=== PATIENT | male | born 1935 | race American Indian/Alaskan Native ===

== ENCOUNTER 2019-03-10 11:48 | Inpatient (IN) | payer MEDICARE, OTHER ==
--- NOTE | 2019-03-10 12:16 | Emergency Department Report ---
HPI - General Chief Complaint: Altered Mental Status Time Seen by Provider: 03/10/19 11:56 - HPI HPI: Room 1 The patient is an 84-year-old male presenting with chief complaint of altered mental status. Family states the patient was last observed behaving like his normal self 3 days ago (Saturday morning). Since that time the patient has been observed and progressively disoriented during things such as reading a book upside down and reaching for things that are not there. Patient does not verbalizes answer when asked if anything is bothering him he shakes his head no. Location: [See above] Duration: [See above] Quality: [See above] Severity: [See above] Timing: [See above] Context: [See above] Modifying factors: [See above] Associated signs and symptoms: [see above] ED Past Medical Hx - Past Medical History Hx Hypertension: Yes Hx Diabetes: Yes - Surgical History Past Surgical History?: No - Family History Family history: no significant - Social History Smoking Status: Unknown if ever smoked Substance Use Type: None ED Review of Systems ROS: Stated complaint: POSS STROKE Other details as noted in HPI Comment: Unobtainable due to pts medical conditions Physical Exam - Physical Exam Physical Exam: GENERAL: The patient is well-developed well-nourished male lying on stretcher nonverbal and not appearing to be in acute distress. [] HEENT: Normocephalic. Atraumatic. Extraocular motions are intact. Patient has moist mucous membranes. NECK: Supple. Trachea midline CHEST/LUNGS: Clear to auscultation. There is no respiratory distress noted. HEART/CARDIOVASCULAR: Regular. There is no tachycardia. There is no gallop rub or murmur. ABDOMEN: Abdomen is soft, nontender. Patient has normal bowel sounds. There is no abdominal distention. SKIN: There is no rash. There is no edema. There is no diaphoresis. NEURO: The patient is awake and alert but does not speak. Patient makes eye contact but does not answer questions verbally.. The patient is not cooperative with neurologic exam. The patient has no focal neurologic deficits. MUSCULOSKELETAL: There is no evidence of acute injury. ED Medical Decision Making - Lab Data Result diagrams: 03/10/19 12:17 Laboratory Tests 03/10/19 03/10/19 03/10/19 12:17 12:17 12:17 WBC RBC Hgb Hct MCV MCH MCHC RDW Plt Count Lymph % (Auto) Duval % (Auto) Eos % (Auto) Baso % (Auto) Lymph # Duval # Eos # Baso # Seg Neutrophils % Seg Neutrophils # PT 21.9 H INR 1.96 H APTT 27.8 Thrombin Time 25.2 H Sodium 137 Potassium 5.5 H Chloride 103.1 Carbon Dioxide 20 L Anion Gap 19 BUN 24 H Creatinine 1.5 Estimated GFR 45 BUN/Creatinine Ratio 16 Glucose 99 Calcium 9.6 Troponin T 0.076 H Triglycerides 140 Cholesterol 143 LDL Cholesterol Direct 69 HDL Cholesterol 62 H Cholesterol/HDL Ratio 2.30 03/10/19 13:55 WBC 9.3 RBC 4.87 Hgb 13.6 Hct 41.8 MCV 86 MCH 28 MCHC 33 RDW 17.8 H Plt Count 136 L Lymph % (Auto) 19.6 Duval % (Auto) 6.6 Eos % (Auto) 0.5 Baso % (Auto) 0.9 Lymph # 1.8 Duval # 0.6 Eos # 0.1 Baso # 0.1 Seg Neutrophils % 72.4 H Seg Neutrophils # 6.8 PT INR APTT Thrombin Time Sodium Potassium Chloride Carbon Dioxide Anion Gap BUN Creatinine Estimated GFR BUN/Creatinine Ratio Glucose Calcium Troponin T Triglycerides Cholesterol LDL Cholesterol Direct HDL Cholesterol Cholesterol/HDL Ratio - EKG Data -: EKG Interpreted by Nc EKG shows normal: sinus rhythm Rate: tachycardia (103 bpm) - EKG Data When compared to previous EKG there are: previous EKG unavailable Interpretation: other (PA-C) - Radiology Data Radiology results: report reviewed (CT head), image reviewed (CT head) [facility] [address] [place] [address] Cat Scan Report Signed Patient: PARVIN FRANKLIN MR#: [id number] : 1935 Acct:[id number] Age/Sex: 84 / M ADM Date: 03/10/19 Loc: ED Attending Dr: Ordering Physician: SHANELLE MARSHALL MD Date of Service: 03/10/19 Procedure(s): CT head/brain wo con Accession Number(s): [id number] cc: SHANELLE MARSHALL MD CT HEAD WITHOUT CONTRAST INDICATION / CLINICAL INFORMATION: MAIN: neuro deficits <6hrs or sx present upon awakening CODE STROKE [phone]. TECHNIQUE: All CT scans at this location are performed using CT dose reduction for ALARA by means of automated exposure control. COMPARISON: None available. FINDINGS: HEMORRHAGE: No evidence of intracranial hemorrhage or extra-axial fluid collection. EXTRA-AXIAL SPACES: Cortical sulci and sylvian fissures are enlarged reflecting a degree of parenchymal volume loss which is within normal limits for the patient's age. Basilar cisterns have an unremarkable appearance. VENTRICULAR SYSTEM: The third and lateral ventricles are enlarged reflecting resonance of age related parenchymal volume loss. CEREBRAL PARENCHYMA: Periventricular and deep white matter lucency is observed. This is probably secondary to microvascular ischemic change. There is no indication of recent infarction. No areas of encephalomalacia are identified. MIDLINE SHIFT OR HERNIATION: There is no mass effect. CEREBELLUM / BRAINSTEM: Brainstem and cerebellum have an unremarkable appearance. INTRACRANIAL VESSELS:Calcified atherosclerotic plaque is present along the course of the cavernous segments of both internal carotid arteries. Similar findings are seen at the distal vertebral arteries. ORBITS: visualized portions of the orbits have an unremarkable appearance. SOFT TISSUES of HEAD: No significant abnormality. CALVARIUM: Evaluation of bone windows reveals no abnormalities. PARANASAL SINUSES / MASTOID AIR CELLS: Paranasal sinuses are free from inflammatory mucosal disease. Mastoid air cells are normally pneumatized. IMPRESSION: 1. No acute intracranial abnormality. Code stroke patient: I discussed the findings of this study with Dr. Maher of the emergency department at about 1203 Central standard time. This study was available on the neuroradiology work list for less than 5 minutes prior to the called report. Signer Name: Zaheer Knott MD Signed: 03/10/2019 1:06 PM Workstation Name: [id number] Transcribed By: Dictated By: Zaheer Knott MD Electronically Authenticated By: Zaheer Knott MD Signed Date/Time: 03/10/19 1306 DD/ 1301 TD/TT: - Differential Diagnosis CVA, hypertensive emergency, intracranial hemorrhage Critical care attestation.: If time is entered above; I have spent that time in minutes in the direct care of this critically ill patient, excluding procedure time. ED Disposition Clinical Impression: Hypertensive emergency Altered mental status, unspecified Qualifiers: Altered mental status type: somnolence Qualified Code(s): R40.0 - Somnolence Disposition: DC-09 OP ADMIT IP TO THIS HOSP Is pt being admited?: Yes Condition: Serious Instructions: Hypertension (ED) Time of Disposition: 15:04 (hospitalist paged (Dr Alonzo))
--- NOTE | 2019-03-10 12:22 | Emergency Department Report ---
ED Neuro Deficit HPI - General Chief Complaint: Altered Mental Status Stated Complaint: POSS STROKE Time Seen by Provider: 03/10/19 11:56 Source: EMS Mode of arrival: Stretcher Limitations: Altered Mental Status - History of Present Illness Initial Comments: [facility] TeleNeurology Consult Services The patient was informed the neurology consult would happen via TeleHealth by way of interactive audio and visual telecommunications and consented to receiving care in this manner for acute stroke protocol. DATE: Mar 10 2019 Impression: AMS-pt with AMS for over 24 hours -certainly difficult to completely exclude stroke given that he is not back cooperative with examination, however his picture is much more of global weakness and lethargy possibly hypertensive emergency. With lower blood pressure to approximately the 190s systolic range to see if symptoms improve as right now he is in the 242-260 systolic range. Certainly needs toxic metabolic workup and consider stroke workup as well. Coags are still pending along with basic labs. Not a tpa candidate due to: Last known normal over 2 days ago Symptoms (not) consistent with LVO therefore no role for JOSH also has been symptomatic for several days Differential Diagnosis: Hypertensive emergency, toxic metabolic encephalopathy, stroke or seizure less likely but possible Comments: Last known normal Saturday door time 11:48 [facility] contacted: 11:42 [facility] at bedside: 11:45 NIHSS assessment time: 11:59 Recommendations: -coags pending on coumadin can give asa if INR less then 1.7 and no ICH on CT offical read -Gradual reduction in blood pressure to approximately 180-190 systolic range to see if this improves his marked encephalopathy given that exam is nonfocal -Toxic metabolic/stroke workup per primary neurology team Inpatient neurology consultation Inpatient stroke evaluation as per Neurology/ Internal Medicine Discussed with ED MD Please call with questions --------- CC altered mental status History of Present Illness Patient is a very pleasant 84-year-old gentleman with poorly controlled hypertension, diabetes, 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 He also has a history of dementia but is typically conversant and can ambulate with a walker or cane. Family noticed that he started behaving a little lethargic since Saturday and was clearly confused on Saturday holding a book upside down. He became nonverbal this morning for which they called 911. He has no prior history of stroke. Blood pressure 240-260 systolic. They say he can typically have very high blood pressure although this is higher than usual. The patient himself cannot provide any meaningful historical information and is significantly lethargic. Diagnostic: CT head without contrast no large scale acute changes per my review but official read is pending Exam: 1a- LOC:=2 1b- LOC questions: Answers netiehr =2 1c- LOC commands- Performs no task without repeated prompt pantomiming =2 2- Gaze: Normal; no gaze paresis or gaze deviation - 0 3- Visual Walsh: normal, no Visual field deficit - 0 4- Facial movements: no facial palsy - 0 5- Upper limb motor - =1+1=2 6- Lower limb motor - no drift - 0 =3+3=6absent ataxia - 0 8- Sensory : no sensory loss - 0 9- Language -=2 patient is still encephalopathic and possible to exclude aphasia 10- Speech =2 11- Neglect / Extinction - none found -0 NIHSS score 18 Exam is grossly nonfocal but significantly limited by altered mental status Medical Decision Making: - Extensive number of diagnosis or management options are considered above. - Extensive amount of complex data reviewed. - High risk of complication and/or morbidity or mortality are associated with differential diagnostic considerations above. - There may be Uncertain outcome and increased probability of prolonged functional impairment or high probability of severe prolonged functional impairment associated with some of these differential diagnosis. Medical Data Reviewed: 1.Data reviewed include clinical labs, radiology, Medical Tests; 2.Tests results discussed w/performing or interpreting physician; 3.Obtaining/reviewing old medical records; 4.Obtaining case history from another source; 5.Independent review of image, tracing or specimen. Patient was informed the Neurology Consult would happen via telehealth (remote video) and consented to receiving care in this manner. - Related Data Allergies/Adverse Reactions: Allergies Allergy/AdvReac Type Severity Reaction Status Date / Time No Known Allergies Allergy Unverified 03/10/19 11:50 ED Review of Systems ROS: Stated complaint: POSS STROKE Other details as noted in HPI ED Neuro Physical Exam - General Limitations: Altered Mental Status Suspected Stroke: Yes - NIHSS Assessment Interval: Baseline 1a. Level of Consciousness: resp stimuli/obtunded 1b. LOC Questions: answers no questions correctly 1c. LOC Commands: performs no tasks correctly 2. Best Gaze: normal 3. Visual: no visual loss 4. Facial Palsy: normal symmetrical movement 5b. Motor Arm Right: drift 5a. Motor Arm Left: drift 6a. Motor Leg Left: no gravity effort 6b. Motor Leg Right: no gravity effort 7. Limb Ataxia: absent 8. Sensory: normal 9. Best Language: severe aphasia 10. Dysarthria: severe dysarthria 11. Extinction/Inattention: no abnormality Total Score: 18 Stroke Severity: Moderate to Severe Stroke Critical care attestation.: If time is entered above; I have spent that time in minutes in the direct care of this critically ill patient, excluding procedure time. ED Disposition Clinical Impression: Altered mental status, unspecified Qualifiers: Altered mental status type: somnolence Qualified Code(s): R40.0 - Somnolence Disposition: DC-09 OP ADMIT IP TO THIS HOSP Is pt being admited?: Yes Condition: Stable
[2019-03-10] MEDS ORDERED: niCARdipine 50 MG in SODIUM CHLORIDE 0.9% 250ML 230 ML IV SCH (13:00)
[2019-03-10 13:03] LABS: INR 1.96 (0.87-1.13)
[2019-03-10 13:04] LABS: Partial Thromboplastin Time 27.8 Sec. (24.2-36.6)
[2019-03-10 13:05] LABS: Calcium 9.6 mg/dL (8.4-10.2)
--- NOTE | 2019-03-10 13:11 | Cat Scan Report ---
CT HEAD WITHOUT CONTRAST INDICATION / CLINICAL INFORMATION: MAIN: neuro deficits <6hrs or sx present upon awakening CODE STROKE [phone]. TECHNIQUE: All CT scans at this location are performed using CT dose reduction for ALARA by means of automated e xposure control. COMPARISON: None available. FINDINGS: HEMORRHAGE: No evidence of intracranial hemorrhage or extra-axial fluid collection. EXTRA-AXIAL SPACES: Cortical sulci and sylvian fissures are enlarged reflecting a degree of parenchym al volume loss which is within normal limits for the patient's age. Basilar cisterns have an unremark able appearance. VENTRICULAR SYSTEM: The third and lateral ventricles are enlarged reflecting resonance of age related parenchymal volume loss. CEREBRAL PARENCHYMA: Periventricular and deep white matter lucency is observed. This is probably seco ndary to microvascular ischemic change. There is no indication of recent infarction. No areas of ence phalomalacia are identified. MIDLINE SHIFT OR HERNIATION: There is no mass effect. CEREBELLUM / BRAINSTEM: Brainstem and cerebellum have an unremarkable appearance. INTRACRANIAL VESSELS:Calcified atherosclerotic plaque is present along the course of the cavernous se gments of both internal carotid arteries. Similar findings are seen at the distal vertebral arteries. ORBITS: visualized portions of the orbits have an unremarkable appearance. SOFT TISSUES of HEAD: No significant abnormality. CALVARIUM: Evaluation of bone windows reveals no abnormalities. PARANASAL SINUSES / MASTOID AIR CELLS: Paranasal sinuses are free from inflammatory mucosal disease. Mastoid air cells are normally pneumatized. IMPRESSION: 1. No acute intracranial abnormality. Code stroke patient: I discussed the findings of this study with Dr. Maher of the emergency department at about 1203 Central standard time. This study was available on the neuroradiology work list for le ss than 5 minutes prior to the called report. Signer Name: Zaheer Knott MD Signed: 03/10/2019 1:06 PM Workstation Name: [id number]
[2019-03-10 13:59] LABS: Chol/HDL Ratio 2.3 %
[2019-03-10 14:38] LABS: Basophils # (Auto) 0.1 K/mm3 (0.0-0.1); Basophils % (Auto) 0.9 % (0.0-1.8); Eosinophils # (Auto) 0.1 K/mm3 (0.0-0.4); Eosinophils % (Auto) 0.5 % (0.0-4.3); Hematocrit 41.8 % (35.5-45.6); Hemoglobin 13.6 gm/dl (11.8-15.2); Lymphocytes # (Auto) 1.8 K/mm3 (1.2-5.4); Lymphocytes % (Auto) 19.6 % (13.4-35.0); Mean Corpuscular HGB Conc 33 % (32-34); Mean Corpuscular Volume 86 fl (84-94); Monocytes # (Auto) 0.6 K/mm3 (0.0-0.8); Monocytes % (Auto) 6.6 % (0.0-7.3); Red Blood Count 4.87 M/mm3 (3.65-5.03); Red Cell Distribution Width 17.8 % (13.2-15.2)
[2019-03-10 14:47] LABS: Platelet Count 136 K/mm3 (140-440)
--- NOTE | 2019-03-10 15:45 | History and Physical Report ---
History of Present Illness Chief complaint: He is not acting right History of present illness: 84 YO Male with HTN, DM, Dementia presents to ED for evaluation. Pt is confused, and nonverbal and unable to provide history. Pt history provided by daughter who is at bedside during exam and interview. As per daughter, the patient was in his usual state of health until 3 days ago. Pt awoke from sleep on saturday morning was was noticed to be confused, reaching to objects that were not there, and unable to speak. Pt symptoms have progressed over the ensuing days, and the patient is now confused, nonambulatory, and unable to speak, and exhibits arm and leg weakness. EMS notified, and upon arrival the patient found to have neurologic deficit. A code stroke was called and the patient transported to [facility]. Pt seen and evaluated in ED and found to have symptoms consistent with CVA, as well as Encephalopathy. Teleneurology consulted. Pt deemed not to be a candidate for TPA. Pt admitted to telemetry and initiated on CVA protocol. No prior admissions for review. All listed medication reconciled at time of admission. Past History Past Medical History: diabetes, hypertension Past Surgical History: No surgical history, Other (reviewed) Social history: , lives with family. denies: smoking, alcohol abuse, prescription drug abuse Family history: diabetes, hypertension Medications and Allergies Allergies Allergy/AdvReac Type Severity Reaction Status Date / Time No Known Allergies Allergy Unverified 03/10/19 11:50 Active Meds: Active Medications Nicardipine HCl 50 mg/ Sodium (Chloride) 250 mls @ 25 mls/hr IV TITR TAMMIE; Protocol Last Titration: 03/10/19 13:46 Dose: 7.5 mg/hr, 37.5 mls/hr Documented by: Review of Systems ROS unobtainable: due to mental status Constitutional: no weight loss Exam - Constitutional Vitals: Temp Pulse Resp BP Pulse Ox 87 16 187/75 92 03/10/19 14:29 03/10/19 14:29 03/10/19 14:29 03/10/19 14:29 General appearance: Present: mild distress - EENT Eyes: Present: PERRL ENT: hearing intact, clear oral mucosa - Neck Neck: Present: supple, normal ROM - Respiratory Respiratory effort: normal Respiratory: bilateral: CTA - Cardiovascular Heart Sounds: Present: S1 & S2. Absent: rub, click - Extremities Extremities: pulses symmetrical, No edema Peripheral Pulses: within normal limits - Abdominal General gastrointestinal: Present: soft, non-tender, non-distended, normal bowel sounds Male genitourinary: Present: normal - Integumentary Integumentary: Present: clear, warm, dry - Musculoskeletal Musculoskeletal: generalized weakness - Psychiatric Psychiatric: no appropriate mood/affect, no intact judgment & insight, no memory intact - Neurologic Neurologic: moves all extremities, no gait normal Results - Labs CBC & Chem 7: 03/10/19 13:55 03/10/19 12:17 Labs: Abnormal lab results 03/10/19 03/10/19 03/10/19 Range/Units 12:17 12:17 12:17 RDW (13.2-15.2) % Plt Count (140-440) K/mm3 Seg Neutrophils % (40.0-70.0) % PT 21.9 H (12.2-14.9) Sec. INR 1.96 H (0.87-1.13) Thrombin Time 25.2 H (15.1-19.6) Sec. Potassium 5.5 H (3.6-5.0) mmol/L Carbon Dioxide 20 L (22-30) mmol/L BUN 24 H (9-20) mg/dL Troponin T 0.076 H (0.00-0.029) ng/mL HDL Cholesterol 62 H (40-59) mg/dL 03/10/19 Range/Units 13:55 RDW 17.8 H (13.2-15.2) % Plt Count 136 L (140-440) K/mm3 Seg Neutrophils % 72.4 H (40.0-70.0) % PT (12.2-14.9) Sec. INR (0.87-1.13) Thrombin Time (15.1-19.6) Sec. Potassium (3.6-5.0) mmol/L Carbon Dioxide (22-30) mmol/L BUN (9-20) mg/dL Troponin T (0.00-0.029) ng/mL HDL Cholesterol (40-59) mg/dL Assessment and Plan - Patient Problems (1) CVA (cerebral vascular accident) Current Visit: Yes Status: Acute Qualifiers: Laterality of affected vessel: unspecified Plan to address problem: CVA Protocol: Admit to telemetry, Neurology consulted, CT Head, Echo, Carotid doppler, PT/OT/Speech therapy, lipid panel, statin therapy, neuro checks, further testing as per neurology. (2) Encephalopathy Current Visit: Yes Status: Acute Plan to address problem: CT Head, Neuro Check, seizure precautions, (3) Hypertensive urgency, malignant Current Visit: Yes Status: Acute Plan to address problem: monitor bp q shift, Permissive hypertension overnight. Goal systolic between 165-185. (4) Diabetes Current Visit: Yes Status: Acute Plan to address problem: ADA diet, insulin, accu check (5) DVT prophylaxis Current Visit: Yes Status: Acute Plan to address problem: SCD to BLE while in bed,
[2019-03-10] MEDS ORDERED: HALOPERIDOL LACTATE 5 MG/1 ML INJ IM ONE (15:47)
[2019-03-10] MEDS ORDERED: LORazepam 2 MG/ML VIAL IM ONE (16:19)
[2019-03-10] MEDS ORDERED: ACETAMINOPHEN 325 MG TAB PO PRN (16:25)
[2019-03-10] MEDS ORDERED: PROMETHAZINE 25 MG RECT SUPP PR PRN (16:25)
[2019-03-10] MEDS ORDERED: ONDANSETRON 4 MG/2 ML INJ IV PRN (16:25)
[2019-03-10] MEDS ORDERED: METOCLOPRAMIDE 10 MG TAB PO PRN (16:25)
[2019-03-10] MEDS: LORazepam 2 MG/ML VIAL IV PRN ×2 (16:36→23:18)
[2019-03-10] MEDS ORDERED: LORazepam 2 MG/ML VIAL ONE (18:38)
[2019-03-11] MEDS: LORazepam 2 MG/ML VIAL IV PRN ×3 (04:16→21:01)
[2019-03-11] MEDS: hydrALAZINE 20 MG/1 ML INJ IV PRN ×3 (05:15→21:01)
[2019-03-11] MEDS: ASPIRIN 325 MG TAB PO SCH (10:25)
--- NOTE | 2019-03-11 10:37 | Vascular Lab Report ---
BILATERAL CAROTID DOPPLER ULTRASOUND INDICATION : stroke TECHNIQUE: Grayscale and color Doppler imaging performed through the neck. COMPARISON: None FINDINGS: Right: There is no significant atherosclerotic disease. Peak systolic velocity in the CCA is 113 cm /s with end-diastolic velocity of 16 cm/s. Peak systolic velocity in the proximal ICA is 93 cm/s with end-diastolic velocity of 17 cm/s. ICA to CCA ratio is less than 2. There is antegrade flow in the ECA and the vertebral artery. Left: There is no significant atherosclerotic disease. Peak systolic velocity in the CCA is 86 cm/s w ith end-diastolic velocity of 15 cm/s. Peak systolic velocity in the proximal ICA is 101 cm/s with en d-diastolic velocity of 24 cm/s. ICA to CCA ratio is less than 2. There is antegrade flow in the ECA and the vertebral artery. IMPRESSION: No hemodynamically significant stenosis by NASCET criteria. Signer Name: Júnior Lucia Jr, MD Signed: 03/11/2019 10:32 AM Workstation Name: [id number]
--- NOTE | 2019-03-11 14:07 | Progress Note ---
Assessment and Plan Assessment and plan: Acute CVA. Follow-up echocardiogram and carotid Dopplers. PT/OT/ST. Neurology consultation pending. Acute encephalopathy. Etiology secondary to above. Continue to treat underlying causes. Accelerated hypertension. Continue antihypertensive medications. Diabetes mellitus type 2. Continue Accu-Cheks and sliding scale insulin. History Interval history: No new issues overnight. Hospitalist Physical - Constitutional Vitals: Temp Pulse Resp BP Pulse Ox 97.6 F 100 H 18 240/120 100 03/11/19 06:39 03/11/19 12:01 03/11/19 08:00 03/11/19 12:01 03/11/19 06:37 General appearance: Present: mild distress - EENT Eyes: Present: PERRL, EOM intact ENT: hearing intact, clear oral mucosa, dentition normal - Neck Neck: Present: supple, normal ROM - Respiratory Respiratory effort: normal Respiratory: bilateral: CTA - Cardiovascular Rhythm: regular Heart Sounds: Present: S1 & S2. Absent: gallop, rub - Extremities Extremities: no ischemia, No edema, Full ROM - Abdominal General gastrointestinal: soft, non-tender, non-distended, normal bowel sounds - Integumentary Integumentary: Present: clear, warm, dry - Neurologic Neurologic: CNII-XII intact, moves all extremities Results - Labs CBC & Chem 7: 03/10/19 13:55 03/10/19 12:17 Labs: Laboratory Last Values WBC 9.3 K/mm3 (4.5-11.0) 03/10/19 13:55 RBC 4.87 M/mm3 (3.65-5.03) 03/10/19 13:55 Hgb 13.6 gm/dl (11.8-15.2) 03/10/19 13:55 Hct 41.8 % (35.5-45.6) 03/10/19 13:55 MCV 86 fl (84-94) 03/10/19 13:55 MCH 28 pg (28-32) 03/10/19 13:55 MCHC 33 % (32-34) 03/10/19 13:55 RDW 17.8 % (13.2-15.2) H 03/10/19 13:55 Plt Count 136 K/mm3 (140-440) L 03/10/19 13:55 Lymph % (Auto) 19.6 % (13.4-35.0) 03/10/19 13:55 [place] % (Auto) 6.6 % (0.0-7.3) 03/10/19 13:55 Eos % (Auto) 0.5 % (0.0-4.3) 03/10/19 13:55 Baso % (Auto) 0.9 % (0.0-1.8) 03/10/19 13:55 Lymph # 1.8 K/mm3 (1.2-5.4) 03/10/19 13:55 [place] # 0.6 K/mm3 (0.0-0.8) 03/10/19 13:55 Eos # 0.1 K/mm3 (0.0-0.4) 03/10/19 13:55 Baso # 0.1 K/mm3 (0.0-0.1) 03/10/19 13:55 Seg Neutrophils % 72.4 % (40.0-70.0) H 03/10/19 13:55 Seg Neutrophils # 6.8 K/mm3 (1.8-7.7) 03/10/19 13:55 PT 21.9 Sec. (12.2-14.9) H 03/10/19 12:17 INR 1.96 (0.87-1.13) H 03/10/19 12:17 APTT 27.8 Sec. (24.2-36.6) 03/10/19 12:17 25.2 Sec. (15.1-19.6) H 03/10/19 12:17 Sodium 137 mmol/L (137-145) 03/10/19 12:17 Potassium 5.5 mmol/L (3.6-5.0) H 03/10/19 12:17 Chloride 103.1 mmol/L (98-107) 03/10/19 12:17 Carbon Dioxide 20 mmol/L (22-30) L 03/10/19 12:17 19 mmol/L 03/10/19 12:17 BUN 24 mg/dL (9-20) H 03/10/19 12:17 1.5 mg/dL (0.8-1.5) 03/10/19 12:17 Estimated GFR 45 ml/min 03/10/19 12:17 16 % 03/10/19 12:17 Glucose 99 mg/dL (75-100) 03/10/19 12:17 POC Glucose 112 (70-105) H 03/11/19 12:23 Calcium 9.6 mg/dL (8.4-10.2) 03/10/19 12:17 0.076 ng/mL (0.00-0.029) H 03/10/19 12:17 Triglycerides 140 mg/dL (2-149) 03/10/19 12:17 Cholesterol 143 mg/dL (50-199) 03/10/19 12:17 69 mg/dL (50-130) 03/10/19 12:17 62 mg/dL (40-59) H 03/10/19 12:17 2.30 % 03/10/19 12:17 Active Medications - Current Medications Current Medications: Generic Name Dose Route Start Last Admin Trade Name Freq PRN Reason Stop Dose Admin Acetaminophen 650 mg 03/10/19 16:25 Tylenol PO Q4H PRN Pain, Mild (1-3) Aspirin 325 mg 03/11/19 10:00 03/11/19 10:25 Aspirin PO Not Given QDAY [facility] Atorvastatin Calcium 40 mg 03/10/19 22:00 03/10/19 22:57 Lipitor PO Not Given QHS TAMMIE Bisacodyl 10 mg 03/10/19 16:[address] QDAY PRN Constipation Hydralazine HCl 10 mg 03/11/19 04:54 03/11/19 12:01 Apresoline IV 10 mg Q8HR PRN Administration Hypertension Lorazepam 2 mg 03/10/19 18:36 03/11/19 08:00 Ativan IV 2 mg Q4H PRN Administration Agitation Magnesium Hydroxide 30 ml 03/10/19 16:25 Milk Of Magnesia PO Q4H PRN Constipation Metoclopramide HCl 10 mg 03/10/19 16:25 Reglan PO Q6H PRN Nausea And Vomiting Ondansetron HCl 4 mg 03/10/19 16:25 Zofran IV Q8H PRN Nausea And Vomiting Promethazine HCl 25 mg 03/10/19 16:[address] Q6H PRN Nausea And Vomiting Sodium Chloride 10 ml 03/10/19 16:25 03/11/19 05:16 Sodium Chloride Flush Syringe 10 Ml IV 10 ml PRN PRN Administration LINE FLUSH Nutrition/Malnutrition Assess - Dietary Evaluation Nutrition/Malnutrition Findings: Nutrition Notes Start: 03/11/19 12:57 Freq: Status: Active Protocol: Document 03/11/19 12:57 FRANKY (Rec: 03/11/19 13:36 FRANKY [id number]) Co-Sign 03/11/19 12:57 LP Nutrition Notes Need for Assessment generated from: [facility] Initial or Follow up Assessment Current Diagnosis Diabetes,Hypertension Other Pertinent Diagnosis 2+ pitting edema Current Diet NPO Labs/Tests K 5.5, POC glu 132, BUN 24 Pertinent Medications Zofran, Lipitor Height 5 ft 10 in Weight 84.5 kg [place] Body Weight (kg) 75.45 BMI 26.7 Subjective/Other Information Pt had very slight temporal wasting. Pt was asleep when I came in. Burn Absent Trauma Absent Minimum of two criteria No #1 Nutrition Diagnosis Predicted suboptimal energy intake Etiology Dementia, encephalopathy As Evidenced by Signs and Symptoms Very slight temporal wasting and unable to obtain nutriton hx Is patient on ventilator? No Is Patient Ambulatory and/or Out of Bed Yes REE-([facility]-ambulatory/OOB) [ 2010.125 NUTR.MSJOOB] Calculation Used for Recommendations [facility] Additional Notes Protein needs: 84-101g/kg (1.0 -1.2g/kg) Fluid needs: 1ml/kcal Nutrition Intervention Change Diet Order: Advance as feasible Add Supplement/Snack (indicate name/kcal Glucerna daily once diet /protein ) advanced Provides kCal: 220 Provides Protein (gm) 10 Goal #1 Diet advancement Anticipated Discharge Needs: Consistant carbohydrate diet Follow-Up By: 03/13/19 Additional Comments Diet advancement/intakes
--- NOTE | 2019-03-11 16:39 | Consultation ---
Past History Past Medical History: diabetes, hypertension Past Surgical History: No surgical history, Other (reviewed) Social history: , lives with family. denies: smoking, alcohol abuse, p rescription drug abuse Family history: diabetes, hypertension Medications and Allergies Allergies Allergy/AdvReac Type Severity Reaction Status Date / Time No Known Allergies Allergy Unverified 03/10/19 11:50 Active Meds: Active Medications Acetaminophen (Tylenol) 650 mg PO Q4H PRN PRN Reason: Pain, Mild (1-3) Aspirin (Aspirin) 325 mg PO QDAY [facility] Last Admin: 03/11/19 10:25 Dose: Not Given Documented by: Atorvastatin Calcium (Lipitor) 40 mg PO QHS [facility] Last Admin: 03/10/19 22:57 Dose: Not Given Documented by: Bisacodyl (Dulcolax) 10 mg ND QDAY PRN PRN Reason: Constipation Hydralazine HCl (Apresoline) 10 mg IV Q8HR PRN PRN Reason: Hypertension Last Admin: 03/11/19 12:01 Dose: 10 mg Documented by: Lorazepam (Ativan) 2 mg IV Q4H PRN PRN Reason: Agitation Last Admin: 03/11/19 08:00 Dose: 2 mg Documented by: Magnesium Hydroxide (Milk Of Magnesia) 30 ml PO Q4H PRN PRN Reason: Constipation Metoclopramide HCl (Reglan) 10 mg PO Q6H PRN PRN Reason: Nausea And Vomiting Ondansetron HCl (Zofran) 4 mg IV Q8H PRN PRN Reason: Nausea And Vomiting Promethazine HCl (Phenergan) 25 mg ND Q6H PRN PRN Reason: Nausea And Vomiting Sodium Chloride (Sodium Chloride Flush Syringe 10 Ml) 10 ml IV PRN PRN PRN Reason: LINE FLUSH Last Admin: 03/11/19 05:16 Dose: 10 ml Documented by: Physical Examination - Vital Signs Vital Signs: Vital Signs Resp Pulse Ox 20 97 03/10/19 12:34 03/10/19 12:34 Results - Laboratory Findings CBC and BMP: 03/10/19 13:55 03/10/19 12:17 Abnormal Lab Findings: Abnormal Labs 03/10/19 03/10/19 03/10/19 12:17 12:17 12:17 RDW Plt Count Seg Neutrophils % PT 21.9 H INR 1.96 H Thrombin Time 25.2 H Potassium 5.5 H Carbon Dioxide 20 L BUN 24 H POC Glucose Troponin T 0.076 H HDL Cholesterol 62 H 03/10/19 03/10/19 03/10/19 13:55 15:56 21:51 RDW 17.8 H Plt Count 136 L Seg Neutrophils % 72.4 H PT INR Thrombin Time Potassium Carbon Dioxide BUN POC Glucose 112 H 132 H Troponin T HDL Cholesterol 03/11/19 03/11/19 08:15 12:23 RDW Plt Count Seg Neutrophils % PT INR Thrombin Time Potassium Carbon Dioxide BUN POC Glucose 107 H 112 H Troponin T HDL Cholesterol Assessment and Plan 84 YR OLD MALE WITH HIST OF HTN,DM AND QUESTIONABLE DEMENTIA WHO LIOVES WITH HIS GRAND DAUGHTER AND IS AMBULATORY WITHOUT ANY ASSISTIVE DEVICE AT HOME AND USES A QUAD CANE WHEN GOES OUT.PATIENT WAS IN HIS USUAL STATE OF HEALTH ON UNTIL MORNING WHEN FAMILY MEM[facility]ERS NOTICED SOME CHANGE IN HIS MENTAL STATUS THAT HE WAS NOT TALKING MUCH. HE DID NOT DEVELOPE ANY ACUTE PROBLEM UP UNTIL THE MORNING OF 03/10/2014 WHICH WAS PRECEDED BY ONE DAY OF NOT EATING AND NOT DRINKING. PATIENT WAS NOT TALKING AND NOT ANSWERING QUESTIONS WHEN GRAND DAUGHTER CALLED EMS. BEACAUSE OF GENERALISED WEAKNESS A CODE STROKE WAS CALLED.PATIENT WAS BROUGHT TO ER,TELE NEUROLOGIST WAS CONSULTED AND PT. WAS NOT FOUND TO BE A TPA CANDIDATE.WORK UP IN CLUDING CT SCAN OF THE BRAIN DID NOT SHOW ANY HEMORRHAGE OR ANY ACUTE INFACRT, IT SHOWED CHRONIC SMALL VESSEL ISCHAEMIC CHANGES IN STUART VENTRICULAR WHITE MATTER. 2D ECHO AND CT ANGIOGRAM DID NOT SHOW ANY SIGNIFICANT ABNORMALITIES. LAB SHOWED EVIDENCE OF DEHYDRATION AND SOME ELECTROLYTE ABNORMALITY,TROPONIN WAS ELEVATED AGAINST A NORMAL CREATININE.WBS SHOWED INCREASED NEUTROPHIL PERCENT AGAINST A NORMAL WBC RANGE. PHYSICAL EXAMINATION= PATIENT IS VERBALLY UNRESPONSIVE. RESPONDS TO PAINFUL STIMULI BY FACIAL GRIMACING.PUPILS REACT TO LIGHT,HOWEVER SEEMS TO HAVE PHOTOPHOBIA HE TRIES TO CLOSE EYES ON LIGHT EXPOSURE.NO FACIAL ASYMMETRY.OTHER CRANIAL NERVES SEEM TO BE WITH IN NORMAL LIMIT WITH IN LIMITATION OF EXAMINATION. MOVES BOTH LOWER EXTREMITIES MUCH MORE THAN BOTH UPPER EXTREMITIES,ALTHOUGH MOVES ALL FOUR EXTREMITIES. REFLEXES DO NOT SHOW ANY ASYMMETRY WITH BILATERAL DOWN GOING TOES.SENSORY IS GROSSLY WITH IN NORMAL LIMITWITH IN LIMITATION OF EXAMINATION. IMPRESSION. 1. PATIENT DOES NOT SEEM TO HAVE STROKE WITH BILATERAL DOWN GOING TOES AND WITH OUT ANY ASYMMETRY OF REFLEXES. 2. PATIENT HAS ALTERED MENTAL STATUS FROM DEHYDRATION AND ALSO PROBABLE INFECTION SUCH UTI,MAY ALSO HAVE CARDIAC EVENT WITH ELEVATED TROPONIN 3. NEED TO RULE OUT MENINGITIS,PARTICULARLY IN THE ELDERLY WHERE MENINGITIS IS NOT ALWAYS ASSOCIATED WITH INCREASED WBC COUNT. RECOMMEND 1. ADEQUATE HYDRATION, UA, LOOK FOR SOURCE OF INFECTION. 2. ANTIBIOTICS FOR PROBABLE MENINGITIS, CEFTRIAXONE,VANCOMYCIN,AMPICILLIN TO COVER ALL POSSIBLE BUGS AND ACYCLOVIR FOR HERPES SIMPLEX COVERAGE. 3. LP UNDER FLUOROSCOPY TO CHECK CSF ,PROTEIN,GLUCOSE,CELL COUNT WITH DIFFRENTIAL,VIRAL TITER. 4. IF CSF DOES NOT SHOW EVIDENCE OF MENINGITIS ANTIBIOTICS AND ACYCLOVIR MAY BE DISCONTINUES
[2019-03-12] MEDS: LORazepam 2 MG/ML VIAL IV PRN ×2 (01:59→04:41)
[2019-03-12] MEDS: hydrALAZINE 20 MG/1 ML INJ IV PRN ×2 (04:13→17:42)
[2019-03-12] MEDS: ASPIRIN 325 MG TAB PO SCH (09:59)
[2019-03-12] MEDS ORDERED: cefTRIAXone/NS 2 GM/100 ML 2 GM/100 ML BAG IV SCH (10:30)
[2019-03-12] MEDS ORDERED: AMPICILLIN 1 GM in SODIUM CHLORIDE 0.9% 50 ML IV SCH (10:30)
[2019-03-12] MEDS: AMPICILLIN/NS 1 GM/50 ML 1 GM/50 ML BAG IV SCH ×4 (10:39→21:30)
--- NOTE | 2019-03-12 11:37 | Consultation ---
History of Present Illness - Reason for Consult Consult date: 03/12/19 - History of Present Illness 84 yo M PMHx HTN, DM2, ? dementia admitted with altered mental status. He normally lives at home with his granddaughter and is fairly independent with his activities of daily living. He ambulates with minimal assistance. He was noted to be in his normal health until 03/07 when he was found to have decreased verbalization. This continued until 03/10 with decreased PO intake and further worsening mental status, and as such a code stroke was called. In the ER imaging was not indicative of an acute CVA (chronic small ischemia seen). Due to his non-responsiveness I obtained the history from his daughter. She notes that he became incontinent at home several times, and while here she requested a diaper be placed on him as he was wetting the bed. He was admitted to [facility] a few months ago for a UTi, which presented with dysuria then. Daughter denies any complaints of dysuria during this admission. She does not he complained of neck and back pain. Afebrile since admission with a normal white count (with neutrophilia). Currently receiving ceftriaxone and ampicillin. No cultures have been obtained as yet. His INR is elevated at 1.9. Imaging personally reviewed: 03/10 CT head: no acute abnormality. Past History Past Medical History: diabetes, hypertension Past Surgical History: No surgical history, Other (reviewed) Social history: , lives with family. denies: smoking, alcohol abuse, prescription drug abuse Family history: diabetes, hypertension Medications and Allergies Allergies Allergy/AdvReac Type Severity Reaction Status Date / Time No Known Allergies Allergy Unverified 03/10/19 11:50 Active Meds: Active Medications Acetaminophen (Tylenol) 650 mg PO Q4H PRN PRN Reason: Pain, Mild (1-3) Aspirin (Aspirin) 325 mg PO QDAY [facility] Last Admin: 03/12/19 09:59 Dose: Not Given Documented by: Atorvastatin Calcium (Lipitor) 40 mg PO QHS [facility] Last Admin: 03/11/19 23:14 Dose: Not Given Documented by: Bisacodyl (Dulcolax) 10 mg SD QDAY PRN PRN Reason: Constipation Hydralazine HCl (Apresoline) 10 mg IV Q8HR PRN PRN Reason: Hypertension Last Admin: 03/12/19 04:13 Dose: 10 mg Documented by: Ceftriaxone Sodium (Rocephin/Ns 2 Gm/100 Ml) 2 gm in 100 mls @ 200 mls/hr IV Q24HR TAMMIE; Protocol Last Admin: 03/12/19 10:39 Dose: 200 mls/hr Documented by: Ampicillin Sodium (Ampicillin/Ns 1 Gm/50 Ml) 1 gm in 50 mls @ 100 mls/hr IV Q4HR TAMMIE Last Admin: 03/12/19 10:39 Dose: 100 mls/hr Documented by: Lorazepam (Ativan) 2 mg IV Q4H PRN PRN Reason: Agitation Last Admin: 03/12/19 04:41 Dose: 2 mg Documented by: Magnesium Hydroxide (Milk Of Magnesia) 30 ml PO Q4H PRN PRN Reason: Constipation Metoclopramide HCl (Reglan) 10 mg PO Q6H PRN PRN Reason: Nausea And Vomiting Ondansetron HCl (Zofran) 4 mg IV Q8H PRN PRN Reason: Nausea And Vomiting Promethazine HCl (Phenergan) 25 mg SD Q6H PRN PRN Reason: Nausea And Vomiting Sodium Chloride (Sodium Chloride Flush Syringe 10 Ml) 10 ml IV PRN PRN PRN Reason: LINE FLUSH Last Admin: 03/12/19 04:48 Dose: 10 ml Documented by: Physical Examination - Physical Exam Narrative exam: Physical Exam: Constitutional: Non-responsive Head, Ears, Nose: Normocephalic, atraumatic. External ears, nose normal Eyes: Conjunctivae/corneas clear. No icterus. No ptosis. Neck: Supple, no meningeal signs on passive movement of neck. Oral: dentition fair, no thrush Cardiovascular: S1, S2 normal. Respiratory: Good air entry, clear to auscultation bilaterally GI: Soft, non-tender; bowel sounds normal. No peritoneal signs. Musculoskeletal: No pedal edema, no cyanosis. Skin: No rash or abscess Hem/Lymphatic: No palpable cervical or supraclavicular nodes. No lymphangitis Neurological: Non-responsive - Constitutional Vitals: Vital Signs Temp Pulse Resp BP Pulse Ox 97.4 F L 90 20 223/115 96 03/12/19 03:34 03/12/19 04:13 03/12/19 03:34 03/12/19 04:13 03/12/19 03:34 Temperature -Last 24 Hours Temperature 97.4 F Temperature 98.2 F Temperature 97.5 F Temperature 97.6 F Results - Labs CBC & Chem 7: 03/10/19 13:55 03/10/19 12:17 Labs: Abnormal lab results 03/11/19 03/11/19 03/11/19 Range/Units 12:23 16:42 21:09 POC Glucose 112 H 121 H 116 H (70-105) 03/12/19 Range/Units 07:34 POC Glucose 119 H (70-105) - Imaging and Cardiology CT Scan - head: image reviewed Assessment and Plan Cultures: 03/12 UCx: pending A/P: 84 yo M PMHx HTN, DM2, ? dementia admitted with AMS 1. Altered mental status - unclear etiology as yet. Meningitis vs UTI vs non- infectious cause. Will check urine studies via straight cath. Would like LP to be performed when INR at a suitable range (patient is now off his anticoagulati on). No meningeal signs on passive movement of his neck, however he complained of neck stiffness. 2. Malignant hypertension - CTHead normal, may need MRI if feasbile to evaluate for end-organ disease 3. DM2 - hyperglycemic, likely impairing immune function 4. Dementia Recs: - discussed with nursing to obtain urinalysis and urine culture via straight cath (ordered) - increase ceftriaxone to 2g q12h for meningitis dosing - ordered repeat INR (needs to be <1.5 for IR guided LP) - please order LP when INR suitable with analysis and culture - continue ampicillin Thank you for the consult, we will continue to follow. MD Funmilayo [facility] M: [phone] O: [phone] F: [phone]
[2019-03-12 15:11] LABS: Bacteria,Urine 1+ /HPF (Negative); Bilirubin,Urine NEG (Negative); Blood,Urine SM (Negative); Color,Urine Yellow (Yellow); Mucus,Urine FEW /HPF; Urobilinogen,Urine < 2.0 mg/dL (<2.0)
[2019-03-12 15:14] LABS: Protein,Urine >2000 mg dL mg/dL (Negative)
--- NOTE | 2019-03-12 17:13 | Progress Note ---
Assessment and Plan Assessment and plan: Acute encephalopathy. Etiology unclear. Continue to treat for infectious etiology. U/A is negative. Await normalization of INR for potential LP. Cont. Abx Accelerated hypertension. Continue antihypertensive medications. Diabetes mellitus type 2. Continue Accu-Cheks and sliding scale insulin. History Interval history: No new issues overnight. Hospitalist Physical - Constitutional Vitals: Temp Pulse Resp BP Pulse Ox 97.4 F L 87 20 223/115 96 03/12/19 03:34 03/12/19 10:00 03/12/19 03:34 03/12/19 04:13 03/12/19 03:34 General appearance: Present: mild distress - EENT Eyes: Present: PERRL, EOM intact ENT: hearing intact, clear oral mucosa, dentition normal - Neck Neck: Present: supple, normal ROM - Respiratory Respiratory effort: normal Respiratory: bilateral: CTA - Cardiovascular Rhythm: regular Heart Sounds: Present: S1 & S2. Absent: gallop, rub - Extremities Extremities: no ischemia, No edema, Full ROM - Abdominal General gastrointestinal: soft, non-tender, non-distended, normal bowel sounds - Integumentary Integumentary: Present: clear, warm, dry - Neurologic Neurologic: CNII-XII intact, moves all extremities Results - Labs CBC & Chem 7: 03/10/19 13:55 03/10/19 12:17 Labs: Laboratory Last Values WBC 9.3 K/mm3 (4.5-11.0) 03/10/19 13:55 RBC 4.87 M/mm3 (3.65-5.03) 03/10/19 13:55 Hgb 13.6 gm/dl (11.8-15.2) 03/10/19 13:55 Hct 41.8 % (35.5-45.6) 03/10/19 13:55 MCV 86 fl (84-94) 03/10/19 13:55 MCH 28 pg (28-32) 03/10/19 13:55 MCHC 33 % (32-34) 03/10/19 13:55 RDW 17.8 % (13.2-15.2) H 03/10/19 13:55 Plt Count 136 K/mm3 (140-440) L 03/10/19 13:55 Lymph % (Auto) 19.6 % (13.4-35.0) 03/10/19 13:55 [place] % (Auto) 6.6 % (0.0-7.3) 03/10/19 13:55 Eos % (Auto) 0.5 % (0.0-4.3) 03/10/19 13:55 Baso % (Auto) 0.9 % (0.0-1.8) 03/10/19 13:55 Lymph # 1.8 K/mm3 (1.2-5.4) 03/10/19 13:55 [place] # 0.6 K/mm3 (0.0-0.8) 03/10/19 13:55 Eos # 0.1 K/mm3 (0.0-0.4) 03/10/19 13:55 Baso # 0.1 K/mm3 (0.0-0.1) 03/10/19 13:55 Seg Neutrophils % 72.4 % (40.0-70.0) H 03/10/19 13:55 Seg Neutrophils # 6.8 K/mm3 (1.8-7.7) 03/10/19 13:55 PT 21.9 Sec. (12.2-14.9) H 03/10/19 12:17 INR 1.96 (0.87-1.13) H 03/10/19 12:17 APTT 27.8 Sec. (24.2-36.6) 03/10/19 12:17 25.2 Sec. (15.1-19.6) H 03/10/19 12:17 Sodium 137 mmol/L (137-145) 03/10/19 12:17 Potassium 5.5 mmol/L (3.6-5.0) H 03/10/19 12:17 Chloride 103.1 mmol/L (98-107) 03/10/19 12:17 Carbon Dioxide 20 mmol/L (22-30) L 03/10/19 12:17 19 mmol/L 03/10/19 12:17 BUN 24 mg/dL (9-20) H 03/10/19 12:17 1.5 mg/dL (0.8-1.5) 03/10/19 12:17 Estimated GFR 45 ml/min 03/10/19 12:17 16 % 03/10/19 12:17 Glucose 99 mg/dL (75-100) 03/10/19 12:17 POC Glucose 175 (70-105) H 03/12/19 12:25 Calcium 9.6 mg/dL (8.4-10.2) 03/10/19 12:17 0.076 ng/mL (0.00-0.029) H 03/10/19 12:17 Triglycerides 140 mg/dL (2-149) 03/10/19 12:17 Cholesterol 143 mg/dL (50-199) 03/10/19 12:17 69 mg/dL (50-130) 03/10/19 12:17 62 mg/dL (40-59) H 03/10/19 12:17 2.30 % 03/10/19 12:17 Yellow (Yellow) 03/12/19 14:38 Slightly-cloudy (Clear) 03/12/19 14:38 5.0 (5.0-7.0) 03/12/19 14:38 Ur Specific [place] 1.019 (1.003-1.030) 03/12/19 14:38 >2000 mg dl mg/dL (Negative) 03/12/19 14:38 50 mg/dL (Negative) 03/12/19 14:38 Tr mg/dL (Negative) 03/12/19 14:38 Sm (Negative) 03/12/19 14:38 Neg (Negative) 03/12/19 14:38 Neg (Negative) 03/12/19 14:38 < 2.0 mg/dL (<2.0) 03/12/19 14:38 Ur Leukocyte Esterase Neg (Negative) 03/12/19 14:38 4.0 /HPF (0.0-6.0) 03/12/19 14:38 5.0 /HPF (0.0-6.0) 03/12/19 14:38 1+ /HPF (Negative) 03/12/19 14:38 Few /HPF 03/12/19 14:38 Active Medications - Current Medications Current Medications: Generic Name Dose Route Start Last Admin Trade Name Freq PRN Reason Stop Dose Admin Acetaminophen 650 mg 03/10/19 16:25 Tylenol PO Q4H PRN Pain, Mild (1-3) Aspirin 325 mg 03/11/19 10:00 03/12/19 09:59 Aspirin PO Not Given QDAY TAMMIE Atorvastatin Calcium 40 mg 03/10/19 22:00 03/11/19 23:14 Lipitor PO Not Given QHS [facility] Bisacodyl 10 mg 03/10/19 16:25 Dulcolax [place] QDAY PRN Constipation Hydralazine HCl 10 mg 03/11/19 04:54 03/12/19 04:13 Apresoline IV 10 mg Q8HR PRN Administration Hypertension Ceftriaxone Sodium 2 gm in 100 mls @ 200 mls/hr 03/12/19 10:30 03/12/19 10:39 Rocephin/Ns 2 Gm/100 Ml IV 200 mls/hr Q24HR TAMMIE Administration Protocol Ampicillin Sodium 1 gm in 50 mls @ 100 mls/hr 03/12/19 10:30 03/12/19 14:03 Ampicillin/Ns 1 Gm/50 Ml IV 100 mls/hr Q4HR TAMMIE Administration Lorazepam 2 mg 03/10/19 18:36 03/12/19 04:41 Ativan IV 2 mg Q4H PRN Administration Agitation Magnesium Hydroxide 30 ml 03/10/19 16:25 Milk Of Magnesia PO Q4H PRN Constipation Metoclopramide HCl 10 mg 03/10/19 16:25 Reglan PO Q6H PRN Nausea And Vomiting Ondansetron HCl 4 mg 03/10/19 16:25 Zofran IV Q8H PRN Nausea And Vomiting Promethazine HCl 25 mg 03/10/19 16:25 Phenergan [place] Q6H PRN Nausea And Vomiting Sodium Chloride 10 ml 03/10/19 16:25 03/12/19 04:48 Sodium Chloride Flush Syringe 10 Ml IV 10 ml PRN PRN Administration LINE FLUSH Nutrition/Malnutrition Assess - Dietary Evaluation Nutrition/Malnutrition Findings: Nutrition Notes Start: 03/11/19 12:57 Freq: Status: Active Protocol: Document 03/11/19 12:57 FRANKY (Rec: 03/11/19 13:36 FRANKY [id number]) Co-Sign 03/11/19 12:57 LP Nutrition Notes Need for Assessment generated from: [facility] Initial or Follow up Assessment Current Diagnosis Diabetes,Hypertension Other Pertinent Diagnosis 2+ pitting edema Current Diet NPO Labs/Tests K 5.5, POC glu 132, BUN 24 Pertinent Medications Zofran, Lipitor Height 5 ft 10 in Weight 84.5 kg [place] Body Weight (kg) 75.45 BMI 26.7 Subjective/Other Information Pt had very slight temporal wasting. Pt was asleep when I came in. Burn Absent Trauma Absent Minimum of two criteria No #1 Nutrition Diagnosis Predicted suboptimal energy intake Etiology Dementia, encephalopathy As Evidenced by Signs and Symptoms Very slight temporal wasting and unable to obtain nutriton hx Is patient on ventilator? No Is Patient Ambulatory and/or Out of Bed Yes REE-([facility]-ambulatory/OOB) [ 2010.125 NUTR.MSJOOB] Calculation Used for Recommendations [facility] Additional Notes Protein needs: 84-101g/kg (1.0 -1.2g/kg) Fluid needs: 1ml/kcal Nutrition Intervention Change Diet Order: Advance as feasible Add Supplement/Snack (indicate name/kcal Glucerna daily once diet /protein ) advanced Provides kCal: 220 Provides Protein (gm) 10 Goal #1 Diet advancement Anticipated Discharge Needs: Consistant carbohydrate diet Follow-Up By: 03/13/19 Additional Comments Diet advancement/intakes
[2019-03-13] MEDS: AMPICILLIN/NS 1 GM/50 ML 1 GM/50 ML BAG IV SCH ×4 (01:46→18:12)
[2019-03-13] MEDS: hydrALAZINE 20 MG/1 ML INJ IV PRN ×3 (01:46→18:20)
[2019-03-13] MEDS: LORazepam 2 MG/ML VIAL IV PRN ×2 (01:48→21:04)
[2019-03-13] MEDS ORDERED: HALOPERIDOL LACTATE 5 MG/1 ML INJ IM ONE (04:55)
[2019-03-13 05:43] LABS: Basophils % (Auto) 0.5 % (0.0-1.8); Eosinophils # (Auto) 0.1 K/mm3 (0.0-0.4); Eosinophils % (Auto) 1.7 % (0.0-4.3); Hematocrit 42.8 % (35.5-45.6); Hemoglobin 13.8 gm/dl (11.8-15.2); Lymphocytes # (Auto) 1.2 K/mm3 (1.2-5.4); Lymphocytes % (Auto) 14.2 % (13.4-35.0); Mean Corpuscular HGB Conc 32 % (32-34); Mean Corpuscular Volume 87 fl (84-94); Monocytes % (Auto) 12.1 % (0.0-7.3); Platelet Count 143 K/mm3 (140-440); Red Blood Count 4.92 M/mm3 (3.65-5.03); Red Cell Distribution Width 18.4 % (13.2-15.2)
[2019-03-13 05:54] LABS: INR 2.74 (0.87-1.13)
[2019-03-13 06:06] LABS: Calcium 8.6 mg/dL (8.4-10.2)
--- NOTE | 2019-03-13 09:52 | Progress Note ---
Assessment and Plan Cultures: 03/12 UCx: negative A/P: 84 yo M PMHx HTN, DM2, ? dementia admitted with AMS 1. Altered mental status - unclear etiology as yet. Meningitis vs non-infectious cause. UA negative. Urine culture neative. Would like LP to be performed when INR at a suitable range (patient is now off his anticoagulation). No meningeal signs on passive movement of his neck, however he complained of neck stiffness. 2. Malignant hypertension - CTHead normal, may need MRI if feasbile to evaluate for end-organ disease 3. DM2 - hyperglycemic, likely impairing immune function 4. Dementia Recs: - f/u urine culture- in progress - continue ceftriaxone to 2g q12h for meningitis dosing - continue ampicillin - please order LP when INR suitable with analysis and culture Dr. Bullard will be it security consulting director this weekend, . Please call for questions. Janina Hannah NP [facility] M: [phone] O:[phone] Subjective Date of service: 03/13/19 Interval history: Patient seen and examined. Unable to arouse. Somnolent. No fevers. Granddaughter at bedside. Objective - Exam Narrative Exam: Constitutional: Non-responsive Head, Ears, Nose: Normocephalic, atraumatic. External ears, nose normal Eyes: Conjunctivae/corneas clear. No icterus. No ptosis. Neck: Supple, no meningeal signs on passive movement of neck. Oral: dentition fair, no thrush Cardiovascular: S1, S2 normal. Respiratory: Good air entry, clear to auscultation bilaterally GI: Soft, non-tender; bowel sounds normal. No peritoneal signs. +NGT Musculoskeletal: No pedal edema, no cyanosis. Skin: No rash or abscess Hem/Lymphatic: No palpable cervical or supraclavicular nodes. No lymphangitis Neurological: Non-responsive - Constitutional Vitals: Vital Signs Temp Pulse Resp BP Pulse Ox 97.4 F L 93 H 22 187/101 98 03/13/19 08:26 03/13/19 08:26 03/13/19 06:32 03/13/19 08:26 03/13/19 06:32 Temperature -Last 24 Hours Temperature 97.4 F Temperature 98.0 F Temperature 98.0 F Temperature 97.9 F Temperature 97.6 F - Labs CBC & Chem 7: 03/13/19 05:13 03/13/19 05:13 Labs: Abnormal lab results 03/12/19 03/12/19 03/13/19 Range/Units 12:25 17:27 05:13 RDW 18.4 H (13.2-15.2) % [place] % (Auto) 12.1 H (0.0-7.3) % [place] # 1.0 H (0.0-0.8) K/mm3 Seg Neutrophils % 71.5 H (40.0-70.0) % PT (12.2-14.9) Sec. INR (0.87-1.13) Sodium (137-145) mmol/L BUN (9-20) mg/dL Creatinine (0.8-1.5) mg/dL Glucose (75-100) mg/dL POC Glucose 175 H 111 H (70-105) 03/13/19 03/13/19 03/13/19 Range/Units 05:13 05:13 08:07 RDW (13.2-15.2) % [place] % (Auto) (0.0-7.3) % [place] # (0.0-0.8) K/mm3 Seg Neutrophils % (40.0-70.0) % PT 28.5 H (12.2-14.9) Sec. INR 2.74 H (0.87-1.13) Sodium 148 H D (137-145) mmol/L BUN 35 H (9-20) mg/dL Creatinine 1.9 H (0.8-1.5) mg/dL Glucose 115 H (75-100) mg/dL POC Glucose 114 H (70-105)
[2019-03-13] MEDS ORDERED: SIMPLE SYRUP 15 ML FEEDTUBE PRN ×2 (10:02)
[2019-03-13] MEDS ORDERED: SODIUM BICARBONATE 325 MG TAB FEEDTUBE PRN (10:02)
[2019-03-13] MEDS ORDERED: LIPASE 10,500/PROTEASE 25,000/AMYLASE 43,750 (UNITS) DR CAP FEEDTUBE PRN (10:02)
[2019-03-13] MEDS: cefTRIAXone/NS 2 GM/100 ML 2 GM/100 ML BAG IV SCH ×2 (10:41→21:02)
--- NOTE | 2019-03-13 11:30 | XRay Report ---
ABDOMEN 1 VIEW HISTORY: dophoff placement. COMPARISON: None. FINDINGS: Several centimeters of the Dobbhoff tube are curled within the distal esophagus and no tubi ng is identified in the stomach. Nonobstructive bowel gas pattern. No free air. IMPRESSION: Dobbhoff tube curled in the distal esophagus. Recommend reinsertion. Signer Name: Jackson Armendariz MD Signed: 03/13/2019 11:25 AM Workstation Name: [id number]
--- NOTE | 2019-03-13 13:16 | XRay Report ---
ABDOMEN 1 VIEW HISTORY: dobhoff reinsertion. COMPARISON: Earlier in the same day. FINDINGS: The Dobbhoff tube has been reinserted and the tip is in the fundus of the stomach. I would expect for the tip to move distally to the mid stomach. IMPRESSION: Satisfactory placement of the Dobbhoff feeding tube. Signer Name: Jackson Armendariz MD Signed: 03/13/2019 1:12 PM Workstation Name: [id number]
[2019-03-13] MEDS ORDERED: ASPIRIN 325 MG TAB ONE (13:53)
--- NOTE | 2019-03-13 14:02 | XRay Report ---
ABDOMEN 1 VIEW(S) INDICATION / CLINICAL INFORMATION: Dobbhoff tube placement. COMPARISON: None available. FINDINGS: TUBES / LINES: The Dobbhoff tube terminates in the fundus of the stomach. BOWEL GAS PATTERN: No significant abnormality. FREE AIR / EXTRALUMINAL GAS: None seen. ADDITIONAL FINDINGS: No significant additional findings. IMPRESSION: No significant abnormality. Dobbhoff tube as described. Signer Name: Júnior Lucia Jr, MD Signed: 03/13/2019 1:57 PM Workstation Name: [id number]
--- NOTE | 2019-03-13 14:10 | Progress Note ---
Assessment and Plan Assessment and plan: Acute encephalopathy. Etiology unclear. Continue to treat for infectious etiology. U/A is negative. Await normalization of INR for potential LP. Cont. Abx Accelerated hypertension. Continue antihypertensive medications. Diabetes mellitus type 2. Continue Accu-Cheks and sliding scale insulin. ARF. Etiology secondary to vasomotor nephropathy from dehydration. Pt with poor intake. Start IVF and place DHT. Coagulopathy. INR cont. to rise with no coumadin. Pt with home med of coumadin 6mg daily but none since Saturday per daughter. Hx DVt. 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 Hospitalist Physical - Constitutional Vitals: Temp Pulse Resp BP Pulse Ox 97.4 F L 93 H 22 187/101 98 03/13/19 08:26 03/13/19 10:00 03/13/19 06:32 03/13/19 08:26 03/13/19 06:32 General appearance: Present: mild distress - EENT Eyes: Present: PERRL, EOM intact ENT: hearing intact, clear oral mucosa, dentition normal - Neck Neck: Present: supple, normal ROM - Respiratory Respiratory effort: normal Respiratory: bilateral: CTA - Cardiovascular Rhythm: regular Heart Sounds: Present: S1 & S2. Absent: gallop, rub - Extremities Extremities: no ischemia, No edema, Full ROM - Abdominal General gastrointestinal: soft, non-tender, non-distended, normal bowel sounds - Integumentary Integumentary: Present: clear, warm, dry - Neurologic Neurologic: CNII-XII intact, moves all extremities Results - Labs CBC & Chem 7: 03/13/19 05:13 03/13/19 05:13 Labs: Laboratory Last Values WBC 8.5 K/mm3 (4.5-11.0) 03/13/19 05:13 RBC 4.92 M/mm3 (3.65-5.03) 03/13/19 05:13 Hgb 13.8 gm/dl (11.8-15.2) 03/13/19 05:13 Hct 42.8 % (35.5-45.6) 03/13/19 05:13 MCV 87 fl (84-94) 03/13/19 05:13 MCH 28 pg (28-32) 03/13/19 05:13 MCHC 32 % (32-34) 03/13/19 05:13 RDW 18.4 % (13.2-15.2) H 03/13/19 05:13 Plt Count 143 K/mm3 (140-440) 03/13/19 05:13 Lymph % (Auto) 14.2 % (13.4-35.0) 03/13/19 05:13 [place] % (Auto) 12.1 % (0.0-7.3) H 03/13/19 05:13 Eos % (Auto) 1.7 % (0.0-4.3) 03/13/19 05:13 Baso % (Auto) 0.5 % (0.0-1.8) 03/13/19 05:13 Lymph # 1.2 K/mm3 (1.2-5.4) 03/13/19 05:13 [place] # 1.0 K/mm3 (0.0-0.8) H 03/13/19 05:13 Eos # 0.1 K/mm3 (0.0-0.4) 03/13/19 05:13 Baso # 0.0 K/mm3 (0.0-0.1) 03/13/19 05:13 Seg Neutrophils % 71.5 % (40.0-70.0) H 03/13/19 05:13 Seg Neutrophils # 6.1 K/mm3 (1.8-7.7) 03/13/19 05:13 PT 28.5 Sec. (12.2-14.9) H 03/13/19 05:13 INR 2.74 (0.87-1.13) H 03/13/19 05:13 APTT 27.8 Sec. (24.2-36.6) 03/10/19 12:17 25.2 Sec. (15.1-19.6) H 03/10/19 12:17 Sodium 148 mmol/L (137-145) H D 03/13/19 05:13 Potassium 4.2 mmol/L (3.6-5.0) D 03/13/19 05:13 Chloride 106.3 mmol/L (98-107) 03/13/19 05:13 Carbon Dioxide 23 mmol/L (22-30) 03/13/19 05:13 23 mmol/L 03/13/19 05:13 BUN 35 mg/dL (9-20) H 03/13/19 05:13 1.9 mg/dL (0.8-1.5) H 03/13/19 05:13 Estimated GFR 41 ml/min 03/13/19 05:13 18 % 03/13/19 05:13 Glucose 115 mg/dL (75-100) H 03/13/19 05:13 POC Glucose 122 (70-105) H 03/13/19 12:00 Calcium 8.6 mg/dL (8.4-10.2) 03/13/19 05:13 0.076 ng/mL (0.00-0.029) H 03/10/19 12:17 Triglycerides 140 mg/dL (2-149) 03/10/19 12:17 Cholesterol 143 mg/dL (50-199) 03/10/19 12:17 69 mg/dL (50-130) 03/10/19 12:17 62 mg/dL (40-59) H 03/10/19 12:17 2.30 % 03/10/19 12:17 Yellow (Yellow) 03/12/19 14:38 Slightly-cloudy (Clear) 03/12/19 14:38 5.0 (5.0-7.0) 03/12/19 14:38 Ur Specific [place] 1.019 (1.003-1.030) 03/12/19 14:38 >2000 mg dl mg/dL (Negative) 03/12/19 14:38 50 mg/dL (Negative) 03/12/19 14:38 Tr mg/dL (Negative) 03/12/19 14:38 Sm (Negative) 03/12/19 14:38 Neg (Negative) 03/12/19 14:38 Neg (Negative) 03/12/19 14:38 < 2.0 mg/dL (<2.0) 03/12/19 14:38 Ur Leukocyte Esterase Neg (Negative) 03/12/19 14:38 4.0 /HPF (0.0-6.0) 03/12/19 14:38 5.0 /HPF (0.0-6.0) 03/12/19 14:38 1+ /HPF (Negative) 03/12/19 14:38 Few /HPF 03/12/19 14:38 Active Medications - Current Medications Current Medications: Generic Name Dose Route Start Last Admin Trade Name Freq PRN Reason Stop Dose Admin Acetaminophen 650 mg 03/10/19 16:25 Tylenol PO Q4H PRN Pain, Mild (1-3) Lipase/Protease/Amylase 1 each 03/13/19 10:02 Destiny Sifuentes 10,500 Unit FEEDTUBE PRN PRN For Clogged Feeding Tube Aspirin 300 mg 03/13/19 10:00 Aspirin IA QDAY TAMMIE Atorvastatin Calcium 40 mg 03/10/19 22:00 03/12/19 21:31 Lipitor PO Not Given QHS TAMMIE Bisacodyl 10 mg 03/10/19 16:25 Dulcolax IA QDAY PRN Constipation Hydralazine HCl 20 mg 03/13/19 06:00 Apresoline IV Q4H PRN Hypertension Ceftriaxone Sodium 2 gm in 100 mls @ 200 mls/hr 03/13/19 10:00 03/13/19 10:41 Rocephin/Ns 2 Gm/100 Ml IV 200 mls/hr Q12HR TAMMIE Administration Protocol Ampicillin Sodium 1 gm in 50 mls @ 100 mls/hr 03/13/19 12:00 03/13/19 12:39 Ampicillin/Ns 1 Gm/50 Ml IV 100 mls/hr Q6HR TAMMIE Administration Lorazepam 2 mg 03/10/19 18:36 03/13/19 01:48 Ativan IV 2 mg Q4H PRN Administration Agitation Magnesium Hydroxide 30 ml 03/10/19 16:25 Milk Of Magnesia PO Q4H PRN Constipation Metoclopramide HCl 10 mg 03/10/19 16:25 Reglan PO Q6H PRN Nausea And Vomiting Ondansetron HCl 4 mg 03/10/19 16:25 Zofran IV Q8H PRN Nausea And Vomiting Promethazine HCl 25 mg 03/10/19 16:25 Phenergan IA Q6H PRN Nausea And Vomiting Simple Syrup 15 ml 03/13/19 10:02 Simple Syrup FEEDTUBE PRN PRN Hypoglycemia Simple Syrup 30 ml 03/13/19 10:02 Simple Syrup FEEDTUBE PRN PRN Hypoglycemia Sodium Bicarbonate 325 mg 03/13/19 10:02 Sodium Bicarbonate FEEDTUBE PRN PRN For Clogged Feeding Tube Sodium Chloride 10 ml 03/10/19 16:25 03/12/19 21:31 Sodium Chloride Flush Syringe 10 Ml IV 10 ml PRN PRN Administration LINE FLUSH Nutrition/Malnutrition Assess - Dietary Evaluation Nutrition/Malnutrition Findings: Nutrition Notes Start: 03/11/19 12:57 Freq: Status: Active Protocol: Document 03/13/19 09:31 RS (Rec: 03/13/19 10:02 RS [id number]) Co-Sign 03/13/19 09:31 LP Nutrition Notes Need for Assessment generated from: MD Order Initial or Follow up Reassessment Current Diagnosis Diabetes,Hypertension Other Pertinent Diagnosis 2+ pitting edema Current Diet NPO Labs/Tests Na: 148 BUN:35 Cr:1.9 Glu: 114 Pertinent Medications Zofran, Lipitor Height 5 ft 10 in Weight 78.4 kg [place] Body Weight (kg) 75.45 BMI 24.7 Subjective/Other Information MD order for TF. 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 Burn Absent Trauma Absent Current % PO Negligible Minimum of two criteria Yes Muscle Mass Mild Depletion (non-severe) Fluid Accumulation Mild (non-severe) Reduced Insulation Blower Strength N/A (non-severe) #2 Nutrition Diagnosis Malnutrition Etiology dementia, encephalopathy As Evidenced by Signs and Symptoms pitting edema +2, redcued card cutter helper strength, and slight temporal wasting #1 Nutrition Diagnosis Predicted suboptimal energy intake Etiology Dementia, encephalopathy As Evidenced by Signs and Symptoms Very slight temporal wasting and unable to obtain nutriton hx Diagnosis Progress(for reassessment Resolved documentation) Is patient on ventilator? No Is Patient Ambulatory and/or Out of Bed No REE-([facility]-confined to bed) 1997.276 Calculation Used for Recommendations [facility] Additional Notes Protein: (1.0-1.2g/kg) 78-94g/day Fluid needs: 1 ml Nutrition Intervention Change Diet Order: TF Nutrition Support: Glucerna 1.2 at 60ml/hr w/ water flush of 150ml q4hr. Kcal 1,728 Protein (gm) 86 Carbohydrates (gm) 165 Fat (gm) 86 Fluid (mL) 1,160 Fiber (gm) 23 Add Supplement/Snack (indicate name/kcal d/c /protein ) Goal #1 Achieve >75% EER and Pro needs via TF Anticipated Discharge Needs: Unable to determine Follow-Up By: 03/16/19 Additional Comments Monitor TF
[2019-03-13] MEDS: ASPIRIN 300 MG RECT SUPP PR SCH (15:03)
[2019-03-13] MEDS: SODIUM CHLORIDE 0.9% 1000 ML 1,000 ML IV SCH (15:32)
[2019-03-14] MEDS: hydrALAZINE 20 MG/1 ML INJ IV PRN ×3 (00:33→16:53)
[2019-03-14] MEDS: AMPICILLIN/NS 1 GM/50 ML 1 GM/50 ML BAG IV SCH ×5 (00:33→23:42)
[2019-03-14] MEDS: SODIUM CHLORIDE 0.9% 1000 ML 1,000 ML IV SCH (05:17)
--- NOTE | 2019-03-14 07:17 | Event Note ---
Date: 03/14/19 patient continued to pull off his dubhuff, Plan :will consult [facility] to effect replacement and we will renew medical restraint
[2019-03-14 07:41] LABS: Basophils # (Auto) 0.1 K/mm3 (0.0-0.1); Basophils % (Auto) 0.7 % (0.0-1.8); Eosinophils # (Auto) 0.2 K/mm3 (0.0-0.4); Hematocrit 40.7 % (35.5-45.6); Hemoglobin 13.1 gm/dl (11.8-15.2); Lymphocytes # (Auto) 1.2 K/mm3 (1.2-5.4); Lymphocytes % (Auto) 14.9 % (13.4-35.0); Mean Corpuscular HGB Conc 32 % (32-34); Mean Corpuscular Volume 87 fl (84-94); Monocytes # (Auto) 0.9 K/mm3 (0.0-0.8); Monocytes % (Auto) 11.9 % (0.0-7.3); Platelet Count 130 K/mm3 (140-440); Red Blood Count 4.68 M/mm3 (3.65-5.03); Red Cell Distribution Width 18.2 % (13.2-15.2)
[2019-03-14 07:50] LABS: INR 2.27 (0.87-1.13)
[2019-03-14 07:59] LABS: Calcium 8.4 mg/dL (8.4-10.2)
[2019-03-14] MEDS: cefTRIAXone/NS 2 GM/100 ML 2 GM/100 ML BAG IV SCH ×2 (09:50→22:08)
[2019-03-14] MEDS: ASPIRIN 300 MG RECT SUPP PR SCH (09:50)
--- NOTE | 2019-03-14 13:49 | Event Note ---
Date: 03/14/19 Called for consult for pt repeatedly pulling out Dobhoff, due to confusion. Pt apparently ate whole breakfast this AM. No clear reason for consult at present. If Dobhoff needed, please replace. If pt pulls it out, restrain. Please call as needed.
--- NOTE | 2019-03-14 15:39 | Progress Note ---
Assessment and Plan Assessment and plan: Acute encephalopathy. Etiology unclear. Continue to treat for infectious etiology. U/A is negative. Await normalization of INR for potential LP. Cont. Abx. Pt appears much more responsive today. Following commands Accelerated hypertension. Continue antihypertensive medications. Diabetes mellitus type 2. Continue Accu-Cheks and sliding scale insulin. ARF. Etiology secondary to vasomotor nephropathy from dehydration. Pt with poor intake. Start IVF and place DHT. Coagulopathy. INR cont. to rise with no coumadin. Pt with home med of coumadin 6mg daily but none since Saturday per daughter. Hx DVt. 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 Hospitalist Physical - Constitutional Vitals: Temp Pulse Resp BP Pulse Ox 98.6 F 90 28 H 208/89 100 03/14/19 07:53 03/14/19 10:00 03/14/19 07:53 03/14/19 09:50 03/14/19 07:53 General appearance: Present: mild distress - EENT Eyes: Present: PERRL, EOM intact ENT: hearing intact, clear oral mucosa, dentition normal - Neck Neck: Present: supple, normal ROM - Respiratory Respiratory effort: normal Respiratory: bilateral: CTA - Cardiovascular Rhythm: regular Heart Sounds: Present: S1 & S2. Absent: gallop, rub - Extremities Extremities: no ischemia, No edema, Full ROM - Abdominal General gastrointestinal: soft, non-tender, non-distended, normal bowel sounds - Integumentary Integumentary: Present: clear, warm, dry - Neurologic Neurologic: CNII-XII intact, moves all extremities Results - Labs CBC & Chem 7: 03/14/19 07:01 03/14/19 07:08 Labs: Laboratory Last Values WBC 7.9 K/mm3 (4.5-11.0) 03/14/19 07: RBC 4.68 M/mm3 (3.65-5.03) 03/14/19 07:01 Hgb 13.1 gm/dl (11.8-15.2) 03/14/19 07:01 Hct 40.7 % (35.5-45.6) 03/14/19 07:01 MCV 87 fl (84-94) 03/14/19 07:01 MCH 28 pg (28-32) 03/14/19 07:01 MCHC 32 % (32-34) 03/14/19 07:01 RDW 18.2 % (13.2-15.2) H 03/14/19 07:01 Plt Count 130 K/mm3 (140-440) L 03/14/19 07:01 Lymph % (Auto) 14.9 % (13.4-35.0) 03/14/19 07:01 [place] % (Auto) 11.9 % (0.0-7.3) H 03/14/19 07:01 Eos % (Auto) 3.0 % (0.0-4.3) 03/14/19 07:01 Baso % (Auto) 0.7 % (0.0-1.8) 03/14/19 07:01 Lymph # 1.2 K/mm3 (1.2-5.4) 03/14/19 07:01 [place] # 0.9 K/mm3 (0.0-0.8) H 03/14/19 07:01 Eos # 0.2 K/mm3 (0.0-0.4) 03/14/19 07:01 Baso # 0.1 K/mm3 (0.0-0.1) 03/14/19 07:01 Seg Neutrophils % 69.5 % (40.0-70.0) 03/14/19 07:01 Seg Neutrophils # 5.5 K/mm3 (1.8-7.7) 03/14/19 07:01 PT 24.6 Sec. (12.2-14.9) H 03/14/19 07:08 INR 2.27 (0.87-1.13) H 03/14/19 07:08 APTT 27.8 Sec. (24.2-36.6) 03/10/19 12:17 25.2 Sec. (15.1-19.6) H 03/10/19 12:17 Sodium 149 mmol/L (137-145) H 03/14/19 07:08 Potassium 4.2 mmol/L (3.6-5.0) 03/14/19 07:08 Chloride 110.0 mmol/L (98-107) H 03/14/19 07:08 Carbon Dioxide 25 mmol/L (22-30) 03/14/19 07:08 18 mmol/L 03/14/19 07:08 BUN 40 mg/dL (9-20) H 03/14/19 07:08 2.0 mg/dL (0.8-1.5) H 03/14/19 07:08 Estimated GFR 39 ml/min 03/14/19 07:08 20 % 03/14/19 07:08 Glucose 140 mg/dL (75-100) H 03/14/19 07:08 POC Glucose 153 (70-105) H 03/14/19 11:41 Calcium 8.4 mg/dL (8.4-10.2) 03/14/19 07:08 0.076 ng/mL (0.00-0.029) H 03/10/19 12:17 Triglycerides 140 mg/dL (2-149) 03/10/19 12:17 Cholesterol 143 mg/dL (50-199) 03/10/19 12:17 69 mg/dL (50-130) 03/10/19 12:17 62 mg/dL (40-59) H 03/10/19 12:17 2.30 % 03/10/19 12:17 Yellow (Yellow) 03/12/19 14:38 Slightly-cloudy (Clear) 03/12/19 14:38 5.0 (5.0-7.0) 03/12/19 14:38 Ur Specific [place] 1.019 (1.003-1.030) 03/12/19 14:38 >2000 mg dl mg/dL (Negative) 03/12/19 14:38 50 mg/dL (Negative) 03/12/19 14:38 Tr mg/dL (Negative) 03/12/19 14:38 Sm (Negative) 03/12/19 14:38 Neg (Negative) 03/12/19 14:38 Neg (Negative) 03/12/19 14:38 < 2.0 mg/dL (<2.0) 03/12/19 14:38 Ur Leukocyte Esterase Neg (Negative) 03/12/19 14:38 4.0 /HPF (0.0-6.0) 03/12/19 14:38 5.0 /HPF (0.0-6.0) 03/12/19 14:38 1+ /HPF (Negative) 03/12/19 14:38 Few /HPF 03/12/19 14:38 Active Medications - Current Medications Current Medications: Generic Name Dose Route Start Last Admin Trade Name Freq PRN Reason Stop Dose Admin Acetaminophen 650 mg 03/10/19 16:25 Tylenol PO Q4H PRN Pain, Mild (1-3) Lipase/Protease/Amylase 1 each 03/13/19 10:02 Pancretom Sifuentes 10,500 Unit FEEDTUBE PRN PRN For Clogged Feeding Tube Aspirin 300 mg 03/13/19 10:00 03/14/19 09:50 Aspirin [place] 300 mg QDAY TAMMIE Administration Atorvastatin Calcium 40 mg 03/10/19 22:00 03/13/19 21:03 Lipitor PO 40 mg QHS TAMMIE Administration Bisacodyl 10 mg 03/10/19 16:25 Dulcolax [place] QDAY PRN Constipation Hydralazine HCl 20 mg 03/13/19 06:00 03/14/19 09:50 Apresoline IV 20 mg Q4H PRN Administration Hypertension Ceftriaxone Sodium 2 gm in 100 mls @ 200 mls/hr 03/13/19 10:00 03/14/19 09:50 Rocephin/Ns 2 Gm/100 Ml IV 200 mls/hr Q12HR TAMMIE Administration Protocol Ampicillin Sodium 1 gm in 50 mls @ 100 mls/hr 03/13/19 12:00 03/14/19 11:47 Ampicillin/Ns 1 Gm/50 Ml IV 100 mls/hr Q6HR TAMMIE Administration Sodium Chloride 1,000 mls @ 100 mls/hr 03/13/19 15:00 03/14/19 05:17 Nacl 0.9% 1000 Ml IV 100 mls/hr DIRECT TAMMIE Administration Lorazepam 2 mg 03/10/19 18:36 03/13/19 21:04 Ativan IV 2 mg Q4H PRN Administration Agitation Magnesium Hydroxide 30 ml 03/10/19 16:25 Milk Of Magnesia PO Q4H PRN Constipation Metoclopramide HCl 10 mg 03/10/19 16:25 Reglan PO Q6H PRN Nausea And Vomiting Ondansetron HCl 4 mg 03/10/19 16:25 Zofran IV Q8H PRN Nausea And Vomiting Promethazine HCl 25 mg 03/10/19 16:25 Phenergan [place] Q6H PRN Nausea And Vomiting Simple Syrup 15 ml 03/13/19 10:02 Simple Syrup FEEDTUBE PRN PRN Hypoglycemia Simple Syrup 30 ml 03/13/19 10:02 Simple Syrup FEEDTUBE PRN PRN Hypoglycemia Sodium Bicarbonate 325 mg 03/13/19 10:02 Sodium Bicarbonate FEEDTUBE PRN PRN For Clogged Feeding Tube Sodium Chloride 10 ml 03/10/19 16:25 03/13/19 21:03 Sodium Chloride Flush Syringe 10 Ml IV 10 ml PRN PRN Administration LINE FLUSH Nutrition/Malnutrition Assess - Dietary Evaluation Nutrition/Malnutrition Findings: Nutrition Notes Start: 03/11/19 12:57 Freq: Status: Active Protocol: Document 03/13/19 09:31 RS (Rec: 03/13/19 10:02 RS [id number]) Co-Sign 03/13/19 09:31 LP Nutrition Notes Need for Assessment generated from: MD Order Initial or Follow up Reassessment Current Diagnosis Diabetes,Hypertension Other Pertinent Diagnosis 2+ pitting edema Current Diet NPO Labs/Tests Na: 148 BUN:35 Cr:1.9 Glu: 114 Pertinent Medications Zofran, Lipitor Height 5 ft 10 in Weight 78.4 kg [place] Body Weight (kg) 75.45 BMI 24.7 Subjective/Other Information MD order for TF. 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 Burn Absent Trauma Absent Current % PO Negligible Minimum of two criteria Yes Muscle Mass Mild Depletion (non-severe) Fluid Accumulation Mild (non-severe) Reduced Hog Worker Strength N/A (non-severe) #2 Nutrition Diagnosis Malnutrition Etiology dementia, encephalopathy As Evidenced by Signs and Symptoms pitting edema +2, redcued rental coordinator strength, and slight temporal wasting #1 Nutrition Diagnosis Predicted suboptimal energy intake Etiology Dementia, encephalopathy As Evidenced by Signs and Symptoms Very slight temporal wasting and unable to obtain nutriton hx Diagnosis Progress(for reassessment Resolved documentation) Is patient on ventilator? No Is Patient Ambulatory and/or Out of Bed No REE-([facility]-confined to bed) [phone] Calculation Used for Recommendations [facility] Additional Notes Protein: (1.0-1.2g/kg) 78-94g/day Fluid needs: 1 ml Nutrition Intervention Change Diet Order: TF Nutrition Support: Glucerna 1.2 at 60ml/hr w/ water flush of 150ml q4hr. Kcal 1,728 Protein (gm) 86 Carbohydrates (gm) 165 Fat (gm) 86 Fluid (mL) 1,160 Fiber (gm) 23 Add Supplement/Snack (indicate name/kcal d/c /protein ) Goal #1 Achieve >75% EER and Pro needs via TF Anticipated Discharge Needs: Unable to determine Follow-Up By: 03/16/19 Additional Comments Monitor TF
[2019-03-15] MEDS: hydrALAZINE 20 MG/1 ML INJ IV PRN ×4 (01:19→20:30)
[2019-03-15] MEDS: SODIUM CHLORIDE 0.9% 1000 ML 1,000 ML IV SCH (05:39)
[2019-03-15] MEDS: AMPICILLIN/NS 1 GM/50 ML 1 GM/50 ML BAG IV SCH ×3 (05:40→17:05)
[2019-03-15 06:24] LABS: INR 1.39 (0.87-1.13)
[2019-03-15] MEDS: ASPIRIN 300 MG RECT SUPP PR SCH (09:56)
--- NOTE | 2019-03-15 09:57 | Progress Note ---
Assessment and Plan Assessment and plan: Acute encephalopathy. Etiology unclear. Continue to treat for infectious etiology. U/A is negative. Resolving. Patient near baseline. Therefore, will most likely not perform LP. Continue IV antibiotics. Accelerated hypertension. Continue antihypertensive medications. Diabetes mellitus type 2. Continue Accu-Cheks and sliding scale insulin. ARF. Etiology secondary to vasomotor nephropathy from dehydration. Pt with poor intake. Cont. IVF and F/U BMP in am. Coagulopathy. INR cont. to rise with no coumadin. Pt with home med of coumadin 6mg daily but none since Saturday per daughter. Hx DVt. 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 Daughter reports pt is near baseline neurological status Hospitalist Physical - Constitutional Vitals: Temp Pulse Resp BP Pulse Ox 98.5 F 88 16 247/108 95 03/15/19 07:58 03/15/19 07:58 03/15/19 07:58 03/15/19 07:58 03/15/19 07:58 General appearance: Present: mild distress - EENT Eyes: Present: PERRL, EOM intact ENT: hearing intact, clear oral mucosa, dentition normal - Neck Neck: Present: supple, normal ROM - Respiratory Respiratory effort: normal Respiratory: bilateral: CTA - Cardiovascular Rhythm: regular Heart Sounds: Present: S1 & S2. Absent: gallop, rub - Extremities Extremities: no ischemia, No edema, Full ROM - Abdominal General gastrointestinal: soft, non-tender, non-distended, normal bowel sounds - Integumentary Integumentary: Present: clear, warm, dry - Neurologic Neurologic: CNII-XII intact, moves all extremities Results - Labs CBC & Chem 7: 03/14/19 07:01 03/14/19 07:08 Labs: Laboratory Last Values WBC 7.9 K/mm3 (4.5-11.0) 03/14/19 07:01 RBC 4.68 M/mm3 (3.65-5.03) 03/14/19 07:01 Hgb 13.1 gm/dl (11.8-15.2) 03/14/19 07:01 Hct 40.7 % (35.5-45.6) 03/14/19 07:01 MCV 87 fl (84-94) 03/14/19 07:01 MCH 28 pg (28-32) 03/14/19 07:01 MCHC 32 % (32-34) 03/14/19 07:01 RDW 18.2 % (13.2-15.2) H 03/14/19 07:01 Plt Count 130 K/mm3 (140-440) L 03/14/19 07:01 Lymph % (Auto) 14.9 % (13.4-35.0) 03/14/19 07:01 [place] % (Auto) 11.9 % (0.0-7.3) H 03/14/19 07:01 Eos % (Auto) 3.0 % (0.0-4.3) 03/14/19 07:01 Baso % (Auto) 0.7 % (0.0-1.8) 03/14/19 07:01 Lymph # 1.2 K/mm3 (1.2-5.4) 03/14/19 07:01 Robertson # 0.9 K/mm3 (0.0-0.8) H 03/14/19 07:01 Eos # 0.2 K/mm3 (0.0-0.4) 03/14/19 07:01 Baso # 0.1 K/mm3 (0.0-0.1) 03/14/19 07:01 Seg Neutrophils % 69.5 % (40.0-70.0) 03/14/19 07:01 Seg Neutrophils # 5.5 K/mm3 (1.8-7.7) 03/14/19 07:01 PT 16.7 Sec. (12.2-14.9) H 03/15/19 05:12 INR 1.39 (0.87-1.13) H 03/15/19 05:12 APTT 27.8 Sec. (24.2-36.6) 03/10/19 12:17 25.2 Sec. (15.1-19.6) H 03/10/19 12:17 Sodium 149 mmol/L (137-145) H 03/14/19 07:08 Potassium 4.2 mmol/L (3.6-5.0) 03/14/19 07:08 Chloride 110.0 mmol/L (98-107) H 03/14/19 07:08 Carbon Dioxide 25 mmol/L (22-30) 03/14/19 07:08 18 mmol/L 03/14/19 07:08 BUN 40 mg/dL (9-20) H 03/14/19 07:08 2.0 mg/dL (0.8-1.5) H 03/14/19 07:08 Estimated GFR 39 ml/min 03/14/19 07:08 20 % 03/14/19 07:08 Glucose 140 mg/dL (75-100) H 03/14/19 07:08 POC Glucose 160 (70-105) H 03/15/19 08:08 Calcium 8.4 mg/dL (8.4-10.2) 03/14/19 07:08 0.076 ng/mL (0.00-0.029) H 03/10/19 12:17 Triglycerides 140 mg/dL (2-149) 03/10/19 12:17 Cholesterol 143 mg/dL (50-199) 03/10/19 12:17 69 mg/dL (50-130) 03/10/19 12:17 62 mg/dL (40-59) H 03/10/19 12:17 2.30 % 03/10/19 12:17 Yellow (Yellow) 03/12/19 14:38 Slightly-cloudy (Clear) 03/12/19 14:38 5.0 (5.0-7.0) 03/12/19 14:38 Ur Specific [place] 1.019 (1.003-1.030) 03/12/19 14:38 >2000 mg dl mg/dL (Negative) 03/12/19 14:38 50 mg/dL (Negative) 03/12/19 14:38 Tr mg/dL (Negative) 03/12/19 14:38 Sm (Negative) 03/12/19 14:38 Neg (Negative) 03/12/19 14:38 Neg (Negative) 03/12/19 14:38 < 2.0 mg/dL (<2.0) 03/12/19 14:38 Ur Leukocyte Esterase Neg (Negative) 03/12/19 14:38 4.0 /HPF (0.0-6.0) 03/12/19 14:38 5.0 /HPF (0.0-6.0) 03/12/19 14:38 1+ /HPF (Negative) 03/12/19 14:38 Few /HPF 03/12/19 14:38 Active Medications - Current Medications Current Medications: Generic Name Dose Route Start Last Admin Trade Name Freq PRN Reason Stop Dose Admin Acetaminophen 650 mg 03/10/19 16:25 Tylenol PO Q4H PRN Pain, Mild (1-3) Lipase/Protease/Amylase 1 each 03/13/19 10:02 Pancreazshandra Sifuentes 10,500 Unit FEEDTUBE PRN PRN For Clogged Feeding Tube Aspirin 300 mg 03/13/19 10:00 03/14/19 09:50 Aspirin DC 300 mg QDAY TAMMIE Administration Atorvastatin Calcium 40 mg 03/10/19 22:00 03/14/19 22:08 Lipitor PO 40 mg QHS TAMMIE Administration Bisacodyl 10 mg 03/10/19 16:25 Dulcolax DC QDAY PRN Constipation Hydralazine HCl 20 mg 03/13/19 06:00 03/15/19 05:40 Apresoline IV 20 mg Q4H PRN Administration Hypertension Ceftriaxone Sodium 2 gm in 100 mls @ 200 mls/hr 03/13/19 10:00 03/14/19 22:08 Rocephin/Ns 2 Gm/100 Ml IV 200 mls/hr Q12HR TAMMIE Administration Protocol Ampicillin Sodium 1 gm in 50 mls @ 100 mls/hr 03/13/19 12:00 03/15/19 05:40 Ampicillin/Ns 1 Gm/50 Ml IV 100 mls/hr Q6HR TAMMIE Administration Sodium Chloride 1,000 mls @ 100 mls/hr 03/13/19 15:00 03/15/19 05:39 Nacl 0.9% 1000 Ml IV 100 mls/hr DIRECT TAMMIE Administration Lorazepam 2 mg 03/10/19 18:36 03/13/19 21:04 Ativan IV 2 mg Q4H PRN Administration Agitation Magnesium Hydroxide 30 ml 03/10/19 16:25 Milk Of Magnesia PO Q4H PRN Constipation Metoclopramide HCl 10 mg 03/10/19 16:25 Reglan PO Q6H PRN Nausea And Vomiting Ondansetron HCl 4 mg 03/10/19 16:25 Zofran IV Q8H PRN Nausea And Vomiting Promethazine HCl 25 mg 03/10/19 16:25 Phenergan DC Q6H PRN Nausea And Vomiting Simple Syrup 15 ml 03/13/19 10:02 Simple Syrup FEEDTUBE PRN PRN Hypoglycemia Simple Syrup 30 ml 03/13/19 10:02 Simple Syrup FEEDTUBE PRN PRN Hypoglycemia Sodium Bicarbonate 325 mg 03/13/19 10:02 Sodium Bicarbonate FEEDTUBE PRN PRN For Clogged Feeding Tube Sodium Chloride 10 ml 03/10/19 16:25 03/13/19 21:03 Sodium Chloride Flush Syringe 10 Ml IV 10 ml PRN PRN Administration LINE FLUSH Nutrition/Malnutrition Assess - Dietary Evaluation Nutrition/Malnutrition Findings: Nutrition Notes Start: 03/11/19 12:57 Freq: Status: Active Protocol: Document 03/13/19 09:31 RS (Rec: 03/13/19 10:02 RS [id number]) Co-Sign 03/13/19 09:31 LP Nutrition Notes Need for Assessment generated from: MD Order Initial or Follow up Reassessment Current Diagnosis Diabetes,Hypertension Other Pertinent Diagnosis 2+ pitting edema Current Diet NPO Labs/Tests Na: 148 BUN:35 Cr:1.9 Glu: 114 Pertinent Medications Zofran, Lipitor Height 5 ft 10 in Weight 78.4 kg [place] Body Weight (kg) 75.45 BMI 24.7 Subjective/Other Information MD order for TF. 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 Burn Absent Trauma Absent Current % PO Negligible Minimum of two criteria Yes Muscle Mass Mild Depletion (non-severe) Fluid Accumulation Mild (non-severe) Reduced Outdoor Emergency Care Technician Strength N/A (non-severe) #2 Nutrition Diagnosis Malnutrition Etiology dementia, encephalopathy As Evidenced by Signs and Symptoms pitting edema +2, redcued inspector scales strength, and slight temporal wasting #1 Nutrition Diagnosis Predicted suboptimal energy intake Etiology Dementia, encephalopathy As Evidenced by Signs and Symptoms Very slight temporal wasting and unable to obtain nutriton hx Diagnosis Progress(for reassessment Resolved documentation) Is patient on ventilator? No Is Patient Ambulatory and/or Out of Bed No REE-([facility]-confined to bed) [phone] Calculation Used for Recommendations [facility] Additional Notes Protein: (1.0-1.2g/kg) 78-94g/day Fluid needs: 1 ml Nutrition Intervention Change Diet Order: TF Nutrition Support: Glucerna 1.2 at 60ml/hr w/ water flush of 150ml q4hr. Kcal 1,728 Protein (gm) 86 Carbohydrates (gm) 165 Fat (gm) 86 Fluid (mL) 1,160 Fiber (gm) 23 Add Supplement/Snack (indicate name/kcal d/c /protein ) Goal #1 Achieve >75% EER and Pro needs via TF Anticipated Discharge Needs: Unable to determine Follow-Up By: 03/16/19 Additional Comments Monitor TF
[2019-03-15] MEDS: cefTRIAXone/NS 2 GM/100 ML 2 GM/100 ML BAG IV SCH ×2 (09:59→22:39)
[2019-03-15 12:52] LABS: Calcium 7.9 mg/dL (8.4-10.2)
[2019-03-16] MEDS: hydrALAZINE 20 MG/1 ML INJ IV PRN (00:21)
[2019-03-16] MEDS: AMPICILLIN/NS 1 GM/50 ML 1 GM/50 ML BAG IV SCH ×4 (00:31→19:06)
[2019-03-16] MEDS ORDERED: cloNIDine 0.2 MG TAB PO ONE (00:34)
[2019-03-16] MEDS ORDERED: cloNIDine 0.1 MG TAB PO ONE (01:46)
[2019-03-16] MEDS: hydrALAZINE 20 MG/1 ML INJ IV SCH ×7 (04:00→23:00)
[2019-03-16] MEDS: SODIUM CHLORIDE 0.9% 1000 ML 1,000 ML IV SCH ×2 (04:37→20:40)
[2019-03-16 08:17] LABS: Basophils # (Auto) 0.1 K/mm3 (0.0-0.1); Eosinophils # (Auto) 0.4 K/mm3 (0.0-0.4); Eosinophils % (Auto) 5.4 % (0.0-4.3); Hematocrit 38.8 % (35.5-45.6); Hemoglobin 12.6 gm/dl (11.8-15.2); Lymphocytes # (Auto) 1.3 K/mm3 (1.2-5.4); Lymphocytes % (Auto) 19.1 % (13.4-35.0); Mean Corpuscular HGB Conc 33 % (32-34); Mean Corpuscular Volume 86 fl (84-94); Monocytes # (Auto) 0.9 K/mm3 (0.0-0.8); Monocytes % (Auto) 13.3 % (0.0-7.3); Red Blood Count 4.49 M/mm3 (3.65-5.03)
[2019-03-16 08:24] LABS: INR 1.69 (0.87-1.13)
[2019-03-16 08:34] LABS: Calcium 7.8 mg/dL (8.4-10.2)
[2019-03-16 09:43] LABS: Platelet Count 130 K/mm3 (140-440)
[2019-03-16] MEDS: ASPIRIN 300 MG RECT SUPP PR SCH (11:08)
[2019-03-16] MEDS: cefTRIAXone/NS 2 GM/100 ML 2 GM/100 ML BAG IV SCH ×2 (11:30→22:56)
--- NOTE | 2019-03-16 13:01 | Progress Note ---
Assessment and Plan Assessment and plan: Acute encephalopathy. Etiology unclear. Continue to treat for infectious etiology. U/A is negative. Resolving. Patient near baseline. Therefore, will most likely not perform LP. Continue IV antibiotics. Accelerated hypertension. Continue antihypertensive medications. Diabetes mellitus type 2. Continue Accu-Cheks and sliding scale insulin. Acute on chronic renal failure.. Etiology secondary to vasomotor nephropathy from dehydration. Pt with poor intake. Cont. IVF and F/U BMP in am. Patient likely at baseline with creatinine 1.6. No previous creatinine to compare. Coagulopathy. INR cont. to rise with no coumadin. Pt with home med of coumadin 6mg daily but none since Saturday per daughter. Hx DVt. Resume home coumadin dose History Interval history: No new issues overnight. Daughter reports pt is near baseline neurological status Hospitalist Physical - Constitutional Vitals: Temp Pulse Resp BP Pulse Ox 98.7 F 72 20 170/63 95 03/16/19 12:09 03/16/19 12:03/16/19 12:09 03/16/19 12:03/16/19 12:09 General appearance: Present: mild distress - EENT Eyes: Present: PERRL, EOM intact ENT: hearing intact, clear oral mucosa, dentition normal - Neck Neck: Present: supple, normal ROM - Respiratory Respiratory effort: normal Respiratory: bilateral: CTA - Cardiovascular Rhythm: regular Heart Sounds: Present: S1 & S2. Absent: gallop, rub - Extremities Extremities: no ischemia, No edema, Full ROM - Abdominal General gastrointestinal: soft, non-tender, non-distended, normal bowel sounds - Integumentary Integumentary: Present: clear, warm, dry - Neurologic Neurologic: CNII-XII intact, moves all extremities Results - Labs CBC & Chem 7: 03/16/19 07:40 03/16/19 07:40 Labs: Laboratory Last Values WBC 6.9 K/mm3 (4.5-11.0) 03/16/19 07:40 RBC 4.49 M/mm3 (3.65-5.03) 03/16/19 07:40 Hgb 12.6 gm/dl (11.8-15.2) 03/16/19 07:40 Hct 38.8 % (35.5-45.6) 03/16/19 07:40 MCV 86 fl (84-94) 03/16/19 07:40 MCH 28 pg (28-32) 03/16/19 07:40 MCHC 33 % (32-34) 03/16/19 07:40 RDW 18.0 % (13.2-15.2) H 03/16/19 07:40 Plt Count 130 K/mm3 (140-440) L 03/16/19 07:40 Lymph % (Auto) 19.1 % (13.4-35.0) 03/16/19 07:40 [place] % (Auto) 13.3 % (0.0-7.3) H 03/16/19 07:40 Eos % (Auto) 5.4 % (0.0-4.3) H 03/16/19 07:40 Baso % (Auto) 1.0 % (0.0-1.8) 03/16/19 07:40 Lymph # 1.3 K/mm3 (1.2-5.4) 03/16/19 07:40 [place] # 0.9 K/mm3 (0.0-0.8) H 03/16/19 07:40 Eos # 0.4 K/mm3 (0.0-0.4) 03/16/19 07:40 Baso # 0.1 K/mm3 (0.0-0.1) 03/16/19 07:40 Seg Neutrophils % 61.2 % (40.0-70.0) 03/16/19 07:40 Seg Neutrophils # 4.2 K/mm3 (1.8-7.7) 03/16/19 07:40 PT 19.5 Sec. (12.2-14.9) H 03/16/19 07:40 INR 1.69 (0.87-1.13) H 03/16/19 07:40 APTT 27.8 Sec. (24.2-36.6) 03/10/19 12:17 25.2 Sec. (15.1-19.6) H 03/10/19 12:17 Sodium 140 mmol/L (137-145) 03/16/19 07:40 Potassium 4.0 mmol/L (3.6-5.0) 03/16/19 07:40 Chloride 108.0 mmol/L (98-107) H 03/16/19 07:40 Carbon Dioxide 24 mmol/L (22-30) 03/16/19 07:40 12 mmol/L 03/16/19 07:40 BUN 26 mg/dL (9-20) H 03/16/19 07:40 1.6 mg/dL (0.8-1.5) H 03/16/19 07:40 Estimated GFR 50 ml/min 03/16/19 07:40 16 % 03/16/19 07:40 Glucose 151 mg/dL (75-100) H 03/16/19 07:40 POC Glucose 183 (70-105) H 03/16/19 12:09 Calcium 7.8 mg/dL (8.4-10.2) L 03/16/19 07:40 0.076 ng/mL (0.00-0.029) H 03/10/19 12:17 Triglycerides 140 mg/dL (2-149) 03/10/19 12:17 Cholesterol 143 mg/dL (50-199) 03/10/19 12:17 69 mg/dL (50-130) 03/10/19 12:17 62 mg/dL (40-59) H 03/10/19 12:17 2.30 % 03/10/19 12:17 Yellow (Yellow) 03/12/19 14:38 Slightly-cloudy (Clear) 03/12/19 14:38 5.0 (5.0-7.0) 03/12/19 14:38 Ur Specific [place] 1.019 (1.003-1.030) 03/12/19 14:38 >2000 mg dl mg/dL (Negative) 03/12/19 14:38 50 mg/dL (Negative) 03/12/19 14:38 Tr mg/dL (Negative) 03/12/19 14:38 Sm (Negative) 03/12/19 14:38 Neg (Negative) 03/12/19 14:38 Neg (Negative) 03/12/19 14:38 < 2.0 mg/dL (<2.0) 03/12/19 14:38 Ur Leukocyte Esterase Neg (Negative) 03/12/19 14:38 4.0 /HPF (0.0-6.0) 03/12/19 14:38 5.0 /HPF (0.0-6.0) 03/12/19 14:38 1+ /HPF (Negative) 03/12/19 14:38 Few /HPF 03/12/19 14:38 Active Medications - Current Medications Current Medications: Generic Name Dose Route Start Last Admin Trade Name Freq PRN Reason Stop Dose Admin Acetaminophen 650 mg 03/10/19 16:25 Tylenol PO Q4H PRN Pain, Mild (1-3) Lipase/Protease/Amylase 1 each 03/13/19 10:[address] 10,500 Unit FEEDTUBE PRN PRN For Clogged Feeding Tube Aspirin 300 mg 03/13/19 10:00 03/15/19 09:56 Aspirin SC 300 mg QDAY TAMMIE Administration Atorvastatin Calcium 40 mg 03/10/19 22:00 03/15/19 22:37 Lipitor PO 40 mg QHS TAMMIE Administration Bisacodyl 10 mg 03/10/19 16:25 Dulcolax SC QDAY PRN Constipation Hydralazine HCl 20 mg 03/13/19 06:00 03/16/19 00:21 Apresoline IV 20 mg Q4H PRN Administration Hypertension Hydralazine HCl 20 mg 03/16/19 02:00 03/16/19 11:31 Apresoline IV 20 mg Q4HR TAMMIE Administration Ceftriaxone Sodium 2 gm in 100 mls @ 200 mls/hr 03/13/19 10:00 03/16/19 11:30 Rocephin/Ns 2 Gm/100 Ml IV 200 mls/hr Q12HR TAMMIE Administration Protocol Ampicillin Sodium 1 gm in 50 mls @ 100 mls/hr 03/13/19 12:00 03/16/19 05:56 Ampicillin/Ns 1 Gm/50 Ml IV 100 mls/hr Q6HR TAMMIE Administration Sodium Chloride 1,000 mls @ 100 mls/hr 03/13/19 15:00 03/16/19 04:37 Nacl 0.9% 1000 Ml IV 100 mls/hr DIRECT TAMMIE Administration Lorazepam 2 mg 03/10/19 18:36 03/13/19 21:04 Ativan IV 2 mg Q4H PRN Administration Agitation Magnesium Hydroxide 30 ml 03/10/19 16:25 Milk Of Magnesia PO Q4H PRN Constipation Metoclopramide HCl 10 mg 03/10/19 16:25 Reglan PO Q6H PRN Nausea And Vomiting Ondansetron HCl 4 mg 03/10/19 16:25 Zofran IV Q8H PRN Nausea And Vomiting Promethazine HCl 25 mg 03/10/19 16:25 Phenergan SC Q6H PRN Nausea And Vomiting Simple Syrup 15 ml 03/13/19 10:02 Simple Syrup FEEDTUBE PRN PRN Hypoglycemia Simple Syrup 30 ml 03/13/19 10:02 Simple Syrup FEEDTUBE PRN PRN Hypoglycemia Sodium Bicarbonate 325 mg 03/13/19 10:02 Sodium Bicarbonate FEEDTUBE PRN PRN For Clogged Feeding Tube Sodium Chloride 10 ml 03/10/19 16:25 03/13/19 21:03 Sodium Chloride Flush Syringe 10 Ml IV 10 ml PRN PRN Administration LINE FLUSH Nutrition/Malnutrition Assess - Dietary Evaluation Nutrition/Malnutrition Findings: Nutrition Notes Start: 03/11/19 12:57 Freq: Status: Active Protocol: Document 03/13/19 09:31 RS (Rec: 03/13/19 10:02 RS [id number]) Co-Sign 03/13/19 09:31 LP Nutrition Notes Need for Assessment generated from: MD Order Initial or Follow up Reassessment Current Diagnosis Diabetes,Hypertension Other Pertinent Diagnosis 2+ pitting edema Current Diet NPO Labs/Tests Na: 148 BUN:35 Cr:1.9 Glu: 114 Pertinent Medications Zofran, Lipitor Height 5 ft 10 in Weight 78.4 kg [place] Body Weight (kg) 75.45 BMI 24.7 Subjective/Other Information MD order for TF. 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 Burn Absent Trauma Absent Current % PO Negligible Minimum of two criteria Yes Muscle Mass Mild Depletion (non-severe) Fluid Accumulation Mild (non-severe) Reduced Second Chef Strength N/A (non-severe) #2 Nutrition Diagnosis Malnutrition Etiology dementia, encephalopathy As Evidenced by Signs and Symptoms pitting edema +2, redcued data consultant strength, and slight temporal wasting #1 Nutrition Diagnosis Predicted suboptimal energy intake Etiology Dementia, encephalopathy As Evidenced by Signs and Symptoms Very slight temporal wasting and unable to obtain nutriton hx Diagnosis Progress(for reassessment Resolved documentation) Is patient on ventilator? No Is Patient Ambulatory and/or Out of Bed No REE-([facility]-confined to bed) [phone] Calculation Used for Recommendations O[facility] Navarro Additional Notes Protein: (1.0-1.2g/kg) 78-94g/day Fluid needs: 1 ml Nutrition Intervention Change Diet Order: TF Nutrition Support: Glucerna 1.2 at 60ml/hr w/ water flush of 150ml q4hr. Kcal 1,728 Protein (gm) 86 Carbohydrates (gm) 165 Fat (gm) 86 Fluid (mL) 1,160 Fiber (gm) 23 Add Supplement/Snack (indicate name/kcal d/c /protein ) Goal #1 Achieve >75% EER and Pro needs via TF Anticipated Discharge Needs: Unable to determine Follow-Up By: 03/16/19 Additional Comments Monitor TF
--- NOTE | 2019-03-16 13:24 | Progress Note ---
Assessment and Plan Cultures: 03/12 UCx: negative A/P: 84 yo M PMHx HTN, DM2, ? dementia admitted with AMS 1. Altered mental status - Unclear etiology, and since he has improved and his caogulopathy has been consistent, primary team not planning on obtaining LP now. Agree with this, as he has been antibiotics for a while, so it is unlikely to be revealing. Would recommend empiric therapy to complete 10 days of the ampicillin and ceftriaxone since he has been improving on it. 2. Malignant hypertension - CTHead normal, may need MRI if feasbile to evaluate for end-organ disease 3. DM2 - hyperglycemic, likely impairing immune function 4. Dementia Recs: - continue ceftriaxone 2g q12h for meningitis dosing - continue ampicillin - Recommend 10 day course. Stop date: 03/21 Will follow German Bullard MD [facility] ([facility]) M: [phone] O: [phone] F: [phone] Subjective Date of service: 03/16/19 Interval history: Closer to baseline mental status. Objective - Exam Narrative Exam: Physical Exam: Constitutional: Alert, awake Head, Ears, Nose: Normocephalic, atraumatic. External ears, nose normal Eyes: Conjunctivae/corneas clear. No icterus. No ptosis. Neck: Supple, no meningeal signs on passive movement of neck. Oral: dentition fair, no thrush Cardiovascular: S1, S2 normal. Respiratory: Good air entry, clear to auscultation bilaterally GI: Soft, non-tender; bowel sounds normal. No peritoneal signs. Musculoskeletal: No pedal edema, no cyanosis. Skin: No rash or abscess Hem/Lymphatic: No palpable cervical or supraclavicular nodes. No lymphangitis Neurological: Alert, awake, AAOx2 - Constitutional Vitals: Vital Signs Temp Pulse Resp BP Pulse Ox 98.7 F 72 20 170/63 95 03/16/19 12:03/16/19 12:03/16/19 12:03/16/19 12:03/16/19 12:09 Temperature -Last 24 Hours Temperature 98.7 F Temperature 98.8 F Temperature 98.6 F Temperature 98.7 F Temperature 98.0 F Temperature 98.6 F - Labs CBC & Chem 7: 03/16/19 07:40 03/16/19 07:40 Labs: Abnormal lab results 03/15/19 03/16/19 03/16/19 Range/Units 16:18 07:40 07:40 RDW 18.0 H (13.2-15.2) % Plt Count 130 L (140-440) K/mm3 [place] % (Auto) 13.3 H (0.0-7.3) % Eos % (Auto) 5.4 H (0.0-4.3) % [place] # 0.9 H (0.0-0.8) K/mm3 PT 19.5 H (12.2-14.9) Sec. INR 1.69 H (0.87-1.13) Chloride (98-107) mmol/L BUN (9-20) mg/dL Creatinine (0.8-1.5) mg/dL Glucose (75-100) mg/dL POC Glucose 242 H (70-105) Calcium (8.4-10.2) mg/dL 03/16/19 03/16/19 03/16/19 Range/Units 07:40 08:22 12:09 RDW (13.2-15.2) % Plt Count (140-440) K/mm3 [place] % (Auto) (0.0-7.3) % Eos % (Auto) (0.0-4.3) % [place] # (0.0-0.8) K/mm3 PT (12.2-14.9) Sec. INR (0.87-1.13) Chloride 108.0 H (98-107) mmol/L BUN 26 H (9-20) mg/dL Creatinine 1.6 H (0.8-1.5) mg/dL Glucose 151 H (75-100) mg/dL POC Glucose 147 H 183 H (70-105) Calcium 7.8 L (8.4-10.2) mg/dL
[2019-03-16] MEDS: cloNIDine 0.1 MG TAB PO SCH ×2 (16:15→20:30)
[2019-03-16] MEDS ORDERED: WARFARIN 5 MG TAB PO SCH (17:00)
[2019-03-16] MEDS ORDERED: NON-FORMULARY EACH (Rosuvastatin (Nf) 20 MG) PO SCH (22:00)
[2019-03-16] MEDS ORDERED: COREG 6.25 MG PO SCH (22:00)
[2019-03-16] MEDS: INSULIN GLARGINE 100 UNITS/ML SUB-Q SCH (22:56)
[2019-03-16] MEDS: carvediloL 6.25 MG TAB PO SCH (22:59)
[2019-03-16] MEDS: GABAPENTIN 300 MG CAP PO SCH (23:01)
[2019-03-17] MEDS: AMPICILLIN/NS 1 GM/50 ML 1 GM/50 ML BAG IV SCH ×5 (01:03→23:36)
[2019-03-17] MEDS: hydrALAZINE 20 MG/1 ML INJ IV SCH ×6 (02:48→22:13)
[2019-03-17 05:48] LABS: INR 1.28 (0.87-1.13)
[2019-03-17] MEDS: SODIUM CHLORIDE 0.9% 1000 ML 1,000 ML IV SCH (08:12)
[2019-03-17] MEDS: cloNIDine 0.1 MG TAB PO SCH ×3 (08:56→20:03)
[2019-03-17] MEDS ORDERED: WARFARIN 5 MG TAB PO SCH (10:00)
[2019-03-17] MEDS: ASPIRIN 81 MG TAB CHEW PO SCH (10:29)
[2019-03-17] MEDS: carvediloL 6.25 MG TAB PO SCH ×2 (10:29→22:12)
[2019-03-17] MEDS: cefTRIAXone/NS 2 GM/100 ML 2 GM/100 ML BAG IV SCH ×2 (10:31→21:27)
--- NOTE | 2019-03-17 14:05 | Vascular Lab Report ---
LEFT UPPER EXTREMITY VENOUS DOPPLER ULTRASOUND HISTORY: Upper extremity pain and swelling. COMPARISON: None. TECHNIQUE: Grayscale, color and spectral Doppler imaging of the venous system of the left upper extre mity was performed. FINDINGS: Internal Jugular Vein: Normal grayscale appearance and flow. Subclavian Vein: Normal grayscale appearance and flow. Axillary Vein: Normal venous flow, compressibility and augmentation. Brachial vein: Normal venous flow, compressibility and augmentation. Basilic vein: Normal venous flow, compressibility and augmentation. Cephalic vein: Positive for venous thrombosis Radial vein: Normal venous flow, compressibility and augmentation. Ulnar vein: Normal venous flow, compressibility and augmentation. Additional Findings: None. IMPRESSION: No evidence for deep venous thrombosis. Superficial venous thrombosis is noted in the cephalic vein in the distal biceps to the antecubital f mickey. Signer Name: Júnior Lucia Jr, MD Signed: 03/17/2019 2:01 PM Workstation Name: [id number]
--- NOTE | 2019-03-17 15:04 | Progress Note ---
Assessment and Plan Cultures: 03/12 UCx: negative A/P: 84 yo M PMHx HTN, DM2, ? dementia admitted with AMS 1. Altered mental status - Unclear etiology, and since he has improved and his caogulopathy has been consistent, primary team not planning on obtaining LP now. Agree with this, as he has been antibiotics for a while, so it is unlikely to be revealing. Would recommend empiric therapy to complete 10 days of the ampicillin and ceftriaxone since he has been improving on it. 2. Malignant hypertension - CTHead normal, may need MRI if feasbile to evaluate for end-organ disease 3. DM2 - hyperglycemic, likely impairing immune function 4. Dementia Recs: - continue ceftriaxone 2g q12h for meningitis dosing - continue ampicillin - Recommend 10 day course. Stop date: 03/21 - can give discharge recs when plan for DC in place. Home vs SNF vs rehab? Will follow German Bullard MD [facility] ([facility]) M: [phone] O: [phone] F: [phone] Subjective Date of service: 03/17/19 Interval history: Closer to baseline mental status. Alert, oriented. Objective - Exam Narrative Exam: Physical Exam: Constitutional: Alert, awake Head, Ears, Nose: Normocephalic, atraumatic. External ears, nose normal Eyes: Conjunctivae/corneas clear. No icterus. No ptosis. Neck: Supple, no meningeal signs on passive movement of neck. Oral: dentition fair, no thrush Cardiovascular: S1, S2 normal. Respiratory: Good air entry, clear to auscultation bilaterally GI: Soft, non-tender; bowel sounds normal. No peritoneal signs. Musculoskeletal: No pedal edema, no cyanosis. Skin: No rash or abscess Hem/Lymphatic: No palpable cervical or supraclavicular nodes. No lymphangitis Neurological: Alert, awake, AAOx3 - Constitutional Vitals: Vital Signs Temp Pulse Resp BP Pulse Ox 97.9 F 60 18 148/59 96 03/17/19 11:43 03/17/19 11:43 03/17/19 11:43 03/17/19 11:43 03/17/19 11:43 Temperature -Last 24 Hours Temperature 97.9 F Temperature 98.9 F Temperature 97.8 F Temperature 98.2 F Temperature 98.7 F Temperature 98.9 F - Labs CBC & Chem 7: 03/16/19 07:40 03/16/19 07:40 Labs: Abnormal lab results 03/16/19 03/16/19 03/17/19 Range/Units 16:54 21:50 05:29 PT 15.7 H (12.2-14.9) Sec. INR 1.28 H (0.87-1.13) POC Glucose 181 H 208 H (70-105) 03/17/19 03/17/19 Range/Units 08:28 11:49 PT (12.2-14.9) Sec. INR (0.87-1.13) POC Glucose 154 H 296 H (70-105)
--- NOTE | 2019-03-17 16:16 | Progress Note ---
Assessment and Plan Assessment and plan: Acute encephalopathy. Etiology unclear. Continue to treat for infectious etiology. U/A is negative. Resolving. Patient near baseline. Therefore, will most likely not perform LP. Continue IV antibiotics per ID Accelerated hypertension. Continue antihypertensive medications. Diabetes mellitus type 2. Continue Accu-Cheks and sliding scale insulin. Acute on chronic renal failure.. Etiology secondary to vasomotor nephropathy from dehydration. Pt with poor intake. Cont. IVF and F/U BMP in am. Patient likely at baseline with creatinine 1.6. No previous creatinine to compare. Coagulopathy. INR cont. to rise with no coumadin. Pt with home med of coumadin 6mg daily but none since Saturday per daughter. Left upper extremity swelling and pain; Doppler was done and negative for DVT. 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 History Interval history: Patient was seen and evaluated this morning, patient didn't have any complaints. Patient would like to go his daughter's house on discharge. Hospitalist Physical - Physical exam Narrative exam: Not in cardiopulmonary distress. The patient appeared well nourished and normally developed. Vital signs as documented. Head exam is unremarkable. No scleral icterus . Neck is without jugular venous distension, thyromegaly, or carotid bruits. Lungs are clear to auscultation. Cardiac exam reveals regular rate and Rhythm. Abdominal exam reveals normal bowel sounds, no masses, no organomegaly and no aortic enlargement. Extremities are nonedematous and both femoral and pedal pulses are normal. 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 No focal weakness. - Constitutional Vitals: Temp Pulse Resp BP Pulse Ox 97.9 F 60 18 148/59 96 03/17/19 11:43 03/17/19 11:43 03/17/19 11:43 03/17/19 11:43 03/17/19 11:43 General appearance: Present: mild distress Results - Labs CBC & Chem 7: 03/16/19 07:40 03/16/19 07:40 Labs: Laboratory Last Values WBC 6.9 K/mm3 (4.5-11.0) 03/16/19 07:40 RBC 4.49 M/mm3 (3.65-5.03) 03/16/19 07:40 Hgb 12.6 gm/dl (11.8-15.2) 03/16/19 07:40 Hct 38.8 % (35.5-45.6) 03/16/19 07:40 MCV 86 fl (84-94) 03/16/19 07:40 MCH 28 pg (28-32) 03/16/19 07:40 MCHC 33 % (32-34) 03/16/19 07:40 RDW 18.0 % (13.2-15.2) H 03/16/19 07:40 Plt Count 130 K/mm3 (140-440) L 03/16/19 07:40 Lymph % (Auto) 19.1 % (13.4-35.0) 03/16/19 07:40 [place] % (Auto) 13.3 % (0.0-7.3) H 03/16/19 07:40 Eos % (Auto) 5.4 % (0.0-4.3) H 03/16/19 07:40 Baso % (Auto) 1.0 % (0.0-1.8) 03/16/19 07:40 Lymph # 1.3 K/mm3 (1.2-5.4) 03/16/19 07:40 [place] # 0.9 K/mm3 (0.0-0.8) H 03/16/19 07:40 Eos # 0.4 K/mm3 (0.0-0.4) 03/16/19 07:40 Baso # 0.1 K/mm3 (0.0-0.1) 03/16/19 07:40 Seg Neutrophils % 61.2 % (40.0-70.0) 03/16/19 07:40 Seg Neutrophils # 4.2 K/mm3 (1.8-7.7) 03/16/19 07:40 PT 15.7 Sec. (12.2-14.9) H 03/17/19 05:29 INR 1.28 (0.87-1.13) H 03/17/19 05:29 APTT 27.8 Sec. (24.2-36.6) 03/10/19 12:17 25.2 Sec. (15.1-19.6) H 03/10/19 12:17 Sodium 140 mmol/L (137-145) 03/16/19 07:40 Potassium 4.0 mmol/L (3.6-5.0) 03/16/19 07:40 Chloride 108.0 mmol/L (98-107) H 03/16/19 07:40 Carbon Dioxide 24 mmol/L (22-30) 03/16/19 07:40 12 mmol/L 03/16/19 07:40 BUN 26 mg/dL (9-20) H 03/16/19 07:40 1.6 mg/dL (0.8-1.5) H 03/16/19 07:40 Estimated GFR 50 ml/min 03/16/19 07:40 16 % 03/16/19 07:40 Glucose 151 mg/dL (75-100) H 03/16/19 07:40 POC Glucose 296 (70-105) H 03/17/19 11:49 Calcium 7.8 mg/dL (8.4-10.2) L 03/16/19 07:40 0.076 ng/mL (0.00-0.029) H 03/10/19 12:17 Triglycerides 140 mg/dL (2-149) 03/10/19 12:17 Cholesterol 143 mg/dL (50-199) 03/10/19 12:17 69 mg/dL (50-130) 03/10/19 12:17 62 mg/dL (40-59) H 03/10/19 12:17 2.30 % 03/10/19 12:17 Yellow (Yellow) 03/12/19 14:38 Slightly-cloudy (Clear) 03/12/19 14:38 5.0 (5.0-7.0) 03/12/19 14:38 Ur Specific [place] 1.019 (1.003-1.030) 03/12/19 14:38 >2000 mg dl mg/dL (Negative) 03/12/19 14:38 50 mg/dL (Negative) 03/12/19 14:38 Tr mg/dL (Negative) 03/12/19 14:38 Sm (Negative) 03/12/19 14:38 Neg (Negative) 03/12/19 14:38 Neg (Negative) 03/12/19 14:38 < 2.0 mg/dL (<2.0) 03/12/19 14:38 Ur Leukocyte Esterase Neg (Negative) 03/12/19 14:38 4.0 /HPF (0.0-6.0) 03/12/19 14:38 5.0 /HPF (0.0-6.0) 03/12/19 14:38 1+ /HPF (Negative) 03/12/19 14:38 Few /HPF 03/12/19 14:38 Active Medications - Current Medications Current Medications: Generic Name Dose Route Start Last Admin Trade Name Freq PRN Reason Stop Dose Admin Acetaminophen 650 mg 03/10/19 16:25 03/17/19 10:29 Tylenol PO 650 mg Q4H PRN Administration Pain, Mild (1-3) Lipase/Protease/Amylase 1 each 03/13/19 10:[address] 10,500 Unit FEEDTUBE PRN PRN For Clogged Feeding Tube Aspirin 81 mg 03/17/19 10:00 03/17/19 10:29 Baby Aspirin PO 81 mg QDAY TAMMIE Administration Atorvastatin Calcium 40 mg 03/10/19 22:00 03/16/19 23:03 Lipitor PO 40 mg QHS TAMMIE Administration Bisacodyl 10 mg 03/10/19 16:25 Dulcolax [place] QDAY PRN Constipation Carvedilol 6.25 mg 03/16/19 22:00 03/17/19 10:29 Coreg PO 6.25 mg BID TAMMIE Administration Clonidine HCl 0.3 mg 03/16/19 15:00 03/17/19 08:56 Catapres PO 0.3 mg TID TAMMIE Administration Gabapentin 300 mg 03/16/19 22:00 03/16/19 23:01 Neurontin PO 300 mg QHS TAMMIE Administration Hydralazine HCl 20 mg 03/13/19 06:00 03/16/19 00:21 Apresoline IV 20 mg Q4H PRN Administration Hypertension Hydralazine HCl 20 mg 03/16/19 02:00 03/17/19 10:30 Apresoline IV 20 mg Q4HR TAMMIE Administration Ceftriaxone Sodium 2 gm in 100 mls @ 200 mls/hr 03/13/19 10:00 03/17/19 10:31 Rocephin/Ns 2 Gm/100 Ml IV 03/21/19 23:59 200 mls/hr Q12HR TAMMIE Administration Protocol Ampicillin Sodium 1 gm in 50 mls @ 100 mls/hr 03/13/19 12:00 03/17/19 05:33 Ampicillin/Ns 1 Gm/50 Ml IV 03/21/19 23:59 100 mls/hr Q6HR TAMMIE Administration Sodium Chloride 1,000 mls @ 100 mls/hr 03/13/19 15:00 03/17/19 08:12 Nacl 0.9% 1000 Ml IV 100 mls/hr DIRECT TAMMIE Administration Insulin Glargine 5 units 03/16/19 22:00 03/16/19 22:56 Lantus SUB-Q 5 units QHS TAMMIE Administration Lorazepam 2 mg 03/10/19 18:36 03/13/19 21:04 Ativan IV 2 mg Q4H PRN Administration Agitation Magnesium Hydroxide 30 ml 03/10/19 16:25 Milk Of Magnesia PO Q4H PRN Constipation Metoclopramide HCl 10 mg 03/10/19 16:25 Reglan PO Q6H PRN Nausea And Vomiting Ondansetron HCl 4 mg 03/10/19 16:25 Zofran IV Q8H PRN Nausea And Vomiting Oxycodone/Acetaminophen 1 tab 03/17/19 14:04 Percocet 5/325 PO Q6H PRN Pain, Moderate (4-6) Promethazine HCl 25 mg 03/10/19 16:25 Phenergan [place] Q6H PRN Nausea And Vomiting Simple Syrup 15 ml 03/13/19 10:02 Simple Syrup FEEDTUBE PRN PRN Hypoglycemia Simple Syrup 30 ml 03/13/19 10:02 Simple Syrup FEEDTUBE PRN PRN Hypoglycemia Sodium Bicarbonate 325 mg 03/13/19 10:02 Sodium Bicarbonate FEEDTUBE PRN PRN For Clogged Feeding Tube Sodium Chloride 10 ml 03/10/19 16:25 03/13/19 21:03 Sodium Chloride Flush Syringe 10 Ml IV 10 ml PRN PRN Administration LINE FLUSH Warfarin Sodium 6 mg 03/17/19 17:00 Coumadin PO DAILY@1700 [facility] Protocol Nutrition/Malnutrition Assess - Dietary Evaluation Nutrition/Malnutrition Findings: Nutrition Notes Start: 03/11/19 12:57 Freq: Status: Active Protocol: Document 03/17/19 10:26 FRANKY (Rec: 03/17/19 10:54 FRANKY [id number]) Co-Sign 03/17/19 10:26 NHALL Nutrition Notes Need for Assessment generated from: Education Initial or Follow up Reassessment Current Diagnosis Diabetes,Hypertension Other Pertinent Diagnosis 2+ pitting edema Current Diet Mechanical soft Labs/Tests BUN 26 Creat 1.6 Pertinent Medications Coumadin Height 5 ft 10 in Weight 83.2 kg [place] Body Weight (kg) 75.45 BMI 26.3 Subjective/Other Information RD referral for coumadin education. Pt stated he's been on it for awhile and understood vit K and coumadin interactions. Pt is tolerating mechanical soft diet. In the middle of eating when visited Percent of energy/protein needs met: 87%/90% Burn Absent Trauma Absent Minimum of two criteria Yes Muscle Mass Mild Depletion (non-severe) Fluid Accumulation Mild (non-severe) Reduced Etiologist Strength N/A (non-severe) #2 Nutrition Diagnosis Malnutrition Diagnosis Progress(for reassessment Continues documentation) Is patient on ventilator? No Is Patient Ambulatory and/or Out of Bed No REE-([facility]-confined to bed) [phone] Calculation Used for Recommendations [facility] Additional Notes Protein: 83g-99g/day (1-1.2g/ kg) Fluid needs: 1ml/kcal Nutrition Intervention Change Diet Order: Continue current Goal #1 Continue to meet at least 75% of kcal and protein needs via PO intakes Anticipated Discharge Needs: Unable to determine Follow-Up By: 03/20/19 Additional Comments F/U for PO intakes
[2019-03-17] MEDS: WARFARIN 2 MG TAB PO SCH (18:35)
[2019-03-17] MEDS: oxyCODONE /ACETAMINOPHEN 5-325MG TAB PO PRN (20:10)
[2019-03-17] MEDS: GABAPENTIN 300 MG CAP PO SCH (22:11)
[2019-03-17] MEDS: INSULIN GLARGINE 100 UNITS/ML SUB-Q SCH (22:12)
[2019-03-18] MEDS: hydrALAZINE 20 MG/1 ML INJ IV SCH ×6 (02:03→22:17)
[2019-03-18] MEDS: hydrALAZINE 20 MG/1 ML INJ IV PRN (04:40)
[2019-03-18] MEDS: AMPICILLIN/NS 1 GM/50 ML 1 GM/50 ML BAG IV SCH ×4 (05:52→23:21)
[2019-03-18 06:46] LABS: INR 1.3 (0.87-1.13)
[2019-03-18 06:47] LABS: Calcium 7.7 mg/dL (8.4-10.2)
[2019-03-18] MEDS: cloNIDine 0.1 MG TAB PO SCH ×3 (08:19→22:17)
[2019-03-18] MEDS: amLODIPine 10 MG TAB PO SCH (10:55)
[2019-03-18] MEDS: carvediloL 6.25 MG TAB PO SCH ×2 (10:55→22:17)
[2019-03-18] MEDS: ASPIRIN 81 MG TAB CHEW PO SCH (10:56)
[2019-03-18] MEDS: cefTRIAXone/NS 2 GM/100 ML 2 GM/100 ML BAG IV SCH ×2 (10:56→22:09)
[2019-03-18] MEDS ORDERED: DEXTROSE 50% IN WATER (25GM) 50 ML SYRINGE IV PRN (13:00)
[2019-03-18] MEDS: INSULIN LISPRO 100 UNIT/ML SUB-Q SCH ×3 (13:01→22:07)
[2019-03-18] MEDS: MAGNESIUM HYDROXIDE (MOM) ORAL LIQD UDC PO PRN (14:48)
--- NOTE | 2019-03-18 14:49 | Progress Note ---
Assessment and Plan Assessment and plan: Acute encephalopathy. Etiology unclear. Continue to treat for infectious etiology. U/A is negative. Resolving. Patient near baseline. Therefore, will most likely not perform LP. Continue IV antibiotics per ID Accelerated hypertension. Continue antihypertensive medications. Patient refused his medications is morning and it was very high. Diabetes mellitus type 2. Continue Accu-Cheks and sliding scale insulin. Acute on chronic renal failure.. Etiology secondary to vasomotor nephropathy f rom dehydration. Pt with poor intake. Cont. IVF and F/U BMP in am. Patient likely at baseline with creatinine 1.6. No previous creatinine to compare. Coagulopathy. INR cont. to rise with no coumadin. Pt with home med of coumadin 6mg daily but none since Saturday per daughter. Left upper extremity swelling and pain; Doppler was done and negative for DVT. 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 History Interval history: Patient was seen and evaluated this morning, patient didn't have any complaints. Patient would like to go his daughter's house on discharge. Hospitalist Physical - Physical exam Narrative exam: Not in cardiopulmonary distress. The patient appeared well nourished and normally developed. Vital signs as documented. Head exam is unremarkable. No scleral icterus . Neck is without jugular venous distension, thyromegaly, or carotid bruits. Lungs are clear to auscultation. Cardiac exam reveals regular rate and Rhythm. Abdominal exam reveals normal bowel sounds, no masses, no organomegaly and no aortic enlargement. Extremities are nonedematous and both femoral and pedal pulses are normal. 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 No focal weakness. - Constitutional Vitals: Temp Pulse Resp BP Pulse Ox 98.1 F 75 18 196/75 94 03/18/19 07:56 03/18/19 10:55 03/18/19 10:00 03/18/19 10:55 03/18/19 10:00 General appearance: Present: mild distress Results - Labs CBC & Chem 7: 03/16/19 07:40 03/18/19 05:40 Labs: Laboratory Last Values WBC 6.9 K/mm3 (4.5-11.0) 03/16/19 07:40 RBC 4.49 M/mm3 (3.65-5.03) 03/16/19 07:40 Hgb 12.6 gm/dl (11.8-15.2) 03/16/19 07:40 Hct 38.8 % (35.5-45.6) 03/16/19 07:40 MCV 86 fl (84-94) 03/16/19 07:40 MCH 28 pg (28-32) 03/16/19 07:40 MCHC 33 % (32-34) 03/16/19 07:40 RDW 18.0 % (13.2-15.2) H 03/16/19 07:40 Plt Count 130 K/mm3 (140-440) L 03/16/19 07:40 Lymph % (Auto) 19.1 % (13.4-35.0) 03/16/19 07:40 Lane % (Auto) 13.3 % (0.0-7.3) H 03/16/19 07:40 Eos % (Auto) 5.4 % (0.0-4.3) H 03/16/19 07:40 Baso % (Auto) 1.0 % (0.0-1.8) 03/16/19 07:40 Lymph # 1.3 K/mm3 (1.2-5.4) 03/16/19 07:40 Lane # 0.9 K/mm3 (0.0-0.8) H 03/16/19 07:40 Eos # 0.4 K/mm3 (0.0-0.4) 03/16/19 07:40 Baso # 0.1 K/mm3 (0.0-0.1) 03/16/19 07:40 Seg Neutrophils % 61.2 % (40.0-70.0) 03/16/19 07:40 Seg Neutrophils # 4.2 K/mm3 (1.8-7.7) 03/16/19 07:40 PT 15.9 Sec. (12.2-14.9) H 03/18/19 05:40 INR 1.30 (0.87-1.13) H 03/18/19 05:40 APTT 27.8 Sec. (24.2-36.6) 03/10/19 12:17 25.2 Sec. (15.1-19.6) H 03/10/19 12:17 Sodium 142 mmol/L (137-145) 03/18/19 05:40 Potassium 3.6 mmol/L (3.6-5.0) 03/18/19 05:40 Chloride 105.5 mmol/L (98-107) 03/18/19 05:40 Carbon Dioxide 25 mmol/L (22-30) 03/18/19 05:40 15 mmol/L 03/18/19 05:40 BUN 21 mg/dL (9-20) H 03/18/19 05:40 1.7 mg/dL (0.8-1.5) H 03/18/19 05:40 Estimated GFR 47 ml/min 03/18/19 05:40 12 % 03/18/19 05:40 Glucose 174 mg/dL (75-100) H 03/18/19 05:40 POC Glucose 185 (70-105) H 03/18/19 11:41 Calcium 7.7 mg/dL (8.4-10.2) L 03/18/19 05:40 0.076 ng/mL (0.00-0.029) H 03/10/19 12:17 Triglycerides 140 mg/dL (2-149) 03/10/19 12:17 Cholesterol 143 mg/dL (50-199) 03/10/19 12:17 69 mg/dL (50-130) 03/10/19 12:17 62 mg/dL (40-59) H 03/10/19 12:17 2.30 % 03/10/19 12:17 Yellow (Yellow) 03/12/19 14:38 Slightly-cloudy (Clear) 03/12/19 14:38 5.0 (5.0-7.0) 03/12/19 14:38 Ur Specific [place] 1.019 (1.003-1.030) 03/12/19 14:38 >2000 mg dl mg/dL (Negative) 03/12/19 14:38 50 mg/dL (Negative) 03/12/19 14:38 Tr mg/dL (Negative) 03/12/19 14:38 Sm (Negative) 03/12/19 14:38 Neg (Negative) 03/12/19 14:38 Neg (Negative) 03/12/19 14:38 < 2.0 mg/dL (<2.0) 03/12/19 14:38 Ur Leukocyte Esterase Neg (Negative) 03/12/19 14:38 4.0 /HPF (0.0-6.0) 03/12/19 14:38 5.0 /HPF (0.0-6.0) 03/12/19 14:38 1+ /HPF (Negative) 03/12/19 14:38 Few /HPF 03/12/19 14:38 Active Medications - Current Medications Current Medications: Generic Name Dose Route Start Last Admin Trade Name Freq PRN Reason Stop Dose Admin Acetaminophen 650 mg 03/10/19 16:25 03/17/19 10:29 Tylenol PO 650 mg Q4H PRN Administration Pain, Mild (1-3) Amlodipine Besylate 10 mg 03/18/19 10:00 03/18/19 10:55 Norvasc PO 10 mg QDAY TAMMIE Administration Lipase/Protease/Amylase 1 each 03/13/19 10:02 Pancreazshandra Sifuentes 10,500 Unit FEEDTUBE PRN PRN For Clogged Feeding Tube Aspirin 81 mg 03/17/19 10:00 03/18/19 10:56 Baby Aspirin PO 81 mg QDAY TAMMIE Administration Atorvastatin Calcium 40 mg 03/10/19 22:00 03/17/19 22:11 Lipitor PO 40 mg QHS TAMMIE Administration Bisacodyl 10 mg 03/10/19 16:25 Dulcolax [place] QDAY PRN Constipation Carvedilol 6.25 mg 03/16/19 22:00 03/18/19 10:55 Coreg PO 6.25 mg BID TAMMIE Administration Clonidine HCl 0.3 mg 03/16/19 15:00 03/18/19 08:19 Catapres PO 0.3 mg TID TAMMIE Administration Dextrose 50 ml 03/18/19 13:00 D50w (25gm) Syringe IV PRN PRN Hypoglycemia Gabapentin 300 mg 03/16/19 22:00 03/17/19 22:11 Neurontin PO 300 mg QHS TAMMIE Administration Hydralazine HCl 20 mg 03/13/19 06:00 03/18/19 04:40 Apresoline IV 20 mg Q4H PRN Administration Hypertension Hydralazine HCl 20 mg 03/16/19 02:00 03/18/19 09:02 Apresoline IV 20 mg Q4HR TAMMIE Administration Ceftriaxone Sodium 2 gm in 100 mls @ 200 mls/hr 03/13/19 10:00 03/18/19 10:56 Rocephin/Ns 2 Gm/100 Ml IV 03/21/19 23:59 200 mls/hr Q12HR TAMMIE Administration Protocol Ampicillin Sodium 1 gm in 50 mls @ 100 mls/hr 03/13/19 12:00 03/18/19 12:47 Ampicillin/Ns 1 Gm/50 Ml IV 03/21/19 23:59 100 mls/hr Q6HR TAMMIE Administration Sodium Chloride 1,000 mls @ 100 mls/hr 03/13/19 15:00 03/17/19 08:12 Nacl 0.9% 1000 Ml IV 100 mls/hr DIRECT TAMMIE Administration Insulin Glargine 5 units 03/16/19 22:00 03/17/19 22:12 Lantus SUB-Q 5 units QHS TAMMIE Administration Insulin Human Lispro 0 unit 03/18/19 13:00 03/18/19 13:01 Humalog SUB-Q 3 unit ACHS TAMMIE Administration Protocol Lorazepam 2 mg 03/10/19 18:36 03/13/19 21:04 Ativan IV 2 mg Q4H PRN Administration Agitation Magnesium Hydroxide 30 ml 03/10/19 16:25 Milk Of Magnesia PO Q4H PRN Constipation Metoclopramide HCl 10 mg 03/10/19 16:25 Reglan PO Q6H PRN Nausea And Vomiting Ondansetron HCl 4 mg 03/10/19 16:25 Zofran IV Q8H PRN Nausea And Vomiting Oxycodone/Acetaminophen 1 tab 03/17/19 14:04 03/17/19 20:10 Percocet 5/325 PO 1 tab Q6H PRN Administration Pain, Moderate (4-6) Promethazine HCl 25 mg 03/10/19 16:25 Phenergan [place] Q6H PRN Nausea And Vomiting Simple Syrup 15 ml 03/13/19 10:02 Simple Syrup FEEDTUBE PRN PRN Hypoglycemia Simple Syrup 30 ml 03/13/19 10:02 Simple Syrup FEEDTUBE PRN PRN Hypoglycemia Sodium Bicarbonate 325 mg 03/13/19 10:02 Sodium Bicarbonate FEEDTUBE PRN PRN For Clogged Feeding Tube Sodium Chloride 10 ml 03/10/19 16:25 03/13/19 21:03 Sodium Chloride Flush Syringe 10 Ml IV 10 ml PRN PRN Administration LINE FLUSH Warfarin Sodium 6 mg 03/17/19 17:00 03/17/19 18:35 Coumadin PO 6 mg DAILY@1700 [facility] Administration Protocol Nutrition/Malnutrition Assess - Dietary Evaluation Nutrition/Malnutrition Findings: Nutrition Notes Start: 03/11/19 12: 57 Freq: Status: Active Protocol: Document 03/17/19 10:26 FRANKY (Rec: 03/17/19 10:54 FRANKY [id number]) Co-Sign 03/17/19 10:26 NHALL Nutrition Notes Need for Assessment generated from: Education Initial or Follow up Reassessment Current Diagnosis Diabetes,Hypertension Other Pertinent Diagnosis 2+ pitting edema Current Diet Mechanical soft Labs/Tests BUN 26 Creat 1.6 Pertinent Medications Coumadin Height 5 ft 10 in Weight 83.2 kg [place] Body Weight (kg) 75.45 BMI 26.3 Subjective/Other Information RD referral for coumadin education. Pt stated he's been on it for awhile and understood vit K and coumadin interactions. Pt is tolerating mechanical soft diet. In the middle of eating when visited Percent of energy/protein needs met: 87%/90% Burn Absent Trauma Absent Minimum of two criteria Yes Muscle Mass Mild Depletion (non-severe) Fluid Accumulation Mild (non-severe) Reduced Supervisor Front Strength N/A (non-severe) #2 Nutrition Diagnosis Malnutrition Diagnosis Progress(for reassessment Continues documentation) Is patient on ventilator? No Is Patient Ambulatory and/or Out of Bed No REE-([facility]-confined to bed) 5318.932 Calculation Used for Recommendations [facility] Additional Notes Protein: 83g-99g/day (1-1.2g/ kg) Fluid needs: 1ml/kcal Nutrition Intervention Change Diet Order: Continue current Goal #1 Continue to meet at least 75% of kcal and protein needs via PO intakes Anticipated Discharge Needs: Unable to determine Follow-Up By: 03/20/19 Additional Comments F/U for PO intakes
--- NOTE | 2019-03-18 15:21 | Progress Note ---
Assessment and Plan Cultures: 03/12 UCx: negative A/P: 84 yo M PMHx HTN, DM2, ? dementia admitted with AMS 1. Altered mental status - Unclear etiology, and since he has improved and his caogulopathy has been consistent, primary team not planning on obtaining LP now. Agree with this, as he has been antibiotics for a while, so it is unlikely to be revealing. Would recommend empiric therapy to complete 10 days of the ampicillin and ceftriaxone since he has been improving on it. 2. Malignant hypertension - CTHead normal, may need MRI if feasbile to evaluate for end-organ disease 3. DM2 - hyperglycemic, likely impairing immune function 4. Dementia Recs: - continue ceftriaxone 2g q12h for meningitis dosing - continue ampicillin - Recommend 10 day course. Stop date: 03/21 - Midline orders placed, discussed [facility] case management regarding home antibiotics plan. Orders for home antibiotics given. Will sign off, please call with any additional questions. German Bullard MD [facility] M: [phone] O: [phone] F: [phone] Subjective Interval history: Closer to baseline mental status. Alert, oriented. Objective - Exam Narrative Exam: Physical Exam: Constitutional: Alert, awake Head, Ears, Nose: Normocephalic, atraumatic. External ears, nose normal Eyes: Conjunctivae/corneas clear. No icterus. No ptosis. Neck: Supple, no meningeal signs on passive movement of neck. Oral: dentition fair, no thrush Cardiovascular: S1, S2 normal. Respiratory: Good air entry, clear to auscultation bilaterally GI: Soft, non-tender; bowel sounds normal. No peritoneal signs. Musculoskeletal: No pedal edema, no cyanosis. Skin: No rash or abscess Hem/Lymphatic: No palpable cervical or supraclavicular nodes. No lymphangitis Neurological: Alert, awake, AAOx3 - Constitutional Vitals: Vital Signs Temp Pulse Resp BP Pulse Ox 98.1 F 68 18 166/77 94 03/18/19 07:56 03/18/19 14:47 03/18/19 10:00 03/18/19 14:47 03/18/19 10:00 Temperature -Last 24 Hours Temperature 98.1 F Temperature 98.2 F Temperature 98.3 F Temperature 99.2 F - Labs CBC & Chem 7: 03/16/19 07:40 03/18/19 05:40 Labs: Abnormal lab results 03/17/19 03/17/19 03/18/19 Range/Units 16:33 20:20 05:40 PT 15.9 H (12.2-14.9) Sec. INR 1.30 H (0.87-1.13) BUN (9-20) mg/dL Creatinine (0.8-1.5) mg/dL Glucose (75-100) mg/dL POC Glucose 260 H 244 H (70-105) Calcium (8.4-10.2) mg/dL 03/18/19 03/18/19 03/18/19 Range/Units 05:40 07:59 11:41 PT (12.2-14.9) Sec. INR (0.87-1.13) BUN 21 H (9-20) mg/dL Creatinine 1.7 H (0.8-1.5) mg/dL Glucose 174 H (75-100) mg/dL POC Glucose 172 H 185 H (70-105) Calcium 7.7 L (8.4-10.2) mg/dL
[2019-03-18] MEDS: WARFARIN 2 MG TAB PO SCH (17:40)
[2019-03-18] MEDS: GABAPENTIN 300 MG CAP PO SCH (22:08)
[2019-03-18] MEDS: INSULIN GLARGINE 100 UNITS/ML SUB-Q SCH (22:24)
[2019-03-19] MEDS: hydrALAZINE 20 MG/1 ML INJ IV SCH ×3 (01:36→19:28)
[2019-03-19] MEDS: AMPICILLIN/NS 1 GM/50 ML 1 GM/50 ML BAG IV SCH ×4 (05:46→23:42)
[2019-03-19 06:06] LABS: INR 1.6 (0.87-1.13)
[2019-03-19 06:12] LABS: Calcium 7.7 mg/dL (8.4-10.2)
[2019-03-19] MEDS: amLODIPine 10 MG TAB PO SCH (09:43)
[2019-03-19] MEDS: cloNIDine 0.1 MG TAB PO SCH ×3 (09:43→22:28)
[2019-03-19] MEDS: carvediloL 6.25 MG TAB PO SCH ×2 (09:43→22:28)
[2019-03-19] MEDS: cefTRIAXone/NS 2 GM/100 ML 2 GM/100 ML BAG IV SCH ×2 (09:43→22:19)
[2019-03-19] MEDS: INSULIN LISPRO 100 UNIT/ML SUB-Q SCH ×4 (09:43→22:48)
[2019-03-19] MEDS: ASPIRIN 81 MG TAB CHEW PO SCH (09:43)
[2019-03-19] MEDS: MAGNESIUM HYDROXIDE (MOM) ORAL LIQD UDC PO PRN (12:19)
--- NOTE | 2019-03-19 14:29 | Progress Note ---
Assessment and Plan Assessment and plan: Acute encephalopathy. Etiology unclear. Continue to treat for infectious etiology. U/A is negative. Resolving. Patient near baseline. Therefore, will most likely not perform LP. Continue IV antibiotics per ID Accelerated hypertension. Continue antihypertensive medications. Patient's BP is currently controlled. Diabetes mellitus type 2. Continue Accu-Cheks and sliding scale insulin. Acute on chronic renal failure.. Etiology secondary to vasomotor nephropathy from dehydration. Pt with poor intake. Cont. IVF and F/U BMP in am. Patient likely at baseline with creatinine 1.6. No previous creatinine to compare. Coagulopathy. INR cont. to rise with no coumadin. Pt with home med of coumadin 6mg daily but none since Saturday per daughter. Left upper extremity swelling and pain; Doppler was done and negative for DVT. 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 Pending insurance authorization for home health. History Interval history: Patient was seen and evaluated this morning, patient didn't have any complaints. Patient would like to go his daughter's house on discharge. Hospitalist Physical - Physical exam Narrative exam: Not in cardiopulmonary distress. The patient appeared well nourished and normally developed. Vital signs as documented. Head exam is unremarkable. No scleral icterus . Neck is without jugular venous distension, thyromegaly, or carotid bruits. Lungs are clear to auscultation. Cardiac exam reveals regular rate and Rhythm. Abdominal exam reveals normal bowel sounds, no masses, no organomegaly and no aortic enlargement. Extremities are nonedematous and both femoral and pedal pulses are normal. 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 No focal weakness. - Constitutional Vitals: Temp Pulse Resp BP Pulse Ox 98.0 F 49 L 18 129/58 94 03/19/19 12:00 03/19/19 12:00 03/19/19 12:00 03/19/19 12:00 03/19/19 12:00 General appearance: Present: mild distress Results - Labs CBC & Chem 7: 03/16/19 07:40 03/19/19 04:51 Labs: Laboratory Last Values WBC 6.9 K/mm3 (4.5-11.0) 03/16/19 07:40 RBC 4.49 M/mm3 (3.65-5.03) 03/16/19 07:40 Hgb 12.6 gm/dl (11.8-15.2) 03/16/19 07:40 Hct 38.8 % (35.5-45.6) 03/16/19 07:40 MCV 86 fl (84-94) 03/16/19 07:40 MCH 28 pg (28-32) 03/16/19 07:40 MCHC 33 % (32-34) 03/16/19 07:40 RDW 18.0 % (13.2-15.2) H 03/16/19 07:40 Plt Count 130 K/mm3 (140-440) L 03/16/19 07:40 Lymph % (Auto) 19.1 % (13.4-35.0) 03/16/19 07:40 [place] % (Auto) 13.3 % (0.0-7.3) H 03/16/19 07:40 Eos % (Auto) 5.4 % (0.0-4.3) H 03/16/19 07:40 Baso % (Auto) 1.0 % (0.0-1.8) 03/16/19 07:40 Lymph # 1.3 K/mm3 (1.2-5.4) 03/16/19 07:40 [place] # 0.9 K/mm3 (0.0-0.8) H 03/16/19 07:40 Eos # 0.4 K/mm3 (0.0-0.4) 03/16/19 07:40 Baso # 0.1 K/mm3 (0.0-0.1) 03/16/19 07:40 Seg Neutrophils % 61.2 % (40.0-70.0) 03/16/19 07:40 Seg Neutrophils # 4.2 K/mm3 (1.8-7.7) 03/16/19 07:40 PT 18.7 Sec. (12.2-14.9) H 03/19/19 04:51 INR 1.60 (0.87-1.13) H 03/19/19 04:51 APTT 27.8 Sec. (24.2-36.6) 03/10/19 12:17 25.2 Sec. (15.1-19.6) H 03/10/19 12:17 Sodium 144 mmol/L (137-145) 03/19/19 04:51 Potassium 3.7 mmol/L (3.6-5.0) 03/19/19 04:51 Chloride 108.6 mmol/L (98-107) H 03/19/19 04:51 Carbon Dioxide 26 mmol/L (22-30) 03/19/19 04:51 13 mmol/L 03/19/19 04:51 BUN 22 mg/dL (9-20) H 03/19/19 04:51 1.8 mg/dL (0.8-1.5) H 03/19/19 04:51 Estimated GFR 44 ml/min 03/19/19 04:51 12 % 03/19/19 04:51 Glucose 141 mg/dL (75-100) H 03/19/19 04:51 POC Glucose 165 (70-105) H 03/19/19 12:05 Calcium 7.7 mg/dL (8.4-10.2) L 03/19/19 04:51 0.076 ng/mL (0.00-0.029) H 03/10/19 12:17 Triglycerides 140 mg/dL (2-149) 03/10/19 12:17 Cholesterol 143 mg/dL (50-199) 03/10/19 12:17 69 mg/dL (50-130) 03/10/19 12:17 62 mg/dL (40-59) H 03/10/19 12:17 2.30 % 03/10/19 12:17 Yellow (Yellow) 03/12/19 14:38 Slightly-cloudy (Clear) 03/12/19 14:38 5.0 (5.0-7.0) 03/12/19 14:38 Ur Specific [place] 1.019 (1.003-1.030) 03/12/19 14:38 >2000 mg dl mg/dL (Negative) 03/12/19 14:38 50 mg/dL (Negative) 03/12/19 14:38 Tr mg/dL (Negative) 03/12/19 14:38 Sm (Negative) 03/12/19 14:38 Neg (Negative) 03/12/19 14:38 Neg (Negative) 03/12/19 14:38 < 2.0 mg/dL (<2.0) 03/12/19 14:38 Ur Leukocyte Esterase Neg (Negative) 03/12/19 14:38 4.0 /HPF (0.0-6.0) 03/12/19 14:38 5.0 /HPF (0.0-6.0) 03/12/19 14:38 1+ /HPF (Negative) 03/12/19 14:38 Few /HPF 03/12/19 14:38 Active Medications - Current Medications Current Medications: Generic Name Dose Route Start Last Admin Trade Name Freq PRN Reason Stop Dose Admin Acetaminophen 650 mg 03/10/19 16:25 03/17/19 10:29 Tylenol PO 650 mg Q4H PRN Administration Pain, Mild (1-3) Amlodipine Besylate 10 mg 03/18/19 10:00 03/19/19 09:43 Norvasc PO 10 mg QDAY TAMMIE Administration Lipase/Protease/Amylase 1 each 03/13/19 10:02 Pancreaze 10,500 Unit FEEDTUBE PRN PRN For Clogged Feeding Tube Aspirin 81 mg 03/17/19 10:00 03/19/19 09:43 Baby Aspirin PO 81 mg QDAY TAMMIE Administration Atorvastatin Calcium 40 mg 03/10/19 22:00 03/18/19 22:08 Lipitor PO 40 mg QHS TAMMIE Administration Bisacodyl 10 mg 03/10/19 16:25 Dulcolax [place] QDAY PRN Constipation Carvedilol 6.25 mg 03/16/19 22:00 03/19/19 09:43 Coreg PO 6.25 mg BID TAMMIE Administration Clonidine HCl 0.3 mg 03/16/19 15:00 03/19/19 14:05 Catapres PO 0.3 mg TID TAMMIE Administration Dextrose 50 ml 03/18/19 13:00 D50w (25gm) Syringe IV PRN PRN Hypoglycemia Gabapentin 300 mg 03/16/19 22:00 03/18/19 22:08 Neurontin PO 300 mg QHS TAMMIE Administration Hydralazine HCl 20 mg 03/13/19 06:00 03/18/19 04:40 Apresoline IV 20 mg Q4H PRN Administration Hypertension Ceftriaxone Sodium 2 gm in 100 mls @ 200 mls/hr 03/13/19 10:00 03/19/19 09:43 Rocephin/Ns 2 Gm/100 Ml IV 03/21/19 23:59 200 mls/hr Q12HR TAMMIE Administration Protocol Ampicillin Sodium 1 gm in 50 mls @ 100 mls/hr 03/13/19 12:00 03/19/19 12:10 Ampicillin/Ns 1 Gm/50 Ml IV 03/21/19 23:59 100 mls/hr Q6HR TAMMIE Administration Insulin Glargine 5 units 03/16/19 22:00 03/18/19 22:24 Lantus SUB-Q 5 units QHS TAMMIE Administration Insulin Human Lispro 0 unit 03/18/19 13:00 03/19/19 12:14 Humalog SUB-Q 3 unit ACHS [facility] Administration Protocol Lorazepam 2 mg 03/10/19 18:36 03/13/19 21:04 Ativan IV 2 mg Q4H PRN Administration Agitation Magnesium Hydroxide 30 ml 03/10/19 16:25 03/19/19 12:19 Milk Of Magnesia PO 30 ml Q4H PRN Administration Constipation Metoclopramide HCl 10 mg 03/10/19 16:25 Reglan PO Q6H PRN Nausea And Vomiting Ondansetron HCl 4 mg 03/10/19 16:25 Zofran IV Q8H PRN Nausea And Vomiting Oxycodone/Acetaminophen 1 tab 03/17/19 14:04 03/17/19 20:10 Percocet 5/325 PO 1 tab Q6H PRN Administration Pain, Moderate (4-6) Promethazine HCl 25 mg 03/10/19 16:25 Phenergan [place] Q6H PRN Nausea And Vomiting Simple Syrup 15 ml 03/13/19 10:02 Simple Syrup FEEDTUBE PRN PRN Hypoglycemia Simple Syrup 30 ml 03/13/19 10:02 Simple Syrup FEEDTUBE PRN PRN Hypoglycemia Sodium Bicarbonate 325 mg 03/13/19 10:02 Sodium Bicarbonate FEEDTUBE PRN PRN For Clogged Feeding Tube Sodium Chloride 10 ml 03/10/19 16:25 03/13/19 21:03 Sodium Chloride Flush Syringe 10 Ml IV 10 ml PRN PRN Administration LINE FLUSH Warfarin Sodium 6 mg 03/17/19 17:00 03/18/19 17:40 Coumadin PO 6 mg DAILY@1700 [facility] Administration Protocol Nutrition/Malnutrition Assess - Dietary Evaluation Nutrition/Malnutrition Findings: Nutrition Notes Start: 03/11/19 12:57 Freq: Status: Active Protocol: Document 03/17/19 10:26 FRANKY (Rec: 03/17/19 10:54 FRANKY [id number]) Co-Sign 03/17/19 10:26 ANDREAS Nutrition Notes Need for Assessment generated from: Education Initial or Follow up Reassessment Current Diagnosis Diabetes,Hypertension Other Pertinent Diagnosis 2+ pitting edema Current Diet Mechanical soft Labs/Tests BUN 26 Creat 1.6 Pertinent Medications Coumadin Height 5 ft 10 in Weight 83.2 kg [place] Body Weight (kg) 75.45 BMI 26.3 Subjective/Other Information RD referral for coumadin education. Pt stated he's been on it for awhile and understood vit K and coumadin interactions. Pt is tolerating mechanical soft diet. In the middle of eating when visited Percent of energy/protein needs met: 87%/90% Burn Absent Trauma Absent Minimum of two criteria Yes Muscle Mass Mild Depletion (non-severe) Fluid Accumulation Mild (non-severe) Reduced Log Handler Strength N/A (non-severe) #2 Nutrition Diagnosis Malnutrition Diagnosis Progress(for reassessment Continues documentation) Is patient on ventilator? No Is Patient Ambulatory and/or Out of Bed No REE-([place]-confined to bed) [phone] Calculation Used for Recommendations [place] Additional Notes Protein: 83g-99g/day (1-1.2g/ kg) Fluid needs: 1ml/kcal Nutrition Intervention Change Diet Order: Continue current Goal #1 Continue to meet at least 75% of kcal and protein needs via PO intakes Anticipated Discharge Needs: Unable to determine Follow-Up By: 03/20/19 Additional Comments F/U for PO intakes
[2019-03-19] MEDS: WARFARIN 2 MG TAB PO SCH (18:12)
[2019-03-19] MEDS: GABAPENTIN 300 MG CAP PO SCH (22:19)
[2019-03-19] MEDS: INSULIN GLARGINE 100 UNITS/ML SUB-Q SCH (22:40)
[2019-03-20] MEDS: AMPICILLIN/NS 1 GM/50 ML 1 GM/50 ML BAG IV SCH ×3 (05:18→18:15)
[2019-03-20 06:26] LABS: INR 2.45 (0.87-1.13)
[2019-03-20] MEDS: INSULIN LISPRO 100 UNIT/ML SUB-Q SCH ×4 (07:14→22:00)
[2019-03-20] MEDS: amLODIPine 10 MG TAB PO SCH (10:06)
[2019-03-20] MEDS: ASPIRIN 81 MG TAB CHEW PO SCH (10:06)
[2019-03-20] MEDS: cloNIDine 0.1 MG TAB PO SCH ×3 (10:06→22:50)
[2019-03-20] MEDS: carvediloL 6.25 MG TAB PO SCH ×2 (10:16→22:51)
[2019-03-20] MEDS: cefTRIAXone/NS 2 GM/100 ML 2 GM/100 ML BAG IV SCH ×2 (10:18→22:00)
[2019-03-20] MEDS: oxyCODONE /ACETAMINOPHEN 5-325MG TAB PO PRN ×2 (10:46→18:13)
--- NOTE | 2019-03-20 14:55 | Progress Note ---
Assessment and Plan Assessment and plan: Acute encephalopathy. Etiology unclear. Continue to treat for infectious etiology. U/A is negative. Resolving. Patient near baseline. Therefore, will most likely not perform LP. Continue IV antibiotics per ID Accelerated hypertension. Continue antihypertensive medications. Patient's BP is currently controlled. Diabetes mellitus type 2. Continue Accu-Cheks and sliding scale insulin. Acute on chronic renal failure.. Etiology secondary to vasomotor nephropathy from dehydration. Pt with poor intake. Cont. IVF and F/U BMP in am. Patient likely at baseline with creatinine 1.6. No previous creatinine to compare. Coagulopathy. INR cont. to rise with no coumadin. Pt with home med of coumadin 6mg daily but none since Saturday per daughter. Left upper extremity swelling and pain; Doppler was done and negative for DVT. 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 Patient will finish his IV antibiotics tomorrow and will be discharged with outpatient PT/OT. History Interval history: Patient was seen and evaluated this morning, patient didn't have any complaints. Patient was alert and oriented Hospitalist Physical - Physical exam Narrative exam: Not in cardiopulmonary distress. The patient appeared well nourished and normally developed. Vital signs as documented. Head exam is unremarkable. No scleral icterus . Neck is without jugular venous distension, thyromegaly, or carotid bruits. Lungs are clear to auscultation. Cardiac exam reveals regular rate and Rhythm. Abdominal exam reveals normal bowel sounds, no masses, no organomegaly and no aortic enlargement. Extremities are nonedematous and both femoral and pedal pulses are normal. 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 No focal weakness. - Constitutional Vitals: Temp Pulse Resp BP Pulse Ox 98.2 F 50 L 18 146/60 100 03/20/19 07:22 03/20/19 05:07 03/20/19 07:22 03/20/19 07:22 03/20/19 05:07 General appearance: Present: mild distress Results - Labs CBC & Chem 7: 03/16/19 07:40 03/19/19 04:51 Labs: Laboratory Last Values WBC 6.9 K/mm3 (4.5-11.0) 03/16/19 07:40 RBC 4.49 M/mm3 (3.65-5.03) 03/16/19 07:40 Hgb 12.6 gm/dl (11.8-15.2) 03/16/19 07:40 Hct 38.8 % (35.5-45.6) 03/16/19 07:40 MCV 86 fl (84-94) 03/16/19 07:40 MCH 28 pg (28-32) 03/16/19 07:40 MCHC 33 % (32-34) 03/16/19 07:40 RDW 18.0 % (13.2-15.2) H 03/16/19 07:40 Plt Count 130 K/mm3 (140-440) L 03/16/19 07:40 Lymph % (Auto) 19.1 % (13.4-35.0) 03/16/19 07:40 [place] % (Auto) 13.3 % (0.0-7.3) H 03/16/19 07:40 Eos % (Auto) 5.4 % (0.0-4.3) H 03/16/19 07:40 Baso % (Auto) 1.0 % (0.0-1.8) 03/16/19 07:40 Lymph # 1.3 K/mm3 (1.2-5.4) 03/16/19 07:40 [place] # 0.9 K/mm3 (0.0-0.8) H 03/16/19 07:40 Eos # 0.4 K/mm3 (0.0-0.4) 03/16/19 07:40 Baso # 0.1 K/mm3 (0.0-0.1) 03/16/19 07:40 Seg Neutrophils % 61.2 % (40.0-70.0) 03/16/19 07:40 Seg Neutrophils # 4.2 K/mm3 (1.8-7.7) 03/16/19 07:40 PT 26.1 Sec. (12.2-14.9) H 03/20/19 05:28 INR 2.45 (0.87-1.13) H 03/20/19 05:28 APTT 27.8 Sec. (24.2-36.6) 03/10/19 12:17 25.2 Sec. (15.1-19.6) H 03/10/19 12:17 Sodium 144 mmol/L (137-145) 03/19/19 04:51 Potassium 3.7 mmol/L (3.6-5.0) 03/19/19 04:51 Chloride 108.6 mmol/L (98-107) H 03/19/19 04:51 Carbon Dioxide 26 mmol/L (22-30) 03/19/19 04:51 13 mmol/L 03/19/19 04:51 BUN 22 mg/dL (9-20) H 03/19/19 04:51 1.8 mg/dL (0.8-1.5) H 03/19/19 04:51 Estimated GFR 44 ml/min 03/19/19 04:51 12 % 03/19/19 04:51 Glucose 141 mg/dL (75-100) H 03/19/19 04:51 POC Glucose 140 (70-105) H 03/20/19 11:40 Calcium 7.7 mg/dL (8.4-10.2) L 03/19/19 04:51 0.076 ng/mL (0.00-0.029) H 03/10/19 12:17 Triglycerides 140 mg/dL (2-149) 03/10/19 12:17 Cholesterol 143 mg/dL (50-199) 03/10/19 12:17 69 mg/dL (50-130) 03/10/19 12:17 62 mg/dL (40-59) H 03/10/19 12:17 2.30 % 03/10/19 12:17 Yellow (Yellow) 03/12/19 14:38 Slightly-cloudy (Clear) 03/12/19 14:38 5.0 (5.0-7.0) 03/12/19 14:38 Ur Specific [place] 1.019 (1.003-1.030) 03/12/19 14:38 >2000 mg dl mg/dL (Negative) 03/12/19 14:38 50 mg/dL (Negative) 03/12/19 14:38 Tr mg/dL (Negative) 03/12/19 14:38 Sm (Negative) 03/12/19 14:38 Neg (Negative) 03/12/19 14:38 Neg (Negative) 03/12/19 14:38 < 2.0 mg/dL (<2.0) 03/12/19 14:38 Ur Leukocyte Esterase Neg (Negative) 03/12/19 14:38 4.0 /HPF (0.0-6.0) 03/12/19 14:38 5.0 /HPF (0.0-6.0) 03/12/19 14:38 1+ /HPF (Negative) 03/12/19 14:38 Few /HPF 03/12/19 14:38 Active Medications - Current Medications Current Medications: Generic Name Dose Route Start Last Admin Trade Name Freq PRN Reason Stop Dose Admin Acetaminophen 650 mg 03/10/19 16:25 03/17/19 10:29 Tylenol PO 650 mg Q4H PRN Administration Pain, Mild (1-3) Amlodipine Besylate 10 mg 03/18/19 10:00 03/20/19 10:06 Norvasc PO 10 mg QDAY TAMMIE Administration Lipase/Protease/Amylase 1 each 03/13/19 10:02 Pancreaze 10,500 Unit FEEDTUBE PRN PRN For Clogged Feeding Tube Aspirin 81 mg 03/17/19 10:00 03/20/19 10:06 Baby Aspirin PO 81 mg QDAY TAMMIE Administration Atorvastatin Calcium 40 mg 03/10/19 22:00 03/19/19 22:19 Lipitor PO 40 mg QHS TAMMIE Administration Bisacodyl 10 mg 03/10/19 16:25 Dulcolax [place] QDAY PRN Constipation Carvedilol 6.25 mg 03/16/19 22:00 03/19/19 22:28 Coreg PO 6.25 mg BID TAMMIE Administration Clonidine HCl 0.3 mg 03/16/19 15:00 03/20/19 10:06 Catapres PO 0.3 mg TID TAMMIE Administration Dextrose 50 ml 03/18/19 13:00 D50w (25gm) Syringe IV PRN PRN Hypoglycemia Gabapentin 300 mg 03/16/19 22:00 03/19/19 22:19 Neurontin PO 300 mg QHS TAMMIE Administration Hydralazine HCl 20 mg 03/13/19 06:00 03/18/19 04:40 Apresoline IV 20 mg Q4H PRN Administration Hypertension Ceftriaxone Sodium 2 gm in 100 mls @ 200 mls/hr 03/13/19 10:00 03/20/19 10:18 Rocephin/Ns 2 Gm/100 Ml IV 09/14/19 23:59 200 mls/hr Q12HR [facility] Administration Protocol Ampicillin Sodium 1 gm in 50 mls @ 100 mls/hr 03/13/19 12:00 03/20/19 05:18 Ampicillin/Ns 1 Gm/50 Ml IV 03/21/19 23:59 100 mls/hr Q6HR TAMMIE Administration Insulin Glargine 5 units 03/16/19 22:00 03/19/19 22:40 Lantus SUB-Q 5 units QHS TAMMIE Administration Insulin Human Lispro 0 unit 03/18/19 13:00 03/19/19 22:48 Humalog SUB-Q 4 unit ACHS [facility] Administration Protocol Lorazepam 2 mg 03/10/19 18:36 03/13/19 21:04 Ativan IV 2 mg Q4H PRN Administration Agitation Magnesium Hydroxide 30 ml 03/10/19 16:25 03/19/19 12:19 Milk Of Magnesia PO 30 ml Q4H PRN Administration Constipation Metoclopramide HCl 10 mg 03/10/19 16:25 Reglan PO Q6H PRN Nausea And Vomiting Ondansetron HCl 4 mg 03/10/19 16:25 Zofran IV Q8H PRN Nausea And Vomiting Oxycodone/Acetaminophen 1 tab 03/17/19 14:04 03/20/19 10:46 Percocet 5/325 PO 1 tab Q6H PRN Administration Pain, Moderate (4-6) Promethazine HCl 25 mg 03/10/19 16:25 Phenergan [place] Q6H PRN Nausea And Vomiting Simple Syrup 15 ml 03/13/19 10:02 Simple Syrup FEEDTUBE PRN PRN Hypoglycemia Simple Syrup 30 ml 03/13/19 10:02 Simple Syrup FEEDTUBE PRN PRN Hypoglycemia Sodium Bicarbonate 325 mg 03/13/19 10:02 Sodium Bicarbonate FEEDTUBE PRN PRN For Clogged Feeding Tube Sodium Chloride 10 ml 03/10/19 16:25 03/13/19 21:03 Sodium Chloride Flush Syringe 10 Ml IV 10 ml PRN PRN Administration LINE FLUSH Warfarin Sodium 5 mg 03/20/19 17:00 Coumadin PO DAILY@1700 [facility] Nutrition/Malnutrition Assess - Dietary Evaluation Nutrition/Malnutrition Findings: Nutrition Notes Start: 03/11/19 12:57 Freq: Status: Active Protocol: Document 03/20/19 12:29 DW (Rec: 03/20/19 13:20 DW [id number]) Co-Sign 03/20/19 12:29 LP Nutrition Notes Initial or Follow up Reassessment Current Diagnosis Diabetes,Hypertension Other Pertinent Diagnosis 2+ pitting edema Current Diet Mechanical soft Labs/Tests Reviewed Pertinent Medications Reviewed Height 5 ft 10 in Weight 83.3 kg [place] Body Weight (kg) 75.45 BMI 26.3 Subjective/Other Information Pt stated that his appetite is improving but is only eating 50% of his meals. Pt also stated he does not like meat d /t texture Percent of energy/protein needs met: 58%/60% Burn Absent Trauma Absent Minimum of two criteria Yes Muscle Mass Mild Depletion (non-severe) Fluid Accumulation Mild (non-severe) Reduced Land Surveyor Assistant Strength N/A (non-severe) #3 Nutrition Diagnosis Inadequate energy intake Etiology decreased appetite As Evidenced by Signs and Symptoms Pts PO intake has decreased and is only meeting 58% kcal and 60% PRO #2 Nutrition Diagnosis Malnutrition Diagnosis Progress(for reassessment Continues documentation) Is patient on ventilator? No Is Patient Ambulatory and/or Out of Bed No [facility] [phone] Calculation Used for Recommendations [facility] Additional Notes Protein: 83g-99g/day (1-1.2g/ kg) Fluid needs: 1ml/kcal Nutrition Intervention Change Diet Order: Continue current Add Supplement/Snack (indicate name/kcal Glucerna daily /protein ) Provides kCal: 220 Provides Protein (gm) 10 Goal #1 Meet atleast 75% of energy and PRO needs via PO/ONS Anticipated Discharge Needs: Mecahnical Soft Diet with ONS daily Follow-Up By: 03/23/19 Additional Comments FU PO and ONS intake
[2019-03-20] MEDS ORDERED: WARFARIN 5 MG TAB PO SCH (17:00)
[2019-03-20] MEDS: INSULIN GLARGINE 100 UNITS/ML SUB-Q SCH (22:00)
[2019-03-20] MEDS: GABAPENTIN 300 MG CAP PO SCH (22:51)
[2019-03-21] MEDS: AMPICILLIN/NS 1 GM/50 ML 1 GM/50 ML BAG IV SCH ×4 (06:13→17:28)
[2019-03-21 06:56] LABS: INR 3.07 (0.87-1.13)
[2019-03-21] MEDS: INSULIN LISPRO 100 UNIT/ML SUB-Q SCH ×4 (09:43→22:32)
[2019-03-21] MEDS: ASPIRIN 81 MG TAB CHEW PO SCH (09:44)
[2019-03-21] MEDS: cloNIDine 0.1 MG TAB PO SCH ×3 (09:44→22:25)
[2019-03-21] MEDS: amLODIPine 10 MG TAB PO SCH (09:44)
[2019-03-21] MEDS: carvediloL 6.25 MG TAB PO SCH ×2 (09:44→22:25)
[2019-03-21] MEDS: cefTRIAXone/NS 2 GM/100 ML 2 GM/100 ML BAG IV SCH ×2 (09:45→22:31)
--- NOTE | 2019-03-21 13:40 | Progress Note ---
Assessment and Plan Assessment and plan: Acute encephalopathy. Etiology unclear. Continue to treat for infectious etiology. U/A is negative. Resolving. Patient near baseline. Therefore, will most likely not perform LP. will finish IV antibiotics today. Accelerated hypertension. Continue antihypertensive medications. Patient's BP is currently controlled. Diabetes mellitus type 2. Continue Accu-Cheks and sliding scale insulin. Acute on chronic renal failure.. Etiology secondary to vasomotor nephropathy from dehydration. Pt with poor intake. Cont. IVF and F/U BMP in am. Patient likely at baseline with creatinine 1.6. No previous creatinine to compare. Coagulopathy. INR cont. to rise with no coumadin. Pt with home med of coumadin 6mg daily but none since Saturday per daughter. Left upper extremity swelling and pain; Doppler was done and negative for DVT. 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 History Interval history: Patient was seen and evaluated this morning, patient didn't have any complaints. Patient was alert and oriented Hospitalist Physical - Physical exam Narrative exam: Not in cardiopulmonary distress. The patient appeared well nourished and normally developed. Vital signs as documented. Head exam is unremarkable. No scleral icterus . Neck is without jugular venous distension, thyromegaly, or carotid bruits. Lungs are clear to auscultation. Cardiac exam reveals regular rate and Rhythm. Abdominal exam reveals normal bowel sounds, no masses, no organomegaly and no aortic enlargement. Extremities are nonedematous and both femoral and pedal pulses are normal. 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 No focal weakness. - Constitutional Vitals: Temp Pulse Resp BP Pulse Ox 98.3 F 54 L 18 154/57 100 03/21/19 07:28 03/21/19 04:39 03/21/19 07:28 03/21/19 07:28 03/21/19 04:39 General appearance: Present: mild distress Results - Labs CBC & Chem 7: 03/16/19 07:40 03/19/19 04:51 Labs: Laboratory Last Values WBC 6.9 K/mm3 (4.5-11.0) 03/16/19 07:40 RBC 4.49 M/mm3 (3.65-5.03) 03/16/19 07:40 Hgb 12.6 gm/dl (11.8-15.2) 03/16/19 07:40 Hct 38.8 % (35.5-45.6) 03/16/19 07:40 MCV 86 fl (84-94) 03/16/19 07:40 MCH 28 pg (28-32) 03/16/19 07:40 MCHC 33 % (32-34) 03/16/19 07:40 RDW 18.0 % (13.2-15.2) H 03/16/19 07:40 Plt Count 130 K/mm3 (140-440) L 03/16/19 07:40 Lymph % (Auto) 19.1 % (13.4-35.0) 03/16/19 07:40 [place] % (Auto) 13.3 % (0.0-7.3) H 03/16/19 07:40 Eos % (Auto) 5.4 % (0.0-4.3) H 03/16/19 07:40 Baso % (Auto) 1.0 % (0.0-1.8) 03/16/19 07:40 Lymph # 1.3 K/mm3 (1.2-5.4) 03/16/19 07:40 [place] # 0.9 K/mm3 (0.0-0.8) H 03/16/19 07:40 Eos # 0.4 K/mm3 (0.0-0.4) 03/16/19 07:40 Baso # 0.1 K/mm3 (0.0-0.1) 03/16/19 07:40 Seg Neutrophils % 61.2 % (40.0-70.0) 03/16/19 07:40 Seg Neutrophils # 4.2 K/mm3 (1.8-7.7) 03/16/19 07:40 PT 31.2 Sec. (12.2-14.9) H 03/21/19 05:27 INR 3.07 (0.87-1.13) H 03/21/19 05:27 APTT 27.8 Sec. (24.2-36.6) 03/10/19 12:17 25.2 Sec. (15.1-19.6) H 03/10/19 12:17 Sodium 144 mmol/L (137-145) 03/19/19 04:51 Potassium 3.7 mmol/L (3.6-5.0) 03/19/19 04:51 Chloride 108.6 mmol/L (98-107) H 03/19/19 04:51 Carbon Dioxide 26 mmol/L (22-30) 03/19/19 04:51 13 mmol/L 03/19/19 04:51 BUN 22 mg/dL (9-20) H 03/19/19 04:51 1.8 mg/dL (0.8-1.5) H 03/19/19 04:51 Estimated GFR 44 ml/min 03/19/19 04:51 12 % 03/19/19 04:51 Glucose 141 mg/dL (75-100) H 03/19/19 04:51 POC Glucose 208 (70-105) H 03/21/19 11:42 Calcium 7.7 mg/dL (8.4-10.2) L 03/19/19 04:51 0.076 ng/mL (0.00-0.029) H 03/10/19 12:17 Triglycerides 140 mg/dL (2-149) 03/10/19 12:17 Cholesterol 143 mg/dL (50-199) 03/10/19 12:17 69 mg/dL (50-130) 03/10/19 12:17 62 mg/dL (40-59) H 03/10/19 12:17 2.30 % 03/10/19 12:17 Yellow (Yellow) 03/12/19 14:38 Slightly-cloudy (Clear) 03/12/19 14:38 5.0 (5.0-7.0) 03/12/19 14:38 Ur Specific [place] 1.019 (1.003-1.030) 03/12/19 14:38 >2000 mg dl mg/dL (Negative) 03/12/19 14:38 50 mg/dL (Negative) 03/12/19 14:38 Tr mg/dL (Negative) 03/12/19 14:38 Sm (Negative) 03/12/19 14:38 Neg (Negative) 03/12/19 14:38 Neg (Negative) 03/12/19 14:38 < 2.0 mg/dL (<2.0) 03/12/19 14:38 Ur Leukocyte Esterase Neg (Negative) 03/12/19 14:38 4.0 /HPF (0.0-6.0) 03/12/19 14:38 5.0 /HPF (0.0-6.0) 03/12/19 14:38 1+ /HPF (Negative) 03/12/19 14:38 Few /HPF 03/12/19 14:38 Active Medications - Current Medications Current Medications: Generic Name Dose Route Start Last Admin Trade Name Freq PRN Reason Stop Dose Admin Acetaminophen 650 mg 03/10/19 16:25 03/17/19 10:29 Tylenol PO 650 mg Q4H PRN Administration Pain, Mild (1-3) Amlodipine Besylate 10 mg 03/18/19 10:00 03/21/19 09:44 Norvasc PO 10 mg QDAY TAMMIE Administration Lipase/Protease/Amylase 1 each 03/13/19 10:02 Pancreaze 10,500 Unit FEEDTUBE PRN PRN For Clogged Feeding Tube Aspirin 81 mg 03/17/19 10:00 03/21/19 09:44 Baby Aspirin PO 81 mg QDAY TAMMIE Administration Atorvastatin Calcium 40 mg 03/10/19 22:00 03/20/19 22:51 Lipitor PO 40 mg QHS TAMMIE Administration Bisacodyl 10 mg 03/10/19 16:25 Dulcolax [place] QDAY PRN Constipation Carvedilol 6.25 mg 03/16/19 22:00 03/21/19 09:44 Coreg PO 6.25 mg BID TAMMIE Administration Clonidine HCl 0.3 mg 03/16/19 15:00 03/21/19 09:44 Catapres PO 0.3 mg TID TAMMIE Administration Dextrose 50 ml 03/18/19 13:00 D50w (25gm) Syringe IV PRN PRN Hypoglycemia Gabapentin 300 mg 03/16/19 22:00 03/20/19 22:51 Neurontin PO 300 mg QHS TAMMIE Administration Hydralazine HCl 20 mg 03/13/19 06:00 03/18/19 04:40 Apresoline IV 20 mg Q4H PRN Administration Hypertension Ceftriaxone Sodium 2 gm in 100 mls @ 200 mls/hr 03/13/19 10:00 03/21/19 09:45 Rocephin/Ns 2 Gm/100 Ml IV 03/21/19 23:59 200 mls/hr Q12HR TAMMIE Administration Protocol Ampicillin Sodium 1 gm in 50 mls @ 100 mls/hr 09/06/19 12:00 03/21/19 12:26 Ampicillin/Ns 1 Gm/50 Ml IV 03/21/19 23:59 100 mls/hr Q6HR TAMMIE Administration Insulin Glargine 5 units 03/16/19 22:00 03/20/19 22:00 Lantus SUB-Q 5 units QHS TAMMIE Administration Insulin Human Lispro 0 unit 03/18/19 13:00 03/21/19 12:25 Humalog SUB-Q 4 unit ACHS [facility] Administration Protocol Lorazepam 2 mg 03/10/19 18:36 03/13/19 21:04 Ativan IV 2 mg Q4H PRN Administration Agitation Magnesium Hydroxide 30 ml 03/10/19 16:25 03/19/19 12:19 Milk Of Magnesia PO 30 ml Q4H PRN Administration Constipation Metoclopramide HCl 10 mg 03/10/19 16:25 Reglan PO Q6H PRN Nausea And Vomiting Ondansetron HCl 4 mg 03/10/19 16:25 Zofran IV Q8H PRN Nausea And Vomiting Oxycodone/Acetaminophen 1 tab 03/17/19 14:04 03/20/19 18:13 Percocet 5/325 PO 1 tab Q6H PRN Administration Pain, Moderate (4-6) Promethazine HCl 25 mg 03/10/19 16:25 Phenergan [place] Q6H PRN Nausea And Vomiting Simple Syrup 15 ml 03/13/19 10:02 Simple Syrup FEEDTUBE PRN PRN Hypoglycemia Simple Syrup 30 ml 03/13/19 10:02 Simple Syrup FEEDTUBE PRN PRN Hypoglycemia Sodium Bicarbonate 325 mg 03/13/19 10:02 Sodium Bicarbonate FEEDTUBE PRN PRN For Clogged Feeding Tube Sodium Chloride 10 ml 03/10/19 16:25 03/21/19 09:43 Sodium Chloride Flush Syringe 10 Ml IV 10 ml PRN PRN Administration LINE FLUSH Warfarin Sodium 2.5 mg 03/21/19 17:00 Coumadin PO DAILY@1700 [facility] Nutrition/Malnutrition Assess - Dietary Evaluation Nutrition/Malnutrition Findings: Nutrition Notes Start: 03/11/19 12:57 Freq: Status: Active Protocol: Document 03/20/19 12:29 DW (Rec: 03/20/19 13:20 DW [id number]) Co-Sign 03/20/19 12:29 LP Nutrition Notes Initial or Follow up Reassessment Current Diagnosis Diabetes,Hypertension Other Pertinent Diagnosis 2+ pitting edema Current Diet Mechanical soft Labs/Tests Reviewed Pertinent Medications Reviewed Height 5 ft 10 in Weight 83.3 kg [place] Body Weight (kg) 75.45 BMI 26.3 Subjective/Other Information Pt stated that his appetite is improving but is only eating 50% of his meals. 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 No Is Patient Ambulatory and/or Out of Bed No REE-([facility]-confined to bed) 8974.072 Calculation Used for Recommendations [facility] Additional Notes Protein: 83g-99g/day (1-1.2g/ kg) Fluid needs: 1ml/kcal Nutrition Intervention Change Diet Order: Continue current Add Supplement/Snack (indicate name/kcal Glucerna daily /protein ) Provides kCal: 220 Provides Protein (gm) 10 Goal #1 Meet atleast 75% of energy and PRO needs via PO/ONS Anticipated Discharge Needs: Mecahnical Soft Diet with ONS daily Follow-Up By: 03/23/19 Additional Comments FU PO and ONS intake
[2019-03-21] MEDS ORDERED: WARFARIN 2.5 MG TAB PO SCH (17:00)
[2019-03-21] MEDS: GABAPENTIN 300 MG CAP PO SCH (22:26)
[2019-03-21] MEDS: INSULIN GLARGINE 100 UNITS/ML SUB-Q SCH (22:31)
[2019-03-22 05:09] LABS: INR 3.98 (0.87-1.13)
[2019-03-22] MEDS: cloNIDine 0.1 MG TAB PO SCH ×3 (09:44→19:53)
[2019-03-22] MEDS: carvediloL 6.25 MG TAB PO SCH (09:45)
[2019-03-22] MEDS: INSULIN LISPRO 100 UNIT/ML SUB-Q SCH ×4 (09:45→22:40)
[2019-03-22] MEDS: ASPIRIN 81 MG TAB CHEW PO SCH (09:45)
[2019-03-22] MEDS: amLODIPine 10 MG TAB PO SCH (09:45)
[2019-03-22] MEDS: GABAPENTIN 300 MG CAP PO SCH (21:33)
[2019-03-22] MEDS: INSULIN GLARGINE 100 UNITS/ML SUB-Q SCH (22:40)
--- NOTE | 2019-03-22 23:25 | Progress Note ---
Subjective Date of service: 03/22/19 Principal diagnosis: CVA, acute metabolic encephalopathy, hypertensive emergency, DMT 2 Interval history: Laying in bed still confused Objective - Exam Narrative Exam: Constitutional: Confused. In no distress Head: Normocephalic atraumatic Eyes: Pupils are equal round and reactive to light Nose: No enlarged turbinates, no septal deviation. Mouth: Moist mucous membranes. Neck: Supple no thyromegaly. No bruit. No JVD Heart: Regular rate and rhythm, S1-S2 normal. No rubs murmurs or gallop Lungs: Clear to auscultation bilaterally. no rales or rhonchi Abdomen: Soft, nontender. Bowel sound are present. Extremities: No edema, no cyanosis, no clubbing. Neuro: Confused Skin: No rashes or hyperpigmented spots Musculoskeletal system: No joint pain or swelling Hematological: No petechia or subcutanous hemorrhages. Immunological: No multiple septic spots on the skin Lymphatic: No generalized lymphadenopathy Psychiatry: Confused - Constitutional Vitals: Vital Signs - 12hr 03/22/19 03/22/19 03/22/19 13:59 19:46 19:53 Temperature 98.4 F Pulse Rate 43 L 41 L 41 L Respiratory 20 22 Rate Blood Pressure 111/53 117/70 117/70 O2 Sat by Pulse 99 93 Oximetry - Labs CBC & Chem 7: 03/16/19 07:40 03/22/19 04:33 Labs: Abnormal lab results 03/22/19 03/22/19 03/22/19 Range/Units 04:33 04:33 07:26 PT 38.3 H (12.2-14.9) Sec. INR 3.98 H (0.87-1.13) BUN 32 H (9-20) mg/dL Creatinine 2.3 H (0.8-1.5) mg/dL Glucose 185 H (75-100) mg/dL POC Glucose 155 H (70-105) Calcium 8.0 L (8.4-10.2) mg/dL 03/22/19 03/22/19 03/22/19 Range/Units 11:16 16:55 21:51 PT (12.2-14.9) Sec. INR (0.87-1.13) BUN (9-20) mg/dL Creatinine (0.8-1.5) mg/dL Glucose (75-100) mg/dL POC Glucose 126 H 189 H 188 H (70-105) Calcium (8.4-10.2) mg/dL
[2019-03-23] MEDS: carvediloL 6.25 MG TAB PO SCH ×3 (01:33→22:20)
[2019-03-23 07:01] LABS: INR 2.81 (0.87-1.13)
[2019-03-23] MEDS: INSULIN LISPRO 100 UNIT/ML SUB-Q SCH ×4 (07:59→22:56)
[2019-03-23] MEDS: cloNIDine 0.1 MG TAB PO SCH ×3 (08:21→22:20)
[2019-03-23] MEDS: ASPIRIN 81 MG TAB CHEW PO SCH (09:18)
[2019-03-23] MEDS: amLODIPine 10 MG TAB PO SCH (09:18)
--- NOTE | 2019-03-23 10:33 | Progress Note ---
Assessment and Plan Assessment and plan: 84-year-old man who presented to the hospital with altered mental status. Family brought him in for confusion x3 days. Past medical history; hypertension diabetes Imaging; CT head no acute findings Carotid Dopplers; no significant stenosis Abdominal x-ray; no significant abnormalities Duplex scan upper extremities, no evidence of DVT, superficial venous thrombosis noted in cephalic vein in the distal biceps to the antecubital fossa Labs reviewed, UA negative, rising creatinine, INR therapeutic, CBC unremarkable Acute metabolic encephalopathy. Likely multifactorial, due to uremia and dehydration Acute kidney injury upon CKD likely due to vasomotor nephropathy Continue to hydrate patient, nephrology consults Hypertensive urgency; optimize blood pressure medications Type 2 diabetes, continue sliding scale Coagulopathy due to warfarin. Patient has hypercoagulable state at baseline Warfarin was on hold, INR now therapeutic, continue Coumadin Ambulatory dysfunction;, awaiting rehab placement History Interval history: Patient was seen and evaluated this morning, patient didn't have any complaints. Patient was alert and oriented Hospitalist Physical - Physical exam Narrative exam: Not in cardiopulmonary distress. The patient appeared well nourished and normally developed. Vital signs as documented. Head exam is unremarkable. No scleral icterus . Neck is without jugular venous distension, thyromegaly, or carotid bruits. Lungs are clear to auscultation. Cardiac exam reveals regular rate and Rhythm. Abdominal exam reveals normal bowel sounds, no masses, no organomegaly and no aortic enlargement. Extremities are nonedematous and both femoral and pedal pulses are normal. 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 No focal weakness. Hospitalist Physical - Constitutional Vitals: Temp Pulse Resp BP Pulse Ox 97.8 F 48 L 18 145/62 97 03/23/19 07:16 03/23/19 07:16 03/23/19 07:16 03/23/19 07:16 03/23/19 07:16 General appearance: Present: mild distress Results - Labs CBC & Chem 7: 03/16/19 07:40 03/22/19 04:33 Labs: Laboratory Last Values WBC 6.9 K/mm3 (4.5-11.0) 03/16/19 07:40 RBC 4.49 M/mm3 (3.65-5.03) 03/16/19 07:40 Hgb 12.6 gm/dl (11.8-15.2) 03/16/19 07:40 Hct 38.8 % (35.5-45.6) 03/16/19 07:40 MCV 86 fl (84-94) 03/16/19 07:40 MCH 28 pg (28-32) 03/16/19 07:40 MCHC 33 % (32-34) 03/16/19 07:40 RDW 18.0 % (13.2-15.2) H 03/16/19 07:40 Plt Count 130 K/mm3 (140-440) L 03/16/19 07:40 Lymph % (Auto) 19.1 % (13.4-35.0) 03/16/19 07:40 [place] % (Auto) 13.3 % (0.0-7.3) H 03/16/19 07:40 Eos % (Auto) 5.4 % (0.0-4.3) H 03/16/19 07:40 Baso % (Auto) 1.0 % (0.0-1.8) 03/16/19 07:40 Lymph # 1.3 K/mm3 (1.2-5.4) 03/16/19 07:40 [place] # 0.9 K/mm3 (0.0-0.8) H 03/16/19 07:40 Eos # 0.4 K/mm3 (0.0-0.4) 03/16/19 07:40 Baso # 0.1 K/mm3 (0.0-0.1) 03/16/19 07:40 Seg Neutrophils % 61.2 % (40.0-70.0) 03/16/19 07:40 Seg Neutrophils # 4.2 K/mm3 (1.8-7.7) 03/16/19 07:40 PT 29.1 Sec. (12.2-14.9) H 03/23/19 05:26 INR 2.81 (0.87-1.13) H 03/23/19 05:26 APTT 27.8 Sec. (24.2-36.6) 03/10/19 12:17 25.2 Sec. (15.1-19.6) H 03/10/19 12:17 Sodium 138 mmol/L (137-145) 03/22/19 04:33 Potassium 4.4 mmol/L (3.6-5.0) 03/22/19 04:33 Chloride 103.2 mmol/L (98-107) 03/22/19 04:33 Carbon Dioxide 25 mmol/L (22-30) 03/22/19 04:33 14 mmol/L 03/22/19 04:33 BUN 32 mg/dL (9-20) H 03/22/19 04:33 2.3 mg/dL (0.8-1.5) H 03/22/19 04:33 Estimated GFR 33 ml/min 03/22/19 04:33 14 % 03/22/19 04:33 Glucose 185 mg/dL (75-100) H 03/22/19 04:33 POC Glucose 89 (70-105) 03/23/19 07:24 Calcium 8.0 mg/dL (8.4-10.2) L 03/22/19 04:33 0.076 ng/mL (0.00-0.029) H 03/10/19 12:17 Triglycerides 140 mg/dL (2-149) 03/10/19 12:17 Cholesterol 143 mg/dL (50-199) 03/10/19 12:17 69 mg/dL (50-130) 03/10/19 12:17 62 mg/dL (40-59) H 03/10/19 12:17 2.30 % 03/10/19 12:17 Yellow (Yellow) 03/12/19 14:38 Slightly-cloudy (Clear) 03/12/19 14:38 5.0 (5.0-7.0) 03/12/19 14:38 Ur Specific [place] 1.019 (1.003-1.030) 03/12/19 14:38 >2000 mg dl mg/dL (Negative) 03/12/19 14:38 50 mg/dL (Negative) 03/12/19 14:38 Tr mg/dL (Negative) 03/12/19 14:38 Sm (Negative) 03/12/19 14:38 Neg (Negative) 03/12/19 14:38 Neg (Negative) 03/12/19 14:38 < 2.0 mg/dL (<2.0) 03/12/19 14:38 Ur Leukocyte Esterase Neg (Negative) 03/12/19 14:38 4.0 /HPF (0.0-6.0) 03/12/19 14:38 5.0 /HPF (0.0-6.0) 03/12/19 14:38 1+ /HPF (Negative) 03/12/19 14:38 Few /HPF 03/12/19 14:38 Active Medications - Current Medications Current Medications: Generic Name Dose Route Start Last Admin Trade Name Freq PRN Reason Stop Dose Admin Acetaminophen 650 mg 03/10/19 16:25 03/17/19 10:29 Tylenol PO 650 mg Q4H PRN Administration Pain, Mild (1-3) Amlodipine Besylate 10 mg 03/18/19 10:00 03/23/19 09:18 Norvasc PO 10 mg QDAY TAMMIE Administration Lipase/Protease/Amylase 1 each 03/13/19 10:02 Pancreaze 10,500 Unit FEEDTUBE PRN PRN For Clogged Feeding Tube Aspirin 81 mg 03/17/19 10:00 03/23/19 09:18 Baby Aspirin PO 81 mg QDAY TAMMIE Administration Atorvastatin Calcium 40 mg 03/10/19 22:00 03/22/19 21:33 Lipitor PO 40 mg QHS TAMMIE Administration Bisacodyl 10 mg 03/10/19 16:25 Dulcolax [place] QDAY PRN Constipation Carvedilol 6.25 mg 03/16/19 22:00 03/23/19 09:18 Coreg PO 6.25 mg BID TAMMIE Administration Clonidine HCl 0.3 mg 03/16/19 15:00 03/23/19 08:21 Catapres PO 0.3 mg TID TAMMIE Administration Dextrose 50 ml 03/18/19 13:00 D50w (25gm) Syringe IV PRN PRN Hypoglycemia Gabapentin 300 mg 03/16/19 22:00 03/22/19 21:33 Neurontin PO 300 mg QHS TAMMIE Administration Hydralazine HCl 20 mg 03/13/19 06:00 03/18/19 04:40 Apresoline IV 20 mg Q4H PRN Administration Hypertension Insulin Glargine 5 units 03/16/19 22:00 03/22/19 22:40 Lantus SUB-Q 5 units QHS TAMMIE Administration Insulin Human Lispro 0 unit 03/18/19 13:00 03/23/19 07:59 Humalog SUB-Q Not Given ACHS [facility] Protocol Lorazepam 2 mg 03/10/19 18:36 03/13/19 21:04 Ativan IV 2 mg Q4H PRN Administration Agitation Magnesium Hydroxide 30 ml 03/10/19 16:25 03/19/19 12:19 Milk Of Magnesia PO 30 ml Q4H PRN Administration Constipation Metoclopramide HCl 10 mg 03/10/19 16:25 Reglan PO Q6H PRN Nausea And Vomiting Ondansetron HCl 4 mg 03/10/19 16:25 Zofran IV Q8H PRN Nausea And Vomiting Oxycodone/Acetaminophen 1 tab 03/17/19 14:04 03/20/19 18:13 Percocet 5/325 PO 1 tab Q6H PRN Administration Pain, Moderate (4-6) Promethazine HCl 25 mg 03/10/19 16:25 Phenergan [place] Q6H PRN Nausea And Vomiting Simple Syrup 15 ml 03/13/19 10:02 Simple Syrup FEEDTUBE PRN PRN Hypoglycemia Simple Syrup 30 ml 03/13/19 10:02 Simple Syrup FEEDTUBE PRN PRN Hypoglycemia Sodium Bicarbonate 325 mg 03/13/19 10:02 Sodium Bicarbonate FEEDTUBE PRN PRN For Clogged Feeding Tube Sodium Chloride 10 ml 03/10/19 16:25 03/21/19 22:26 Sodium Chloride Flush Syringe 10 Ml IV 10 ml PRN PRN Administration LINE FLUSH Warfarin Sodium 2.5 mg 03/23/19 17:00 Coumadin PO DAILY@1700 [facility] Nutrition/Malnutrition Assess - Dietary Evaluation Nutrition/Malnutrition Findings: Nutrition Notes Start: 03/11/19 12:57 Freq: Status: Active Protocol: Document 03/20/19 12:29 DW (Rec: 03/20/19 13:20 DW [id number]) Co-Sign 03/20/19 12:29 LP Nutrition Notes Initial or Follow up Reassessment Current Diagnosis Diabetes,Hypertension Other Pertinent Diagnosis 2+ pitting edema Current Diet Mechanical soft Labs/Tests Reviewed Pertinent Medications Reviewed Height 5 ft 10 in Weight 83.3 kg [place] Body Weight (kg) 75.45 BMI 26.3 Subjective/Other Information Pt stated that his appetite is improving but is only eating 50% of his meals. 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 No Is Patient Ambulatory and/or Out of Bed No REE-([facility]-confined to bed) [phone] Calculation Used for Recommendations [facility] Additional Notes Protein: 83g-99g/day (1-1.2g/ kg) Fluid needs: 1ml/kcal Nutrition Intervention Change Diet Order: Continue current Add Supplement/Snack (indicate name/kcal Glucerna daily /protein ) Provides kCal: 220 Provides Protein (gm) 10 Goal #1 Meet atleast 75% of energy and PRO needs via PO/ONS Anticipated Discharge Needs: Mecahnical Soft Diet with ONS daily Follow-Up By: 03/23/19 Additional Comments FU PO and ONS intake
[2019-03-23] MEDS: WARFARIN 2.5 MG TAB PO SCH (18:07)
[2019-03-23] MEDS: GABAPENTIN 300 MG CAP PO SCH (22:20)
[2019-03-23] MEDS: INSULIN GLARGINE 100 UNITS/ML SUB-Q SCH (22:56)
[2019-03-24 06:48] LABS: INR 2.72 (0.87-1.13)
[2019-03-24] MEDS: cloNIDine 0.1 MG TAB PO SCH ×3 (08:34→19:30)
[2019-03-24] MEDS: INSULIN LISPRO 100 UNIT/ML SUB-Q SCH ×4 (08:35→21:21)
[2019-03-24 09:34] LABS: Calcium 8.2 mg/dL (8.4-10.2)
--- NOTE | 2019-03-24 09:36 | Ultrasound Report ---
ULTRASOUND RENAL INDICATION / CLINICAL INFORMATION: Acute kidney injury. COMPARISON: None available. FINDINGS: RIGHT KIDNEY: Length = 9.7 cm. [normal > 9 cm] - Parenchymal Thickness = 1.4 cm. [normal > 1.5 cm] - Echogenicity: Slightly increased - Hydronephrosis: None. - Cyst or mass: No significant abnormality. - Stones: None seen. LEFT KIDNEY: Length = 10.7 cm. [normal > 9 cm] - Parenchymal Thickness = 1.5 cm. [normal > 1.5 cm] - Echogenicity: Slightly increased - Hydronephrosis: None. - Cyst or mass: No significant abnormality. - Stones: None seen. URINARY BLADDER: No significant abnormality. FREE FLUID: None. ADDITIONAL FINDINGS: None. IMPRESSION: Nonspecific renal parenchymal disease. No focal renal lesion or hydronephrosis. Signer Name: Júnior Lucia Jr, MD Signed: 03/24/2019 9:32 AM Workstation Name: [id number]
[2019-03-24] MEDS: carvediloL 6.25 MG TAB PO SCH ×2 (09:58→21:23)
[2019-03-24] MEDS: ASPIRIN 81 MG TAB CHEW PO SCH (09:58)
[2019-03-24] MEDS: amLODIPine 10 MG TAB PO SCH (09:58)
--- NOTE | 2019-03-24 12:13 | Discharge Summary ---
Providers - Providers Date of Admission: 03/10/19 16:25 Attending physician: ROHIT THOMPSON MD 03/10/19 Consult to Physician [CONS] Routine Comment: Consulting Provider: ADAMARIS REGALADO Physician Instructions: Reason For Exam: cva 03/10/19 16:25 Occupational Therapy Evaluate and Treat [CONS] Routine Comment: Reason For Exam: Neuro deficits Physical Therapy Evaluation and Treat [CONS] Routine Comment: Reason For Exam: Neuro deficits 03/11/19 13:05 Speech Therapy Evaluation and Treat [CONS] Stat Reason For Exam: lethargic and no previous swallow screen performed 03/12/19 08:39 Consult to Physician [CONS] Routine Comment: Consulting Provider: NORIS PEDRO Physician Instructions: Reason For Exam: r/o meningitis 03/12/19 10:36 Physical Therapy Evaluation and Treat [CONS] Routine Comment: Reason For Exam: generalized weakness 03/13/19 08:52 Consult to Dietitian/Nutrition [CONS] Routine Physician Instructions: Reason For Exam: Reason for Consult: Write/Manage Tube Feeding 03/14/19 07:13 Consult to Physician [CONS] Routine Comment: Consulting Provider: RACHEL REYNOLDS Physician Instructions: Reason For Exam: recurrent dubhuff dislodgement 03/16/19 13:04 Speech Therapy Evaluation and Treat [CONS] Routine Reason For Exam: eval for regular diet 03/17/19 16:02 Consult to Case Management [CONS] Routine Services Needed at Discharge: Other Notified:: 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 Please remove midline after last dose. Line: Midline Follow up at ID clinic: none required Follow up labs: none required. Dr. Bullard 03/17/19 16:07 Midline [Consult to PICC Line RN] [CONS] Routine Reason For Exam: Outpatient antibiotics. Type Line:: Midline 03/23/19 23:11 Consult to Physician [CONS] Routine Comment: Consulting Provider: HUMZA GONZALEZ Physician Instructions: Reason For Exam: ckd/lia Primary care physician: JAYSON SIDDIQUI Hospitalization Condition: Serious Hospital course: 84-year-old man who presented to the hospital with altered mental status. Family brought him in for confusion x3 days. Past medical history; hypertension diabetes Imaging; CT head no acute findings Carotid Dopplers; no significant stenosis Abdominal x-ray; no significant abnormalities Duplex scan upper extremities, no evidence of DVT, superficial venous thrombosis noted in cephalic vein in the distal biceps to the antecubital fossa Labs reviewed, UA negative, rising creatinine, INR therapeutic, CBC unremarkable Acute metabolic encephalopathy. Likely multifactorial, due to uremia and dehydration Acute kidney injury upon CKD likely due to vasomotor nephropathy Continue to hydrate patient, nephrology consults Hypertensive urgency; optimize blood pressure medications Type 2 diabetes, continue sliding scale Coagulopathy due to warfarin. Patient has hypercoagulable state at baseline Warfarin was on hold, INR now therapeutic, continue Coumadin Ambulatory dysfunction;, awaiting rehab placement Disposition: DC-30 STILL A PATIENT Exam - Constitutional Vitals: Temp Pulse Resp BP Pulse Ox 97.8 F 48 L 18 145/55 95 03/24/19 08:00 03/24/19 08:00 03/24/19 08:00 03/24/19 08:00 03/24/19 08:00 Plan Follow up with: JAYSON SIDDIQUI MD [Primary Care Provider] - 7 Days Forms: Warfarin Discharge Instruction Other Discharge Orders: Physicial Therapy (Amb) Location: None Selected
--- NOTE | 2019-03-24 12:14 | Progress Note ---
Assessment and Plan Assessment and plan: 84-year-old man who presented to the hospital with altered mental status. Family brought him in for confusion x3 days. Past medical history; hypertension diabetes Imaging; CT head no acute findings Carotid Dopplers; no significant stenosis Abdominal x-ray; no significant abnormalities Duplex scan upper extremities, no evidence of DVT, superficial venous thrombosis noted in cephalic vein in the distal biceps to the antecubital fossa Labs reviewed, UA negative, rising creatinine, INR therapeutic, CBC unremarkable Acute metabolic encephalopathy. Likely multifactorial, due to uremia and dehydration Acute kidney injury upon CKD likely due to vasomotor nephropathy Continue to hydrate patient, nephrology consults, cr is rising Hypertensive urgency; optimize blood pressure medications Type 2 diabetes, continue sliding scale Coagulopathy due to warfarin. Patient has hypercoagulable state at baseline Warfarin was on hold, INR now therapeutic, continue Coumadin Ambulatory dysfunction;, awaiting rehab placement History Interval history: Patient was seen and evaluated this morning, patient didn't have any complaints. Patient was alert and oriented Hospitalist Physical - Physical exam Narrative exam: Not in cardiopulmonary distress. The patient appeared well nourished and normally developed. Vital signs as documented. Head exam is unremarkable. No scleral icterus . Neck is without jugular venous distension, thyromegaly, or carotid bruits. Lungs are clear to auscultation. Cardiac exam reveals regular rate and Rhythm. Abdominal exam reveals normal bowel sounds, no masses, no organomegaly and no aortic enlargement. Extremities are nonedematous and both femoral and pedal pulses are normal. PATIENT ACCOUNT LIAISON: Alert and oriented 3. No focal weakness. Hospitalist Physical - Constitutional Vitals: Temp Pulse Resp BP Pulse Ox 97.8 F 48 L 18 145/55 95 03/24/19 08:00 03/24/19 08:00 03/24/19 08:00 03/24/19 08:00 03/24/19 08:00 General appearance: Present: mild distress Results - Labs CBC & Chem 7: 03/16/19 07:40 03/24/19 08:50 Labs: Laboratory Last Values WBC 6.9 K/mm3 (4.5-11.0) 03/16/19 07:40 RBC 4.49 M/mm3 (3.65-5.03) 03/16/19 07:40 Hgb 12.6 gm/dl (11.8-15.2) 03/16/19 07:40 Hct 38.8 % (35.5-45.6) 03/16/19 07:40 MCV 86 fl (84-94) 03/16/19 07:40 MCH 28 pg (28-32) 03/16/19 07:40 MCHC 33 % (32-34) 03/16/19 07:40 RDW 18.0 % (13.2-15.2) H 03/16/19 07:40 Plt Count 130 K/mm3 (140-440) L 03/16/19 07:40 Lymph % (Auto) 19.1 % (13.4-35.0) 03/16/19 07:40 [place] % (Auto) 13.3 % (0.0-7.3) H 03/16/19 07:40 Eos % (Auto) 5.4 % (0.0-4.3) H 03/16/19 07:40 Baso % (Auto) 1.0 % (0.0-1.8) 03/16/19 07:40 Lymph # 1.3 K/mm3 (1.2-5.4) 03/16/19 07:40 [place] # 0.9 K/mm3 (0.0-0.8) H 03/16/19 07:40 Eos # 0.4 K/mm3 (0.0-0.4) 03/16/19 07:40 Baso # 0.1 K/mm3 (0.0-0.1) 03/16/19 07:40 Seg Neutrophils % 61.2 % (40.0-70.0) 03/16/19 07:40 Seg Neutrophils # 4.2 K/mm3 (1.8-7.7) 03/16/19 07:40 PT 28.4 Sec. (12.2-14.9) H 03/24/19 06:22 INR 2.72 (0.87-1.13) H 03/24/19 06:22 APTT 27.8 Sec. (24.2-36.6) 03/10/19 12:17 25.2 Sec. (15.1-19.6) H 03/10/19 12:17 Sodium 139 mmol/L (137-145) 03/24/19 08:50 Potassium 4.8 mmol/L (3.6-5.0) 03/24/19 08:50 Chloride 105.2 mmol/L (98-107) 03/24/19 08:50 Carbon Dioxide 24 mmol/L (22-30) 03/24/19 08:50 15 mmol/L 03/24/19 08:50 BUN 42 mg/dL (9-20) H 03/24/19 08:50 2.6 mg/dL (0.8-1.5) H 03/24/19 08:50 Estimated GFR 29 ml/min 03/24/19 08:50 16 % 03/24/19 08:50 Glucose 201 mg/dL (75-100) H 03/24/19 08:50 POC Glucose 138 (70-105) H 03/24/19 11:44 Calcium 8.2 mg/dL (8.4-10.2) L 03/24/19 08:50 0.076 ng/mL (0.00-0.029) H 03/10/19 12:17 Triglycerides 140 mg/dL (2-149) 03/10/19 12:17 Cholesterol 143 mg/dL (50-199) 03/10/19 12:17 69 mg/dL (50-130) 03/10/19 12:17 62 mg/dL (40-59) H 03/10/19 12:17 2.30 % 03/10/19 12:17 Yellow (Yellow) 03/12/19 14:38 Slightly-cloudy (Clear) 03/12/19 14:38 5.0 (5.0-7.0) 03/12/19 14:38 Ur Specific [place] 1.019 (1.003-1.030) 03/12/19 14:38 >2000 mg dl mg/dL (Negative) 03/12/19 14:38 50 mg/dL (Negative) 03/12/19 14:38 Tr mg/dL (Negative) 03/12/19 14:38 Sm (Negative) 03/12/19 14:38 Neg (Negative) 03/12/19 14:38 Neg (Negative) 03/12/19 14:38 < 2.0 mg/dL (<2.0) 03/12/19 14:38 Ur Leukocyte Esterase Neg (Negative) 03/12/19 14:38 4.0 /HPF (0.0-6.0) 03/12/19 14:38 5.0 /HPF (0.0-6.0) 03/12/19 14:38 1+ /HPF (Negative) 03/12/19 14:38 Few /HPF 03/12/19 14:38 Active Medications - Current Medications Current Medications: Generic Name Dose Route Start Last Admin Trade Name Freq PRN Reason Stop Dose Admin Acetaminophen 650 mg 03/10/19 16:25 03/17/19 10:29 Tylenol PO 650 mg Q4H PRN Administration Pain, Mild (1-3) Amlodipine Besylate 10 mg 03/18/19 10:00 03/24/19 09:58 Norvasc PO 10 mg QDAY TAMMIE Administration Lipase/Protease/Amylase 1 each 03/13/19 10:02 Pancreaze 10,500 Unit FEEDTUBE PRN PRN For Clogged Feeding Tube Aspirin 81 mg 03/17/19 10:00 03/24/19 09:58 Baby Aspirin PO 81 mg QDAY TAMMIE Administration Atorvastatin Calcium 40 mg 03/10/19 22:00 03/23/19 22:20 Lipitor PO 40 mg QHS TAMMIE Administration Bisacodyl 10 mg 03/10/19 16:25 Dulcolax [place] QDAY PRN Constipation Carvedilol 6.25 mg 03/16/19 22:00 03/24/19 09:58 Coreg PO 6.25 mg BID TAMMIE Administration Clonidine HCl 0.3 mg 03/16/19 15:00 03/24/19 08:34 Catapres PO 0.3 mg TID TAMMIE Administration Dextrose 50 ml 03/18/19 13:00 D50w (25gm) Syringe IV PRN PRN Hypoglycemia Gabapentin 300 mg 03/16/19 22:00 03/23/19 22:20 Neurontin PO 300 mg QHS TAMMIE Administration Hydralazine HCl 20 mg 03/13/19 06:00 03/18/19 04:40 Apresoline IV 20 mg Q4H PRN Administration Hypertension Sodium Chloride 1,000 mls @ 125 mls/hr 03/24/19 13:00 Nacl 0.45% 1000 Ml IV DIRECT TAMMIE Insulin Glargine 5 units 03/16/19 22:00 03/23/19 22:56 Lantus SUB-Q 5 units QHS TAMMIE Administration Insulin Human Lispro 0 unit 03/18/19 13:00 03/24/19 12:02 Humalog SUB-Q Not Given ACHS [facility] Protocol Lorazepam 2 mg 03/10/19 18:36 03/13/19 21:04 Ativan IV 2 mg Q4H PRN Administration Agitation Magnesium Hydroxide 30 ml 03/10/19 16:25 03/19/19 12:19 Milk Of Magnesia PO 30 ml Q4H PRN Administration Constipation Metoclopramide HCl 10 mg 03/10/19 16:25 Reglan PO Q6H PRN Nausea And Vomiting Ondansetron HCl 4 mg 03/10/19 16:25 Zofran IV Q8H PRN Nausea And Vomiting Oxycodone/Acetaminophen 1 tab 03/17/19 14:04 03/20/19 18:13 Percocet 5/325 PO 1 tab Q6H PRN Administration Pain, Moderate (4-6) Promethazine HCl 25 mg 03/10/19 16:25 Phenergan NE Q6H PRN Nausea And Vomiting Simple Syrup 15 ml 03/13/19 10:02 Simple Syrup FEEDTUBE PRN PRN Hypoglycemia Simple Syrup 30 ml 03/13/19 10:02 Simple Syrup FEEDTUBE PRN PRN Hypoglycemia Sodium Bicarbonate 325 mg 03/13/19 10:02 Sodium Bicarbonate FEEDTUBE PRN PRN For Clogged Feeding Tube Sodium Chloride 10 ml 03/10/19 16:25 03/21/19 22:26 Sodium Chloride Flush Syringe 10 Ml IV 10 ml PRN PRN Administration LINE FLUSH Warfarin Sodium 2.5 mg 03/23/19 17:00 03/23/19 18:07 Coumadin PO 2.5 mg DAILY@1700 [facility] Administration Nutrition/Malnutrition Assess - Dietary Evaluation Nutrition/Malnutrition Findings: Nutrition Notes Start: 03/11/19 12:57 Freq: Status: Active Protocol: Document 03/23/19 14:28 LM (Rec: 03/23/19 14:33 LM [id number]) Nutrition Notes Initial or Follow up Reassessment Current Diagnosis Diabetes,Hypertension Other Pertinent Diagnosis 2+ pitting edema Current Diet Mechanical soft Labs/Tests Reviewed Pertinent Medications Reviewed Height 5 ft 10 in Weight 85.5 kg [place] Body Weight (kg) 75.45 BMI 27.0 Subjective/Other Information Pt ate 100% of his breakfast this AM and stated he is saving his Glucerna for later. Percent of energy/protein needs met: 100%/100% Burn Absent Trauma Absent Minimum of two criteria Yes #3 Nutrition Diagnosis Inadequate energy intake As Evidenced by Signs and Symptoms Pt meeting 100% of energy and protein needs Diagnosis Progress(for reassessment Improved documentation) #2 Nutrition Diagnosis Malnutrition Diagnosis Progress(for reassessment Continues documentation) Is patient on ventilator? No Is Patient Ambulatory and/or Out of Bed No REE-([facility]-confined to bed) 1226.624 Calculation Used for Recommendations [facility] Additional Notes Protein: 86g-102g/day (1-1.2g/ kg) Fluid needs: 1ml/kcal Nutrition Intervention Change Diet Order: Continue current Add Supplement/Snack (indicate name/kcal Glucerna daily /protein ) Provides kCal: 220 Provides Protein (gm) 10 Goal #1 Meet atleast 75% of energy and PRO needs via PO/ONS Anticipated Discharge Needs: Mecahnical Soft Diet with ONS daily Follow-Up By: 03/30/19 Additional Comments FU PO and ONS intake
[2019-03-24] MEDS: SODIUM CHLORIDE 0.45% 1000 ML 1,000 ML IV SCH ×2 (13:12→21:19)
[2019-03-24 14:45] LABS: Bacteria,Urine 4+ /HPF (Negative); Bilirubin,Urine NEG (Negative); Blood,Urine SM (Negative); Color,Urine Yellow (Yellow); Hyaline Casts,Urine 2 /LPF; Mucus,Urine FEW /HPF; Urobilinogen,Urine < 2.0 mg/dL (<2.0)
[2019-03-24 14:46] LABS: Protein,Urine >500 mg/dL (Negative)
[2019-03-24 14:48] LABS: Creatinine,Urine 97.7 mg/dL (0.1-20.0)
[2019-03-24] MEDS: WARFARIN 2.5 MG TAB PO SCH (16:51)
[2019-03-24] MEDS: oxyCODONE /ACETAMINOPHEN 5-325MG TAB PO PRN (19:30)
--- NOTE | 2019-03-24 19:40 | Consultation ---
History of Present Illness - Reason for Consult Consult date: 03/24/19 acute renal failure Requesting physician: ROHIT THOMPSON - History of Present Illness A 4-year-old male with history of diabetes meds, hypertension and dementia brought to the hospital because of 3 days history of confusion/altered mental status. Patient was eating and drinking but by 3 days prior to presentation was not. Admits to, leg weakness. Patient was brought to the emergency room was deemed not a not a candidate for TPA. He usually walks with a cane. CT of the head showed chronic small vessel ischemia. CT angiogram was negative and 2-D echo was unremarkable. BUN/creatinine also common femoral/1.5 mg/dL. Creatinine has increased to 2.3 mg/dL. Patient denies any voiding difficulties. No frequency, urgency or dysuria Past History Past Medical History: diabetes, hypertension, other (dementia) Past Surgical History: No surgical history, Other (reviewed) Social history: , lives with family. denies: smoking, alcohol abuse, prescription drug abuse Family history: diabetes (father of complications of type 2 diabetes mellitus. Was 85 years old), hypertension, stroke (It is 86) Medications and Allergies Allergies Allergy/AdvReac Type Severity Reaction Status Date / Time No Known Allergies Allergy Unverified 03/10/19 11:50 Home Medications Medication Instructions Recorded Confirmed Last Taken Type Coreg 6.25 mg PO BID 03/14/19 03/14/19 Unknown History Rosuvastatin (Nf) [Crestor] 20 mg PO QHS 03/14/19 03/14/19 Unknown History Gabapentin [Neurontin] 300 mg PO QHS 03/15/19 03/15/19 Unknown History Insulin Glargine [Lantus] 5 units SQ QHS 03/15/19 03/15/19 Unknown History Lispro Insulin [HumaLOG] 2 units SQ TIDAC 03/15/19 03/15/19 Unknown History Warfarin [Coumadin] 6 mg PO QDAY 03/15/19 03/15/19 Unknown History cloNIDine [Catapres] 0.3 mg PO TID 03/15/19 03/15/19 Unknown History Active Meds: Active Medications Acetaminophen (Tylenol) 650 mg PO Q4H PRN PRN Reason: Pain, Mild (1-3) Last Admin: 03/17/19 10:29 Dose: 650 mg Documented by: Amlodipine Besylate (Norvasc) 10 mg PO QDAY [facility] Last Admin: 03/24/19 09:58 Dose: 10 mg Documented by: Lipase/Protease/Amylase (Destiny Sifuentes 10,500 Unit) 1 each FEEDTUBE PRN PRN PRN Reason: For Clogged Feeding Tube Aspirin (Baby Aspirin) 81 mg PO QDAY [facility] Last Admin: 03/24/19 09:58 Dose: 81 mg Documented by: Atorvastatin Calcium (Lipitor) 40 mg PO QHS [facility] Last Admin: 03/23/19 22:20 Dose: 40 mg Documented by: Bisacodyl (Dulcolax) 10 mg [place] QDAY PRN PRN Reason: Constipation Carvedilol (Coreg) 6.25 mg PO BID [facility] Last Admin: 03/24/19 09:58 Dose: 6.25 mg Documented by: Clonidine HCl (Catapres) 0.3 mg PO TID [facility] Last Admin: 03/24/19 19:30 Dose: 0.3 mg Documented by: Dextrose (D50w (25gm) Syringe) 50 ml IV PRN PRN PRN Reason: Hypoglycemia Gabapentin (Neurontin) 300 mg PO QHS [facility] Last Admin: 03/23/19 22:20 Dose: 300 mg Documented by: Hydralazine HCl (Apresoline) 20 mg IV Q4H PRN PRN Reason: Hypertension Last Admin: 03/18/19 04:40 Dose: 20 mg Documented by: Sodium Chloride (Nacl 0.45% 1000 Ml) 1,000 mls @ 125 mls/hr IV DIRECT [facility] Last Admin: 03/24/19 13:12 Dose: 125 mls/hr Documented by: [facility]) [facility] Last Admin: 03/23/19 22:56 Dose: 5 units Documented by: Insulin Human Lispro (Humalog) 0 unit SUB-Q [facility]; Protocol Last Admin: 03/24/19 16:51 Dose: 4 unit Documented by: Lorazepam (Ativan) 2 mg IV Q4H PRN PRN Reason: Agitation Last Admin: 03/13/19 21:04 Dose: 2 mg Documented by: Magnesium Hydroxide (Milk Of Magnesia) 30 ml PO Q4H PRN PRN Reason: Constipation Last Admin: 03/19/19 12:19 Dose: 30 ml Documented by: Metoclopramide HCl (Reglan) 10 mg PO Q6H PRN PRN Reason: Nausea And Vomiting Ondansetron HCl (Zofran) 4 mg IV Q8H PRN PRN Reason: Nausea And Vomiting Oxycodone/Acetaminophen (Percocet 5/325) 1 tab PO Q6H PRN PRN Reason: Pain, Moderate (4-6) Last Admin: 03/24/19 19:30 Dose: 1 tab Documented by: Promethazine HCl (Phenergan) 25 mg [place] Q6H PRN PRN Reason: Nausea And Vomiting Simple Syrup (Simple Syrup) 15 ml FEEDTUBE PRN PRN PRN Reason: Hypoglycemia Simple Syrup (Simple Syrup) 30 ml FEEDTUBE PRN PRN PRN Reason: Hypoglycemia Sodium Bicarbonate (Sodium Bicarbonate) 325 mg FEEDTUBE PRN PRN PRN Reason: For Clogged Feeding Tube Sodium Chloride (Sodium Chloride Flush Syringe 10 Ml) 10 ml IV PRN PRN PRN Reason: LINE FLUSH Last Admin: 03/21/19 22:26 Dose: 10 ml Documented by: Warfarin Sodium (Coumadin) 2.5 mg PO DAILY@1700 [facility] Last Admin: 03/24/19 16:51 Dose: 2.5 mg Documented by: Review of Systems All systems: negative (Constitutional: no fever or chills. No anorexia or weight loss. HEENT: No sore throat or sinus drainage no hearing or vision impairment . Cardiovascular: No chest pain, shortness of breath, palpitations, lower extremity swelling or dizziness. Respiratory: No cough, sputum, shortness of breath, hemoptysis or wheezing. Gastrointestinal: No nausea, vomiting, diarrhea, abdominal pain, hematemesis or melena. Genitourinary: No frequency urgency dysuria or hematuria. hematologic: No abnormal bleeding or bruising. Integumentary: no pruritus but admits to rash. Neurological: Admits to headache no focal weakness or numbness, no syncope or seizures. Musculoskeletal: Amits to joint pains no stiffness. Psychiatry: no anxiety or depression) Exam - Vital Signs Vital signs: Vital Signs Resp Pulse Ox 20 97 03/10/19 12:34 03/10/19 12:34 - Physical Exam Narrative exam: Middle-aged -Russian female lying in bed in no acute distress HEENT: NCAT, pink oral mucous membrane Neck: Supple, no venous distention CVS: S1S2 RRR with no murmur, rub or gallop Chest: Clear to auscultation Abdomen: Protuberant, soft, nontender, no organomegaly, bowel sounds are present Extremities: No edema Neuro: Awake, alert, no focal deficits Results - Lab Results 03/16/19 07:40 03/25/19 05:43 Most recent lab results Calcium 8.2 mg/dL (8.4-10.2) L 03/24/19 08:50 97.7 mg/dL (0.1-20.0) H 03/24/19 14:28 16 mmol/L 03/24/19 14:28 351 mg/dL (5-11.8) H 03/24/19 14:28
[2019-03-24] MEDS: INSULIN GLARGINE 100 UNITS/ML SUB-Q SCH (21:22)
[2019-03-24] MEDS: GABAPENTIN 300 MG CAP PO SCH (21:23)
[2019-03-25 06:15] LABS: INR 2.44 (0.87-1.13)
[2019-03-25 06:29] LABS: Calcium 8.1 mg/dL (8.4-10.2)
[2019-03-25] MEDS: INSULIN LISPRO 100 UNIT/ML SUB-Q SCH ×5 (08:29→22:45)
[2019-03-25] MEDS: cloNIDine 0.1 MG TAB PO SCH ×3 (08:59→20:25)
[2019-03-25] MEDS: carvediloL 6.25 MG TAB PO SCH ×2 (09:24→22:46)
[2019-03-25] MEDS: ASPIRIN 81 MG TAB CHEW PO SCH (09:25)
[2019-03-25] MEDS: amLODIPine 10 MG TAB PO SCH (09:25)
--- NOTE | 2019-03-25 13:39 | Progress Note ---
Assessment and Plan - Patient Problems (1) Acute kidney failure Current Visit: Yes Status: Acute Plan to address problem: Acute Kidney injury etiology uncertain. Question malignant hypertensive nephrosclerosis versus relative hypotension. Urinalysis showed about 4 g proteinuria per day with hematuria. Possible baseline diabetic nephropathy versus other glomerulonephritis. Check serologies. Follow-up electrolytes and renal function. (2) Type 2 diabetes mellitus with diabetic nephropathy Current Visit: Yes Status: Acute Plan to address problem: Blood sugar control by primary attending (3) Hypertensive chronic kidney disease with stage 1 through stage 4 chronic kidney disease, or unspecified chronic kidney disease Current Visit: Yes Status: Acute Plan to address problem: Follow-up blood pressure on current medications (4) Altered mental status, unspecified Current Visit: Yes Status: Acute Qualifiers: Altered mental status type: somnolence Qualified Code(s): R40.0 - Somnolence Plan to address problem: Mental status has improved. (5) Hypertensive emergency Current Visit: Yes Status: Acute Plan to address problem: Blood pressure control has improved. May be a bit low sometimes now. Would d ecrease hypotensive medications and follow-up (6) Chronic kidney disease, stage III (moderate) Current Visit: Yes Status: Acute Plan to address problem: Baseline chronic kidney disease. Daughter states that patient had been told that his kidneys were bit abnormal. Subjective Date of service: 03/25/19 Principal diagnosis: CVA, acute metabolic encephalopathy, hypertensive emergency, DMT 2 Interval history: Elderly -Angolan male lying in bed in no acute distress Objective - Exam Narrative Exam: Middle-aged -Angolan female lying in bed in no acute distress HEENT: NCAT, pink oral mucous membrane Neck: Supple, no venous distention CVS: S1S2 RRR with no murmur, rub or gallop Chest: Clear to auscultation Abdomen: Protuberant, soft, nontender, no organomegaly, bowel sounds are present Extremities: No edema Neuro: Awake, alert, no focal deficits - Vital Signs Vital signs: Vital Signs - 12hr 03/25/19 03/25/19 03:23 07:19 Temperature 97.5 F L 97.9 F Pulse Rate 43 L 41 L Respiratory 18 20 Rate Blood Pressure 129/51 112/43 O2 Sat by Pulse 98 97 Oximetry - Lab 03/16/19 07:40 03/25/19 05:43 Most recent lab results Calcium 8.1 mg/dL (8.4-10.2) L 03/25/19 05:43 Phosphorus 3.50 mg/dL (2.5-4.5) 03/25/19 05:43 Magnesium 2.00 mg/dL (1.7-2.3) 03/25/19 05:43 97.7 mg/dL (0.1-20.0) H 03/24/19 14:28 16 mmol/L 03/24/19 14:28 351 mg/dL (5-11.8) H 03/24/19 14:28 Medications & Allergies - Medications Allergies/Adverse Reactions: Allergies No Known Allergies Allergy (Unverified 03/10/19 11:50) Home Medications: Home Medications Medication Instructions Recorded Confirmed Last Taken Type Coreg 6.25 mg PO BID 03/14/19 03/14/19 Unknown History Rosuvastatin (Nf) [Crestor] 20 mg PO QHS 03/14/19 03/14/19 Unknown History Gabapentin [Neurontin] 300 mg PO QHS 03/15/19 03/15/19 Unknown History Insulin Glargine [Lantus] 5 units SQ QHS 03/15/19 03/15/19 Unknown History Lispro Insulin [HumaLOG] 2 units SQ TIDAC 03/15/19 03/15/19 Unknown History Warfarin [Coumadin] 6 mg PO QDAY 03/15/19 03/15/19 Unknown History cloNIDine [Catapres] 0.3 mg PO TID 03/15/19 03/15/19 Unknown History Active Medications: Generic Name Dose Route Start Last Admin Trade Name Saúlq PRN Reason Stop Dose Admin Acetaminophen 650 mg 03/10/19 16:25 03/17/19 10:29 Tylenol PO 650 mg Q4H PRN Administration Pain, Mild (1-3) Amlodipine Besylate 10 mg 03/18/19 10:00 03/25/19 09:25 Norvasc PO 10 mg QDAY [facility] Administration Lipase/Protease/Amylase 1 each 03/13/19 10:02 Destiny Sifuentes 10,500 Unit FEEDTUBE PRN PRN For Clogged Feeding Tube Aspirin 81 mg 03/17/19 10:00 03/25/19 09:25 Baby Aspirin PO 81 mg QDAY TAM[facility] Administration Atorvastatin Calcium 40 mg 03/10/19 22:00 03/24/19 21:23 Lipitor PO 40 mg QHS TAMMIE Administration Bisacodyl 10 mg 03/10/19 16:25 Dulcolax ID QDAY PRN Constipation Carvedilol 6.25 mg 03/16/19 22:00 03/25/19 09:24 Coreg PO 6.25 mg BID [facility] Administration Clonidine HCl 0.3 mg 03/16/19 15:00 03/25/19 08:59 Catapres PO 0.3 mg TID [facility] Administration Dextrose 50 ml 03/18/19 13:00 D50w (25gm) Syringe IV PRN PRN Hypoglycemia Gabapentin 300 mg 03/16/19 22:00 03/24/19 21:23 Neurontin PO 300 mg QHS [facility]AMMIE Administration Hydralazine HCl 20 mg 03/13/19 06:00 03/18/19 04:40 Apresoline IV 20 mg Q4H PRN Administration Hypertension Sodium Chloride 1,000 mls @ 125 mls/hr 03/24/19 13:00 03/24/19 21:19 Nacl 0.45% 1000 Ml IV 125 mls/hr DIRECT [facility] Administration Insulin Glargine 5 units 03/16/19 22:00 03/24/19 21:22 Lantus SUB-Q 5 units QHS [facility] Administration Insulin Human Lispro 0 unit 03/18/19 13:00 03/25/19 13:13 Humalog SUB-Q 4 unit ACHS [facility] Administration Protocol Lorazepam 2 mg 03/10/19 18:36 03/13/19 21:04 Ativan IV 2 mg Q4H PRN Administration Agitation Magnesium Hydroxide 30 ml 03/10/19 16:25 03/19/19 12:19 Milk Of Magnesia PO 30 ml Q4H PRN Administration Constipation Metoclopramide HCl 10 mg 03/10/19 16:25 Reglan PO Q6H PRN Nausea And Vomiting Ondansetron HCl 4 mg 03/10/19 16:25 Zofran IV Q8H PRN Nausea And Vomiting Oxycodone/Acetaminophen 1 tab 03/17/19 14:04 03/24/19 19:30 Percocet 5/325 PO 1 tab Q6H PRN Administration Pain, Moderate (4-6) Promethazine HCl 25 mg 03/10/19 16:25 Phenergan ID Q6H PRN Nausea And Vomiting Simple Syrup 15 ml 03/13/19 10:02 Simple Syrup FEEDTUBE PRN PRN Hypoglycemia Simple Syrup 30 ml 03/13/19 10:02 Simple Syrup FEEDTUBE PRN PRN Hypoglycemia Sodium Bicarbonate 325 mg 03/13/19 10:02 Sodium Bicarbonate FEEDTUBE PRN PRN For Clogged Feeding Tube Sodium Chloride 10 ml 03/10/19 16:25 03/21/19 22:26 Sodium Chloride Flush Syringe 10 Ml IV 10 ml PRN PRN Administration LINE FLUSH Warfarin Sodium 2.5 mg 03/23/19 17:00 03/24/19 16:51 Coumadin PO 2.5 mg DAILY@1700 [facility] Administration
[2019-03-25] MEDS ORDERED: amLODIPine 10 MG TAB PO SCH (13:40)
[2019-03-25] MEDS: SODIUM CHLORIDE 0.45% 1000 ML 1,000 ML IV SCH ×2 (14:02→22:53)
[2019-03-25] MEDS: amLODIPine 5 MG TAB PO SCH (14:02)
[2019-03-25] MEDS ORDERED: WARFARIN 1 MG TAB PO SCH (17:00)
[2019-03-25] MEDS: INSULIN GLARGINE 100 UNITS/ML SUB-Q SCH (22:45)
[2019-03-25] MEDS: GABAPENTIN 300 MG CAP PO SCH (22:46)
[2019-03-26] MEDS ORDERED: ATROPINE 0.4 MG/1 ML INJ IV ONE (03:50)
[2019-03-26 05:21] LABS: INR 2.23 (0.87-1.13)
[2019-03-26] MEDS: SODIUM CHLORIDE 0.45% 1000 ML 1,000 ML IV SCH (06:32)
[2019-03-26] MEDS: INSULIN LISPRO 100 UNIT/ML SUB-Q SCH ×4 (07:42→22:27)
[2019-03-26] MEDS: cloNIDine 0.1 MG TAB PO SCH ×3 (08:45→20:01)
[2019-03-26] MEDS: ASPIRIN 81 MG TAB CHEW PO SCH (09:19)
[2019-03-26] MEDS: amLODIPine 5 MG TAB PO SCH (09:21)
[2019-03-26] MEDS: carvediloL 6.25 MG TAB PO SCH (09:22)
--- NOTE | 2019-03-26 11:29 | Progress Note ---
Assessment and Plan - Patient Problems (1) Acute kidney failure Current Visit: Yes Status: Acute Plan to address problem: Acute Kidney injury etiology uncertain. Question malignant hypertensive nephrosclerosis versus relative hypotension. Urinalysis showed about 4 g proteinuria per day with hematuria. Possible baseline diabetic nephropathy versus other glomerulonephritis. Hepatitis B and C negative. Discontinue intravenous fluids with edema patients developing. Follow-up electrolytes and renal function. (2) Type 2 diabetes mellitus with diabetic nephropathy Current Visit: Yes Status: Acute Plan to address problem: Blood sugar control by primary attending (3) Hypertensive chronic kidney disease with stage 1 through stage 4 chronic kidney disease, or unspecified chronic kidney disease Current Visit: Yes Status: Acute Plan to address problem: Follow-up blood pressure on current medications (4) Altered mental status, unspecified Current Visit: Yes Status: Acute Qualifiers: Altered mental status type: somnolence Qualified Code(s): R40.0 - Somnolence Plan to address problem: Mental status has improved. (5) Chronic kidney disease, stage III (moderate) Current Visit: Yes Status: Acute Plan to address problem: Baseline chronic kidney disease. Daughter states that patient had been told that his kidneys were bit abnormal. Subjective Date of service: 03/26/19 Principal diagnosis: CVA, acute metabolic encephalopathy, hypertensive emergency, DMT 2 Interval history: Patient seen lying in bed. Caregiver at the bedside. He denies any complaints. No chest pain or shortness of breath. Objective - Exam Narrative Exam: Middle-aged -[place] female lying in bed in no acute distress HEENT: NCAT, pink oral mucous membrane Neck: Supple, no venous distention CVS: S1S2 RRR with no murmur, rub or gallop Chest: Clear to auscultation Abdomen: Protuberant, soft, nontender, no organomegaly, bowel sounds are present Extremities: 2+ edema Neuro: Awake, alert, no focal deficits - Vital Signs Vital signs: Vital Signs - 12hr 03/26/19 03/26/19 03/26/19 02:17 06:34 08:06 Temperature 98.0 F 98.0 F Pulse Rate 38 L 34 L 33 L Respiratory 18 20 Rate Blood Pressure 125/48 120/43 O2 Sat by Pulse 100 100 99 Oximetry 03/26/19 03/26/19 03/26/19 08:45 09:21 09:22 Temperature Pulse Rate 40 L 40 L 40 L Respiratory Rate Blood Pressure 128/47 128/47 O2 Sat by Pulse Oximetry - Lab 03/16/19 07:40 03/25/19 05:43 Most recent lab results Calcium 8.1 mg/dL (8.4-10.2) L 03/25/19 05:43 Phosphorus 3.50 mg/dL (2.5-4.5) 03/25/19 05:43 Magnesium 2.00 mg/dL (1.7-2.3) 03/25/19 05:43 97.7 mg/dL (0.1-20.0) H 03/24/19 14:28 16 mmol/L 03/24/19 14:28 351 mg/dL (5-11.8) H 03/24/19 14:28 Medications & Allergies - Medications Allergies/Adverse Reactions: Allergies No Known Allergies Allergy (Unverified 03/10/19 11:50) Home Medications: Home Medications Medication Instructions Recorded Confirmed Last Taken Type Coreg 6.25 mg PO BID 03/14/19 03/14/19 Unknown History Rosuvastatin (Nf) [Crestor] 20 mg PO QHS 03/14/19 03/14/19 Unknown History Gabapentin [Neurontin] 300 mg PO QHS 03/15/19 03/15/19 Unknown History Insulin Glargine [Lantus] 5 units SQ QHS 03/15/19 03/15/19 Unknown History Lispro Insulin [HumaLOG] 2 units SQ TIDAC 03/15/19 03/15/19 Unknown History Warfarin [Coumadin] 6 mg PO QDAY 03/15/19 03/15/19 Unknown History cloNIDine [Catapres] 0.3 mg PO TID 03/15/19 03/15/19 Unknown History Active Medications: Generic Name Dose Route Start Last Admin Trade Name Freq PRN Reason Stop Dose Admin Acetaminophen 650 mg 03/10/19 16:25 03/17/19 10:29 Tylenol PO 650 mg Q4H PRN Administration Pain, Mild (1-3) Amlodipine Besylate 5 mg 03/25/19 15:00 03/26/19 09:21 Norvasc PO 5 mg QDAY TAMMIE Administration Lipase/Protease/Amylase 1 each 03/13/19 10:02 Pancreazshandra Sifuentes 10,500 Unit FEEDTUBE PRN PRN For Clogged Feeding Tube Aspirin 81 mg 03/17/19 10:00 03/26/19 09:19 Baby Aspirin PO 81 mg QDAY TAMMIE Administration Atorvastatin Calcium 40 mg 03/10/19 22:00 03/25/19 22:46 Lipitor PO 40 mg QHS TAMMIE Administration Bisacodyl 10 mg 03/10/19 16:25 Dulcolax DE QDAY PRN Constipation Carvedilol 6.25 mg 03/16/19 22:00 03/26/19 09:22 Coreg PO Not Given BID [facility] Clonidine HCl 0.3 mg 03/16/19 15:00 03/26/19 08:45 Catapres PO 0.3 mg TID TAMMIE Administration Dextrose 50 ml 03/18/19 13:00 D50w (25gm) Syringe IV PRN PRN Hypoglycemia Gabapentin 300 mg 03/16/19 22:00 03/25/19 22:46 Neurontin PO 300 mg QHS TAMMIE Administration Hydralazine HCl 20 mg 03/13/19 06:00 03/18/19 04:40 Apresoline IV 20 mg Q4H PRN Administration Hypertension Sodium Chloride 1,000 mls @ 125 mls/hr 03/24/19 13:00 03/26/19 06:32 Nacl 0.45% 1000 Ml IV 125 mls/hr DIRECT TAMMIE Administration Insulin Glargine 6 units 03/25/19 22:00 03/25/19 22:45 Lantus SUB-Q 6 units QHS TAMMIE Administration Insulin Human Lispro 0 unit 03/18/19 13:00 03/26/19 07:42 Humalog SUB-Q Not Given ACHS [facility] Protocol Magnesium Hydroxide 30 ml 03/10/19 16:25 03/19/19 12:19 Milk Of Magnesia PO 30 ml Q4H PRN Administration Constipation Metoclopramide HCl 10 mg 03/10/19 16:25 Reglan PO Q6H PRN Nausea And Vomiting Ondansetron HCl 4 mg 03/10/19 16:25 Zofran IV Q8H PRN Nausea And Vomiting Oxycodone/Acetaminophen 1 tab 03/17/19 14:04 03/24/19 19:30 Percocet 5/325 PO 1 tab Q6H PRN Administration Pain, Moderate (4-6) Promethazine HCl 25 mg 03/10/19 16:25 Phenergan DE Q6H PRN Nausea And Vomiting Sodium Bicarbonate 325 mg 03/13/19 10:02 Sodium Bicarbonate FEEDTUBE PRN PRN For Clogged Feeding Tube Sodium Chloride 10 ml 03/10/19 16:25 03/21/19 22:26 Sodium Chloride Flush Syringe 10 Ml IV 10 ml PRN PRN Administration LINE FLUSH Warfarin Sodium 3 mg 03/25/19 17:00 03/25/19 17:56 Coumadin PO 3 mg DAILY@1700 TAMMIE Administration
[2019-03-26 11:34] LABS: Calcium 7.9 mg/dL (8.4-10.2)
--- NOTE | 2019-03-26 14:23 | XRay Report ---
CHEST 1 VIEW INDICATION: sob. COMPARISON: None. FINDINGS: Support devices: None. Heart: Enlarged. Pulmonary vasculature: Increased and indistinct. Lungs/Pleura: Multilobar bilateral interstitial opacities. Mild blunting of the left costophrenic ang le. Additional findings: None. IMPRESSION: CHF with bilateral multilobar interstitial pulmonary edema and a small left pleural effusion. Signer Name: Jackson Armendariz MD Signed: 03/26/2019 2:19 PM Workstation Name: [id number]
--- NOTE | 2019-03-26 16:14 | Progress Note ---
Assessment and Plan Assessment and plan: 84-year-old man who presented to the hospital with altered mental status. Family brought him in for confusion x3 days. Past medical history; hypertension diabetes Imaging; CT head no acute findings Carotid Dopplers; no significant stenosis Abdominal x-ray; no significant abnormalities Duplex scan upper extremities, no evidence of DVT, superficial venous thrombosis noted in cephalic vein in the distal biceps to the antecubital fossa Labs reviewed, UA negative, rising creatinine, INR therapeutic, CBC unremarkable Acute metabolic encephalopathy. Likely multifactorial, due to uremia and dehydration, now resolved Acute hypoxic respiratory failure; continue oxygen supplements Acute on chronic diastolic CHF, EF 55% Pulmonary edema noted on x-ray, Lasix. Acute kidney injury upon CKD likely due to vasomotor nephropathy now in fluid overload, lasix, dw neph Hypertensive urgency; optimize blood pressure medications Type 2 diabetes, continue sliding scale Coagulopathy due to warfarin. Patient has hypercoagulable state at baseline Warfarin was on hold, INR now therapeutic, continue Coumadin Ambulatory dysfunction;, cont PT dispo; home with services History Interval history: Patient was seen and evaluated this morning, patient didn't have any complaints. Patient was alert and oriented he is sob, panting and breathing through pursed lips but is denying it even though i see him struggling to breath Hospitalist Physical - Physical exam Narrative exam: mild distress The patient appeared well nourished and normally developed. Vital signs as documented. Head exam is unremarkable. No scleral icterus . Neck is without jugular venous distension, thyromegaly, or carotid bruits. lungs; bibasilar crackles Cardiac exam reveals regular rate and Rhythm. Abdominal exam reveals normal bowel sounds, no masses, no organomegaly and no aortic enlargement. Extremities are nonedematous and both femoral and pedal pulses are normal. ANALOG DEVICE DESIGNER: Alert and oriented 3. No focal weakness. Hospitalist Physical - Constitutional Vitals: Temp Pulse Resp BP Pulse Ox 98.0 F 41 L 20 124/50 100 03/26/19 13:48 03/26/19 13:49 03/26/19 13:48 03/26/19 13:49 03/26/19 13:48 General appearance: Present: mild distress Results - Labs CBC & Chem 7: 03/16/19 07:40 03/28/19 04:08 Labs: Laboratory Last Values WBC 6.9 K/mm3 (4.5-11.0) 03/16/19 07:40 RBC 4.49 M/mm3 (3.65-5.03) 03/16/19 07:40 Hgb 12.6 gm/dl (11.8-15.2) 03/16/19 07:40 Hct 38.8 % (35.5-45.6) 03/16/19 07:40 MCV 86 fl (84-94) 03/16/19 07:40 MCH 28 pg (28-32) 03/16/19 07:40 MCHC 33 % (32-34) 03/16/19 07:40 RDW 18.0 % (13.2-15.2) H 03/16/19 07:40 Plt Count 130 K/mm3 (140-440) L 03/16/19 07:40 Lymph % (Auto) 19.1 % (13.4-35.0) 03/16/19 07:40 [place] % (Auto) 13.3 % (0.0-7.3) H 03/16/19 07:40 Eos % (Auto) 5.4 % (0.0-4.3) H 03/16/19 07:40 Baso % (Auto) 1.0 % (0.0-1.8) 03/16/19 07:40 Lymph # 1.3 K/mm3 (1.2-5.4) 03/16/19 07:40 [place] # 0.9 K/mm3 (0.0-0.8) H 03/16/19 07:40 Eos # 0.4 K/mm3 (0.0-0.4) 03/16/19 07:40 Baso # 0.1 K/mm3 (0.0-0.1) 03/16/19 07:40 Seg Neutrophils % 61.2 % (40.0-70.0) 03/16/19 07:40 Seg Neutrophils # 4.2 K/mm3 (1.8-7.7) 03/16/19 07:40 PT 24.3 Sec. (12.2-14.9) H 03/26/19 04:36 INR 2.23 (0.87-1.13) H 03/26/19 04:36 APTT 27.8 Sec. (24.2-36.6) 03/10/19 12:17 25.2 Sec. (15.1-19.6) H 03/10/19 12:17 Sodium 128 mmol/L (137-145) L D 03/26/19 10:29 Potassium 5.7 mmol/L (3.6-5.0) H 03/26/19 10:29 Chloride 96.5 mmol/L (98-107) L 03/26/19 10:29 Carbon Dioxide 23 mmol/L (22-30) 03/26/19 10:29 14 mmol/L 03/26/19 10:29 BUN 50 mg/dL (9-20) H 03/26/19 10:29 3.4 mg/dL (0.8-1.5) H 03/26/19 10:29 Estimated GFR 21 ml/min 03/26/19 10:29 15 % 03/26/19 10:29 Glucose 149 mg/dL (75-100) H 03/26/19 10:29 POC Glucose 293 (70-105) H 03/26/19 11:55 Calcium 7.9 mg/dL (8.4-10.2) L 03/26/19 10:29 Phosphorus 3.50 mg/dL (2.5-4.5) 03/25/19 05:43 Magnesium 2.00 mg/dL (1.7-2.3) 03/25/19 05:43 0.076 ng/mL (0.00-0.029) H 03/10/19 12:17 Triglycerides 140 mg/dL (2-149) 03/10/19 12:17 Cholesterol 143 mg/dL (50-199) 03/10/19 12:17 69 mg/dL (50-130) 03/10/19 12:17 62 mg/dL (40-59) H 03/10/19 12:17 2.30 % 03/10/19 12:17 Yellow (Yellow) 03/24/19 14:28 Cloudy (Clear) 03/24/19 14:28 5.0 (5.0-7.0) 03/24/19 14:28 Ur Specific [place] 1.011 (1.003-1.030) 03/24/19 14:28 >500 mg/dL (Negative) 03/24/19 14:28 50 mg/dL (Negative) 03/24/19 14:28 Neg mg/dL (Negative) 03/24/19 14:28 Sm (Negative) 03/24/19 14:28 Neg (Negative) 03/24/19 14:28 Neg (Negative) 03/24/19 14:28 < 2.0 mg/dL (<2.0) 03/24/19 14:28 Ur Leukocyte Esterase Neg (Negative) 03/24/19 14:28 2.0 /HPF (0.0-6.0) 03/24/19 14:28 1.0 /HPF (0.0-6.0) 03/24/19 14:28 U Epithel Cells (Auto) 1.0 /HPF (0-13.0) 03/24/19 14:28 4+ /HPF (Negative) 03/24/19 14:28 Hyaline Casts 2 /LPF 03/24/19 14:28 Few /HPF 03/24/19 14:28 97.7 mg/dL (0.1-20.0) H 03/24/19 14:28 16 mmol/L 03/24/19 14:28 351 mg/dL (5-11.8) H 03/24/19 14:28 Hep Bs Antigen Non-reactive (Negative) 03/26/19 04:36 Non-reactive (NonReactive) 03/26/19 04:36 - Imaging and Cardiology Chest x-ray: image reviewed (pulm edema) Active Medications - Current Medications Current Medications: Generic Name Dose Route Start Last Admin Trade Name Freq PRN Reason Stop Dose Admin Acetaminophen 650 mg 03/10/19 16:25 03/17/19 10:29 Tylenol PO 650 mg Q4H PRN Administration Pain, Mild (1-3) Amlodipine Besylate 5 mg 03/25/19 15:00 03/26/19 09:21 Norvasc PO 5 mg QDAY TAMMIE Administration Lipase/Protease/Amylase 1 each 03/13/19 10:02 Pancreaze 10,500 Unit FEEDTUBE PRN PRN For Clogged Feeding Tube Aspirin 81 mg 03/17/19 10:00 03/26/19 09:19 Baby Aspirin PO 81 mg QDAY TAMMIE Administration Atorvastatin Calcium 40 mg 03/10/19 22:00 03/25/19 22:46 Lipitor PO 40 mg QHS TAMMIE Administration Bisacodyl 10 mg 03/10/19 16:25 Dulcolax [place] QDAY PRN Constipation Carvedilol 6.25 mg 03/16/19 22:00 03/26/19 09:22 Coreg PO Not Given BID [facility] Clonidine HCl 0.3 mg 03/16/19 15:00 03/26/19 13:49 Catapres PO 0.3 mg TID [facility] Administration Dextrose 50 ml 03/18/19 13:00 D50w (25gm) Syringe IV PRN PRN Hypoglycemia Gabapentin 300 mg 03/16/19 22:00 03/25/19 22:46 Neurontin PO 300 mg QHS [facility] Administration Hydralazine HCl 20 mg 03/13/19 06:00 03/18/19 04:40 Apresoline IV 20 mg Q4H PRN Administration Hypertension Insulin Glargine 6 units 03/25/19 22:00 03/25/19 22:45 Lantus SUB-Q 6 units QHS [facility] Administration Insulin Human Lispro 0 unit 03/18/19 13:00 03/26/19 11:57 Humalog SUB-Q 6 unit ACHS [facility] Administration Protocol Magnesium Hydroxide 30 ml 03/10/19 16:25 03/19/19 12:19 Milk Of Magnesia PO 30 ml Q4H PRN Administration Constipation Metoclopramide HCl 10 mg 03/10/19 16:25 Reglan PO Q6H PRN Nausea And Vomiting Ondansetron HCl 4 mg 03/10/19 16:25 Zofran IV Q8H PRN Nausea And Vomiting Oxycodone/Acetaminophen 1 tab 03/17/19 14:04 03/24/19 19:30 Percocet 5/325 PO 1 tab Q6H PRN Administration Pain, Moderate (4-6) Promethazine HCl 25 mg 03/10/19 16:25 Phenergan [place] Q6H PRN Nausea And Vomiting Sodium Bicarbonate 325 mg 03/13/19 10:02 Sodium Bicarbonate FEEDTUBE PRN PRN For Clogged Feeding Tube Sodium Chloride 10 ml 03/10/19 16:25 03/21/19 22:26 Sodium Chloride Flush Syringe 10 Ml IV 10 ml PRN PRN Administration LINE FLUSH Warfarin Sodium 4 mg 03/26/19 17:00 Coumadin PO DAILY@1700 [facility] Nutrition/Malnutrition Assess - Dietary Evaluation Nutrition/Malnutrition Findings: Nutrition Notes Start: 03/11/19 12:57 Freq: Status: Active Protocol: Document 03/23/19 14:28 LM (Rec: 03/23/19 14:33 LM [id number]) Nutrition Notes Initial or Follow up Reassessment Current Diagnosis Diabetes,Hypertension Other Pertinent Diagnosis 2+ pitting edema Current Diet Mechanical soft Labs/Tests Reviewed Pertinent Medications Reviewed Height 5 ft 10 in Weight 85.5 kg [place] Body Weight (kg) 75.45 BMI 27.0 Subjective/Other Information Pt ate 100% of his breakfast this AM and stated he is saving his Glucerna for later. Percent of energy/protein needs met: 100%/100% Burn Absent Trauma Absent Minimum of two criteria Yes #3 Nutrition Diagnosis Inadequate energy intake As Evidenced by Signs and Symptoms Pt meeting 100% of energy and protein needs Diagnosis Progress(for reassessment Improved documentation) #2 Nutrition Diagnosis Malnutrition Diagnosis Progress(for reassessment Continues documentation) Is patient on ventilator? No Is Patient Ambulatory and/or Out of Bed No REE-([facility]-confined to bed) 3839.893 Calculation Used for Recommendations [facility] Additional Notes Protein: 86g-102g/day (1-1.2g/ kg) Fluid needs: 1ml/kcal Nutrition Intervention Change Diet Order: Continue current Add Supplement/Snack (indicate name/kcal Glucerna daily /protein ) Provides kCal: 220 Provides Protein (gm) 10 Goal #1 Meet atleast 75% of energy and PRO needs via PO/ONS Anticipated Discharge Needs: Mecahnical Soft Diet with ONS daily Follow-Up By: 03/30/19 Additional Comments FU PO and ONS intake
[2019-03-26] MEDS ORDERED: WARFARIN 2 MG TAB PO SCH (17:00)
[2019-03-26] MEDS: FUROSEMIDE 40 MG/4 ML INJ IV SCH (17:05)
--- NOTE | 2019-03-26 19:57 | Event Note ---
Patient's chest x-ray showed severe pulmonary edema. IV fluids stopped, has been started on Lasix EF is preserved at 55%. Therefore this may be a cardiorenal syndrome with diastolic CHF exacerbation.
[2019-03-26] MEDS: oxyCODONE /ACETAMINOPHEN 5-325MG TAB PO PRN (20:02)
[2019-03-26] MEDS: INSULIN GLARGINE 100 UNITS/ML SUB-Q SCH (22:26)
[2019-03-26] MEDS: GABAPENTIN 300 MG CAP PO SCH (22:26)
[2019-03-27] MEDS: FUROSEMIDE 40 MG/4 ML INJ IV SCH (04:37)
[2019-03-27 06:47] LABS: Calcium 7.8 mg/dL (8.4-10.2)
[2019-03-27] MEDS: INSULIN LISPRO 100 UNIT/ML SUB-Q SCH ×4 (08:00→22:57)
--- NOTE | 2019-03-27 08:12 | Progress Note ---
Assessment and Plan - Patient Problems (1) Acute kidney failure Current Visit: Yes Status: Acute Plan to address problem: Acute Kidney injury etiology uncertain. Question malignant hypertensive nephrosclerosis versus relative hypotension. Urinalysis showed about 4 g proteinuria per day with hematuria. Possible baseline diabetic nephropathy versus other glomerulonephritis. Hepatitis B and C negative. Other serologies pending. Kidney function is still worsening. Discussed with patient about getting kidney biopsy but he refuses. Called daughter, left message to call me back. Follow-up electrolytes and renal function. (2) Type 2 diabetes mellitus with diabetic nephropathy Current Visit: Yes Status: Acute Plan to address problem: Blood sugar control by primary attending (3) Hypertensive chronic kidney disease with stage 1 through stage 4 chronic kidney disease, or unspecified chronic kidney disease Current Visit: Yes Status: Acute Plan to address problem: Follow-up blood pressure on current medications (4) Altered mental status, unspecified Current Visit: Yes Status: Acute Qualifiers: Altered mental status type: somnolence Qualified Code(s): R40.0 - Somnolence Plan to address problem: Mental status has improved. (5) Chronic kidney disease, stage III (moderate) Current Visit: Yes Status: Acute Plan to address problem: Baseline chronic kidney disease. Daughter states that patient had been told that his kidneys were bit abnormal. (6) Fluid overload Current Visit: Yes Status: Acute Plan to address problem: Continue IV diuretics with close monitoring of renal function and electrolytes. Subjective Date of service: 03/27/19 Principal diagnosis: CVA, acute metabolic encephalopathy, hypertensive emergency, DMT 2 Interval history: Patient seen lying in bed. No family at the bedside. He denies any complaints. No chest pain or shortness of breath. Objective - Exam Narrative Exam: Middle-aged -[place] female lying in bed in no acute distress HEENT: NCAT, pink oral mucous membrane Neck: Supple, no venous distention CVS: S1S2 RRR with no murmur, rub or gallop Chest: Clear to auscultation Abdomen: Protuberant, soft, nontender, no organomegaly, bowel sounds are present Extremities: 2+ edema Neuro: Awake, alert, no focal deficits - Vital Signs Vital signs: Vital Signs - 12hr 03/26/19 03/26/19 03/27/19 21:02 22:00 02:02 Temperature 97.6 F Pulse Rate 41 L Respiratory 20 20 18 Rate Blood Pressure 123/36 O2 Sat by Pulse 100 100 Oximetry - Lab 03/16/19 07:40 03/27/19 05:59 Most recent lab results Calcium 7.8 mg/dL (8.4-10.2) L 03/27/19 05:59 Phosphorus 3.50 mg/dL (2.5-4.5) 03/25/19 05:43 Magnesium 2.00 mg/dL (1.7-2.3) 03/25/19 05:43 97.7 mg/dL (0.1-20.0) H 03/24/19 14:28 16 mmol/L 03/24/19 14:28 351 mg/dL (5-11.8) H 03/24/19 14:28 Medications & Allergies - Medications Allergies/Adverse Reactions: Allergies No Known Allergies Allergy (Unverified 03/10/19 11:50) Home Medications: Home Medications Medication Instructions Recorded Confirmed Last Taken Type Coreg 6.25 mg PO BID 03/14/19 03/14/19 Unknown History Rosuvastatin (Nf) [Crestor] 20 mg PO QHS 03/14/19 03/14/19 Unknown History Gabapentin [Neurontin] 300 mg PO QHS 03/15/19 03/15/19 Unknown History Insulin Glargine [Lantus] 5 units SQ QHS 03/15/19 03/15/19 Unknown History Lispro Insulin [HumaLOG] 2 units SQ TIDAC 03/15/19 03/15/19 Unknown History Warfarin [Coumadin] 6 mg PO QDAY 03/15/19 03/15/19 Unknown History cloNIDine [Catapres] 0.3 mg PO TID 03/15/19 03/15/19 Unknown History Active Medications: Generic Name Dose Route Start Last Admin Trade Name Freq PRN Reason Stop Dose Admin Acetaminophen 650 mg 03/10/19 16:25 03/17/19 10:29 Tylenol PO 650 mg Q4H PRN Administration Pain, Mild (1-3) Amlodipine Besylate 5 mg 03/25/19 15:00 03/26/19 09:21 Norvasc PO 5 mg QDAY TAMMIE Administration Lipase/Protease/Amylase 1 each 03/13/19 10:02 Pancretom Sifuentes 10,500 Unit FEEDTUBE PRN PRN For Clogged Feeding Tube Aspirin 81 mg 03/17/19 10:00 03/26/19 09:19 Baby Aspirin PO 81 mg QDAY TAMMIE Administration Atorvastatin Calcium 40 mg 03/10/19 22:00 03/26/19 22:26 Lipitor PO 40 mg QHS TAMMIE Administration Bisacodyl 10 mg 03/10/19 16:25 Dulcolax [place] QDAY PRN Constipation Clonidine HCl 0.3 mg 03/16/19 15:00 03/26/19 20:01 Catapres PO 0.3 mg TID TAMMIE Administration Dextrose 50 ml 03/18/19 13:00 D50w (25gm) Syringe IV PRN PRN Hypoglycemia Furosemide 40 mg 03/26/19 16:38 03/27/19 04:37 Lasix IV 40 mg Q12H TAMMIE Administration Gabapentin 300 mg 03/16/19 22:00 03/26/19 22:26 Neurontin PO 300 mg QHS TAMMIE Administration Hydralazine HCl 20 mg 03/13/19 06:00 03/18/19 04:40 Apresoline IV 20 mg Q4H PRN Administration Hypertension Insulin Glargine 6 units 03/25/19 22:00 03/26/19 22:26 Lantus SUB-Q 6 units QHS [facility] Administration Insulin Human Lispro 0 unit 03/18/19 13:00 03/26/19 22:27 Humalog SUB-Q 6 unit ACHS TAMMIE Administration Protocol Magnesium Hydroxide 30 ml 03/10/19 16:25 03/19/19 12:19 Milk Of Magnesia PO 30 ml Q4H PRN Administration Constipation Metoclopramide HCl 10 mg 03/10/19 16:25 Reglan PO Q6H PRN Nausea And Vomiting Ondansetron HCl 4 mg 03/10/19 16:25 Zofran IV Q8H PRN Nausea And Vomiting Oxycodone/Acetaminophen 1 tab 03/17/19 14:04 03/26/19 20:02 Percocet 5/325 PO 1 tab Q6H PRN Administration Pain, Moderate (4-6) Promethazine HCl 25 mg 03/10/19 16:25 Phenergan [place] Q6H PRN Nausea And Vomiting Sodium Bicarbonate 325 mg 03/13/19 10:02 Sodium Bicarbonate FEEDTUBE PRN PRN For Clogged Feeding Tube Sodium Chloride 10 ml 03/10/19 16:25 03/26/19 17:10 Sodium Chloride Flush Syringe 10 Ml IV 10 ml PRN PRN Administration LINE FLUSH Warfarin Sodium 5 mg 03/27/19 17:00 Coumadin PO DAILY@1700 TAMMIE
[2019-03-27] MEDS ORDERED: SODIUM POLYSTYRENE 15 GM/60 ML ORAL LIQD PO ONE (08:14)
[2019-03-27] MEDS ORDERED: CALCIUM GLUCONATE 1,000 MG in SODIUM CHLORIDE 0.9% 100 ML IV ONE (08:15)
[2019-03-27] MEDS ORDERED: DEXTROSE 50% IN WATER (25GM) 50 ML SYRINGE IV ONE (08:15)
[2019-03-27] MEDS ORDERED: SODIUM BICARB 8.4% 50 MEQ/50 ML SYRINGE IV STA (08:15)
[2019-03-27] MEDS ORDERED: INSULIN REGULAR, HUMAN 100 UNITS/1 ML IV STA (08:15)
[2019-03-27] MEDS: ASPIRIN 81 MG TAB CHEW PO SCH (09:33)
[2019-03-27] MEDS: cloNIDine 0.1 MG TAB PO SCH ×3 (09:34→23:26)
[2019-03-27] MEDS: amLODIPine 5 MG TAB PO SCH (10:10)
[2019-03-27] MEDS: DEXTROSE 50% IN WATER (25GM) 50 ML VIAL IV SCH ×3 (12:05→23:38)
[2019-03-27] MEDS: INSULIN REGULAR, HUMAN 100 UNITS/1 ML IV SCH ×2 (12:15→17:15)
[2019-03-27 15:44] LABS: Calcium 8.3 mg/dL (8.4-10.2)
--- NOTE | 2019-03-27 16:11 | Cat Scan Report ---
CT ABDOMEN AND PELVIS WITHOUT CONTRAST HISTORY: Renal failure, hyperkalemia COMPARISON: None. TECHNIQUE: Axial CT images were obtained through the abdomen and pelvis without IV contrast. Sagittal and coronal reformatted images. All CT scans at this location are performed using CT dose reduction for ALARA by means of automated exposure control. FINDINGS: CT ABDOMEN: Lung Bases: Borderline heart size. Small to medium bilateral layering pleural effusions are identifie d. Mild atelectatic changes are noted in the lower lobes. Scattered calcified granulomas are also not ed in both lower lung zones. Liver: No significant abnormality. Biliary: No significant abnormality. Spleen: No significant abnormality. Unenlarged. Pancreas: No significant abnormality. Adrenals: No significant abnormality. Kidneys: No significant abnormality. Lymphatics: No lymphadenopathy. Vasculature: Mild aortic calcifications are noted. No aneurysm. Bowel/Peritoneum: There are scattered diverticula in the ascending and descending colon. No evidence for bowel obstruction or focal inflammation. Normal appendix. No evidence for free fluid or free air. CT PELVIS: : Hysterectomy. The bladder and distal ureters are unremarkable. Osseous Structures: Moderate thoracolumbar spondylosis. Osteopenia. Posterior spurring at L2-3 appear s to narrow the spinal canal. Additional Findings: There is diffuse subcutaneous edema which may represent mild anasarca. IMPRESSION: No acute abnormality. Borderline to mild cardiomegaly. Small to medium bilateral pleural effusions and diffuse subcutaneous edema. Mild diverticulosis of the colon. Thoracolumbar spondylosis. Possible spinal canal narrowing at L2-3 from chronic posterior spurring. Signer Name: Júnior Lucia Jr, MD Signed: 03/27/2019 4:07 PM Workstation Name: [id number]
[2019-03-27] MEDS: WARFARIN 5 MG TAB PO SCH (17:17)
[2019-03-27] MEDS ORDERED: CALCIUM CHLORIDE 1,000 MG in SODIUM CHLORIDE 0.9% 100 ML IV ONE (23:00)
[2019-03-27] MEDS ORDERED: CALCIUM CHLORIDE 1,000 MG/10 ML SYRINGE IV ONE (23:11)
[2019-03-27] MEDS: INSULIN GLARGINE 100 UNITS/ML SUB-Q SCH (23:12)
[2019-03-27] MEDS: GABAPENTIN 300 MG CAP PO SCH (23:26)
[2019-03-28] MEDS: INSULIN REGULAR, HUMAN 100 UNITS/1 ML IV SCH ×4 (00:01→20:58)
[2019-03-28] MEDS ORDERED: DEXTROSE 50% IN WATER (25GM) 50 ML SYRINGE IV ONE (05:00)
[2019-03-28] MEDS ORDERED: INSULIN REGULAR, HUMAN 100 UNITS/1 ML IV ONE (05:00)
[2019-03-28 05:19] LABS: INR 2.17 (0.87-1.13)
[2019-03-28 05:27] LABS: Calcium 8.5 mg/dL (8.4-10.2)
[2019-03-28] MEDS ORDERED: DEXTROSE 50% IN WATER (25GM) 50 ML VIAL IV ONE (06:00)
[2019-03-28] MEDS: INSULIN LISPRO 100 UNIT/ML SUB-Q SCH ×4 (08:07→21:46)
[2019-03-28] MEDS: cloNIDine 0.1 MG TAB PO SCH ×3 (08:10→20:53)
--- NOTE | 2019-03-28 08:48 | Progress Note ---
Assessment and Plan Assessment and plan: 84-year-old man who presented to the hospital with altered mental status. Family brought him in for confusion x3 days. Past medical history; hypertension diabetes Imaging; CT head no acute findings Carotid Dopplers; no significant stenosis Abdominal x-ray; no significant abnormalities Duplex scan upper extremities, no evidence of DVT, superficial venous thrombosis noted in cephalic vein in the distal biceps to the antecubital fossa Labs reviewed, UA negative, rising creatinine, INR therapeutic, CBC unremarkable Acute metabolic encephalopathy. Likely multifactorial, due to uremia and dehydration, now resolved Acute hypoxic respiratory failure; continue oxygen supplements Acute on chronic diastolic CHF, EF 55% Pulmonary edema noted on x-ray, Michael. Acute kidney injury upon CKD likely due to vasomotor nephropathy now in fluid overload, michael, mary ellen neph. Patient is refusing kidney biopsy, he is refusing dialysis. States that his last year, and she is calling to him. He is not interested in any aggressive therapies or treatments. At this point he is putting his chances of recovering gods hands Hyperkalemia Kayexalate, insulin and D50. CT abdomen and pelvis does not show any hydronephrosis or obstruction in the urinary tract. Hypertensive urgency; optimize blood pressure medications Type 2 diabetes, continue sliding scale Coagulopathy due to warfarin. Patient has hypercoagulable state at baseline Warfarin was on hold, INR now therapeutic, continue Coumadin Ambulatory dysfunction;, cont PT dispo; home with services History Interval history: Patient was seen and evaluated this morning, patient didn't have any complaints. Patient was alert and oriented he is sob, panting and breathing through pursed lips but is denying it even though i see him struggling to breath Hospitalist Physical - Physical exam Narrative exam: mild distress The patient appeared well nourished and normally developed. Vital signs as documented. Head exam is unremarkable. No scleral icterus . Neck is without jugular venous distension, thyromegaly, or carotid bruits. lungs; bibasilar crackles Cardiac exam reveals regular rate and Rhythm. Abdominal exam reveals normal bowel sounds, no masses, no organomegaly and no aortic enlargement. Extremities are nonedematous and both femoral and pedal pulses are normal. WOOD BORER: Alert and oriented 3. No focal weakness. Hospitalist Physical - Constitutional Vitals: Temp Pulse Resp BP Pulse Ox 97.5 F L 58 L 20 190/72 99 03/28/19 07:46 03/28/19 07:46 03/28/19 07:46 03/28/19 07:46 03/28/19 07:46 General appearance: Present: mild distress Results - Labs CBC & Chem 7: 03/16/19 07:40 03/28/19 04:08 Labs: Laboratory Last Values WBC 6.9 K/mm3 (4.5-11.0) 03/16/19 07:40 RBC 4.49 M/mm3 (3.65-5.03) 03/16/19 07:40 Hgb 12.6 gm/dl (11.8-15.2) 03/16/19 07:40 Hct 38.8 % (35.5-45.6) 03/16/19 07:40 MCV 86 fl (84-94) 03/16/19 07:40 MCH 28 pg (28-32) 03/16/19 07:40 MCHC 33 % (32-34) 03/16/19 07:40 RDW 18.0 % (13.2-15.2) H 03/16/19 07:40 Plt Count 130 K/mm3 (140-440) L 03/16/19 07:40 Lymph % (Auto) 19.1 % (13.4-35.0) 03/16/19 07:40 Towns % (Auto) 13.3 % (0.0-7.3) H 03/16/19 07:40 Eos % (Auto) 5.4 % (0.0-4.3) H 03/16/19 07:40 Baso % (Auto) 1.0 % (0.0-1.8) 03/16/19 07:40 Lymph # 1.3 K/mm3 (1.2-5.4) 03/16/19 07:40 Towns # 0.9 K/mm3 (0.0-0.8) H 03/16/19 07:40 Eos # 0.4 K/mm3 (0.0-0.4) 03/16/19 07:40 Baso # 0.1 K/mm3 (0.0-0.1) 03/16/19 07:40 Seg Neutrophils % 61.2 % (40.0-70.0) 03/16/19 07:40 Seg Neutrophils # 4.2 K/mm3 (1.8-7.7) 03/16/19 07:40 PT 23.7 Sec. (12.2-14.9) H 03/28/19 04:08 INR 2.17 (0.87-1.13) H 03/28/19 04:08 APTT 27.8 Sec. (24.2-36.6) 03/10/19 12:17 25.2 Sec. (15.1-19.6) H 03/10/19 12:17 Sodium 127 mmol/L (137-145) L 03/28/19 04:08 Potassium 6.4 mmol/L (3.6-5.0) H* 03/28/19 04:08 Chloride 93.5 mmol/L (98-107) L 03/28/19 04:08 Carbon Dioxide 21 mmol/L (22-30) L 03/28/19 04:08 19 mmol/L 03/28/19 04:08 BUN 58 mg/dL (9-20) H 03/28/19 04:08 3.4 mg/dL (0.8-1.5) H 03/28/19 04:08 Estimated GFR 21 ml/min 03/28/19 04:08 17 % 03/28/19 04:08 Glucose 106 mg/dL (75-100) H 03/28/19 04:08 POC Glucose 103 (70-105) 03/28/19 06:20 Calcium 8.5 mg/dL (8.4-10.2) 03/28/19 04:08 Phosphorus 3.50 mg/dL (2.5-4.5) 03/25/19 05:43 Magnesium 2.00 mg/dL (1.7-2.3) 03/25/19 05:43 0.076 ng/mL (0.00-0.029) H 03/10/19 12:17 Triglycerides 140 mg/dL (2-149) 03/10/19 12:17 Cholesterol 143 mg/dL (50-199) 03/10/19 12:17 69 mg/dL (50-130) 03/10/19 12:17 62 mg/dL (40-59) H 03/10/19 12:17 2.30 % 03/10/19 12:17 Yellow (Yellow) 03/24/19 14:28 Cloudy (Clear) 03/24/19 14:28 5.0 (5.0-7.0) 03/24/19 14:28 Ur Specific [place] 1.011 (1.003-1.030) 03/24/19 14:28 >500 mg/dL (Negative) 03/24/19 14:28 50 mg/dL (Negative) 03/24/19 14:28 Neg mg/dL (Negative) 03/24/19 14:28 Sm (Negative) 03/24/19 14:28 Neg (Negative) 03/24/19 14:28 Neg (Negative) 03/24/19 14:28 < 2.0 mg/dL (<2.0) 03/24/19 14:28 Ur Leukocyte Esterase Neg (Negative) 03/24/19 14:28 2.0 /HPF (0.0-6.0) 03/24/19 14:28 1.0 /HPF (0.0-6.0) 03/24/19 14:28 U Epithel Cells (Auto) 1.0 /HPF (0-13.0) 03/24/19 14:28 4+ /HPF (Negative) 03/24/19 14:28 Hyaline Casts 2 /LPF 03/24/19 14:28 Few /HPF 03/24/19 14:28 97.7 mg/dL (0.1-20.0) H 03/24/19 14:28 16 mmol/L 03/24/19 14:28 351 mg/dL (5-11.8) H 03/24/19 14:28 Hep Bs Antigen Non-reactive (Negative) 03/26/19 04:36 Non-reactive (NonReactive) 03/26/19 04:36 Active Medications - Current Medications Current Medications: Generic Name Dose Route Start Last Admin Trade Name Freq PRN Reason Stop Dose Admin Acetaminophen 650 mg 03/10/19 16:25 03/17/19 10:29 Tylenol PO 650 mg Q4H PRN Administration Pain, Mild (1-3) Amlodipine Besylate 5 mg 03/25/19 15:00 03/27/19 10:10 Norvasc PO 5 mg QDAY TAMMIE Administration Lipase/Protease/Amylase 1 each 03/13/19 10:[address] 10,500 Unit FEEDTUBE PRN PRN For Clogged Feeding Tube Aspirin 81 mg 03/17/19 10:00 03/27/19 09:33 Baby Aspirin PO 81 mg QDAY [facility] Administration Atorvastatin Calcium 40 mg 03/10/19 22:00 03/27/19 23:29 Lipitor PO 40 mg QHS [facility] Administration Bisacodyl 10 mg 03/10/19 16:25 Dulcolax DE QDAY PRN Constipation Clonidine HCl 0.3 mg 03/16/19 15:00 03/28/19 08:10 Catapres PO 0.3 mg TID TAMMIE Administration Dextrose 50 ml 03/18/19 13:00 D50w (25gm) Syringe IV PRN PRN Hypoglycemia Dextrose 50 gm 03/28/19 09:00 D50w (25gm) Vial IV 03/29/19 09:01 Q6H [facility] Furosemide 40 mg 03/28/19 10:00 Lasix IV QDAY [facility] Gabapentin 300 mg 03/16/19 22:00 03/27/19 23:26 Neurontin PO 300 mg QHS [facility] Administration Hydralazine HCl 20 mg 03/13/19 06:00 03/18/19 04:40 Apresoline IV 20 mg Q4H PRN Administration Hypertension Insulin Glargine 6 units 03/25/19 22:00 03/27/19 23:12 Lantus SUB-Q Not Given QHS [facility] Insulin Human Lispro 0 unit 03/28/19 07:30 03/28/19 08:07 Humalog SUB-Q 2 unit ACHS [facility] Administration Protocol Insulin Human Regular 5 units 03/28/19 09:00 Humulin R IV 03/29/19 09:01 Q6H [facility] Magnesium Hydroxide 30 ml 03/10/19 16:25 03/19/19 12:19 Milk Of Magnesia PO 30 ml Q4H PRN Administration Constipation Metoclopramide HCl 10 mg 03/10/19 16:25 Reglan PO Q6H PRN Nausea And Vomiting Ondansetron HCl 4 mg 03/10/19 16:25 Zofran IV Q8H PRN Nausea And Vomiting Oxycodone/Acetaminophen 1 tab 03/17/19 14:04 03/26/19 20:02 Percocet 5/325 PO 1 tab Q6H PRN Administration Pain, Moderate (4-6) Promethazine HCl 25 mg 03/10/19 16:25 Phenergan DE Q6H PRN Nausea And Vomiting Sodium Bicarbonate 325 mg 03/13/19 10:02 Sodium Bicarbonate FEEDTUBE PRN PRN For Clogged Feeding Tube Sodium Chloride 10 ml 03/10/19 16:25 03/26/19 17:10 Sodium Chloride Flush Syringe 10 Ml IV 10 ml PRN PRN Administration LINE FLUSH Sodium Polystyrene Sulfonate 15 gm 03/28/19 08:40 Kionex PO 03/28/19 08:41 ONCE ONE Warfarin Sodium 5 mg 03/27/19 17:00 03/27/19 17:17 Coumadin PO 5 mg DAILY@1700 TAMMIE Administration Nutrition/Malnutrition Assess - Dietary Evaluation Nutrition/Malnutrition Findings: Nutrition Notes Start: 03/11/19 12:57 Freq: Status: Active Protocol: Document 03/23/19 14:28 LM (Rec: 03/23/19 14:33 LM [id number]) Nutrition Notes Initial or Follow up Reassessment Current Diagnosis Diabetes,Hypertension Other Pertinent Diagnosis 2+ pitting edema Current Diet Mechanical soft Labs/Tests Reviewed Pertinent Medications Reviewed Height 5 ft 10 in Weight 85.5 kg [place] Body Weight (kg) 75.45 BMI 27.0 Subjective/Other Information Pt ate 100% of his breakfast this AM and stated he is saving his Glucerna for later. Percent of energy/protein needs met: 100%/100% Burn Absent Trauma Absent Minimum of two criteria Yes #3 Nutrition Diagnosis Inadequate energy intake As Evidenced by Signs and Symptoms Pt meeting 100% of energy and protein needs Diagnosis Progress(for reassessment Improved documentation) #2 Nutrition Diagnosis Malnutrition Diagnosis Progress(for reassessment Continues documentation) Is patient on ventilator? No Is Patient Ambulatory and/or Out of Bed No REE-([place]-St Jeor-confined to bed) [phone] Calculation Used for Recommendations [facility] Additional Notes Protein: 86g-102g/day (1-1.2g/ kg) Fluid needs: 1ml/kcal Nutrition Intervention Change Diet Order: Continue current Add Supplement/Snack (indicate name/kcal Glucerna daily /protein ) Provides kCal: 220 Provides Protein (gm) 10 Goal #1 Meet atleast 75% of energy and PRO needs via PO/ONS Anticipated Discharge Needs: Mecahnical Soft Diet with ONS daily Follow-Up By: 03/30/19 Additional Comments FU PO and ONS intake
[2019-03-28] MEDS ORDERED: SODIUM POLYSTYRENE 15 GM/60 ML ORAL LIQD PO ONE (09:30)
[2019-03-28] MEDS: DEXTROSE 50% IN WATER (25GM) 50 ML VIAL IV SCH ×3 (09:48→20:57)
[2019-03-28] MEDS: ASPIRIN 81 MG TAB CHEW PO SCH (09:50)
[2019-03-28] MEDS: FUROSEMIDE 40 MG/4 ML INJ IV SCH (09:50)
[2019-03-28] MEDS: amLODIPine 5 MG TAB PO SCH (09:50)
--- NOTE | 2019-03-28 15:51 | Progress Note ---
Assessment and Plan - Patient Problems (1) Acute kidney failure Current Visit: Yes Status: Acute Plan to address problem: Acute Kidney injury etiology uncertain. Question malignant hypertensive nephrosclerosis versus relative hypotension. Urinalysis showed about 4 g proteinuria per day with hematuria. Possible baseline diabetic nephropathy versus other glomerulonephritis. Hepatitis B and C negative. Other serologies pending. Kidney function is still worsening. Discussed with patient about getting kidney biopsy but he refuses. Met daughter and family at the door. This said they'll discuss further with the patient Follow-up electrolytes and renal function. (2) Hyperkalemia Current Visit: Yes Status: Acute Plan to address problem: Aggressive medical management of hyperkalemia. Discussed with the patient's about dialysis if potassium is still not controlled. Discussed risks of hyperkalemia especially potentially life-threatening arrhythmias. Patient refuses. 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 (6) Chronic kidney disease, stage III (moderate) Current Visit: Yes Status: Acute Plan to address problem: Baseline chronic kidney disease. Daughter states that patient had been told that his kidneys were bit abnormal. (7) Fluid overload Current Visit: Yes Status: Acute Plan to address problem: Continue IV diuretics with close monitoring of renal function and electrolytes. Subjective Date of service: 03/28/19 Principal diagnosis: CVA, acute metabolic encephalopathy, hypertensive emergency, DMT 2 Interval history: Patient seen lying in bed. Family outside his room. He denies any complaints. No chest pain or shortness of breath. Objective - Exam Narrative Exam: Middle-aged -[place] female lying in bed in no acute distress HEENT: NCAT, pink oral mucous membrane Neck: Supple, no venous distention CVS: S1S2 RRR with no murmur, rub or gallop Chest: Clear to auscultation Abdomen: Protuberant, soft, nontender, no organomegaly, bowel sounds are present Extremities: 2+ edema Neuro: Awake, alert, no focal deficits - Vital Signs Vital signs: Vital Signs - 12hr 03/28/19 03/28/19 03/28/19 07:46 09:17 09:50 Temperature 97.5 F L Pulse Rate 58 L 49 L Pulse Rate [ Apical] Respiratory 20 Rate Blood Pressure 190/72 175/62 175/62 O2 Sat by Pulse 99 Oximetry 03/28/19 03/28/19 03/28/19 10:00 14:41 14:49 Temperature 97.4 F L Pulse Rate 49 L 49 L Pulse Rate [ 59 L Apical] Respiratory 20 20 Rate Blood Pressure 177/58 177/58 O2 Sat by Pulse 99 98 Oximetry - Lab 03/16/19 07:40 03/28/19 04:08 Most recent lab results Calcium 8.5 mg/dL (8.4-10.2) 03/28/19 04:08 Phosphorus 3.50 mg/dL (2.5-4.5) 03/25/19 05:43 Magnesium 2.00 mg/dL (1.7-2.3) 03/25/19 05:43 97.7 mg/dL (0.1-20.0) H 03/24/19 14:28 16 mmol/L 03/24/19 14:28 351 mg/dL (5-11.8) H 03/24/19 14:28 Medications & Allergies - Medications Allergies/Adverse Reactions: Allergies No Known Allergies Allergy (Unverified 03/10/19 11:50) Home Medications: Home Medications Medication Instructions Recorded Confirmed Last Taken Type Coreg 6.25 mg PO BID 03/14/19 03/14/19 Unknown History Rosuvastatin (Nf) [Crestor] 20 mg PO QHS 03/14/19 03/14/19 Unknown History Gabapentin [Neurontin] 300 mg PO QHS 03/15/19 03/15/19 Unknown History Insulin Glargine [Lantus] 5 units SQ QHS 03/15/19 03/15/19 Unknown History Lispro Insulin [HumaLOG] 2 units SQ TIDAC 03/15/19 03/15/19 Unknown History Warfarin [Coumadin] 6 mg PO QDAY 03/15/19 03/15/19 Unknown History cloNIDine [Catapres] 0.3 mg PO TID 03/15/19 03/15/19 Unknown History Active Medications: Generic Name Dose Route Start Last Admin Trade Name Freq PRN Reason Stop Dose Admin Acetaminophen 650 mg 03/10/19 16:25 03/17/19 10:29 Tylenol PO 650 mg Q4H PRN Administration Pain, Mild (1-3) Amlodipine Besylate 5 mg 03/25/19 15:00 03/28/19 09:50 Norvasc PO 5 mg QDAY TAMMIE Administration Lipase/Protease/Amylase 1 each 03/13/19 10:02 Pancreaze 10,500 Unit FEEDTUBE PRN PRN For Clogged Feeding Tube Aspirin 81 mg 03/17/19 10:00 03/28/19 09:50 Baby Aspirin PO 81 mg QDAY TAMMIE Administration Atorvastatin Calcium 40 mg 03/10/19 22:00 03/27/19 23:29 Lipitor PO 40 mg QHS TAMMIE Administration Bisacodyl 10 mg 03/10/19 16:25 Dulcolax AL QDAY PRN Constipation Clonidine HCl 0.3 mg 03/16/19 15:00 03/28/19 14:49 Catapres PO 0.3 mg TID TAMMIE Administration Dextrose 50 ml 03/18/19 13:00 D50w (25gm) Syringe IV PRN PRN Hypoglycemia Dextrose 50 gm 03/28/19 09:00 03/28/19 14:52 D50w (25gm) Vial IV 03/29/19 09:01 50 gm Q6H TAMMIE Administration Furosemide 40 mg 03/28/19 10:00 03/28/19 09:50 Lasix IV 40 mg QDAY TAMMIE Administration Gabapentin 300 mg 03/16/19 22:00 03/27/19 23:26 Neurontin PO 300 mg QHS TAMMIE Administration Hydralazine HCl 20 mg 03/13/19 06:00 03/18/19 04:40 Apresoline IV 20 mg Q4H PRN Administration Hypertension Insulin Glargine 6 units 03/25/19 22:00 03/27/19 23:12 Lantus SUB-Q Not Given QHS [facility] Insulin Human Lispro 0 unit 03/28/19 07:30 03/28/19 12:04 Humalog SUB-Q 3 unit ACHS TAMMIE Administration Protocol Insulin Human Regular 5 units 03/28/19 09:00 03/28/19 14:52 Humulin R IV 03/29/19 09:01 5 units Q6H TAMMIE Administration Magnesium Hydroxide 30 ml 03/10/19 16:25 03/19/19 12:19 Milk Of Magnesia PO 30 ml Q4H PRN Administration Constipation Metoclopramide HCl 10 mg 03/10/19 16:25 Reglan PO Q6H PRN Nausea And Vomiting Ondansetron HCl 4 mg 03/10/19 16:25 Zofran IV Q8H PRN Nausea And Vomiting Oxycodone/Acetaminophen 1 tab 03/17/19 14:04 03/26/19 20:02 Percocet 5/325 PO 1 tab Q6H PRN Administration Pain, Moderate (4-6) Promethazine HCl 25 mg 03/10/19 16:25 Phenergan AL Q6H PRN Nausea And Vomiting Sodium Bicarbonate 325 mg 03/13/19 10:02 Sodium Bicarbonate FEEDTUBE PRN PRN For Clogged Feeding Tube Sodium Chloride 10 ml 03/10/19 16:25 03/28/19 14:54 Sodium Chloride Flush Syringe 10 Ml IV 10 ml PRN PRN Administration LINE FLUSH Warfarin Sodium 5 mg 03/27/19 17:00 03/27/19 17:17 Coumadin PO 5 mg DAILY@1700 TAMMIE Administration
[2019-03-28] MEDS: WARFARIN 5 MG TAB PO SCH (17:10)
[2019-03-28 18:00] LABS: Calcium 8.3 mg/dL (8.4-10.2)
[2019-03-28] MEDS: oxyCODONE /ACETAMINOPHEN 5-325MG TAB PO PRN (21:44)
[2019-03-28] MEDS: GABAPENTIN 300 MG CAP PO SCH (21:45)
[2019-03-28] MEDS: INSULIN GLARGINE 100 UNITS/ML SUB-Q SCH (21:49)
--- NOTE | 2019-03-28 23:56 | Progress Note ---
Assessment and Plan I Acute metabolic encephalopathy. Likely multifactorial, due to uremia and dehydration, now resolved Acute hypoxic respiratory failure; continue oxygen supplements Acute on chronic diastolic CHF, EF 55% Pulmonary edema noted on x-ray, Michael. Acute kidney injury upon CKD likely due to vasomotor nephropathy now in fluid overload, michael, mary ellen neph. Patient is refusing kidney biopsy, he is refusing dialysis. States that his last year, and she is calling to him. He is not interested in any aggressive therapies or treatments. At this point he is putting his chances of recovering in gods hands Hyperkalemia Kayexalate, insulin and D50. CT abdomen and pelvis does not show any hydronephrosis or obstruction in the urinary tract. Hypertensive urgency--Resolved Type 2 diabetes, continue sliding scale Coagulopathy due to warfarin. Patient has hypercoagulable state at baseline Warfarin was on hold, INR now therapeutic, continue Coumadin Ambulatory dysfunction;, cont PT dispo; home with services Subjective Date of service: 03/28/19 Principal diagnosis: CVA, acute metabolic encephalopathy, hypertensive emergency, DMT 2 Interval history: 84-year-old man who presented to the hospital with altered mental status. Family brought him in for confusion x3 days. Past medical history; hypertension diabetes Objective - Constitutional Vitals: Vital Signs - 12hr 03/28/19 03/28/19 03/28/19 14:41 14:49 16:35 Temperature 97.4 F L Pulse Rate 49 L 49 L Respiratory 20 Rate Blood Pressure 177/58 177/58 151/54 Blood Pressure [Right] O2 Sat by Pulse 98 Oximetry 03/28/19 03/28/19 03/28/19 16:37 19:21 20:00 Temperature 97.4 F L 97.4 F L Pulse Rate 40 L 56 L Respiratory 20 20 Rate Blood Pressure Blood Pressure 178/72 [Right] O2 Sat by Pulse 97 Oximetry 03/28/19 03/28/19 20:53 21:44 Temperature Pulse Rate 64 Respiratory 22 Rate Blood Pressure 178/72 Blood Pressure [Right] O2 Sat by Pulse Oximetry General appearance: Present: no acute distress, well-nourished - EENT Eyes: PERRL, EOM intact ENT: hearing intact, clear oral mucosa Ears: bilateral: normal - Neck Neck: supple, normal ROM - Respiratory Respiratory effort: normal Respiratory: bilateral: CTA - Breasts Breasts: normal - Cardiovascular Heart rate: 78 Rhythm: regular Heart Sounds: Present: S1 & S2. Absent: gallop, rub Extremities: no ischemia, pulses intact, No edema, normal color, Full ROM - Gastrointestinal General gastrointestinal: Present: soft, non-tender, non-distended, normal bowel sounds - Genitourinary Male genitourinary: normal - Integumentary Integumentary: clear, warm, dry - Musculoskeletal Musculoskeletal: generalized weakness - Neurologic Neurologic: moves all extremities - Psychiatric Psychiatric: memory intact, appropriate mood/affect, intact judgment & insight - Allied health notes Allied health notes reviewed: nursing, case management - Labs CBC & Chem 7: 03/16/19 07:40 03/30/19 05:42 Labs: Abnormal lab results 03/28/19 03/28/19 03/28/19 Range/Units 03:31 04:08 04:08 PT 23.7 H (12.2-14.9) Sec. INR 2.17 H (0.87-1.13) Sodium 127 L (137-145) mmol/L Potassium 6.4 H* (3.6-5.0) mmol/L Chloride 93.5 L (98-107) mmol/L Carbon Dioxide 21 L (22-30) mmol/L BUN 58 H (9-20) mg/dL Creatinine 3.4 H (0.8-1.5) mg/dL Glucose 106 H (75-100) mg/dL POC Glucose 127 H (70-105) Calcium (8.4-10.2) mg/dL 03/28/19 03/28/19 03/28/19 Range/Units 04:34 09:36 11:41 PT (12.2-14.9) Sec. INR (0.87-1.13) Sodium (137-145) mmol/L Potassium (3.6-5.0) mmol/L Chloride (98-107) mmol/L Carbon Dioxide (22-30) mmol/L BUN (9-20) mg/dL Creatinine (0.8-1.5) mg/dL Glucose (75-100) mg/dL POC Glucose 143 H 216 H 267 H (70-105) Calcium (8.4-10.2) mg/dL 03/28/19 03/28/19 03/28/19 Range/Units 14:56 16:36 16:56 PT (12.2-14.9) Sec. INR (0.87-1.13) Sodium 128 L (137-145) mmol/L Potassium 5.6 H (3.6-5.0) mmol/L Chloride 94.2 L (98-107) mmol/L Carbon Dioxide (22-30) mmol/L BUN 57 H (9-20) mg/dL Creatinine 3.1 H (0.8-1.5) mg/dL Glucose 290 H (75-100) mg/dL POC Glucose 237 H 322 H (70-105) Calcium 8.3 L (8.4-10.2) mg/dL 03/28/19 Range/Units 21:12 PT (12.2-14.9) Sec. INR (0.87-1.13) Sodium (137-145) mmol/L Potassium (3.6-5.0) mmol/L Chloride (98-107) mmol/L Carbon Dioxide (22-30) mmol/L BUN (9-20) mg/dL Creatinine (0.8-1.5) mg/dL Glucose (75-100) mg/dL POC Glucose 262 H (70-105) Calcium (8.4-10.2) mg/dL maging; CT head no acute findings Carotid Dopplers; no significant stenosis Abdominal x-ray; no significant abnormalities Duplex scan upper extremities, no evidence of DVT, superficial venous thrombosis noted in cephalic vein in the distal biceps to the antecubital fossa Labs reviewed, UA negative, rising creatinine, INR therapeutic, CBC unremarkable
[2019-03-29] MEDS: INSULIN REGULAR, HUMAN 100 UNITS/1 ML IV SCH (03:31)
[2019-03-29] MEDS: DEXTROSE 50% IN WATER (25GM) 50 ML VIAL IV SCH (03:31)
[2019-03-29 05:03] LABS: INR 3.33 (0.87-1.13)
[2019-03-29 05:15] LABS: Calcium 8.4 mg/dL (8.4-10.2)
[2019-03-29] MEDS: INSULIN LISPRO 100 UNIT/ML SUB-Q SCH ×4 (08:01→21:23)
[2019-03-29] MEDS: cloNIDine 0.1 MG TAB PO SCH ×3 (08:40→21:21)
[2019-03-29] MEDS: ASPIRIN 81 MG TAB CHEW PO SCH (09:48)
[2019-03-29] MEDS: amLODIPine 5 MG TAB PO SCH (09:48)
[2019-03-29] MEDS: FUROSEMIDE 40 MG/4 ML INJ IV SCH (09:49)
--- NOTE | 2019-03-29 10:54 | Progress Note ---
Assessment and Plan Acute metabolic encephalopathy. Likely multifactorial, due to uremia and dehydration, now resolved Acute hypoxic respiratory failure; continue oxygen supplements Acute on chronic diastolic CHF, EF 55% Pulmonary edema noted on x-ray, Michael. Acute kidney injury upon CKD likely due to vasomotor nephropathy now in fluid overload, michael, mary ellen neph. Patient is refusing kidney biopsy, he is refusing dialysis. States that his last year, and she is calling to him. He is not interested in any aggressive therapies or treatments. At this point he is putting his chances of recovering in gods hands Hyperkalemia Kayexalate, insulin and D50. CT abdomen and pelvis does not show any hydronephrosis or obstruction in the urinary tract. Hypertensive urgency--Resolved Type 2 diabetes, continue sliding scale Coagulopathy due to warfarin. Patient has hypercoagulable state at baseline Warfarin was on hold, INR now therapeutic, continue Coumadin Ambulatory dysfunction;, cont PT dispo; home with services Subjective Date of service: 03/29/19 Principal diagnosis: CVA, acute metabolic encephalopathy, hypertensive emergency, DMT 2 Interval history: 84-year-old man who presented to the hospital with altered mental status. Family brought him in for confusion x3 days. Past medical history; hypertension diabetes Objective - Constitutional Vitals: Vital Signs - 12hr 03/29/19 03/29/19 03/29/19 03:28 07:30 07:40 Temperature 97.3 F L 96.2 F L Pulse Rate 40 L 38 L Respiratory 20 18 18 Rate Blood Pressure 168/66 147/59 O2 Sat by Pulse 100 100 100 Oximetry 03/29/19 03/29/19 03/29/19 08:38 08:40 09:48 Temperature Pulse Rate 53 L 53 L 48 L Respiratory Rate Blood Pressure 195/67 195/67 168/56 O2 Sat by Pulse 98 Oximetry 03/29/19 09:50 Temperature Pulse Rate 48 L Respiratory Rate Blood Pressure O2 Sat by Pulse Oximetry General appearance: Present: no acute distress, well-nourished - EENT Eyes: PERRL, EOM intact ENT: hearing intact, clear oral mucosa Ears: bilateral: normal - Neck Neck: supple, normal ROM - Respiratory Respiratory effort: normal Respiratory: bilateral: CTA - Breasts Breasts: normal - Cardiovascular Heart rate: 78 Rhythm: regular Heart Sounds: Present: S1 & S2. Absent: gallop, rub Extremities: pulses intact, No edema, normal color, Full ROM - Gastrointestinal General gastrointestinal: Present: soft, non-tender, non-distended, normal bowel sounds - Genitourinary Male genitourinary: normal - Integumentary Integumentary: clear, warm, dry - Musculoskeletal Musculoskeletal: generalized weakness - Neurologic Neurologic: moves all extremities - Psychiatric Psychiatric: memory intact, appropriate mood/affect, intact judgment & insight - Allied health notes Allied health notes reviewed: nursing, case management - Labs CBC & Chem 7: 03/16/19 07:40 03/30/19 05:42 Labs: Abnormal lab results 03/28/19 03/28/19 03/28/19 Range/Units 11:41 14:56 16:36 PT (12.2-14.9) Sec. INR (0.87-1.13) Sodium (137-145) mmol/L Potassium (3.6-5.0) mmol/L Chloride (98-107) mmol/L BUN (9-20) mg/dL Creatinine (0.8-1.5) mg/dL Glucose (75-100) mg/dL POC Glucose 267 H 237 H 322 H (70-105) Calcium (8.4-10.2) mg/dL 03/28/19 03/28/19 03/29/19 Range/Units 16:56 21:12 03:32 PT (12.2-14.9) Sec. INR (0.87-1.13) Sodium 128 L (137-145) mmol/L Potassium 5.6 H (3.6-5.0) mmol/L Chloride 94.2 L (98-107) mmol/L BUN 57 H (9-20) mg/dL Creatinine 3.1 H (0.8-1.5) mg/dL Glucose 290 H (75-100) mg/dL POC Glucose 262 H 169 H (70-105) Calcium 8.3 L (8.4-10.2) mg/dL 03/29/19 03/29/19 03/29/19 Range/Units 04:07 04:07 07:40 PT 33.3 H (12.2-14.9) Sec. INR 3.33 H (0.87-1.13) Sodium 132 L (137-145) mmol/L Potassium (3.6-5.0) mmol/L Chloride 95.8 L (98-107) mmol/L BUN 56 H (9-20) mg/dL Creatinine 3.0 H (0.8-1.5) mg/dL Glucose 295 H (75-100) mg/dL POC Glucose 156 H (70-105) Calcium (8.4-10.2) mg/dL
--- NOTE | 2019-03-29 15:02 | Progress Note ---
Assessment and Plan - Patient Problems (1) Acute kidney failure Current Visit: Yes Status: Acute Plan to address problem: Acute Kidney injury etiology uncertain. Question malignant hypertensive nephrosclerosis versus relative hypotension. Urinalysis showed about 4 g proteinuria per day with hematuria. Possible baseline diabetic nephropathy versus other glomerulonephritis. Hepatitis B and C negative. Other serologies pending. Kidney function is not significantly changed. Hyperkalemia has resolved. Follow-up electrolytes and renal function. If kidney function is improving tomorrow, we'll cancel kidney biopsy and plans for possible dialysis. If however still worsening and if not responding to diuretics, will proceed with Hemodialysis and kidney biopsy thereafter. (2) Hyperkalemia Current Visit: Yes Status: Acute Plan to address problem: Potassium has improved. 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 (6) Chronic kidney disease, stage III (moderate) Current Visit: Yes Status: Acute Plan to address problem: Baseline chronic kidney disease. Daughter states that patient had been told that his kidneys were bit abnormal. (7) Fluid overload Current Visit: Yes Status: Acute Plan to address problem: Continue IV diuretics but increase dose with close monitoring of renal function and electrolytes. Subjective Date of service: 03/29/19 Principal diagnosis: CVA, acute metabolic encephalopathy, hypertensive emergency, DMT 2 Interval history: Patient seen lying in bed. Daughter at the bedside. He denies any complaints. No chest pain or shortness of breath. Daughter describes shortness of breath when he coughs. She also notes very little urine output yesterday Objective - Exam Narrative Exam: Middle-aged -[place] female lying in bed in no acute distress HEENT: NCAT, pink oral mucous membrane Neck: Supple, no venous distention CVS: S1S2 RRR with no murmur, rub or gallop Chest: Clear to auscultation but diminished breath sounds in the lower zones Abdomen: Protuberant, soft, nontender, no organomegaly, bowel sounds are present Extremities: 2+ edema Neuro: Awake, alert, no focal deficits - Vital Signs Vital signs: Vital Signs - 12hr 03/29/19 03/29/19 03/29/19 03:28 07:30 08:38 Temperature 97.3 F L 96.2 F L Pulse Rate 40 L 38 L 53 L Respiratory 20 18 Rate Blood Pressure 168/66 147/59 195/67 O2 Sat by Pulse 100 100 98 Oximetry 03/29/19 03/29/19 03/29/19 08:40 09:48 09:50 Temperature Pulse Rate 53 L 48 L 48 L Respiratory Rate Blood Pressure 195/67 168/56 O2 Sat by Pulse Oximetry 03/29/19 03/29/19 10:00 13:29 Temperature Pulse Rate 44 L Respiratory 18 20 Rate Blood Pressure 170/59 O2 Sat by Pulse 100 100 Oximetry - Lab 03/16/19 07:40 03/29/19 04:07 Most recent lab results Calcium 8.4 mg/dL (8.4-10.2) 03/29/19 04:07 Phosphorus 3.50 mg/dL (2.5-4.5) 03/25/19 05:43 Magnesium 2.00 mg/dL (1.7-2.3) 03/25/19 05:43 97.7 mg/dL (0.1-20.0) H 03/24/19 14:28 16 mmol/L 03/24/19 14:28 351 mg/dL (5-11.8) H 03/24/19 14:28 Medications & Allergies - Medications Allergies/Adverse Reactions: Allergies No Known Allergies Allergy (Unverified 03/10/19 11:50) Home Medications: Home Medications Medication Instructions Recorded Confirmed Last Taken Type Coreg 6.25 mg PO BID 03/14/19 03/14/19 Unknown History Rosuvastatin (Nf) [Crestor] 20 mg PO QHS 03/14/19 03/14/19 Unknown History Gabapentin [Neurontin] 300 mg PO QHS 03/15/19 03/15/19 Unknown History Insulin Glargine [Lantus] 5 units SQ QHS 03/15/19 03/15/19 Unknown History Lispro Insulin [HumaLOG] 2 units SQ TIDAC 03/15/19 03/15/19 Unknown History Warfarin [Coumadin] 6 mg PO QDAY 03/15/19 03/15/19 Unknown History cloNIDine [Catapres] 0.3 mg PO TID 03/15/19 03/15/19 Unknown History Active Medications: Generic Name Dose Route Start Last Admin Trade Name Freq PRN Reason Stop Dose Admin Acetaminophen 650 mg 03/10/19 16:25 03/17/19 10:29 Tylenol PO 650 mg Q4H PRN Administration Pain, Mild (1-3) Amlodipine Besylate 5 mg 03/25/19 15:00 03/29/19 09:48 Norvasc PO 5 mg QDAY TAMMIE Administration Lipase/Protease/Amylase 1 each 03/13/19 10:02 Pancreazshandra Sifuentes 10,500 Unit FEEDTUBE PRN PRN For Clogged Feeding Tube Aspirin 81 mg 03/17/19 10:00 03/29/19 09:48 Baby Aspirin PO 81 mg QDAY TAMMIE Administration Atorvastatin Calcium 40 mg 03/10/19 22:00 03/28/19 21:45 Lipitor PO 40 mg QHS TAMMIE Administration Bisacodyl 10 mg 03/10/19 16:25 Dulcolax [place] QDAY PRN Constipation Clonidine HCl 0.3 mg 03/16/19 15:00 03/29/19 13:29 Catapres PO 0.3 mg TID TAMMIE Administration Dextrose 50 ml 03/18/19 13:00 D50w (25gm) Syringe IV PRN PRN Hypoglycemia Furosemide 40 mg 03/28/19 10:00 03/29/19 09:49 Lasix IV 40 mg QDAY TAMMIE Administration Gabapentin 100 mg 03/29/19 22:00 Neurontin PO QHS TAMMIE Hydralazine HCl 20 mg 03/13/19 06:00 03/18/19 04:40 Apresoline IV 20 mg Q4H PRN Administration Hypertension Insulin Glargine 6 units 03/25/19 22:00 03/28/19 21:49 Lantus SUB-Q 6 units QHS TAMMIE Administration Insulin Human Lispro 0 unit 03/28/19 07:30 03/29/19 11:51 Humalog SUB-Q Not Given ACHS [facility] Protocol Magnesium Hydroxide 30 ml 03/10/19 16:25 03/19/19 12:19 Milk Of Magnesia PO 30 ml Q4H PRN Administration Constipation Metoclopramide HCl 10 mg 03/10/19 16:25 Reglan PO Q6H PRN Nausea And Vomiting Ondansetron HCl 4 mg 03/10/19 16:25 Zofran IV Q8H PRN Nausea And Vomiting Oxycodone/Acetaminophen 1 tab 03/17/19 14:04 03/28/19 21:44 Percocet 5/325 PO 1 tab Q6H PRN Administration Pain, Moderate (4-6) Promethazine HCl 25 mg 03/10/19 16:25 Phenergan [place] Q6H PRN Nausea And Vomiting Sodium Bicarbonate 325 mg 03/13/19 10:02 Sodium Bicarbonate FEEDTUBE PRN PRN For Clogged Feeding Tube Sodium Chloride 10 ml 03/10/19 16:25 03/29/19 09:49 Sodium Chloride Flush Syringe 10 Ml IV 10 ml PRN PRN Administration LINE FLUSH
[2019-03-29] MEDS ORDERED: WARFARIN NO DOSE TODAY PO ONE (17:00)
[2019-03-29] MEDS: FUROSEMIDE 20 MG/2 ML INJ IV SCH (17:22)
[2019-03-29] MEDS: INSULIN GLARGINE 100 UNITS/ML SUB-Q SCH (21:22)
[2019-03-29] MEDS: GABAPENTIN 100 MG CAP PO SCH (21:29)
[2019-03-30] MEDS: FUROSEMIDE 20 MG/2 ML INJ IV SCH ×2 (06:20→17:28)
[2019-03-30 06:43] LABS: Calcium 8.1 mg/dL (8.4-10.2)
[2019-03-30] MEDS: INSULIN LISPRO 100 UNIT/ML SUB-Q SCH ×4 (07:22→23:00)
[2019-03-30] MEDS ORDERED: METOCLOPRAMIDE 10 MG TAB PO PRN (08:00)
[2019-03-30] MEDS: cloNIDine 0.1 MG TAB PO SCH ×3 (08:40→19:55)
--- NOTE | 2019-03-30 09:39 | Progress Note ---
Assessment and Plan - Patient Problems (1) Acute kidney failure Current Visit: Yes Status: Acute Plan to address problem: Acute Kidney injury etiology uncertain. Question malignant hypertensive nephrosclerosis versus relative hypotension. Urinalysis showed about 4 g proteinuria per day with hematuria. Possible baseline diabetic nephropathy versus other glomerulonephritis. Hepatitis B and C negative. Other serologies pending. Kidney function is now improving. Follow-up electrolytes and renal function. If kidney function continues to improve, continue medical management. Hold off on any plans for kidney biopsy/hemodialysis. Discussed at length with patient and daughter at the bedside. (2) Hyperkalemia Current Visit: Yes Status: Acute Plan to address problem: Potassium is high normal. Give a dose of Kayexalate. 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 (6) Chronic kidney disease, stage III (moderate) Current Visit: Yes Status: Acute Plan to address problem: Baseline chronic kidney disease. Daughter states that patient had been told that his kidneys were bit abnormal. (7) Fluid overload Current Visit: Yes Status: Acute Plan to address problem: Continue IV diuretics with close monitoring of renal function and electrolytes. Subjective Date of service: 03/30/19 Principal diagnosis: CVA, acute metabolic encephalopathy, hypertensive randi gency, DMT 2 Interval history: Patient seen lying in bed. Daughter at the bedside. He denies any complaints. No chest pain or shortness of breath. Daughter notes patient's urine output has improved significantly Objective - Exam Narrative Exam: Middle-aged -[place] female lying in bed in no acute distress HEENT: NCAT, pink oral mucous membrane Neck: Supple, no venous distention CVS: S1S2 RRR with no murmur, rub or gallop Chest: Clear to auscultation but diminished breath sounds in the lower zones Abdomen: Protuberant, soft, nontender, no organomegaly, bowel sounds are present Extremities: 2+ edema Neuro: Awake, alert, no focal deficits - Vital Signs Vital signs: Vital Signs - 12hr 03/29/19 03/30/19 03/30/19 23:04 01:47 07:50 Temperature 97.5 F L 97.8 F Pulse Rate 43 L 42 L 41 L Respiratory 18 20 Rate Blood Pressure 149/53 190/69 O2 Sat by Pulse 99 100 Oximetry 03/30/19 08:40 Temperature Pulse Rate 41 L Respiratory Rate Blood Pressure 190/69 O2 Sat by Pulse Oximetry - Lab 03/16/19 07:40 03/30/19 05:42 Most recent lab results Calcium 8.1 mg/dL (8.4-10.2) L 03/30/19 05:42 Phosphorus 3.50 mg/dL (2.5-4.5) 03/25/19 05:43 Magnesium 2.00 mg/dL (1.7-2.3) 03/25/19 05:43 97.7 mg/dL (0.1-20.0) H 03/24/19 14:28 16 mmol/L 03/24/19 14:28 351 mg/dL (5-11.8) H 03/24/19 14:28 Medications & Allergies - Medications Allergies/Adverse Reactions: Allergies No Known Allergies Allergy (Unverified 03/10/19 11:50) Home Medications: Home Medications Medication Instructions Recorded Confirmed Last Taken Type Coreg 6.25 mg PO BID 03/14/19 03/14/19 Unknown History Rosuvastatin (Nf) [Crestor] 20 mg PO QHS 03/14/19 03/14/19 Unknown History Gabapentin [Neurontin] 300 mg PO QHS 03/15/19 03/15/19 Unknown History Insulin Glargine [Lantus] 5 units SQ QHS 03/15/19 03/15/19 Unknown History Lispro Insulin [HumaLOG] 2 units SQ TIDAC 03/15/19 03/15/19 Unknown History Warfarin [Coumadin] 6 mg PO QDAY 03/15/19 03/15/19 Unknown History cloNIDine [Catapres] 0.3 mg PO TID 03/15/19 03/15/19 Unknown History Active Medications: Generic Name Dose Route Start Last Admin Trade Name Freq PRN Reason Stop Dose Admin Acetaminophen 650 mg 03/10/19 16:25 03/17/19 10:29 Tylenol PO 650 mg Q4H PRN Administration Pain, Mild (1-3) Amlodipine Besylate 5 mg 03/25/19 15:00 03/29/19 09:48 Norvasc PO 5 mg QDAY TAMMIE Administration Lipase/Protease/Amylase 1 each 03/13/19 10:02 Pancretom Sifuentes 10,500 Unit FEEDTUBE PRN PRN For Clogged Feeding Tube Aspirin 81 mg 03/17/19 10:00 03/29/19 09:48 Baby Aspirin PO 81 mg QDAY TAMMIE Administration Atorvastatin Calcium 40 mg 03/10/19 22:00 03/29/19 21:22 Lipitor PO 40 mg QHS TAMMIE Administration Bisacodyl 10 mg 03/10/19 16:25 Dulcolax [place] QDAY PRN Constipation Clonidine HCl 0.3 mg 03/16/19 15:00 03/30/19 08:40 Catapres PO 0.3 mg TID TAMMIE Administration Dextrose 50 ml 03/18/19 13:00 D50w (25gm) Syringe IV PRN PRN Hypoglycemia Furosemide 60 mg 03/29/19 18:00 03/30/19 06:20 Lasix IV 60 mg 0600,1800 TAMMIE Administration Gabapentin 100 mg 03/29/19 22:00 03/29/19 21:29 Neurontin PO 100 mg QHS TAMMIE Administration Hydralazine HCl 20 mg 03/13/19 06:00 03/18/19 04:40 Apresoline IV 20 mg Q4H PRN Administration Hypertension Insulin Glargine 6 units 03/25/19 22:00 03/29/19 21:22 Lantus SUB-Q 6 units QHS TAMMIE Administration Insulin Human Lispro 0 unit 03/28/19 07:30 03/30/19 07:22 Humalog SUB-Q Not Given ACHS [facility] Protocol Magnesium Hydroxide 30 ml 03/10/19 16:25 03/19/19 12:19 Milk Of Magnesia PO 30 ml Q4H PRN Administration Constipation Metoclopramide HCl 5 mg 03/30/19 08:00 Reglan PO Q6H PRN Nausea And Vomiting Ondansetron HCl 4 mg 03/10/19 16:25 Zofran IV Q8H PRN Nausea And Vomiting Oxycodone/Acetaminophen 1 tab 03/17/19 14:04 03/28/19 21:44 Percocet 5/325 PO 1 tab Q6H PRN Administration Pain, Moderate (4-6) Promethazine HCl 25 mg 03/10/19 16:25 Phenergan [place] Q6H PRN Nausea And Vomiting Sodium Bicarbonate 325 mg 03/13/19 10:02 Sodium Bicarbonate FEEDTUBE PRN PRN For Clogged Feeding Tube Sodium Chloride 10 ml 03/10/19 16:25 03/29/19 17:24 Sodium Chloride Flush Syringe 10 Ml IV 10 ml PRN PRN Administration LINE FLUSH
[2019-03-30] MEDS ORDERED: SODIUM POLYSTYRENE 15 GM/60 ML ORAL LIQD PO NR (10:00)
[2019-03-30] MEDS: ASPIRIN 81 MG TAB CHEW PO SCH (10:14)
[2019-03-30] MEDS: amLODIPine 5 MG TAB PO SCH (10:14)
[2019-03-30] MEDS: INSULIN GLARGINE 100 UNITS/ML SUB-Q SCH (23:00)
[2019-03-30] MEDS: GABAPENTIN 100 MG CAP PO SCH (23:00)
[2019-03-30] MEDS: hydrALAZINE 20 MG/1 ML INJ IV PRN (23:12)
--- NOTE | 2019-03-30 23:54 | Progress Note ---
Assessment and Plan Acute metabolic encephalopathy. Likely multifactorial, due to uremia and dehydration, now resolved Acute hypoxic respiratory failure; continue oxygen supplements Acute on chronic diastolic CHF, EF 55% Pulmonary edema noted on x-ray, Michael. Acute kidney injury upon CKD likely due to vasomotor nephropathy now in fluid overload, michael, mary ellen neph. Patient is refusing kidney biopsy, he is refusing dialysis. States that his last year, and she is calling to him. He is not interested in any aggressive therapies or treatments. At this point he is putting his chances of recovering in gods hands Bun/cr 56/3.0 to 57/2.8 Refusing Biopsy Hyperkalemia Kayexalate and calcium gluconate CT abdomen and pelvis does not show any hyd ronephrosis or obstruction in the urinary tract. Hypertensive urgency--Resolved Type 2 diabetes, continue sliding scale Coagulopathy due to warfarin. Patient has hypercoagulable state at baseline Warfarin was on hold, INR now therapeutic, continue Coumadin Ambulatory dysfunction;, cont PT D/c home if K is normal Follow up with Dr Marks as outpatient Subjective Date of service: 03/30/19 Principal diagnosis: CVA, acute metabolic encephalopathy, hypertensive emergency, DMT 2 Interval history: 84-year-old man who presented to the hospital with altered mental status. Family brought him in for confusion x3 days. Past medical history; hypertension diabetes Objective - Constitutional Vitals: Vital Signs - 12hr 03/30/19 03/30/19 03/30/19 13:36 13:41 13:49 Temperature 98.0 F Pulse Rate 52 L 52 L Respiratory 20 Rate Blood Pressure 181/64 156/53 156/53 O2 Sat by Pulse 99 Oximetry 03/30/19 03/30/19 03/30/19 18:59 19:02 19:36 Temperature 97.4 F L Pulse Rate 68 64 63 Respiratory 18 20 Rate Blood Pressure 224/73 212/63 190/63 O2 Sat by Pulse 100 100 100 Oximetry 03/30/19 03/30/19 03/30/19 23:10 23:12 23:16 Temperature Pulse Rate 71 74 Respiratory Rate Blood Pressure 183/67 183/67 183/67 O2 Sat by Pulse 94 Oximetry General appearance: Present: no acute distress, well-nourished - EENT Eyes: PERRL, EOM intact ENT: hearing intact, clear oral mucosa Ears: bilateral: normal - Neck Neck: supple, normal ROM - Respiratory Respiratory effort: normal Respiratory: bilateral: CTA - Breasts Breasts: normal - Cardiovascular Heart rate: 78 Rhythm: regular Heart Sounds: Present: S1 & S2. Absent: gallop, rub Extremities: no ischemia, pulses intact, No edema, normal color, Full ROM - Gastrointestinal General gastrointestinal: Present: soft, non-tender, non-distended, normal bowel sounds - Genitourinary Male genitourinary: normal - Integumentary Integumentary: clear, warm, dry - Musculoskeletal Musculoskeletal: generalized weakness - Neurologic Neurologic: moves all extremities - Psychiatric Psychiatric: memory intact, appropriate mood/affect, intact judgment & insight - Labs CBC & Chem 7: 03/16/19 07:40 03/30/19 05:42 Labs: Abnormal lab results 03/30/19 03/30/19 03/30/19 Range/Units 05:42 05:42 07:26 PT 38.4 H (12.2-14.9) Sec. INR 4.00 H (0.87-1.13) Sodium 136 L (137-145) mmol/L Potassium 5.3 H (3.6-5.0) mmol/L BUN 57 H (9-20) mg/dL Creatinine 2.8 H (0.8-1.5) mg/dL Glucose 120 H (75-100) mg/dL POC Glucose 108 H (70-105) Calcium 8.1 L (8.4-10.2) mg/dL 03/30/19 03/30/19 03/30/19 Range/Units 11:55 16:40 20:52 PT (12.2-14.9) Sec. INR (0.87-1.13) Sodium (137-145) mmol/L Potassium (3.6-5.0) mmol/L BUN (9-20) mg/dL Creatinine (0.8-1.5) mg/dL Glucose (75-100) mg/dL POC Glucose 159 H 222 H 201 H (70-105) Calcium (8.4-10.2) mg/dL
[2019-03-31] MEDS ORDERED: CALCIUM GLUCONATE 2,000 MG in SODIUM CHLORIDE 0.9% 100 ML IV ONE (00:37)
[2019-03-31] MEDS: FUROSEMIDE 20 MG/2 ML INJ IV SCH ×2 (05:45→17:49)
[2019-03-31] MEDS: hydrALAZINE 20 MG/1 ML INJ IV PRN (05:46)
[2019-03-31] MEDS: INSULIN LISPRO 100 UNIT/ML SUB-Q SCH ×4 (07:57→21:53)
[2019-03-31 08:05] LABS: INR 2.28 (0.87-1.13)
[2019-03-31] MEDS: cloNIDine 0.1 MG TAB PO SCH ×3 (08:13→20:36)
[2019-03-31] MEDS: ASPIRIN 81 MG TAB CHEW PO SCH (09:00)
[2019-03-31 09:46] LABS: Calcium 8.8 mg/dL (8.4-10.2)
[2019-03-31] MEDS ORDERED: amLODIPine 10 MG TAB PO SCH (10:00)
--- NOTE | 2019-03-31 12:06 | Progress Note ---
Assessment and Plan - Patient Problems (1) Acute kidney injury superimposed on CKD Current Visit: Yes Status: Acute Plan to address problem: Overall renal function is showing slow improvement. Continue current management. (2) Hyperkalemia Current Visit: Yes Status: Acute Plan to address problem: Improved this am, as renal function is improving. Did receive dose of Kayexulate yesterday. (3) Hypertensive chronic kidney disease with stage 1 through stage 4 chronic kidney disease, or unspecified chronic kidney disease Current Visit: Yes Status: Chronic Plan to address problem: Will increase amlodipine to 10 mg daily. (4) Fluid overload Current Visit: Yes Status: Acute Plan to address problem: Patient is responding with current diuretic regimen. Will continue to monitor. (5) Type 2 diabetes mellitus with diabetic nephropathy Current Visit: Yes Status: Chronic Plan to address problem: DM management per primary attending. Subjective Date of service: 03/31/19 Principal diagnosis: CVA, acute metabolic encephalopathy, hypertensive emergency, DMT 2 Interval history: No acute issues from renal standpoint. Continue to have issues with appropriate blood pressure control, labs noted and renal function is slowly improving. Objective - Vital Signs Vital signs: Vital Signs - 12hr 03/31/19 03/31/19 03/31/19 01:58 05:40 07:19 Temperature 99.2 F Pulse Rate 80 73 Respiratory 18 18 Rate Blood Pressure 169/64 169/62 O2 Sat by Pulse 91 98 100 Oximetry 03/31/19 03/31/19 07:20 07:29 Temperature 98.5 F Pulse Rate 85 Respiratory 18 Rate Blood Pressure 183/58 O2 Sat by Pulse 97 99 Oximetry - General Appearance General appearance: well-nourished, appears stated age EENT: ATNC, PERRL Neck: no JVD, no thyromegaly Respiratory: Present: Clear to Ascultation, Normal Exam Cardiology: regular, S1S2 Gastrointestinal: normal, normoactive bowel sounds Integumentary: no rash, warm and dry Neurologic: alert and oriented x3 Psychiatric: mood/affect appropriate, cooperative - Lab 03/16/19 07:40 03/31/19 07:25 Most recent lab results Calcium 8.8 mg/dL (8.4-10.2) 03/31/19 07:25 Phosphorus 3.50 mg/dL (2.5-4.5) 03/25/19 05:43 Magnesium 2.00 mg/dL (1.7-2.3) 03/25/19 05:43 97.7 mg/dL (0.1-20.0) H 03/24/19 14:28 16 mmol/L 03/24/19 14:28 351 mg/dL (5-11.8) H 03/24/19 14:28 - Allied health notes Allied health notes reviewed: nursing Medications & Allergies - Medications Allergies/Adverse Reactions: Allergies No Known Allergies Allergy (Unverified 03/10/19 11:50) Home Medications: Home Medications Medication Instructions Recorded Confirmed Last Taken Type Coreg 6.25 mg PO BID 03/14/19 03/14/19 Unknown History Rosuvastatin (Nf) [Crestor] 20 mg PO QHS 03/14/19 03/14/19 Unknown History Gabapentin [Neurontin] 300 mg PO QHS 03/15/19 03/15/19 Unknown History Insulin Glargine [Lantus] 5 units SQ QHS 03/15/19 03/15/19 Unknown History Lispro Insulin [HumaLOG] 2 units SQ TIDAC 03/15/19 03/15/19 Unknown History Warfarin [Coumadin] 6 mg PO QDAY 03/15/19 03/15/19 Unknown History cloNIDine [Catapres] 0.3 mg PO TID 03/15/19 03/15/19 Unknown History Active Medications: Generic Name Dose Route Start Last Admin Trade Name Freq PRN Reason Stop Dose Admin Acetaminophen 650 mg 03/10/19 16:25 03/17/19 10:29 Tylenol PO 650 mg Q4H PRN Administration Pain, Mild (1-3) Amlodipine Besylate 10 mg 03/31/19 10:00 03/31/19 09:00 Norvasc PO 10 mg QDAY [facility]E Administration Lipase/Protease/Amylase 1 each 03/13/19 10:02 Pancreaze 10,500 Unit FEEDTUBE PRN PRN For Clogged Feeding Tube Aspirin 81 mg 03/17/19 10:00 03/31/19 09:00 Baby Aspirin PO 81 mg QDAY [facility] Administration Atorvastatin Calcium 40 mg 03/10/19 22:00 03/30/19 23:00 Lipitor PO 40 mg QHS [facility] Administration Bisacodyl 10 mg 03/10/19 16:25 Dulcolax [place] QDAY PRN Constipation Clonidine HCl 0.3 mg 03/16/19 15:00 03/31/19 08:13 Catapres PO 0.3 mg TID [facility] Administration Dextrose 50 ml 03/18/19 13:00 D50w (25gm) Syringe IV PRN PRN Hypoglycemia Furosemide 60 mg 03/29/19 18:00 03/31/19 05:45 Lasix IV 60 mg 0600,1800 [facility] Administration Gabapentin 100 mg 03/29/19 22:00 03/30/19 23:00 Neurontin PO 100 mg QHS [facility] Administration Hydralazine HCl 20 mg 03/13/19 06:00 03/31/19 05:46 Apresoline IV 20 mg Q4H PRN Administration Hypertension Insulin Glargine 6 units 03/25/19 22:00 03/30/19 23:00 Lantus SUB-Q 6 units QHS [facility] Administration Insulin Human Lispro 0 unit 03/28/19 07:30 03/31/19 11:43 Humalog SUB-Q Not Given [facility] Protocol Metoclopramide HCl 5 mg 03/30/19 08:00 Reglan PO Q6H PRN Nausea And Vomiting Ondansetron HCl 4 mg 03/10/19 16:25 Zofran IV Q8H PRN Nausea And Vomiting Oxycodone/Acetaminophen 1 tab 03/17/19 14:04 03/28/19 21:44 Percocet 5/325 PO 1 tab Q6H PRN Administration Pain, Moderate (4-6) Promethazine HCl 25 mg 03/10/19 16:25 Phenergan [place] Q6H PRN Nausea And Vomiting Sodium Bicarbonate 325 mg 03/13/19 10:02 Sodium Bicarbonate FEEDTUBE PRN PRN For Clogged Feeding Tube Sodium Chloride 10 ml 03/10/19 16:25 03/30/19 10:14 Sodium Chloride Flush Syringe 10 Ml IV 10 ml PRN PRN Administration LINE FLUSH Warfarin Sodium 4 mg 03/31/19 17:00 Coumadin PO DAILY@1700 [facility]
[2019-03-31] MEDS: WARFARIN 2 MG TAB PO SCH (17:49)
--- NOTE | 2019-03-31 18:28 | Progress Note ---
Assessment and Plan Assessment and plan: Acute metabolic encephalopathy. Likely multifactorial, due to uremia and dehydration, now resolved Acute hypoxic respiratory failure; continue oxygen supplements Acute on chronic diastolic CHF, EF 55% Pulmonary edema noted on x-ray, Michael. Acute kidney injury upon CKD likely due to vasomotor nephropathy now in fluid overload, michael, mary ellen neph. Patient is refusing kidney biopsy, he is refusing dialysis. States that his last year, and she is calling to him. He is not interested in any aggressive therapies or treatments. At this point he is putting his chances of recovering in gods hands Bun/cr 56/3.0 to 57/2.8 - 2.4 Refusing Biopsy Hyperkalemia Kayexalate and calcium gluconate CT abdomen and pelvis does not show any hydronephrosis or obstruction in the urinary tract. Hypertensive urgency--Resolved Type 2 diabetes, continue sliding scale Coagulopathy due to warfarin. Patient has hypercoagulable state at baseline Warfarin was on hold, INR now therapeutic, continue Coumadin Ambulatory dysfunction;, cont PT Possible discharge tomorrow if stable History Interval history: Patient seen and examined medical records reviewed Patient feels slightly better complaints of generalized weakness Vital signs reviewed Hospitalist Physical - Constitutional Vitals: Temp Pulse Resp BP Pulse Ox 98.1 F 67 20 156/56 91 03/31/19 13:44 03/31/19 13:44 03/31/19 13:44 03/31/19 13:44 03/31/19 13:44 General appearance: Present: no acute distress, well-nourished - EENT Eyes: Present: PERRL, EOM intact - Neck Neck: Present: supple, normal ROM - Respiratory Respiratory effort: normal Respiratory: bilateral: diminished, negative: rales, rhonchi, wheezing - Cardiovascular Rhythm: regular Heart Sounds: Present: S1 & S2 - Extremities Extremities: no ischemia, No edema - Abdominal General gastrointestinal: soft, non-tender, non-distended, normal bowel sounds - Integumentary Integumentary: Present: clear, warm - Psychiatric Psychiatric: appropriate mood/affect, cooperative - Neurologic Neurologic: moves all extremities Results - Labs CBC & Chem 7: 03/16/19 07:40 03/31/19 07:25 Labs: Laboratory Last Values WBC 6.9 K/mm3 (4.5-11.0) 03/16/19 07:40 RBC 4.49 M/mm3 (3.65-5.03) 03/16/19 07:40 Hgb 12.6 gm/dl (11.8-15.2) 03/16/19 07:40 Hct 38.8 % (35.5-45.6) 03/16/19 07:40 MCV 86 fl (84-94) 03/16/19 07:40 MCH 28 pg (28-32) 03/16/19 07:40 MCHC 33 % (32-34) 03/16/19 07:40 RDW 18.0 % (13.2-15.2) H 03/16/19 07:40 Plt Count 130 K/mm3 (140-440) L 03/16/19 07:40 Lymph % (Auto) 19.1 % (13.4-35.0) 03/16/19 07:40 [place] % (Auto) 13.3 % (0.0-7.3) H 03/16/19 07:40 Eos % (Auto) 5.4 % (0.0-4.3) H 03/16/19 07:40 Baso % (Auto) 1.0 % (0.0-1.8) 03/16/19 07:40 Lymph # 1.3 K/mm3 (1.2-5.4) 03/16/19 07:40 [place] # 0.9 K/mm3 (0.0-0.8) H 03/16/19 07:40 Eos # 0.4 K/mm3 (0.0-0.4) 03/16/19 07:40 Baso # 0.1 K/mm3 (0.0-0.1) 03/16/19 07:40 Seg Neutrophils % 61.2 % (40.0-70.0) 03/16/19 07:40 Seg Neutrophils # 4.2 K/mm3 (1.8-7.7) 03/16/19 07:40 PT 24.7 Sec. (12.2-14.9) H 03/31/19 07:25 INR 2.28 (0.87-1.13) H 03/31/19 07:25 APTT 27.8 Sec. (24.2-36.6) 03/10/19 12:17 25.2 Sec. (15.1-19.6) H 03/10/19 12:17 Sodium 139 mmol/L (137-145) 03/31/19 07:25 Potassium 4.5 mmol/L (3.6-5.0) 03/31/19 07:25 Chloride 100.3 mmol/L (98-107) 03/31/19 07:25 Carbon Dioxide 30 mmol/L (22-30) 03/31/19 07:25 13 mmol/L 03/31/19 07:25 BUN 56 mg/dL (9-20) H 03/31/19 07:25 2.4 mg/dL (0.8-1.5) H 03/31/19 07:25 Estimated GFR 31 ml/min 03/31/19 07:25 23 % 03/31/19 07:25 Glucose 85 mg/dL (75-100) 03/31/19 07:25 POC Glucose 230 (70-105) H 03/31/19 16:51 Calcium 8.8 mg/dL (8.4-10.2) 03/31/19 07:25 Phosphorus 3.50 mg/dL (2.5-4.5) 03/25/19 05:43 Magnesium 2.00 mg/dL (1.7-2.3) 03/25/19 05:43 0.076 ng/mL (0.00-0.029) H 03/10/19 12:17 Triglycerides 140 mg/dL (2-149) 03/10/19 12:17 Cholesterol 143 mg/dL (50-199) 03/10/19 12:17 69 mg/dL (50-130) 03/10/19 12:17 62 mg/dL (40-59) H 03/10/19 12:17 2.30 % 03/10/19 12:17 Yellow (Yellow) 03/24/19 14:28 Cloudy (Clear) 03/24/19 14:28 5.0 (5.0-7.0) 03/24/19 14:28 Ur Specific [place] 1.011 (1.003-1.030) 03/24/19 14:28 >500 mg/dL (Negative) 03/24/19 14:28 50 mg/dL (Negative) 03/24/19 14:28 Neg mg/dL (Negative) 03/24/19 14:28 Sm (Negative) 03/24/19 14:28 Neg (Negative) 03/24/19 14:28 Neg (Negative) 03/24/19 14:28 < 2.0 mg/dL (<2.0) 03/24/19 14:28 Ur Leukocyte Esterase Neg (Negative) 03/24/19 14:28 2.0 /HPF (0.0-6.0) 03/24/19 14:28 1.0 /HPF (0.0-6.0) 03/24/19 14:28 U Epithel Cells (Auto) 1.0 /HPF (0-13.0) 03/24/19 14:28 4+ /HPF (Negative) 03/24/19 14:28 Hyaline Casts 2 /LPF 03/24/19 14:28 Few /HPF 03/24/19 14:28 97.7 mg/dL (0.1-20.0) H 03/24/19 14:28 16 mmol/L 03/24/19 14:28 351 mg/dL (5-11.8) H 03/24/19 14:28 153 mg/dL () 03/26/19 04:36 38 mg/dL () 03/26/19 04:36 Hep Bs Antigen Non-reactive (Negative) 03/26/19 04:36 Non-reactive (NonReactive) 03/26/19 04:36 Active Medications - Current Medications Current Medications: Generic Name Dose Route Start Last Admin Trade Name Freq PRN Reason Stop Dose Admin Acetaminophen 650 mg 03/10/19 16:25 03/17/19 10:29 Tylenol PO 650 mg Q4H PRN Administration Pain, Mild (1-3) Amlodipine Besylate 10 mg 03/31/19 10:00 03/31/19 09:00 Norvasc PO 10 mg QDAY [facility] Administration Lipase/Protease/Amylase 1 each 03/13/19 10:02 Pancreaze 10,500 Unit FEEDTUBE PRN PRN For Clogged Feeding Tube Aspirin 81 mg 03/17/19 10:00 03/31/19 09:00 Baby Aspirin PO 81 mg QDAY [facility] Administration Atorvastatin Calcium 40 mg 03/10/19 22:00 03/30/19 23:00 Lipitor PO 40 mg QHS [facility] Administration Bisacodyl 10 mg 03/10/19 16:25 Dulcolax [place] QDAY PRN Constipation Clonidine HCl 0.3 mg 03/16/19 15:00 03/31/19 13:54 Catapres PO 0.3 mg TID [facility] Administration Dextrose 50 ml 03/18/19 13:00 D50w (25gm) Syringe IV PRN PRN Hypoglycemia Furosemide 60 mg 03/29/19 18:00 03/31/19 17:49 Lasix IV 60 mg 0600,1800 [facility] Administration Gabapentin 100 mg 03/29/19 22:00 03/30/19 23:00 Neurontin PO 100 mg QHS [facility] Administration Hydralazine HCl 20 mg 03/13/19 06:00 03/31/19 05:46 Apresoline IV 20 mg Q4H PRN Administration Hypertension Insulin Glargine 6 units 03/25/19 22:00 03/30/19 23:00 Lantus SUB-Q 6 units QHS [facility] Administration Insulin Human Lispro 0 unit 03/28/19 07:30 03/31/19 17:48 Humalog SUB-Q 2 unit ACHS [facility] Administration Protocol Metoclopramide HCl 5 mg 03/30/19 08:00 Reglan PO Q6H PRN Nausea And Vomiting Ondansetron HCl 4 mg 03/10/19 16:25 Zofran IV Q8H PRN Nausea And Vomiting Oxycodone/Acetaminophen 1 tab 03/17/19 14:04 03/28/19 21:44 Percocet 5/325 PO 1 tab Q6H PRN Administration Pain, Moderate (4-6) Promethazine HCl 25 mg 03/10/19 16:25 Phenergan [place] Q6H PRN Nausea And Vomiting Sodium Bicarbonate 325 mg 03/13/19 10:02 Sodium Bicarbonate FEEDTUBE PRN PRN For Clogged Feeding Tube Sodium Chloride 10 ml 03/10/19 16:25 03/30/19 10:14 Sodium Chloride Flush Syringe 10 Ml IV 10 ml PRN PRN Administration LINE FLUSH Warfarin Sodium 4 mg 03/31/19 17:00 03/31/19 17:49 Coumadin PO 4 mg DAILY@1700 [facility] Administration Nutrition/Malnutrition Assess - Dietary Evaluation Nutrition/Malnutrition Findings: Nutrition Notes Start: 03/11/19 12:57 Freq: Status: Active Protocol: Document 03/31/19 11:08 PS (Rec: 03/31/19 12:23 PS [id number]) Co-Sign 03/31/19 11:08 LP Nutrition Notes Initial or Follow up Reassessment Current Diagnosis Diabetes,Hypertension Other Pertinent Diagnosis 1+ pitting edema Current Diet Renal Diet Labs/Tests BUN 56 Creat 2.4 Pertinent Medications Lasix Height 5 ft 10 in Weight 96.842 kg Usual Body Weight 85.5 kg [place] Body Weight (kg) 75.45 BMI 30.6 Weight change and time frame 10 kg in 8 days. Likely due to fluid. Subjective/Other Information Pt. was asleep when visited. Pt. ate 100% of breakfast. Removal of supplement due to meeting energy and protein needs PO. Percent of energy/protein needs met: 100%/100% Burn Absent Trauma Absent Minimum of two criteria No #3 Nutrition Diagnosis Inadequate energy intake As Evidenced by Signs and Symptoms Pt meeting 100% of energy and protein needs. Diagnosis Progress(for reassessment Resolved documentation) #2 Nutrition Diagnosis Malnutrition Diagnosis Progress(for reassessment Continues documentation) Is patient on ventilator? No Is Patient Ambulatory and/or Out of Bed No REE-([facility]-confined to bed) 2009.408 Kcal/Kg value to use for calculation 19 Approximate Energy Requirements Using 1840 kcal/Kg Calculation Used for Recommendations Kcal/kg Additional Notes Protein: (86 g - 102 g/day (1- 1.2 g/kg UBW) Fluid needs: 1ml/kcal UBW Nutrition Intervention Change Diet Order: Continue current Renal Diet Add Supplement/Snack (indicate name/kcal D/C /protein ) Goal #1 Meet at least 75% of energy and protein needs via PO Anticipated Discharge Needs: Renal Diet Revisit per MD consult or patient Sign Off request:
[2019-03-31] MEDS: INSULIN GLARGINE 100 UNITS/ML SUB-Q SCH (21:52)
[2019-03-31] MEDS: GABAPENTIN 100 MG CAP PO SCH (21:53)
[2019-04-01 05:50] LABS: INR 1.86 (0.87-1.13)
[2019-04-01 05:51] LABS: Calcium 8.1 mg/dL (8.4-10.2)
[2019-04-01] MEDS: FUROSEMIDE 20 MG/2 ML INJ IV SCH ×2 (06:40→17:55)
[2019-04-01] MEDS: INSULIN LISPRO 100 UNIT/ML SUB-Q SCH ×4 (08:28→22:39)
[2019-04-01] MEDS: cloNIDine 0.1 MG TAB PO SCH ×2 (08:36→14:07)
[2019-04-01] MEDS: ASPIRIN 81 MG TAB CHEW PO SCH (09:44)
--- NOTE | 2019-04-01 13:00 | Progress Note ---
Assessment and Plan - Patient Problems (1) Acute kidney injury superimposed on CKD Current Visit: Yes Status: Acute Plan to address problem: Overall renal function is stable. Continue current management. (2) Hyperkalemia Current Visit: Yes Status: Acute Plan to address problem: Improved this am, as renal function is improving. Encourage low K diet (3) Hypertensive chronic kidney disease with stage 1 through stage 4 chronic kidney disease, or unspecified chronic kidney disease Current Visit: Yes Status: Chronic Plan to address problem: We will amlodipine to 10 mg daily today, will continue to monitor. (4) Fluid overload Current Visit: Yes Status: Acute Plan to address problem: Patient is responding with current diuretic regimen. Will continue to monitor. (5) Type 2 diabetes mellitus with diabetic nephropathy Current Visit: Yes Status: Chronic Plan to address problem: DM management per primary attending. Subjective Date of service: 04/01/19 Principal diagnosis: CVA, acute metabolic encephalopathy, hypertensive emergency, DMT 2 Interval history: No acute complaints this am. Overall renal function is stable. Increased amlodipine to 10 mg daily yesterday. Objective - Vital Signs Vital signs: Vital Signs - 12hr 04/01/19 04/01/19 04/01/19 02:26 08:00 08:31 Temperature 98.7 F 98.4 F Pulse Rate 48 L 43 L Respiratory 18 18 Rate Blood Pressure 159/52 167/47 O2 Sat by Pulse 99 99 99 Oximetry 04/01/19 04/01/19 08:36 10:00 Temperature Pulse Rate 43 L 47 L Respiratory 20 Rate Blood Pressure 167/47 O2 Sat by Pulse 100 Oximetry - General Appearance General appearance: appears stated age, frail EENT: ATNC, PERRL Neck: no JVD, no thyromegaly Respiratory: Present: Clear to Ascultation Cardiology: regular, S1S2 Gastrointestinal: normal, normoactive bowel sounds Integumentary: no rash, warm and dry Neurologic: no focal deficit Musculoskeletal: other (-edema) Psychiatric: cooperative - Lab 03/16/19 07:40 04/01/19 04:43 Most recent lab results Calcium 8.1 mg/dL (8.4-10.2) L 04/01/19 04:43 Phosphorus 3.50 mg/dL (2.5-4.5) 03/25/19 05:43 Magnesium 2.00 mg/dL (1.7-2.3) 03/25/19 05:43 97.7 mg/dL (0.1-20.0) H 03/24/19 14:28 16 mmol/L 03/24/19 14:28 351 mg/dL (5-11.8) H 03/24/19 14:28 - Allied health notes Allied health notes reviewed: nursing Medications & Allergies - Medications Allergies/Adverse Reactions: Allergies No Known Allergies Allergy (Unverified 03/10/19 11:50) Home Medications: Home Medications Medication Instructions Recorded Confirmed Last Taken Type Coreg 6.25 mg PO BID 03/14/19 03/14/19 Unknown History Rosuvastatin (Nf) [Crestor] 20 mg PO QHS 03/14/19 03/14/19 Unknown History Gabapentin [Neurontin] 300 mg PO QHS 03/15/19 03/15/19 Unknown History Insulin Glargine [Lantus] 5 units SQ QHS 03/15/19 03/15/19 Unknown History Lispro Insulin [HumaLOG] 2 units SQ TIDAC 03/15/19 03/15/19 Unknown History Warfarin [Coumadin] 6 mg PO QDAY 03/15/19 03/15/19 Unknown History cloNIDine [Catapres] 0.3 mg PO TID 03/15/19 03/15/19 Unknown History Active Medications: Generic Name Dose Route Start Last Admin Trade Name Freq PRN Reason Stop Dose Admin Acetaminophen 650 mg 03/10/19 16:25 03/17/19 10:29 Tylenol PO 650 mg Q4H PRN Administration Pain, Mild (1-3) Lipase/Protease/Amylase 1 each 03/13/19 10:02 Pancreaze 10,500 Unit FEEDTUBE PRN PRN For Clogged Feeding Tube Aspirin 81 mg 03/17/19 10:00 04/01/19 09:44 Baby Aspirin PO 81 mg QDAY [facility] Administration Atorvastatin Calcium 40 mg 03/10/19 22:00 03/31/19 21:53 Lipitor PO 40 mg QHS [facility] Administration Bisacodyl 10 mg 03/10/19 16:25 Dulcolax [place] QDAY PRN Constipation Clonidine HCl 0.3 mg 03/16/19 15:00 04/01/19 08:36 Catapres PO 0.3 mg TID [facility] Administration Dextrose 50 ml 03/18/19 13:00 D50w (25gm) Syringe IV PRN PRN Hypoglycemia Furosemide 60 mg 03/29/19 18:00 04/01/19 06:40 Lasix IV 60 mg 0600,1800 [facility] Administration Gabapentin 100 mg 03/29/19 22:00 03/31/19 21:53 Neurontin PO 100 mg QHS [facility] Administration Hydralazine HCl 20 mg 03/13/19 06:00 03/31/19 05:46 Apresoline IV 20 mg Q4H PRN Administration Hypertension Insulin Glargine 6 units 03/25/19 22:00 03/31/19 21:52 Lantus SUB-Q 6 units QHS [facility] Administration Insulin Human Lispro 0 unit 03/28/19 07:30 04/01/19 11:57 Humalog SUB-Q Not Given [facility] Protocol Metoclopramide HCl 5 mg 03/30/19 08:00 Reglan PO Q6H PRN Nausea And Vomiting Ondansetron HCl 4 mg 03/10/19 16:25 Zofran IV Q8H PRN Nausea And Vomiting Oxycodone/Acetaminophen 1 tab 03/17/19 14:04 03/28/19 21:44 Percocet 5/325 PO 1 tab Q6H PRN Administration Pain, Moderate (4-6) Promethazine HCl 25 mg 03/10/19 16:25 Phenergan [place] Q6H PRN Nausea And Vomiting Sodium Bicarbonate 325 mg 03/13/19 10:02 Sodium Bicarbonate FEEDTUBE PRN PRN For Clogged Feeding Tube Sodium Chloride 10 ml 03/10/19 16:25 04/01/19 06:40 Sodium Chloride Flush Syringe 10 Ml IV 10 ml PRN PRN Administration LINE FLUSH Warfarin Sodium 4 mg 03/31/19 17:00 03/31/19 17:49 Coumadin PO 4 mg DAILY@1700 [facility] Administration
[2019-04-01] MEDS ORDERED: amLODIPine 10 MG TAB PO SCH (14:00)
--- NOTE | 2019-04-01 16:38 | Progress Note ---
Assessment and Plan Assessment and plan: --Sinus bradycardia; first degree AV block DC Norvasc, clonidine, closely monitor Cardiology consult, --Hypertensive urgency--that pressures moderate control Continue current antihypertensives and when necessary medication --Acute metabolic encephalopathy. Likely multifactorial, due to uremia and dehyd ration, now resolved --Acute hypoxic respiratory failure; continue oxygen supplements --Acute on chronic diastolic CHF, EF 55% Pulmonary edema noted on x-ray, Isiah. --Acute kidney injury upon CKD likely due to vasomotor nephropathy now in fluid overload, mary ellen rodriguez neph. Patient is refusing kidney biopsy, he is refusing dialysis. States that his last year, and she is calling to him. He is not interested in any aggressive therapies or treatments. At this point he is putting his chances of recovering in gods hands Bun/cr 56/3.0 to 57/2.8 - 2.4 Refusing Biopsy --Hyperkalemia Kayexalate and calcium gluconate CT abdomen and pelvis does not show any hydronephrosis or obstruction in the urinary tract. --Type 2 diabetes, continue sliding scale --Coagulopathy due to warfarin. Patient has hypercoagulable state at baseline Warfarin was on hold, INR now therapeutic, continue Coumadin --Ambulatory dysfunction;, cont PT Follow cardiology evaluation History Interval history: Patient seen and examined medical records reviewed Patient complains of generalized weakness Family at the bedside Patient is bradycardic intermittently Vital signs reviewed Hospitalist Physical - Constitutional Vitals: Temp Pulse Resp BP Pulse Ox 97.6 F 56 L 19 170/57 95 04/01/19 13:23 04/01/19 14:07 04/01/19 13:23 04/01/19 14:07 04/01/19 13:23 General appearance: Present: no acute distress, well-nourished - EENT Eyes: Present: PERRL, EOM intact - Neck Neck: Present: supple, normal ROM - Respiratory Respiratory effort: normal Respiratory: bilateral: diminished, negative: rales, rhonchi, wheezing - Cardiovascular Rhythm: regular Heart Sounds: Present: S1 & S2 (bradycardia) - Extremities Extremities: no ischemia, pulses intact - Abdominal General gastrointestinal: soft, non-tender, non-distended, normal bowel sounds - Integumentary Integumentary: Present: clear, warm - Psychiatric Psychiatric: other (minimally communicative) - Neurologic Neurologic: moves all extremities Results - Labs CBC & Chem 7: 03/16/19 07:40 04/01/19 04:43 Labs: Laboratory Last Values WBC 6.9 K/mm3 (4.5-11.0) 03/16/19 07:40 RBC 4.49 M/mm3 (3.65-5.03) 03/16/19 07:40 Hgb 12.6 gm/dl (11.8-15.2) 03/16/19 07:40 Hct 38.8 % (35.5-45.6) 03/16/19 07:40 MCV 86 fl (84-94) 03/16/19 07:40 MCH 28 pg (28-32) 03/16/19 07:40 MCHC 33 % (32-34) 03/16/19 07:40 RDW 18.0 % (13.2-15.2) H 03/16/19 07:40 Plt Count 130 K/mm3 (140-440) L 03/16/19 07:40 Lymph % (Auto) 19.1 % (13.4-35.0) 03/16/19 07:40 [place] % (Auto) 13.3 % (0.0-7.3) H 03/16/19 07:40 Eos % (Auto) 5.4 % (0.0-4.3) H 03/16/19 07:40 Baso % (Auto) 1.0 % (0.0-1.8) 03/16/19 07:40 Lymph # 1.3 K/mm3 (1.2-5.4) 03/16/19 07:40 [place] # 0.9 K/mm3 (0.0-0.8) H 03/16/19 07:40 Eos # 0.4 K/mm3 (0.0-0.4) 03/16/19 07:40 Baso # 0.1 K/mm3 (0.0-0.1) 03/16/19 07:40 Seg Neutrophils % 61.2 % (40.0-70.0) 03/16/19 07:40 Seg Neutrophils # 4.2 K/mm3 (1.8-7.7) 03/16/19 07:40 PT 21.0 Sec. (12.2-14.9) H 04/01/19 04:43 INR 1.86 (0.87-1.13) H 04/01/19 04:43 APTT 27.8 Sec. (24.2-36.6) 03/10/19 12:17 25.2 Sec. (15.1-19.6) H 03/10/19 12:17 Sodium 139 mmol/L (137-145) 04/01/19 04:43 Potassium 4.5 mmol/L (3.6-5.0) 04/01/19 04:43 Chloride 99.7 mmol/L (98-107) 04/01/19 04:43 Carbon Dioxide 29 mmol/L (22-30) 04/01/19 04:43 15 mmol/L 04/01/19 04:43 BUN 59 mg/dL (9-20) H 04/01/19 04:43 2.6 mg/dL (0.8-1.5) H 04/01/19 04:43 Estimated GFR 29 ml/min 04/01/19 04:43 23 % 04/01/19 04:43 Glucose 170 mg/dL (75-100) H 04/01/19 04:43 POC Glucose 116 (70-105) H 04/01/19 11:44 Calcium 8.1 mg/dL (8.4-10.2) L 04/01/19 04:43 Phosphorus 3.50 mg/dL (2.5-4.5) 03/25/19 05:43 Magnesium 2.00 mg/dL (1.7-2.3) 03/25/19 05:43 0.076 ng/mL (0.00-0.029) H 03/10/19 12:17 Triglycerides 140 mg/dL (2-149) 03/10/19 12:17 Cholesterol 143 mg/dL (50-199) 03/10/19 12:17 69 mg/dL (50-130) 03/10/19 12:17 62 mg/dL (40-59) H 03/10/19 12:17 2.30 % 03/10/19 12:17 Yellow (Yellow) 03/24/19 14:28 Cloudy (Clear) 03/24/19 14:28 5.0 (5.0-7.0) 03/24/19 14:28 Ur Specific [place] 1.011 (1.003-1.030) 03/24/19 14:28 >500 mg/dL (Negative) 03/24/19 14:28 50 mg/dL (Negative) 03/24/19 14:28 Neg mg/dL (Negative) 03/24/19 14:28 Sm (Negative) 03/24/19 14:28 Neg (Negative) 03/24/19 14:28 Neg (Negative) 03/24/19 14:28 < 2.0 mg/dL (<2.0) 03/24/19 14:28 Ur Leukocyte Esterase Neg (Negative) 03/24/19 14:28 2.0 /HPF (0.0-6.0) 03/24/19 14:28 1.0 /HPF (0.0-6.0) 03/24/19 14:28 U Epithel Cells (Auto) 1.0 /HPF (0-13.0) 03/24/19 14:28 4+ /HPF (Negative) 03/24/19 14:28 Hyaline Casts 2 /LPF 03/24/19 14:28 Few /HPF 03/24/19 14:28 97.7 mg/dL (0.1-20.0) H 03/24/19 14:28 16 mmol/L 03/24/19 14:28 351 mg/dL (5-11.8) H 03/24/19 14:28 153 mg/dL () 03/26/19 04:36 38 mg/dL () 03/26/19 04:36 Hep Bs Antigen Non-reactive (Negative) 03/26/19 04:36 Non-reactive (NonReactive) 03/26/19 04:36 Active Medications - Current Medications Current Medications: Generic Name Dose Route Start Last Admin Trade Name Freq PRN Reason Stop Dose Admin Acetaminophen 650 mg 03/10/19 16:25 03/17/19 10:29 Tylenol PO 650 mg Q4H PRN Administration Pain, Mild (1-3) Lipase/Protease/Amylase 1 each 03/13/19 10:02 Pancreaze 10,500 Unit FEEDTUBE PRN PRN For Clogged Feeding Tube Aspirin 81 mg 03/17/19 10:00 04/01/19 09:44 Baby Aspirin PO 81 mg QDAY TAMMIE Administration Atorvastatin Calcium 40 mg 03/10/19 22:00 03/31/19 21:53 Lipitor PO 40 mg QHS [facility] Administration Bisacodyl 10 mg 03/10/19 16:25 Dulcolax [place] QDAY PRN Constipation Dextrose 50 ml 03/18/19 13:00 D50w (25gm) Syringe IV PRN PRN Hypoglycemia Furosemide 60 mg 03/29/19 18:00 04/01/19 06:40 Lasix IV 60 mg 0600,1800 [facility] Administration Gabapentin 100 mg 03/29/19 22:00 03/31/19 21:53 Neurontin PO 100 mg QHS [facility] Administration Hydralazine HCl 20 mg 03/13/19 06:00 03/31/19 05:46 Apresoline IV 20 mg Q4H PRN Administration Hypertension Hydralazine HCl 50 mg 04/01/19 22:00 Apresoline PO Q8HR [facility] Insulin Glargine 6 units 03/25/19 22:00 03/31/19 21:52 Lantus SUB-Q 6 units QHS [facility] Administration Insulin Human Lispro 0 unit 03/28/19 07:30 04/01/19 11:57 Humalog SUB-Q Not Given [facility] Protocol Metoclopramide HCl 5 mg 03/30/19 08:00 Reglan PO Q6H PRN Nausea And Vomiting Ondansetron HCl 4 mg 03/10/19 16:25 Zofran IV Q8H PRN Nausea And Vomiting Oxycodone/Acetaminophen 1 tab 03/17/19 14:04 03/28/19 21:44 Percocet 5/325 PO 1 tab Q6H PRN Administration Pain, Moderate (4-6) Promethazine HCl 25 mg 03/10/19 16:25 Phenergan [place] Q6H PRN Nausea And Vomiting Sodium Bicarbonate 325 mg 03/13/19 10:02 Sodium Bicarbonate FEEDTUBE PRN PRN For Clogged Feeding Tube Sodium Chloride 10 ml 03/10/19 16:25 04/01/19 06:40 Sodium Chloride Flush Syringe 10 Ml IV 10 ml PRN PRN Administration LINE FLUSH Warfarin Sodium 4 mg 03/31/19 17:00 03/31/19 17:49 Coumadin PO 4 mg DAILY@1700 [facility] Administration Nutrition/Malnutrition Assess - Dietary Evaluation Nutrition/Malnutrition Findings: Nutrition Notes Start: 03/11/19 12:57 Freq: Status: Active Protocol: Document 03/31/19 11:08 PS (Rec: 03/31/19 12:23 PS [id number]) Co-Sign 03/31/19 11:08 LP Nutrition Notes Initial or Follow up Reassessment Current Diagnosis Diabetes,Hypertension Other Pertinent Diagnosis 1+ pitting edema Current Diet Renal Diet Labs/Tests BUN 56 Creat 2.4 Pertinent Medications Lasix Height 5 ft 10 in Weight 96.842 kg Usual Body Weight 85.5 kg [place] Body Weight (kg) 75.45 BMI 30.6 Weight change and time frame 10 kg in 8 days. Likely due to fluid. Subjective/Other Information Pt. was asleep when visited. Pt. ate 100% of breakfast. Removal of supplement due to meeting energy and protein needs PO. Percent of energy/protein needs met: 100%/100% Burn Absent Trauma Absent Minimum of two criteria No #3 Nutrition Diagnosis Inadequate energy intake As Evidenced by Signs and Symptoms Pt meeting 100% of energy and protein needs. Diagnosis Progress(for reassessment Resolved documentation) #2 Nutrition Diagnosis Malnutrition Diagnosis Progress(for reassessment Continues documentation) Is patient on ventilator? No Is Patient Ambulatory and/or Out of Bed No REE-([facility]-confined to bed) 2009.408 Kcal/Kg value to use for calculation 19 Approximate Energy Requirements Using 1840 kcal/Kg Calculation Used for Recommendations Kcal/kg Additional Notes Protein: (86 g - 102 g/day (1- 1.2 g/kg UBW) Fluid needs: 1ml/kcal UBW Nutrition Intervention Change Diet Order: Continue current Renal Diet Add Supplement/Snack (indicate name/kcal D/C /protein ) Goal #1 Meet at least 75% of energy and protein needs via PO Anticipated Discharge Needs: Renal Diet Revisit per MD consult or patient Sign Off request:
[2019-04-01] MEDS: WARFARIN 2 MG TAB PO SCH (17:55)
[2019-04-01] MEDS: INSULIN GLARGINE 100 UNITS/ML SUB-Q SCH (22:34)
[2019-04-01] MEDS: hydrALAZINE 25 MG TAB PO SCH (22:34)
[2019-04-01] MEDS: GABAPENTIN 100 MG CAP PO SCH (22:34)
[2019-04-02 05:44] LABS: Hematocrit 30.3 % (35.5-45.6); Hemoglobin 9.8 gm/dl (11.8-15.2)
[2019-04-02 05:55] LABS: INR 1.53 (0.87-1.13)
[2019-04-02] MEDS: hydrALAZINE 25 MG TAB PO SCH (06:08)
[2019-04-02 06:09] LABS: Calcium 8.1 mg/dL (8.4-10.2)
[2019-04-02] MEDS: FUROSEMIDE 20 MG/2 ML INJ IV SCH ×2 (06:09→17:08)
[2019-04-02] MEDS: INSULIN LISPRO 100 UNIT/ML SUB-Q SCH ×4 (08:33→21:38)
--- NOTE | 2019-04-02 09:49 | Consultation ---
History of Present Illness Consult date: 04/02/19 Requesting physician: GABRIEL LEBLANC Consult reason: bradycardia History of present illness: The pt is an 84 YO male with a past medical history of HTN, CKD, DM, DVT anticoagulated with coumadin, dementia. He is previously unknown to our practice. He presented on on 03/10/2019 for evaluation of AMS, head CT with NAF, carotid studies unremarkable, AMS now resolved and is thought to have been secondary to acute metabolic encephalopathy. Pt also found to have acute on chronic renal failure, hyperkalemia, hypertensive urgency. He was noted to have some intermittent bradycardia on telemetry and thus cardiology has been c onsulted. On evaluation, pt appears alert and oriented and denies any current cardiac complaints or prior cardiac issues. Telemetry reviewed - pt currently in NSR with HR 90s, intermittent sinus bradycardia with apparent HR low of 40 since admission. ECGs show SR and SB with 1st deg AVB and RBBB. Pt's home medication regimen included clonidine 0.3mgTID and coreg 6.25mg BID. He was receiving clonidine 0.3mg TID and norvasc 10mg daily on this admission and these medications were discontinued yesterday, hydralazine was initiated. Echo done 03/10/2019 showed EF 55-60%, mild LVH, impaired relaxation, negative bubble study. Past History Past Medical History: diabetes, hypertension, other (dementia) Past Surgical History: No surgical history Social history: , lives with family. denies: smoking, alcohol abuse, prescription drug abuse Family history: diabetes (father of complications of type 2 diabetes mellitus. Was 85 years old), hypertension, stroke (It is 86) Medications and Allergies Allergies Allergy/AdvReac Type Severity Reaction Status Date / Time No Known Allergies Allergy Unverified 03/10/19 11:50 Home Medications Medication Instructions Recorded Confirmed Last Taken Type Coreg 6.25 mg PO BID 03/14/19 03/14/19 Unknown History Rosuvastatin (Nf) [Crestor] 20 mg PO QHS 03/14/19 03/14/19 Unknown History Gabapentin [Neurontin] 300 mg PO QHS 03/15/19 03/15/19 Unknown History Insulin Glargine [Lantus] 5 units SQ QHS 03/15/19 03/15/19 Unknown History Lispro Insulin [HumaLOG] 2 units SQ TIDAC 03/15/19 03/15/19 Unknown History Warfarin [Coumadin] 6 mg PO QDAY 03/15/19 03/15/19 Unknown History cloNIDine [Catapres] 0.3 mg PO TID 03/15/19 03/15/19 Unknown History Active Meds: Active Medications Acetaminophen (Tylenol) 650 mg PO Q4H PRN PRN Reason: Pain, Mild (1-3) Last Admin: 03/17/19 10:29 Dose: 650 mg Documented by: Lipase/Protease/Amylase (Destiny Sifuentes 10,500 Unit) 1 each FEEDTUBE PRN PRN PRN Reason: For Clogged Feeding Tube Aspirin (Baby Aspirin) 81 mg PO QDAY [facility] Last Admin: 04/01/19 09:44 Dose: 81 mg Documented by: Atorvastatin Calcium (Lipitor) 40 mg PO QHS [facility] Last Admin: 04/01/19 22:34 Dose: 40 mg Documented by: Bisacodyl (Dulcolax) 10 mg [place] QDAY PRN PRN Reason: Constipation Dextrose (D50w (25gm) Syringe) 50 ml IV PRN PRN PRN Reason: Hypoglycemia Furosemide (Lasix) 60 mg IV 0600,1800 [facility] Last Admin: 04/02/19 06:09 Dose: 60 mg Documented by: Gabapentin (Neurontin) 100 mg PO QHS [facility] Last Admin: 04/01/19 22:34 Dose: 100 mg Documented by: Hydralazine HCl (Apresoline) 20 mg IV Q4H PRN PRN Reason: Hypertension Last Admin: 03/31/19 05:46 Dose: 20 mg Documented by: Hydralazine HCl (Apresoline) 50 mg PO Q8HR [facility] Last Admin: 04/02/19 06:08 Dose: 50 mg Documented by: Insulin [facility] ([facility]us) [facility] Last Admin: 04/01/19 22:34 Dose: 6 units Documented by: Insulin Human Lispro (Humalog) 0 unit SUB-Q [facility]; Protocol Last Admin: 04/02/19 08:33 Dose: Not Given Documented by: Metoclopramide HCl (Reglan) 5 mg PO Q6H PRN PRN Reason: Nausea And Vomiting Ondansetron HCl (Zofran) 4 mg IV Q8H PRN PRN Reason: Nausea And Vomiting Oxycodone/Acetaminophen (Percocet 5/325) 1 tab PO Q6H PRN PRN Reason: Pain, Moderate (4-6) Last Admin: 03/28/19 21:44 Dose: 1 tab Documented by: Promethazine HCl (Phenergan) 25 mg [place] Q6H PRN PRN Reason: Nausea And Vomiting Sodium Bicarbonate (Sodium Bicarbonate) 325 mg FEEDTUBE PRN PRN PRN Reason: For Clogged Feeding Tube Sodium Chloride (Sodium Chloride Flush Syringe 10 Ml) 10 ml IV PRN PRN PRN Reason: LINE FLUSH Last Admin: 04/01/19 06:40 Dose: 10 ml Documented by: Warfarin Sodium (Coumadin) 6 mg PO DAILY@1700 TAMMIE Review of Systems Constitutional: no weight loss, no weight gain, no fever, no chills, no sweats Ears, nose, mouth and throat: no ear pain, no nose pain, no sinus pressure, no sinus pain Cardiovascular: no chest pain, no orthopnea, no palpitations, no rapid/irregular heart beat, no edema, no syncope, no lightheadedness, no shortness of breath, no dyspnea on exertion Respiratory: no cough, no shortness of breath, no dyspnea on exertion, no congestion, no wheezing, no pain on inspiration Gastrointestinal: no abdominal pain, no nausea, no vomiting, no diarrhea, no constipation, no change in bowel habits Genitourinary Male: no dysuria, no hematuria, no flank pain, no discharge, no urinary frequency, no urinary hesitancy Musculoskeletal: no neck stiffness, no neck pain, no shooting arm pain, no arm numbness/tingling, no low back pain, no shooting leg pain Integumentary: no rash, no pruritis, no redness, no sores, no wounds Neurological: confusion (resolved), no head injury, no paralysis, no weakness, no parathesias, no numbness, no tingling, no seizures, no syncope Psychiatric: no anxiety Endocrine: no cold intolerance, no polyphagia Hematologic/Lymphatic: no easy bruising, no easy bleeding Allergic/Immunologic: no urticaria, no wheezing Physical Examination Vital Signs Resp Pulse Ox 20 97 03/10/19 12:34 03/10/19 12:34 General appearance: no acute distress HEENT: Positive: PERRL, Normocephaly, Mucus Membranes Moist Neck: Positive: neck supple, trachea midline Cardiac: Positive: Reg Rate and Rhythm, S1/S2 (split S2) Lungs: Positive: Decreased Breath Sounds Neuro: Positive: Grossly Intact Abdomen: Negative: Tender Skin: Negative: Rash Musculoskeletal: No Pain Extremities: Present: edema (trace BLE) Results 04/02/19 04:58 04/02/19 04:58 Coagulation 04/02/19 Range/Units 04:58 PT 18.0 H (12.2-14.9) Sec. INR 1.53 H (0.87-1.13) CBC 04/02/19 Range/Units 04:58 Hgb 9.8 L (11.8-15.2) gm/dl Hct 30.3 L (35.5-45.6) % Comprehensive Metabolic Panel 04/02/19 Range/Units 04:58 Sodium 143 (137-145) mmol/L Potassium 4.0 (3.6-5.0) mmol/L Chloride 101.5 (98-107) mmol/L Carbon Dioxide 32 H (22-30) mmol/L BUN 61 H (9-20) mg/dL Creatinine 2.4 H (0.8-1.5) mg/dL Glucose 102 H (75-100) mg/dL Calcium 8.1 L (8.4-10.2) mg/dL - Imaging and Cardiology Echo: report reviewed (03/10/2019 showed EF 55-60%, mild LVH, impaired relaxation, negative bubble study. ) EKG: report reviewed, image reviewed EKG interpretations - Telemetry EKG Rhythm: Sinus Rhythm - EKG Sinus rhythms and dysrhythmias: sinus rhythm AV and intraventricular conduction: right bundle branch block Assessment and Plan Pt with intermittent bradycardia and thus cardiology has been consulted. Telemetry reviewed - pt currently in NSR with HR 90s, intermittent sinus bradycardia with apparent HR low of 40 since admission. ECGs show SR and SB with 1st deg AVB and RBBB. Pt's home medication regimen included clonidine 0.3mgTID and coreg 6.25mg BID. He was receiving clonidine 0.3mg TID and norvasc 10mg daily on this admission and these medications were discontinued yesterday, hydralazine was initiated. Optimize BPs - increase hydralazine dosage and may have to consider resuming clonidine at a lower dosage to slowly wean off this medication as abrupt discontinuation could result in rebound accelerated HTN. Will observe response to increased hydralazine dosage. Continue to monitor on telemetry. Check thyroid profile. Will follow. The patient has been seen in conjunction with Dr. Soto who agrees with the assessment and plan of care. - Patient Problems (1) Altered mental status Current Visit: Yes Status: Resolved (2) Sinus bradycardia Current Visit: Yes Status: Acute (3) Right bundle branch block Current Visit: Yes Status: Chronic (4) HTN (hypertension) Current Visit: Yes Status: Chronic (5) Diabetes Current Visit: Yes Status: Chronic (6) History of DVT (deep vein thrombosis) Current Visit: Yes Status: Chronic (7) Anticoagulated on Coumadin Current Visit: Yes Status: Chronic (8) Acute kidney injury superimposed on CKD Current Visit: Yes Status: Acute (9) Fluid overload Current Visit: Yes Status: Acute (10) Hyperkalemia Current Visit: Yes Status: Acute
[2019-04-02] MEDS: ASPIRIN 81 MG TAB CHEW PO SCH (10:01)
[2019-04-02] MEDS: hydrALAZINE 20 MG/1 ML INJ IV PRN (10:01)
[2019-04-02] MEDS ORDERED: hydrALAZINE 25 MG TAB PO ONE (11:00)
[2019-04-02 13:57] LABS: Free T4 (Free Thyroxine) 0.91 ng/dL (0.76-1.46)
[2019-04-02] MEDS: hydrALAZINE 100 MG TAB PO SCH ×2 (14:03→21:15)
--- NOTE | 2019-04-02 14:20 | Progress Note ---
Assessment and Plan Assessment and plan: --Sinus bradycardia; first degree AV block off Norvasc, clonidine,HR 60s-70s Cardiology evaluation noted and appreciated --Hypertensive urgency present on admission Blood pressures are poorly controlled [without clonidine and Norvasc ] Cardiology increased hydralazine to 100mg,3 times a day and add low-dose clonidine hold if the heart rate is less than 60 --Acute metabolic encephalopathy. Likely multifactorial, due to uremia and dehydration, now resolved --Acute hypoxic respiratory failure; significantly improved continue oxygen supplements --Acute on chronic diastolic CHF, EF 55% Pulmonary edema noted on x-ray, Lasix. --Acute kidney injury upon CKD likely due to vasomotor nephropathy Patient is refusing kidney biopsy, he is refusing dialysis. States that his last year, and she is calling to him. He is not interested in any aggressive therapies or treatments. Bun/cr 56/3.0 to 57/2.8 - 2.4 Refusing Biopsy --Hyperkalemia Kayexalate and calcium gluconate CT abdomen and pelvis does not show any hydronephrosis or obstruction in the urinary tract. --Type 2 diabetes, continue sliding scale --Coagulopathy due to warfarin. Patient has hypercoagulable state at baseline continue Coumadin target INR 2-3 --Ambulatory dysfunction;, cont PT Follow cardiology evaluation and recommendations Closely monitor blood pressures Chief heart rate into pressures are reasonable level patient may be discharged home On home health Plan of care is reviewed with the patient his and his nurse History Interval history: Patient seen and examined this morning he medical records reviewed Patient's heart rate is maintaining between 66-72 Off clonidine and Norvasc However blood pressures are uncontrolled Started hydralazine by mouth and IV when necessary Patient has no new complaints Vital signs reviewed, Hospitalist Physical - Constitutional Vitals: Temp Pulse Resp BP Pulse Ox 98.2 F 102 H 18 182/52 93 04/02/19 13:32 04/02/19 13:32 04/02/19 13:32 04/02/19 13:32 04/02/19 13:32 General appearance: Present: no acute distress, well-nourished - EENT Eyes: Present: PERRL, EOM intact - Neck Neck: Present: supple, normal ROM - Respiratory Respiratory effort: normal Respiratory: bilateral: diminished, negative: rales, rhonchi, wheezing - Cardiovascular Rhythm: regular Heart Sounds: Present: S1 & S2 - Extremities Extremities: no ischemia, No edema - Abdominal General gastrointestinal: soft, non-tender, non-distended, normal bowel sounds - Integumentary Integumentary: Present: clear, warm - Psychiatric Psychiatric: appropriate mood/affect, cooperative - Neurologic Neurologic: moves all extremities Results - Labs CBC & Chem 7: 04/02/19 04:58 04/02/19 04:58 Labs: Laboratory Last Values WBC 6.9 K/mm3 (4.5-11.0) 03/16/19 07:40 RBC 4.49 M/mm3 (3.65-5.03) 03/16/19 07:40 Hgb 9.8 gm/dl (11.8-15.2) L 04/02/19 04:58 Hct 30.3 % (35.5-45.6) L 04/02/19 04:58 MCV 86 fl (84-94) 03/16/19 07:40 MCH 28 pg (28-32) 03/16/19 07:40 MCHC 33 % (32-34) 03/16/19 07:40 RDW 18.0 % (13.2-15.2) H 03/16/19 07:40 Plt Count 130 K/mm3 (140-440) L 03/16/19 07:40 Lymph % (Auto) 19.1 % (13.4-35.0) 03/16/19 07:40 [place] % (Auto) 13.3 % (0.0-7.3) H 03/16/19 07:40 Eos % (Auto) 5.4 % (0.0-4.3) H 03/16/19 07:40 Baso % (Auto) 1.0 % (0.0-1.8) 03/16/19 07:40 Lymph # 1.3 K/mm3 (1.2-5.4) 03/16/19 07:40 [place] # 0.9 K/mm3 (0.0-0.8) H 03/16/19 07:40 Eos # 0.4 K/mm3 (0.0-0.4) 03/16/19 07:40 Baso # 0.1 K/mm3 (0.0-0.1) 03/16/19 07:40 Seg Neutrophils % 61.2 % (40.0-70.0) 03/16/19 07:40 Seg Neutrophils # 4.2 K/mm3 (1.8-7.7) 03/16/19 07:40 PT 18.0 Sec. (12.2-14.9) H 04/02/19 04:58 INR 1.53 (0.87-1.13) H 04/02/19 04:58 APTT 27.8 Sec. (24.2-36.6) 03/10/19 12:17 25.2 Sec. (15.1-19.6) H 03/10/19 12:17 Sodium 143 mmol/L (137-145) 04/02/19 04:58 Potassium 4.0 mmol/L (3.6-5.0) 04/02/19 04:58 Chloride 101.5 mmol/L (98-107) 04/02/19 04:58 Carbon Dioxide 32 mmol/L (22-30) H 04/02/19 04:58 14 mmol/L 04/02/19 04:58 BUN 61 mg/dL (9-20) H 04/02/19 04:58 2.4 mg/dL (0.8-1.5) H 04/02/19 04:58 Estimated GFR 31 ml/min 04/02/19 04:58 25 % 04/02/19 04:58 Glucose 102 mg/dL (75-100) H 04/02/19 04:58 POC Glucose 220 (70-105) H 04/02/19 11:35 Calcium 8.1 mg/dL (8.4-10.2) L 04/02/19 04:58 Phosphorus 3.50 mg/dL (2.5-4.5) 03/25/19 05:43 Magnesium 2.00 mg/dL (1.7-2.3) 03/25/19 05:43 0.076 ng/mL (0.00-0.029) H 03/10/19 12:17 Triglycerides 140 mg/dL (2-149) 03/10/19 12:17 Cholesterol 143 mg/dL (50-199) 03/10/19 12:17 69 mg/dL (50-130) 03/10/19 12:17 62 mg/dL (40-59) H 03/10/19 12:17 2.30 % 03/10/19 12:17 TSH 5.060 mlU/mL (0.270-4.200) H 04/02/19 12:43 Free T4 0.91 ng/dL (0.76-1.46) 04/02/19 12:43 Yellow (Yellow) 03/24/19 14:28 Cloudy (Clear) 03/24/19 14:28 5.0 (5.0-7.0) 03/24/19 14:28 Ur Specific [place] 1.011 (1.003-1.030) 03/24/19 14:28 >500 mg/dL (Negative) 03/24/19 14:28 50 mg/dL (Negative) 03/24/19 14:28 Neg mg/dL (Negative) 03/24/19 14:28 Sm (Negative) 03/24/19 14:28 Neg (Negative) 03/24/19 14:28 Neg (Negative) 03/24/19 14:28 < 2.0 mg/dL (<2.0) 03/24/19 14:28 Ur Leukocyte Esterase Neg (Negative) 03/24/19 14:28 2.0 /HPF (0.0-6.0) 03/24/19 14:28 1.0 /HPF (0.0-6.0) 03/24/19 14:28 U Epithel Cells (Auto) 1.0 /HPF (0-13.0) 03/24/19 14:28 4+ /HPF (Negative) 03/24/19 14:28 Hyaline Casts 2 /LPF 03/24/19 14:28 Few /HPF 03/24/19 14:28 97.7 mg/dL (0.1-20.0) H 03/24/19 14:28 16 mmol/L 03/24/19 14:28 351 mg/dL (5-11.8) H 03/24/19 14:28 153 mg/dL () 03/26/19 04:36 38 mg/dL () 03/26/19 04:36 Hep Bs Antigen Non-reactive (Negative) 03/26/19 04:36 Non-reactive (NonReactive) 03/26/19 04:36 Active Medications - Current Medications Current Medications: Generic Name Dose Route Start Last Admin Trade Name Freq PRN Reason Stop Dose Admin Acetaminophen 650 mg 03/10/19 16:25 03/17/19 10:29 Tylenol PO 650 mg Q4H PRN Administration Pain, Mild (1-3) Lipase/Protease/Amylase 1 each 03/13/19 10:02 Pancretom Sifuentes 10,500 Unit FEEDTUBE PRN PRN For Clogged Feeding Tube Aspirin 81 mg 03/17/19 10:00 04/02/19 10:01 Baby Aspirin PO 81 mg QDAY TAMMIE Administration Atorvastatin Calcium 40 mg 03/10/19 22:00 04/01/19 22:34 Lipitor PO 40 mg QHS TAMMIE Administration Bisacodyl 10 mg 03/10/19 16:25 Dulcolax OR QDAY PRN Constipation Clonidine HCl 0.1 mg 04/02/19 15:00 Catapres PO Q8H TAMMIE Dextrose 50 ml 03/18/19 13:00 D50w (25gm) Syringe IV PRN PRN Hypoglycemia Furosemide 60 mg 03/29/19 18:00 04/02/19 06:09 Lasix IV 60 mg 0600,1800 TAMMIE Administration Gabapentin 100 mg 03/29/19 22:00 04/01/19 22:34 Neurontin PO 100 mg QHS TAMMIE Administration Hydralazine HCl 20 mg 03/13/19 06:00 04/02/19 10:01 Apresoline IV 20 mg Q4H PRN Administration Hypertension Hydralazine HCl 100 mg 04/02/19 14:00 04/02/19 14:03 Apresoline PO 100 mg Q8HR TAMMIE Administration Insulin Glargine 6 units 03/25/19 22:00 04/01/19 22:34 Lantus SUB-Q 6 units QHS TAMMIE Administration Insulin Human Lispro 0 unit 03/28/19 07:30 04/02/19 11:58 Humalog SUB-Q 2 unit ACHS TAMMIE Administration Protocol Metoclopramide HCl 5 mg 03/30/19 08:00 Reglan PO Q6H PRN Nausea And Vomiting Ondansetron HCl 4 mg 03/10/19 16:25 Zofran IV Q8H PRN Nausea And Vomiting Oxycodone/Acetaminophen 1 tab 03/17/19 14:04 03/28/19 21:44 Percocet 5/325 PO 1 tab Q6H PRN Administration Pain, Moderate (4-6) Promethazine HCl 25 mg 03/10/19 16:25 Phenergan OR Q6H PRN Nausea And Vomiting Sodium Bicarbonate 325 mg 03/13/19 10:02 Sodium Bicarbonate FEEDTUBE PRN PRN For Clogged Feeding Tube Sodium Chloride 10 ml 03/10/19 16:25 04/01/19 06:40 Sodium Chloride Flush Syringe 10 Ml IV 10 ml PRN PRN Administration LINE FLUSH Warfarin Sodium 6 mg 04/02/19 17:00 Coumadin PO DAILY@1700 [facility] Nutrition/Malnutrition Assess - Dietary Evaluation Nutrition/Malnutrition Findings: Nutrition Notes Start: 03/11/19 12:57 Freq: Status: Active Protocol: Document 03/31/19 11:08 PS (Rec: 03/31/19 12:23 PS [id number]) Co-Sign 03/31/19 11:08 LP Nutrition Notes Initial or Follow up Reassessment Current Diagnosis Diabetes,Hypertension Other Pertinent Diagnosis 1+ pitting edema Current Diet Renal Diet Labs/Tests BUN 56 Creat 2.4 Pertinent Medications Lasix Height 5 ft 10 in Weight 96.842 kg Usual Body Weight 85.5 kg [place] Body Weight (kg) 75.45 BMI 30.6 Weight change and time frame 10 kg in 8 days. Likely due to fluid. Subjective/Other Information Pt. was asleep when visited. Pt. ate 100% of breakfast. Removal of supplement due to meeting energy and protein needs PO. Percent of energy/protein needs met: 100%/100% Burn Absent Trauma Absent Minimum of two criteria No #3 Nutrition Diagnosis Inadequate energy intake As Evidenced by Signs and Symptoms Pt meeting 100% of energy and protein needs. Diagnosis Progress(for reassessment Resolved documentation) #2 Nutrition Diagnosis Malnutrition Diagnosis Progress(for reassessment Continues documentation) Is patient on ventilator? No Is Patient Ambulatory and/or Out of Bed No REE-([facility]-confined to bed) 2009.408 Kcal/Kg value to use for calculation 19 Approximate Energy Requirements Using 1840 kcal/Kg Calculation Used for Recommendations Kcal/kg Additional Notes Protein: (86 g - 102 g/day (1- 1.2 g/kg UBW) Fluid needs: 1ml/kcal UBW Nutrition Intervention Change Diet Order: Continue current Renal Diet Add Supplement/Snack (indicate name/kcal D/C /protein ) Goal #1 Meet at least 75% of energy and protein needs via PO Anticipated Discharge Needs: Renal Diet Revisit per MD consult or patient Sign Off request:
[2019-04-02] MEDS: cloNIDine 0.1 MG TAB PO SCH ×2 (15:45→21:15)
[2019-04-02] MEDS: WARFARIN 2 MG TAB PO SCH (17:07)
--- NOTE | 2019-04-02 17:46 | Progress Note ---
Assessment and Plan - Patient Problems (1) Acute kidney injury superimposed on CKD Current Visit: Yes Status: Acute Plan to address problem: Overall renal function is stable. Continue current management. (2) Hyperkalemia Current Visit: Yes Status: Acute Plan to address problem: Improved this am, as renal function is improving. Encourage low K diet (3) Hypertensive chronic kidney disease with stage 1 through stage 4 chronic kidney disease, or unspecified chronic kidney disease Current Visit: Yes Status: Chronic Plan to address problem: Continue current regimen, monitor closely. (4) Fluid overload Current Visit: Yes Status: Acute Plan to address problem: Patient is responding with current diuretic regimen. Will continue to monitor. (5) Type 2 diabetes mellitus with diabetic nephropathy Current Visit: Yes Status: Chronic Plan to address problem: DM management per primary attending. Subjective Date of service: 04/02/19 Principal diagnosis: CVA, acute metabolic encephalopathy, hypertensive emergency, DMT 2 Interval history: Discussed wit primary team, and amlodipine was switched to hydralazine in setting of persistent asymptomatic bradycardia. It was further titrated to 100 mg BID. Renal function remains stable. Objective - Vital Signs Vital signs: Vital Signs - 12hr 04/02/19 04/02/19 04/02/19 06:08 07:37 07:47 Temperature 98.9 F Pulse Rate 60 83 Respiratory 18 Rate Blood Pressure 160/66 188/64 O2 Sat by Pulse 93 100 Oximetry 04/02/19 04/02/19 04/02/19 07:55 11:09 13:32 Temperature 98.2 F Pulse Rate 102 H Respiratory 18 Rate Blood Pressure 189/72 182/52 O2 Sat by Pulse 93 93 Oximetry - General Appearance General appearance: well-nourished, appears stated age EENT: ATNC, PERRL Neck: no JVD, no thyromegaly Respiratory: Present: Clear to Ascultation, Normal Exam Cardiology: regular, S1S2 Gastrointestinal: normal, normoactive bowel sounds Integumentary: no rash, warm and dry Neurologic: alert and oriented x3 Psychiatric: mood/affect appropriate, cooperative - Lab 04/02/19 04:58 04/02/19 04:58 Most recent lab results Calcium 8.1 mg/dL (8.4-10.2) L 04/02/19 04:58 Phosphorus 3.50 mg/dL (2.5-4.5) 03/25/19 05:43 Magnesium 2.00 mg/dL (1.7-2.3) 03/25/19 05:43 97.7 mg/dL (0.1-20.0) H 03/24/19 14:28 16 mmol/L 03/24/19 14:28 351 mg/dL (5-11.8) H 03/24/19 14:28 - Allied health notes Allied health notes reviewed: nursing Medications & Allergies - Medications Allergies/Adverse Reactions: Allergies No Known Allergies Allergy (Unverified 03/10/19 11:50) Home Medications: Home Medications Medication Instructions Recorded Confirmed Last Taken Type Coreg 6.25 mg PO BID 03/14/19 03/14/19 Unknown History Rosuvastatin (Nf) [Crestor] 20 mg PO QHS 03/14/19 03/14/19 Unknown History Gabapentin [Neurontin] 300 mg PO QHS 03/15/19 03/15/19 Unknown History Insulin Glargine [Lantus] 5 units SQ QHS 03/15/19 03/15/19 Unknown History Lispro Insulin [HumaLOG] 2 units SQ TIDAC 03/15/19 03/15/19 Unknown History Warfarin [Coumadin] 6 mg PO QDAY 03/15/19 03/15/19 Unknown History cloNIDine [Catapres] 0.3 mg PO TID 03/15/19 03/15/19 Unknown History Active Medications: Generic Name Dose Route Start Last Admin Trade Name Freq PRN Reason Stop Dose Admin Acetaminophen 650 mg 03/10/19 16:25 03/17/19 10:29 Tylenol PO 650 mg Q4H PRN Administration Pain, Mild (1-3) Lipase/Protease/Amylase 1 each 03/13/19 10:02 Pancretom Sifuentes 10,500 Unit FEEDTUBE PRN PRN For Clogged Feeding Tube Aspirin 81 mg 03/17/19 10:00 04/02/19 10:01 Baby Aspirin PO 81 mg QDAY TAMMIE Administration Atorvastatin Calcium 40 mg 03/10/19 22:00 04/01/19 22:34 Lipitor PO 40 mg QHS TAMMIE Administration Bisacodyl 10 mg 03/10/19 16:25 Dulcolax NM QDAY PRN Constipation Clonidine HCl 0.1 mg 04/02/19 15:00 04/02/19 15:45 Catapres PO 0.1 mg Q8HR TAMMIE Administration Dextrose 50 ml 03/18/19 13:00 D50w (25gm) Syringe IV PRN PRN Hypoglycemia Furosemide 60 mg 03/29/19 18:00 04/02/19 17:08 Lasix IV 60 mg 0600,1800 TAMMIE Administration Gabapentin 100 mg 03/29/19 22:00 04/01/19 22:34 Neurontin PO 100 mg QHS TAMMIE Administration Hydralazine HCl 20 mg 03/13/19 06:00 04/02/19 10:01 Apresoline IV 20 mg Q4H PRN Administration Hypertension Hydralazine HCl 100 mg 04/02/19 14:00 04/02/19 14:03 Apresoline PO 100 mg Q8HR TAMMIE Administration Insulin Glargine 6 units 03/25/19 22:00 04/01/19 22:34 Lantus SUB-Q 6 units QHS TAMMIE Administration Insulin Human Lispro 0 unit 03/28/19 07:30 04/02/19 17:07 Humalog SUB-Q 2 unit ACHS [facility] Administration Protocol Metoclopramide HCl 5 mg 03/30/19 08:00 Reglan PO Q6H PRN Nausea And Vomiting Ondansetron HCl 4 mg 03/10/19 16:25 Zofran IV Q8H PRN Nausea And Vomiting Oxycodone/Acetaminophen 1 tab 03/17/19 14:04 03/28/19 21:44 Percocet 5/325 PO 1 tab Q6H PRN Administration Pain, Moderate (4-6) Promethazine HCl 25 mg 03/10/19 16:25 Phenergan NM Q6H PRN Nausea And Vomiting Sodium Bicarbonate 325 mg 03/13/19 10:02 Sodium Bicarbonate FEEDTUBE PRN PRN For Clogged Feeding Tube Sodium Chloride 10 ml 03/10/19 16:25 04/01/19 06:40 Sodium Chloride Flush Syringe 10 Ml IV 10 ml PRN PRN Administration LINE FLUSH Warfarin Sodium 6 mg 04/02/19 17:00 04/02/19 17:07 Coumadin PO 6 mg DAILY@1700 TAMMIE Administration
[2019-04-02] MEDS: GABAPENTIN 100 MG CAP PO SCH (21:15)
[2019-04-02] MEDS: oxyCODONE /ACETAMINOPHEN 5-325MG TAB PO PRN (21:16)
[2019-04-02] MEDS: INSULIN GLARGINE 100 UNITS/ML SUB-Q SCH (21:38)
[2019-04-03] MEDS: hydrALAZINE 20 MG/1 ML INJ IV PRN ×3 (04:00→20:02)
[2019-04-03 04:39] LABS: INR 1.73 (0.87-1.13)
[2019-04-03] MEDS: cloNIDine 0.1 MG TAB PO SCH (05:25)
[2019-04-03] MEDS: hydrALAZINE 100 MG TAB PO SCH ×3 (05:25→21:33)
[2019-04-03] MEDS: FUROSEMIDE 20 MG/2 ML INJ IV SCH ×2 (05:26→17:38)
[2019-04-03] MEDS: INSULIN LISPRO 100 UNIT/ML SUB-Q SCH ×4 (08:30→21:37)
[2019-04-03] MEDS ORDERED: cloNIDine 0.1 MG TAB PO SCH (08:35)
[2019-04-03] MEDS: ASPIRIN 81 MG TAB CHEW PO SCH (09:13)
--- NOTE | 2019-04-03 09:13 | Progress Note ---
Assessment and Plan - Patient Problems (1) Acute kidney injury superimposed on CKD Current Visit: Yes Status: Acute Plan to address problem: Overall renal function is stable. Continue current management. (2) Hyperkalemia Current Visit: Yes Status: Acute Plan to address problem: Improved this am, as renal function is improving. Encourage low K diet (3) Hypertensive chronic kidney disease with stage 1 through stage 4 chronic kidney disease, or unspecified chronic kidney disease Current Visit: Yes Status: Chronic Plan to address problem: Continue current regimen, monitor closely. In the process of attempting to wean off clonidine per cardiology notes. Discussed with primary team, and may need to consider adding back amlodipine at a low dose of 2.5 mg. Would recommend avoiding diureitcs and HARRY/ARB in the setting of his recent LUI. Will assess his renal function today. (4) Fluid overload Current Visit: Yes Status: Acute Plan to address problem: Patient is responding with current diuretic regimen. Will continue to monitor. (5) Type 2 diabetes mellitus with diabetic nephropathy Current Visit: Yes Status: Chronic Plan to address problem: DM management per primary attending. Subjective Date of service: 04/03/19 Principal diagnosis: CVA, acute metabolic encephalopathy, hypertensive emergency, DMT 2 Interval history: No issues overnight, cardiology consult noted. His blood pressures are still suboptimal, on hydralazine 100 mg TID. Objective - Vital Signs Vital signs: Vital Signs - 12hr 04/02/19 04/02/19 04/02/19 21:15 21:16 21:46 Temperature Pulse Rate 106 H Respiratory 20 Rate Respiratory Rate [Penis] Blood Pressure 192/71 O2 Sat by Pulse 97 Oximetry 04/02/19 04/02/19 04/02/19 22:00 22:06 22:16 Temperature Pulse Rate 112 H Respiratory 20 20 Rate Respiratory 20 Rate [Penis] Blood Pressure O2 Sat by Pulse 97 98 Oximetry 04/02/19 04/03/19 04/03/19 23:18 00:24 02:45 Temperature 98.6 F Pulse Rate 67 55 L Respiratory 18 20 Rate Respiratory Rate [Penis] Blood Pressure 151/53 182/61 O2 Sat by Pulse 99 Oximetry 04/03/19 04/03/19 04/03/19 03:16 04:00 05:22 Temperature Pulse Rate 58 L 58 L 80 Respiratory 20 Rate Respiratory Rate [Penis] Blood Pressure 182/61 196/73 O2 Sat by Pulse 98 97 Oximetry 04/03/19 04/03/19 04/03/19 05:25 07:20 07:56 Temperature 98.0 F Pulse Rate 80 74 Respiratory 18 Rate Respiratory Rate [Penis] Blood Pressure 184/69 184/68 O2 Sat by Pulse 100 100 Oximetry 04/03/19 08:50 Temperature Pulse Rate Respiratory 18 Rate Respiratory Rate [Penis] Blood Pressure O2 Sat by Pulse 100 Oximetry - General Appearance General appearance: well-nourished, appears stated age EENT: ATNC, PERRL Neck: no JVD, no thyromegaly Respiratory: Present: Clear to Ascultation, Normal Exam Cardiology: regular, S1S2 Gastrointestinal: normal, normoactive bowel sounds Integumentary: no rash, warm and dry Neurologic: no focal deficit Psychiatric: mood/affect appropriate, cooperative - Lab 04/02/19 04:58 04/02/19 04:58 Most recent lab results Calcium 8.1 mg/dL (8.4-10.2) L 04/02/19 04:58 Phosphorus 3.50 mg/dL (2.5-4.5) 03/25/19 05:43 Magnesium 2.00 mg/dL (1.7-2.3) 03/25/19 05:43 97.7 mg/dL (0.1-20.0) H 03/24/19 14:28 16 mmol/L 03/24/19 14:28 351 mg/dL (5-11.8) H 03/24/19 14:28 - Allied health notes Allied health notes reviewed: nursing Medications & Allergies - Medications Allergies/Adverse Reactions: Allergies No Known Allergies Allergy (Unverified 03/10/19 11:50) Home Medications: Home Medications Medication Instructions Recorded Confirmed Last Taken Type Coreg 6.25 mg PO BID 03/14/19 03/14/19 Unknown History Rosuvastatin (Nf) [Crestor] 20 mg PO QHS 03/14/19 03/14/19 Unknown History Gabapentin [Neurontin] 300 mg PO QHS 03/15/19 03/15/19 Unknown History Insulin Glargine [Lantus] 5 units SQ QHS 03/15/19 03/15/19 Unknown History Lispro Insulin [HumaLOG] 2 units SQ TIDAC 03/15/19 03/15/19 Unknown History Warfarin [Coumadin] 6 mg PO QDAY 03/15/19 03/15/19 Unknown History cloNIDine [Catapres] 0.3 mg PO TID 03/15/19 03/15/19 Unknown History Active Medications: Generic Name Dose Route Start Last Admin Trade Name Freq PRN Reason Stop Dose Admin Acetaminophen 650 mg 03/10/19 16:25 03/17/19 10:29 Tylenol PO 650 mg Q4H PRN Administration Pain, Mild (1-3) Lipase/Protease/Amylase 1 each 03/13/19 10:[address] 10,500 Unit FEEDTUBE PRN PRN For Clogged Feeding Tube Aspirin 81 mg 03/17/19 10:00 04/02/19 10:01 Baby Aspirin PO 81 mg QDAY TAMMIE Administration Atorvastatin Calcium 40 mg 03/10/19 22:00 04/02/19 21:15 Lipitor PO 40 mg QHS TAMMIE Administration Bisacodyl 10 mg 03/10/19 16:25 Dulcolax ND QDAY PRN Constipation Clonidine HCl 0.2 mg 04/03/19 08:35 Catapres PO Q8HR [facility] Dextrose 50 ml 03/18/19 13:00 D50w (25gm) Syringe IV PRN PRN Hypoglycemia Furosemide 60 mg 03/29/19 18:00 04/03/19 05:26 Lasix IV 60 mg 0600,1800 TAMMIE Administration Gabapentin 100 mg 03/29/19 22:00 04/02/19 21:15 Neurontin PO 100 mg QHS TAMMIE Administration Hydralazine HCl 20 mg 03/13/19 06:00 04/03/19 04:00 Apresoline IV 20 mg Q4H PRN Administration Hypertension Hydralazine HCl 100 mg 04/02/19 14:00 04/03/19 05:25 Apresoline PO 100 mg Q8HR TAMMIE Administration Insulin Glargine 6 units 03/25/19 22:00 04/02/19 21:38 Lantus SUB-Q 6 units QHS TAMMIE Administration Insulin Human Lispro 0 unit 03/28/19 07:30 04/02/19 21:38 Humalog SUB-Q 3 unit ACHS TAMMIE Administration Protocol Levothyroxine Sodium 25 mcg 04/04/19 06:00 Synthroid PO DAILY@0600 [facility] Metoclopramide HCl 5 mg 03/30/19 08:00 Reglan PO Q6H PRN Nausea And Vomiting Ondansetron HCl 4 mg 03/10/19 16:25 Zofran IV Q8H PRN Nausea And Vomiting Oxycodone/Acetaminophen 1 tab 03/17/19 14:04 04/02/19 21:16 Percocet 5/325 PO 1 tab Q6H PRN Administration Pain, Moderate (4-6) Promethazine HCl 25 mg 03/10/19 16:25 Phenergan ND Q6H PRN Nausea And Vomiting Sodium Bicarbonate 325 mg 03/13/19 10:02 Sodium Bicarbonate FEEDTUBE PRN PRN For Clogged Feeding Tube Sodium Chloride 10 ml 03/10/19 16:25 04/01/19 06:40 Sodium Chloride Flush Syringe 10 Ml IV 10 ml PRN PRN Administration LINE FLUSH Warfarin Sodium 6 mg 04/02/19 17:00 04/02/19 17:07 Coumadin PO 6 mg DAILY@1700 TAMMIE Administration
--- NOTE | 2019-04-03 10:07 | Progress Note ---
Assessment and Plan Tele reviewed - currently in SR with HR 90s, he was noted to have apparent bout of SVT yesterday afternoon with HR into 130s, pt asymptomatic. Pt states that he has had intermittent "fast and slow HR for 40 years". Optimize HR and BPs - resume home coreg and hold clonidine at this time to avoid concurrent use of 2 AV karine blocking agents, initiate amlodipine, cont hydralazine. Continue to monitor on telemetry. The patient has been seen in conjunction with Dr. Soto who agrees with the assessment and plan of care. - Patient Problems (1) Altered mental status Current Visit: Yes Status: Resolved (2) Sinus bradycardia Current Visit: Yes Status: Acute (3) Right bundle branch block Current Visit: Yes Status: Chronic (4) HTN (hypertension) Current Visit: Yes Status: Chronic (5) Diabetes Current Visit: Yes Status: Chronic (6) History of DVT (deep vein thrombosis) Current Visit: Yes Status: Chronic (7) Anticoagulated on Coumadin Current Visit: Yes Status: Chronic (8) Acute kidney injury superimposed on CKD Current Visit: Yes Status: Acute (9) Fluid overload Current Visit: Yes Status: Acute (10) Hyperkalemia Current Visit: Yes Status: Acute (11) SVT (supraventricular tachycardia) Current Visit: Yes Status: Suspected Subjective Date of service: 04/03/19 Principal diagnosis: CVA, acute metabolic encephalopathy, hypertensive emergency, DMT 2 Interval history: pt resting in bed, no current cardiac complaints. tele reviewed - in SR with HR 90s, he was noted to have apparent bout of SVT yesterday afternoon with HR into 130s, pt asymptomatic. Objective Last Vital Signs Temp 98.0 F 04/03/19 07:20 Pulse 88 04/03/19 09:17 Resp 18 04/03/19 08:50 BP 193/71 04/03/19 09:14 Pulse Ox 100 04/03/19 08:50 - Physical Examination General: No Apparent Distress HEENT: Positive: PERRL, Normocephaly, Mucus Membranes Moist Neck: Positive: neck supple, trachea midline Cardiac: Positive: Reg Rate and Rhythm, S1/S2 Lungs: Positive: Decreased Breath Sounds Neuro: Positive: Grossly Intact Abdomen: Negative: Tender Skin: Negative: Rash Musculoskeletal: No Pain Extremities: Present: edema (trace BLE) - Labs and Meds Coagulation 04/03/19 Range/Units 03:58 PT 19.9 H (12.2-14.9) Sec. INR 1.73 H (0.87-1.13) - Imaging and Cardiology EKG: report reviewed, image reviewed Echo: report reviewed (03/10/2019 showed EF 55-60%, mild LVH, impaired relaxation, negative bubble study. ) - EKG Sinus rhythms and dysrhythmias: sinus rhythm AV and intraventricular conduction: right bundle branch block - Allied health notes Allied health notes reviewed: nursing
[2019-04-03] MEDS: amLODIPine 10 MG TAB PO SCH (11:33)
[2019-04-03] MEDS: carvediloL 6.25 MG TAB PO SCH ×2 (11:33→21:32)
[2019-04-03] MEDS: WARFARIN 2 MG TAB PO SCH (17:37)
--- NOTE | 2019-04-03 20:02 | Progress Note ---
Assessment and Plan Assessment and plan: --Sinus bradycardia; first degree AV block off Norvasc, clonidine,HR 60s-70s Cardiology evaluation noted and appreciated --Hypertensive urgency present on admission Blood pressures are poorly controlled [without clonidine and Norvasc ] Cardiology increased hydralazine to 100mg,3 times a day and DC clonidine cardiology optimize the medications Coreg and Norvasc --Acute hypoxic respiratory failure; significantly improved continue oxygen supplements --Acute on chronic diastolic CHF, EF 55% Pulmonary edema noted on x-ray, Isiah. --Acute kidney injury upon CKD likely due to vasomotor nephropathy Patient is refusing kidney biopsy, he is refusing dialysis. He is not interested in any aggressive therapies or treatments. Bun/cr 56/3.0 to 57/2.8 - 2.[address] abdomen and pelvis does not show any hydronephrosis or obstruction in the urinary tract. --Hyperkalemia; resolved --Type 2 diabetes, continue sliding scale --Coagulopathy due to warfarin. Patient has hypercoagulable state at baseline Subtherapeutic ,continue Coumadin target INR 2-3 pharmacy managing --Ambulatory dysfunction; unsteady gait; cont PT Continue current management Follow blood pressures and heart rate Patient may be discharged home when medically stable Plan of care is reviewed with the patient, and family member at the bedside History Interval history: Patient seen and examined medical records reviewed Patient's blood pressures and heart rate are fluctuating Adjust the medications Patient denies any chest pain or shortness of breath Vital signs noted Hospitalist Physical - Constitutional Vitals: Temp Pulse Resp BP Pulse Ox 97.8 F 79 18 152/66 99 04/03/19 13:21 04/03/19 13:21 04/03/19 13:21 04/03/19 13:21 04/03/19 13:21 General appearance: Present: no acute distress, well-nourished - EENT Eyes: Present: PERRL, EOM intact - Neck Neck: Present: supple, normal ROM - Respiratory Respiratory effort: normal Respiratory: bilateral: diminished, negative: rales, rhonchi, wheezing - Cardiovascular Rhythm: regular Heart Sounds: Present: S1 & S2 - Extremities Extremities: no ischemia, No edema - Abdominal General gastrointestinal: soft, non-tender, non-distended, normal bowel sounds - Integumentary Integumentary: Present: clear, warm - Psychiatric Psychiatric: appropriate mood/affect, cooperative - Neurologic Neurologic: CNII-XII intact, moves all extremities Results - Labs CBC & Chem 7: 04/02/19 04:58 04/02/19 04:58 Labs: Laboratory Last Values WBC 6.9 K/mm3 (4.5-11.0) 03/16/19 07:40 RBC 4.49 M/mm3 (3.65-5.03) 03/16/19 07:40 Hgb 9.8 gm/dl (11.8-15.2) L 04/02/19 04:58 Hct 30.3 % (35.5-45.6) L 04/02/19 04:58 MCV 86 fl (84-94) 03/16/19 07:40 MCH 28 pg (28-32) 03/16/19 07:40 MCHC 33 % (32-34) 03/16/19 07:40 RDW 18.0 % (13.2-15.2) H 03/16/19 07:40 Plt Count 130 K/mm3 (140-440) L 03/16/19 07:40 Lymph % (Auto) 19.1 % (13.4-35.0) 03/16/19 07:40 [place] % (Auto) 13.3 % (0.0-7.3) H 03/16/19 07:40 Eos % (Auto) 5.4 % (0.0-4.3) H 03/16/19 07:40 Baso % (Auto) 1.0 % (0.0-1.8) 03/16/19 07:40 Lymph # 1.3 K/mm3 (1.2-5.4) 03/16/19 07:40 [place] # 0.9 K/mm3 (0.0-0.8) H 03/16/19 07:40 Eos # 0.4 K/mm3 (0.0-0.4) 03/16/19 07:40 Baso # 0.1 K/mm3 (0.0-0.1) 03/16/19 07:40 Seg Neutrophils % 61.2 % (40.0-70.0) 03/16/19 07:40 Seg Neutrophils # 4.2 K/mm3 (1.8-7.7) 03/16/19 07:40 PT 19.9 Sec. (12.2-14.9) H 04/03/19 03:58 INR 1.73 (0.87-1.13) H 04/03/19 03:58 APTT 27.8 Sec. (24.2-36.6) 03/10/19 12:17 25.2 Sec. (15.1-19.6) H 03/10/19 12:17 Sodium 143 mmol/L (137-145) 04/02/19 04:58 Potassium 4.0 mmol/L (3.6-5.0) 04/02/19 04:58 Chloride 101.5 mmol/L (98-107) 04/02/19 04:58 Carbon Dioxide 32 mmol/L (22-30) H 04/02/19 04:58 14 mmol/L 04/02/19 04:58 BUN 61 mg/dL (9-20) H 04/02/19 04:58 2.4 mg/dL (0.8-1.5) H 04/02/19 04:58 Estimated GFR 31 ml/min 04/02/19 04:58 25 % 04/02/19 04:58 Glucose 102 mg/dL (75-100) H 04/02/19 04:58 POC Glucose 210 (70-105) H 04/03/19 16:39 Calcium 8.1 mg/dL (8.4-10.2) L 04/02/19 04:58 Phosphorus 3.50 mg/dL (2.5-4.5) 03/25/19 05:43 Magnesium 2.00 mg/dL (1.7-2.3) 03/25/19 05:43 0.076 ng/mL (0.00-0.029) H 03/10/19 12:17 Triglycerides 140 mg/dL (2-149) 03/10/19 12:17 Cholesterol 143 mg/dL (50-199) 03/10/19 12:17 69 mg/dL (50-130) 03/10/19 12:17 62 mg/dL (40-59) H 03/10/19 12:17 2.30 % 03/10/19 12:17 TSH 5.060 mlU/mL (0.270-4.200) H 04/02/19 12:43 Free T4 0.91 ng/dL (0.76-1.46) 04/02/19 12:43 Yellow (Yellow) 03/24/19 14:28 Cloudy (Clear) 03/24/19 14:28 5.0 (5.0-7.0) 03/24/19 14:28 Ur Specific [place] 1.011 (1.003-1.030) 03/24/19 14:28 >500 mg/dL (Negative) 03/24/19 14:28 50 mg/dL (Negative) 03/24/19 14:28 Neg mg/dL (Negative) 03/24/19 14:28 Sm (Negative) 03/24/19 14:28 Neg (Negative) 03/24/19 14:28 Neg (Negative) 03/24/19 14:28 < 2.0 mg/dL (<2.0) 03/24/19 14:28 Ur Leukocyte Esterase Neg (Negative) 03/24/19 14:28 2.0 /HPF (0.0-6.0) 03/24/19 14:28 1.0 /HPF (0.0-6.0) 03/24/19 14:28 U Epithel Cells (Auto) 1.0 /HPF (0-13.0) 03/24/19 14:28 4+ /HPF (Negative) 03/24/19 14:28 Hyaline Casts 2 /LPF 03/24/19 14:28 Few /HPF 03/24/19 14:28 97.7 mg/dL (0.1-20.0) H 03/24/19 14:28 16 mmol/L 03/24/19 14:28 351 mg/dL (5-11.8) H 03/24/19 14:28 153 mg/dL () 03/26/19 04:36 38 mg/dL () 03/26/19 04:36 Hep Bs Antigen Non-reactive (Negative) 03/26/19 04:36 Non-reactive (NonReactive) 03/26/19 04:36 Active Medications - Current Medications Current Medications: Generic Name Dose Route Start Last Admin Trade Name Freq PRN Reason Stop Dose Admin Acetaminophen 650 mg 03/10/19 16:25 03/17/19 10:29 Tylenol PO 650 mg Q4H PRN Administration Pain, Mild (1-3) Amlodipine Besylate 10 mg 04/03/19 11:00 04/03/19 11:33 Norvasc PO 10 mg QDAY TAMMIE Administration Lipase/Protease/Amylase 1 each 03/13/19 10:02 Destiny Sifuentes 10,500 Unit FEEDTUBE PRN PRN For Clogged Feeding Tube Aspirin 81 mg 03/17/19 10:00 04/03/19 09:13 Baby Aspirin PO 81 mg QDAY TAMMIE Administration Atorvastatin Calcium 40 mg 03/10/19 22:00 04/02/19 21:15 Lipitor PO 40 mg QHS TAMMIE Administration Bisacodyl 10 mg 03/10/19 16:25 Dulcolax OR QDAY PRN Constipation Carvedilol 6.25 mg 04/03/19 11:00 04/03/19 11:33 Coreg PO 6.25 mg BID TAMMIE Administration Dextrose 50 ml 03/18/19 13:00 D50w (25gm) Syringe IV PRN PRN Hypoglycemia Furosemide 60 mg 03/29/19 18:00 04/03/19 17:38 Lasix IV 60 mg 0600,1800 TAMMIE Administration Gabapentin 100 mg 03/29/19 22:00 04/02/19 21:15 Neurontin PO 100 mg QHS TAMMIE Administration Hydralazine HCl 20 mg 03/13/19 06:00 04/03/19 09:14 Apresoline IV 20 mg Q4H PRN Administration Hypertension Hydralazine HCl 100 mg 04/02/19 14:00 04/03/19 13:47 Apresoline PO 100 mg Q8HR TAMMIE Administration Insulin Glargine 6 units 03/25/19 22:00 04/02/19 21:38 Lantus SUB-Q 6 units QHS TAMMIE Administration Insulin Human Lispro 0 unit 03/28/19 07:30 04/03/19 17:30 Humalog SUB-Q 2 unit ACHS TAMMIE Administration Protocol Levothyroxine Sodium 25 mcg 04/04/19 06:00 Synthroid PO DAILY@0600 [facility] Metoclopramide HCl 5 mg 03/30/19 08:00 Reglan PO Q6H PRN Nausea And Vomiting Ondansetron HCl 4 mg 03/10/19 16:25 Zofran IV Q8H PRN Nausea And Vomiting Oxycodone/Acetaminophen 1 tab 03/17/19 14:04 04/02/19 21:16 Percocet 5/325 PO 1 tab Q6H PRN Administration Pain, Moderate (4-6) Promethazine HCl 25 mg 03/10/19 16:25 Phenergan OR Q6H PRN Nausea And Vomiting Sodium Bicarbonate 325 mg 03/13/19 10:02 Sodium Bicarbonate FEEDTUBE PRN PRN For Clogged Feeding Tube Sodium Chloride 10 ml 03/10/19 16:25 04/03/19 17:41 Sodium Chloride Flush Syringe 10 Ml IV 10 ml PRN PRN Administration LINE FLUSH Warfarin Sodium 6 mg 04/02/19 17:00 04/03/19 17:37 Coumadin PO 6 mg DAILY@1700 TAMMIE Administration Nutrition/Malnutrition Assess - Dietary Evaluation Nutrition/Malnutrition Findings: Nutrition Notes Start: 03/11/19 12:57 Freq: Status: Active Protocol: Document 03/31/19 11:08 PS (Rec: 03/31/19 12:23 PS [id number]) Co-Sign 03/31/19 11:08 LP Nutrition Notes Initial or Follow up Reassessment Current Diagnosis Diabetes,Hypertension Other Pertinent Diagnosis 1+ pitting edema Current Diet Renal Diet Labs/Tests BUN 56 Creat 2.4 Pertinent Medications Lasix Height 5 ft 10 in Weight 96.842 kg Usual Body Weight 85.5 kg [place] Body Weight (kg) 75.45 BMI 30.6 Weight change and time frame 10 kg in 8 days. Likely due to fluid. Subjective/Other Information Pt. was asleep when visited. Pt. ate 100% of breakfast. Removal of supplement due to meeting energy and protein needs PO. Percent of energy/protein needs met: 100%/100% Burn Absent Trauma Absent Minimum of two criteria No #3 Nutrition Diagnosis Inadequate energy intake As Evidenced by Signs and Symptoms Pt meeting 100% of energy and protein needs. Diagnosis Progress(for reassessment Resolved documentation) #2 Nutrition Diagnosis Malnutrition Diagnosis Progress(for reassessment Continues documentation) Is patient on ventilator? No Is Patient Ambulatory and/or Out of Bed No REE-([facility]-confined to bed) 2009.408 Kcal/Kg value to use for calculation 19 Approximate Energy Requirements Using 1840 kcal/Kg Calculation Used for Recommendations Kcal/kg Additional Notes Protein: (86 g - 102 g/day (1- 1.2 g/kg UBW) Fluid needs: 1ml/kcal UBW Nutrition Intervention Change Diet Order: Continue current Renal Diet Add Supplement/Snack (indicate name/kcal D/C /protein ) Goal #1 Meet at least 75% of energy and protein needs via PO Anticipated Discharge Needs: Renal Diet Revisit per MD consult or patient Sign Off request:
[2019-04-03] MEDS: GABAPENTIN 100 MG CAP PO SCH (21:33)
[2019-04-03] MEDS: INSULIN GLARGINE 100 UNITS/ML SUB-Q SCH (21:33)
[2019-04-04] MEDS: hydrALAZINE 20 MG/1 ML INJ IV PRN ×2 (04:00→11:44)
[2019-04-04] MEDS: hydrALAZINE 100 MG TAB PO SCH ×3 (05:01→21:28)
[2019-04-04] MEDS: FUROSEMIDE 20 MG/2 ML INJ IV SCH ×2 (05:02→17:55)
[2019-04-04] MEDS: LEVOTHYROXINE 25 MCG TAB PO SCH (05:02)
[2019-04-04 05:35] LABS: INR 2.28 (0.87-1.13)
[2019-04-04] MEDS: INSULIN LISPRO 100 UNIT/ML SUB-Q SCH ×4 (08:08→21:44)
--- NOTE | 2019-04-04 08:35 | Progress Note ---
Assessment and Plan - Patient Problems (1) Acute kidney injury superimposed on CKD Current Visit: Yes Status: Acute Plan to address problem: Overall renal function is stable. supportive care for CKD, avoid nephrotoxins, NSAIDs, IV contrast (2) Hyperkalemia Current Visit: Yes Status: Acute Plan to address problem: normalized (3) Hypertensive chronic kidney disease with stage 1 through stage 4 chronic kidney disease, or unspecified chronic kidney disease Current Visit: Yes Status: Chronic Plan to address problem: monitor BP on current meds. incl IV lasix for volume/BP control. Avoid HARRY/ARB in the setting of his recent LUI. (4) Fluid overload Current Visit: Yes Status: Acute Plan to address problem: Patient is responding with current diuretic regimen. Will continue to monitor. (5) Type 2 diabetes mellitus with diabetic nephropathy Current Visit: Yes Status: Chronic Plan to address problem: DM management per primary attending. Subjective Date of service: 04/04/19 Principal diagnosis: CVA, acute metabolic encephalopathy, hypertensive emergency, DMT 2 Interval history: Pt awake, alert, in no acute distress. Objective - Vital Signs Vital signs: Vital Signs - 12hr 04/03/19 04/03/19 04/03/19 20:42 21:30 21:32 Temperature Pulse Rate 85 Respiratory Rate Blood Pressure 186/64 186/64 O2 Sat by Pulse 96 Oximetry 04/03/19 04/04/19 04/04/19 22:00 03:06 04:00 Temperature 98.5 F Pulse Rate 78 78 Respiratory 18 Rate Blood Pressure 187/69 187/69 O2 Sat by Pulse 96 97 Oximetry 04/04/19 04/04/19 07:13 07:46 Temperature Pulse Rate Respiratory 18 Rate Blood Pressure O2 Sat by Pulse 98 95 Oximetry - General Appearance General appearance: well-developed, well-nourished, appears stated age EENT: ATNC, PERRL, mucous membranes moist Neck: no JVD Respiratory: Present: Clear to Ascultation Cardiology: regular, S1S2 Gastrointestinal: normoactive bowel sounds Integumentary: no rash, other (no edema ) Neurologic: no focal deficit, strength 5/5 Psychiatric: mood/affect appropriate, cooperative - Lab 04/02/19 04:58 04/02/19 04:58 Most recent lab results Calcium 8.1 mg/dL (8.4-10.2) L 04/02/19 04:58 Phosphorus 3.50 mg/dL (2.5-4.5) 03/25/19 05:43 Magnesium 2.00 mg/dL (1.7-2.3) 03/25/19 05:43 97.7 mg/dL (0.1-20.0) H 03/24/19 14:28 16 mmol/L 03/24/19 14:28 351 mg/dL (5-11.8) H 03/24/19 14:28 Medications & Allergies - Medications Allergies/Adverse Reactions: Allergies No Known Allergies Allergy (Unverified 03/10/19 11:50) Home Medications: Home Medications Medication Instructions Recorded Confirmed Last Taken Type Coreg 6.25 mg PO BID 03/14/19 03/14/19 Unknown History Rosuvastatin (Nf) [Crestor] 20 mg PO QHS 03/14/19 03/14/19 Unknown History Gabapentin [Neurontin] 300 mg PO QHS 03/15/19 03/15/19 Unknown History Insulin Glargine [Lantus] 5 units SQ QHS 03/15/19 03/15/19 Unknown History Lispro Insulin [HumaLOG] 2 units SQ TIDAC 03/15/19 03/15/19 Unknown History Warfarin [Coumadin] 6 mg PO QDAY 03/15/19 03/15/19 Unknown History cloNIDine [Catapres] 0.3 mg PO TID 03/15/19 03/15/19 Unknown History Active Medications: Generic Name Dose Route Start Last Admin Trade Name Freq PRN Reason Stop Dose Admin Acetaminophen 650 mg 03/10/19 16:25 03/17/19 10:29 Tylenol PO 650 mg Q4H PRN Administration Pain, Mild (1-3) Amlodipine Besylate 10 mg 04/03/19 11:00 04/03/19 11:33 Norvasc PO 10 mg QDAY TAMMIE Administration Lipase/Protease/Amylase 1 each 03/13/19 10:02 Destiny Sifuentes 10,500 Unit FEEDTUBE PRN PRN For Clogged Feeding Tube Aspirin 81 mg 03/17/19 10:00 04/03/19 09:13 Baby Aspirin PO 81 mg QDAY TAMMIE Administration Atorvastatin Calcium 40 mg 03/10/19 22:00 04/03/19 21:33 Lipitor PO 40 mg QHS TAMMIE Administration Bisacodyl 10 mg 03/10/19 16:25 Dulcolax [place] QDAY PRN Constipation Carvedilol 6.25 mg 04/03/19 11:00 04/03/19 21:32 Coreg PO 6.25 mg BID TAMMIE Administration Dextrose 50 ml 03/18/19 13:00 D50w (25gm) Syringe IV PRN PRN Hypoglycemia Furosemide 60 mg 03/29/19 18:00 04/04/19 05:02 Lasix IV 60 mg 0600,1800 TAMMIE Administration Gabapentin 100 mg 03/29/19 22:00 04/03/19 21:33 Neurontin PO 100 mg QHS TAMMIE Administration Hydralazine HCl 20 mg 03/13/19 06:00 04/04/19 04:00 Apresoline IV 20 mg Q4H PRN Administration Hypertension Hydralazine HCl 100 mg 04/02/19 14:00 04/04/19 05:01 Apresoline PO 100 mg Q8HR TAMMIE Administration Insulin Glargine 6 units 03/25/19 22:00 04/03/19 21:33 Lantus SUB-Q 6 units QHS TAMMIE Administration Insulin Human Lispro 0 unit 03/28/19 07:30 04/04/19 08:08 Humalog SUB-Q 1 unit ACHS [facility] Administration Protocol Levothyroxine Sodium 25 mcg 04/04/19 06:00 04/04/19 05:02 Synthroid PO 25 mcg DAILY@0600 TAMMIE Administration Metoclopramide HCl 5 mg 03/30/19 08:00 Reglan PO Q6H PRN Nausea And Vomiting Ondansetron HCl 4 mg 03/10/19 16:25 Zofran IV Q8H PRN Nausea And Vomiting Oxycodone/Acetaminophen 1 tab 03/17/19 14:04 04/02/19 21:16 Percocet 5/325 PO 1 tab Q6H PRN Administration Pain, Moderate (4-6) Promethazine HCl 25 mg 03/10/19 16:25 Phenergan [place] Q6H PRN Nausea And Vomiting Sodium Bicarbonate 325 mg 03/13/19 10:02 Sodium Bicarbonate FEEDTUBE PRN PRN For Clogged Feeding Tube Sodium Chloride 10 ml 03/10/19 16:25 04/03/19 17:41 Sodium Chloride Flush Syringe 10 Ml IV 10 ml PRN PRN Administration LINE FLUSH Warfarin Sodium 5 mg 04/04/19 17:00 Coumadin PO DAILY@1700 TAMMIE
[2019-04-04] MEDS: carvediloL 6.25 MG TAB PO SCH (09:08)
[2019-04-04] MEDS: ASPIRIN 81 MG TAB CHEW PO SCH (09:08)
[2019-04-04] MEDS: amLODIPine 10 MG TAB PO SCH (09:08)
[2019-04-04] MEDS ORDERED: carvediloL 6.25 MG TAB PO SCH (13:23)
--- NOTE | 2019-04-04 14:29 | Progress Note ---
Assessment and Plan Patient is feeling better today denies chest pain difficulty breathing or palpitations. Rhythm strips are reviewed and rhythm is stable sinus. Periods of bradycardia noted. No complex arrhythmias are documented so far. Plan is to continue current management. - Patient Problems (1) Acute kidney injury superimposed on CKD Current Visit: Yes Status: Acute (2) CVA (cerebral vascular accident) Current Visit: Yes Status: Acute Qualifiers: Laterality of affected vessel: unspecified (3) Hypertensive emergency Current Visit: Yes Status: Acute (4) Right bundle branch block Current Visit: Yes Status: Chronic (5) SVT (supraventricular tachycardia) Current Visit: Yes Status: Suspected (6) Altered mental status Current Visit: Yes Status: Resolved Subjective Date of service: 04/04/19 Principal diagnosis: CVA, acute metabolic encephalopathy, hypertensive emergency, DMT 2 Interval history: Patient is comfortable today denies chest pain difficulty breathing or palpitations. Objective Vital Signs Temp Pulse Resp BP Pulse Ox 04/04/19 13:04 99.4 F 74 20 165/54 96 04/04/19 12:10 171/57 04/04/19 11:40 173/59 04/04/19 07:52 98.9 F 78 20 181/55 98 04/04/19 07:46 95 04/04/19 07:13 18 98 04/04/19 04:00 78 187/69 04/04/19 03:06 98.5 F 78 18 187/69 97 04/03/19 22:00 96 04/03/19 21:32 85 186/64 04/03/19 21:30 186/64 04/03/19 20:42 96 04/03/19 20:02 85 211/78 04/03/19 19:55 99.0 F 85 18 / 99 - Physical Examination General: No Apparent Distress HEENT: Positive: PERRL, Normocephaly, Mucus Membranes Moist Neck: Positive: neck supple, trachea midline Cardiac: Positive: Regular Rate Lungs: Positive: clear to auscultation Neuro: Positive: Grossly Intact Abdomen: Positive: Soft. Negative: Tender Skin: Negative: Rash Musculoskeletal: No Pain Extremities: Present: edema (trace BLE) - Labs and Meds Coagulation 04/04/19 Range/Units 04:44 PT 24.7 H (12.2-14.9) Sec. INR 2.28 H (0.87-1.13) - Imaging and Cardiology EKG: report reviewed, image reviewed Echo: report reviewed (03/10/2019 showed EF 55-60%, mild LVH, impaired relaxation, negative bubble study. ) - EKG Sinus rhythms and dysrhythmias: sinus rhythm AV and intraventricular conduction: right bundle branch block - Allied health notes Allied health notes reviewed: nursing
[2019-04-04] MEDS: carvediloL 12.5 MG TAB PO SCH ×2 (14:52→21:28)
[2019-04-04] MEDS ORDERED: WARFARIN 5 MG TAB PO SCH (17:00)
--- NOTE | 2019-04-04 19:23 | Progress Note ---
Assessment and Plan Assessment and plan: --Hypertensive urgency present on admission Blood pressures are poorly controlled [without clonidine and Norvasc ] Cardiology increased hydralazine to 100mg,3 times a day and DC clonidine cardiology optimize the medications Coreg and Norvasc --Sinus bradycardia; first degree AV block off Norvasc, clonidine,HR 60s-70s Cardiology evaluation noted and appreciated --Acute hypoxic respiratory failure; significantly improved continue oxygen supplements --Acute on chronic diastolic CHF, EF 55% Pulmonary edema noted on x-ray, Isiah. --Acute kidney injury upon CKD likely due to vasomotor nephropathy Patient is refusing kidney biopsy, he is refusing dialysis. He is not interested in any aggressive therapies or treatments. Bun/cr 56/3.0 to 57/2.8 - 2.[address] abdomen and pelvis does not show any hydronephrosis or obstruction in the urinary tract. --Hyperkalemia; resolved --Type 2 diabetes, continue sliding scale --Coagulopathy due to warfarin. Patient has hypercoagulable state at baseline Subtherapeutic ,continue Coumadin target INR 2-3 pharmacy managing --Ambulatory dysfunction; unsteady gait; cont PT Continue current management Follow blood pressures and heart rate Patient may be discharged home when medically stable Plan of care is reviewed with the patient, and family member at the bedside History Interval history: Patient seen and examined medical records to Patient blood pressure is still uncontrolled Heart it reasonable level The patient denies chest pain or shortness of breath Vital signs noted Hospitalist Physical - Constitutional Vitals: Temp Pulse Resp BP Pulse Ox 99.4 F 74 20 165/54 96 04/04/19 13:04 04/04/19 13:04 04/04/19 13:04 04/04/19 13:04 04/04/19 13:04 General appearance: Present: no acute distress, well-nourished - EENT Eyes: Present: PERRL, EOM intact - Neck Neck: Present: supple, normal ROM - Respiratory Respiratory effort: normal Respiratory: bilateral: diminished, rhonchi, negative: rales, wheezing - Cardiovascular Rhythm: regular Heart Sounds: Present: S1 & S2 - Extremities Extremities: no ischemia, No edema - Abdominal General gastrointestinal: soft, non-tender, non-distended, normal bowel sounds - Integumentary Integumentary: Present: clear, warm - Psychiatric Psychiatric: appropriate mood/affect, cooperative - Neurologic Neurologic: moves all extremities Results - Labs CBC & Chem 7: 04/02/19 04:58 04/02/19 04:58 Labs: Laboratory Last Values WBC 6.9 K/mm3 (4.5-11.0) 03/16/19 07:40 RBC 4.49 M/mm3 (3.65-5.03) 03/16/19 07:40 Hgb 9.8 gm/dl (11.8-15.2) L 04/02/19 04:58 Hct 30.3 % (35.5-45.6) L 04/02/19 04:58 MCV 86 fl (84-94) 03/16/19 07:40 MCH 28 pg (28-32) 03/16/19 07:40 MCHC 33 % (32-34) 03/16/19 07:40 RDW 18.0 % (13.2-15.2) H 03/16/19 07:40 Plt Count 130 K/mm3 (140-440) L 03/16/19 07:40 Lymph % (Auto) 19.1 % (13.4-35.0) 03/16/19 07:40 [place] % (Auto) 13.3 % (0.0-7.3) H 03/16/19 07:40 Eos % (Auto) 5.4 % (0.0-4.3) H 03/16/19 07:40 Baso % (Auto) 1.0 % (0.0-1.8) 03/16/19 07:40 Lymph # 1.3 K/mm3 (1.2-5.4) 03/16/19 07:40 [place] # 0.9 K/mm3 (0.0-0.8) H 03/16/19 07:40 Eos # 0.4 K/mm3 (0.0-0.4) 03/16/19 07:40 Baso # 0.1 K/mm3 (0.0-0.1) 03/16/19 07:40 Seg Neutrophils % 61.2 % (40.0-70.0) 03/16/19 07:40 Seg Neutrophils # 4.2 K/mm3 (1.8-7.7) 03/16/19 07:40 PT 24.7 Sec. (12.2-14.9) H 04/04/19 04:44 INR 2.28 (0.87-1.13) H 04/04/19 04:44 APTT 27.8 Sec. (24.2-36.6) 03/10/19 12:17 25.2 Sec. (15.1-19.6) H 03/10/19 12:17 Sodium 143 mmol/L (137-145) 04/02/19 04:58 Potassium 4.0 mmol/L (3.6-5.0) 04/02/19 04:58 Chloride 101.5 mmol/L (98-107) 04/02/19 04:58 Carbon Dioxide 32 mmol/L (22-30) H 04/02/19 04:58 14 mmol/L 04/02/19 04:58 BUN 61 mg/dL (9-20) H 04/02/19 04:58 2.4 mg/dL (0.8-1.5) H 04/02/19 04:58 Estimated GFR 31 ml/min 04/02/19 04:58 25 % 04/02/19 04:58 Glucose 102 mg/dL (75-100) H 04/02/19 04:58 POC Glucose 228 (70-105) H 04/04/19 16:38 Calcium 8.1 mg/dL (8.4-10.2) L 04/02/19 04:58 Phosphorus 3.50 mg/dL (2.5-4.5) 03/25/19 05:43 Magnesium 2.00 mg/dL (1.7-2.3) 03/25/19 05:43 0.076 ng/mL (0.00-0.029) H 03/10/19 12:17 Triglycerides 140 mg/dL (2-149) 03/10/19 12:17 Cholesterol 143 mg/dL (50-199) 03/10/19 12:17 69 mg/dL (50-130) 03/10/19 12:17 62 mg/dL (40-59) H 03/10/19 12:17 2.30 % 03/10/19 12:17 TSH 5.060 mlU/mL (0.270-4.200) H 04/02/19 12:43 Free T4 0.91 ng/dL (0.76-1.46) 04/02/19 12:43 Yellow (Yellow) 03/24/19 14:28 Cloudy (Clear) 03/24/19 14:28 5.0 (5.0-7.0) 03/24/19 14:28 Ur Specific [place] 1.011 (1.003-1.030) 03/24/19 14:28 >500 mg/dL (Negative) 03/24/19 14:28 50 mg/dL (Negative) 03/24/19 14:28 Neg mg/dL (Negative) 03/24/19 14:28 Sm (Negative) 03/24/19 14:28 Neg (Negative) 03/24/19 14:28 Neg (Negative) 03/24/19 14:28 < 2.0 mg/dL (<2.0) 03/24/19 14:28 Ur Leukocyte Esterase Neg (Negative) 03/24/19 14:28 2.0 /HPF (0.0-6.0) 03/24/19 14:28 1.0 /HPF (0.0-6.0) 03/24/19 14:28 U Epithel Cells (Auto) 1.0 /HPF (0-13.0) 03/24/19 14:28 4+ /HPF (Negative) 03/24/19 14:28 Hyaline Casts 2 /LPF 03/24/19 14:28 Few /HPF 03/24/19 14:28 97.7 mg/dL (0.1-20.0) H 03/24/19 14:28 16 mmol/L 03/24/19 14:28 351 mg/dL (5-11.8) H 03/24/19 14:28 153 mg/dL () 03/26/19 04:36 38 mg/dL () 03/26/19 04:36 Hep Bs Antigen Non-reactive (Negative) 03/26/19 04:36 Non-reactive (NonReactive) 03/26/19 04:36 Active Medications - Current Medications Current Medications: Generic Name Dose Route Start Last Admin Trade Name Freq PRN Reason Stop Dose Admin Acetaminophen 650 mg 03/10/19 16:25 03/17/19 10:29 Tylenol PO 650 mg Q4H PRN Administration Pain, Mild (1-3) Amlodipine Besylate 10 mg 04/03/19 11:00 04/04/19 09:08 Norvasc PO 10 mg QDAY TAMMIE Administration Lipase/Protease/Amylase 1 each 03/13/19 10:02 Destiny Sifuentes 10,500 Unit FEEDTUBE PRN PRN For Clogged Feeding Tube Aspirin 81 mg 03/17/19 10:00 04/04/19 09:08 Baby Aspirin PO 81 mg QDAY TAMMIE Administration Atorvastatin Calcium 40 mg 03/10/19 22:00 04/03/19 21:33 Lipitor PO 40 mg QHS TAMMIE Administration Bisacodyl 10 mg 03/10/19 16:25 Dulcolax MD QDAY PRN Constipation Carvedilol 12.5 mg 04/04/19 14:00 04/04/19 14:52 Coreg PO 12.5 mg BID TAMMIE Administration Dextrose 50 ml 03/18/19 13:00 D50w (25gm) Syringe IV PRN PRN Hypoglycemia Furosemide 60 mg 03/29/19 18:00 04/04/19 17:55 Lasix IV 60 mg 0600,1800 TAMMIE Administration Gabapentin 100 mg 03/29/19 22:00 04/03/19 21:33 Neurontin PO 100 mg QHS TAMMIE Administration Hydralazine HCl 20 mg 03/13/19 06:00 04/04/19 11:44 Apresoline IV 20 mg Q4H PRN Administration Hypertension Hydralazine HCl 100 mg 04/02/19 14:00 04/04/19 14:52 Apresoline PO 100 mg Q8HR TAMMIE Administration Insulin Glargine 6 units 03/25/19 22:00 04/03/19 21:33 Lantus SUB-Q 6 units QHS TAMMIE Administration Insulin Human Lispro 0 unit 03/28/19 07:30 04/04/19 17:56 Humalog SUB-Q 2 unit ACHS TAMMIE Administration Protocol Levothyroxine Sodium 25 mcg 04/04/19 06:00 04/04/19 05:02 Synthroid PO 25 mcg DAILY@0600 TAMMIE Administration Metoclopramide HCl 5 mg 03/30/19 08:00 Reglan PO Q6H PRN Nausea And Vomiting Ondansetron HCl 4 mg 03/10/19 16:25 Zofran IV Q8H PRN Nausea And Vomiting Oxycodone/Acetaminophen 1 tab 03/17/19 14:04 04/02/19 21:16 Percocet 5/325 PO 1 tab Q6H PRN Administration Pain, Moderate (4-6) Promethazine HCl 25 mg 03/10/19 16:25 Phenergan MD Q6H PRN Nausea And Vomiting Sodium Bicarbonate 325 mg 03/13/19 10:02 Sodium Bicarbonate FEEDTUBE PRN PRN For Clogged Feeding Tube Sodium Chloride 10 ml 03/10/19 16:25 04/03/19 17:41 Sodium Chloride Flush Syringe 10 Ml IV 10 ml PRN PRN Administration LINE FLUSH Warfarin Sodium 5 mg 04/04/19 17:00 04/04/19 17:56 Coumadin PO 5 mg DAILY@1700 TAMMIE Administration Nutrition/Malnutrition Assess - Dietary Evaluation Nutrition/Malnutrition Findings: Nutrition Notes Start: 03/11/19 12:57 Freq: Status: Active Protocol: Document 03/31/19 11:08 PS (Rec: 03/31/19 12:23 PS [id number]) Co-Sign 03/31/19 11:08 LP Nutrition Notes Initial or Follow up Reassessment Current Diagnosis Diabetes,Hypertension Other Pertinent Diagnosis 1+ pitting edema Current Diet Renal Diet Labs/Tests BUN 56 Creat 2.4 Pertinent Medications Lasix Height 5 ft 10 in Weight 96.842 kg Usual Body Weight 85.5 kg [place] Body Weight (kg) 75.45 BMI 30.6 Weight change and time frame 10 kg in 8 days. Likely due to fluid. Subjective/Other Information Pt. was asleep when visited. Pt. ate 100% of breakfast. Removal of supplement due to meeting energy and protein needs PO. Percent of energy/protein needs met: 100%/100% Burn Absent Trauma Absent Minimum of two criteria No #3 Nutrition Diagnosis Inadequate energy intake As Evidenced by Signs and Symptoms Pt meeting 100% of energy and protein needs. Diagnosis Progress(for reassessment Resolved documentation) #2 Nutrition Diagnosis Malnutrition Diagnosis Progress(for reassessment Continues documentation) Is patient on ventilator? No Is Patient Ambulatory and/or Out of Bed No REE-([facility]-confined to bed) 2009.408 Kcal/Kg value to use for calculation 19 Approximate Energy Requirements Using 1840 kcal/Kg Calculation Used for Recommendations Kcal/kg Additional Notes Protein: (86 g - 102 g/day (1- 1.2 g/kg UBW) Fluid needs: 1ml/kcal UBW Nutrition Intervention Change Diet Order: Continue current Renal Diet Add Supplement/Snack (indicate name/kcal D/C /protein ) Goal #1 Meet at least 75% of energy and protein needs via PO Anticipated Discharge Needs: Renal Diet Revisit per MD consult or patient Sign Off request:
[2019-04-04] MEDS: INSULIN GLARGINE 100 UNITS/ML SUB-Q SCH (21:27)
[2019-04-04] MEDS: GABAPENTIN 100 MG CAP PO SCH (21:29)
[2019-04-05 04:33] LABS: INR 2.63 (0.87-1.13)
[2019-04-05] MEDS: LEVOTHYROXINE 25 MCG TAB PO SCH (05:06)
[2019-04-05] MEDS: FUROSEMIDE 20 MG/2 ML INJ IV SCH (05:07)
[2019-04-05] MEDS: hydrALAZINE 100 MG TAB PO SCH ×3 (05:07→21:58)
[2019-04-05] MEDS: INSULIN LISPRO 100 UNIT/ML SUB-Q SCH ×4 (07:53→21:57)
[2019-04-05] MEDS: hydrALAZINE 20 MG/1 ML INJ IV PRN ×2 (08:04→18:42)
[2019-04-05] MEDS: ASPIRIN 81 MG TAB CHEW PO SCH (09:23)
[2019-04-05] MEDS: amLODIPine 10 MG TAB PO SCH (09:23)
[2019-04-05] MEDS: carvediloL 12.5 MG TAB PO SCH ×2 (09:41→21:58)
--- NOTE | 2019-04-05 10:21 | Progress Note ---
Assessment and Plan - Patient Problems (1) Acute kidney injury superimposed on CKD Current Visit: Yes Status: Acute Plan to address problem: Overall renal function is stable. supportive care for CKD, avoid nephrotoxins, NSAIDs, IV contrast (2) Hyperkalemia Current Visit: Yes Status: Acute Plan to address problem: normalized (3) Hypertensive chronic kidney disease with stage 1 through stage 4 chronic kidney disease, or unspecified chronic kidney disease Current Visit: Yes Status: Chronic Plan to address problem: monitor BP on current meds. incl IV lasix for volume/BP control. Avoid HARRY/ARB in the setting of his recent LUI. (4) Fluid overload Current Visit: Yes Status: Acute Plan to address problem: Patient is in negative fluid balance. cont lasix 40mg po bid (5) Type 2 diabetes mellitus with diabetic nephropathy Current Visit: Yes Status: Chronic Plan to address problem: DM management per primary attending. Subjective Date of service: 04/05/19 Principal diagnosis: CVA, acute metabolic encephalopathy, hypertensive emergency, DMT 2 Interval history: Pt awake, alert, in no acute distress. Objective - Vital Signs Vital signs: Vital Signs - 12hr 04/04/19 04/04/19 04/04/19 22:18 22:19 22:29 Temperature Pulse Rate 63 60 66 Respiratory Rate Blood Pressure Blood Pressure [Left] O2 Sat by Pulse 93 93 Oximetry 04/05/19 04/05/19 04/05/19 01:42 02:23 02:24 Temperature 100.1 F H Pulse Rate 62 65 60 Respiratory 18 Rate Blood Pressure 161/56 Blood Pressure [Left] O2 Sat by Pulse 91 93 93 Oximetry 04/05/19 04/05/19 06:08 08:26 Temperature 98.8 F 99.0 F Pulse Rate 70 80 Respiratory 20 16 Rate Blood Pressure 183/64 Blood Pressure 176/66 [Left] O2 Sat by Pulse 92 90 Oximetry - General Appearance General appearance: well-developed, well-nourished, appears stated age EENT: ATNC, PERRL, mucous membranes moist Neck: no JVD Respiratory: Present: Clear to Ascultation Cardiology: regular, S1S2 Gastrointestinal: normoactive bowel sounds Integumentary: no rash, other Neurologic: no focal deficit, alert and oriented x3, strength 5/5, CN 3-12 intact Psychiatric: mood/affect appropriate - Lab 04/02/19 04:58 04/02/19 04:58 Most recent lab results Calcium 8.1 mg/dL (8.4-10.2) L 04/02/19 04:58 Phosphorus 3.50 mg/dL (2.5-4.5) 03/25/19 05:43 Magnesium 2.00 mg/dL (1.7-2.3) 03/25/19 05:43 97.7 mg/dL (0.1-20.0) H 03/24/19 14:28 16 mmol/L 03/24/19 14:28 351 mg/dL (5-11.8) H 03/24/19 14:28 Medications & Allergies - Medications Allergies/Adverse Reactions: Allergies No Known Allergies Allergy (Unverified 03/10/19 11:50) Home Medications: Home Medications Medication Instructions Recorded Confirmed Last Taken Type Coreg 6.25 mg PO BID 03/14/19 03/14/19 Unknown History Rosuvastatin (Nf) [Crestor] 20 mg PO QHS 03/14/19 03/14/19 Unknown History Gabapentin [Neurontin] 300 mg PO QHS 03/15/19 03/15/19 Unknown History Insulin Glargine [Lantus] 5 units SQ QHS 03/15/19 03/15/19 Unknown History Lispro Insulin [HumaLOG] 2 units SQ TIDAC 03/15/19 03/15/19 Unknown History Warfarin [Coumadin] 6 mg PO QDAY 03/15/19 03/15/19 Unknown History cloNIDine [Catapres] 0.3 mg PO TID 03/15/19 03/15/19 Unknown History Active Medications: Generic Name Dose Route Start Last Admin Trade Name Freq PRN Reason Stop Dose Admin Acetaminophen 650 mg 03/10/19 16:25 03/17/19 10:29 Tylenol PO 650 mg Q4H PRN Administration Pain, Mild (1-3) Amlodipine Besylate 10 mg 04/03/19 11:00 04/05/19 09:23 Norvasc PO 10 mg QDAY TAMMIE Administration Lipase/Protease/Amylase 1 each 03/13/19 10:02 Pancretom Sifuentes 10,500 Unit FEEDTUBE PRN PRN For Clogged Feeding Tube Aspirin 81 mg 03/17/19 10:00 04/05/19 09:23 Baby Aspirin PO 81 mg QDAY TAMMIE Administration Atorvastatin Calcium 40 mg 03/10/19 22:00 04/04/19 21:28 Lipitor PO 40 mg QHS [facility] Administration Bisacodyl 10 mg 03/10/19 16:25 Dulcolax NM QDAY PRN Constipation Carvedilol 12.5 mg 04/04/19 14:00 04/05/19 09:41 Coreg PO 12.5 mg BID TAMMIE Administration Dextrose 50 ml 03/18/19 13:00 D50w (25gm) Syringe IV PRN PRN Hypoglycemia Furosemide 60 mg 03/29/19 18:00 04/05/19 05:07 Lasix IV 60 mg 0600,1800 [facility] Administration Gabapentin 100 mg 03/29/19 22:00 04/04/19 21:29 Neurontin PO 100 mg QHS [facility] Administration Hydralazine HCl 20 mg 03/13/19 06:00 04/05/19 08:04 Apresoline IV 20 mg Q4H PRN Administration Hypertension Hydralazine HCl 100 mg 04/02/19 14:00 04/05/19 05:07 Apresoline PO 100 mg Q8HR [facility] Administration Insulin Glargine 10 units 04/04/19 22:00 04/04/19 21:27 Lantus SUB-Q 10 units QHS [facility] Administration Insulin Human Lispro 0 unit 03/28/19 07:30 04/05/19 07:53 [facility]alog SUB[facility]Q [facility] Protocol Levothyroxine Sodium 25 mcg 04/04/19 06:00 04/05/19 05:06 Synthroid PO 25 mcg DAILY@0600 [facility] Administration Metoclopramide HCl 5 mg 03/30/19 08:00 Reglan PO Q6H PRN Nausea And Vomiting Minoxidil 5 mg 04/06/19 11:00 Loniten PO QDAY TAMMIE Ondansetron HCl 4 mg 03/10/19 16:25 Zofran IV Q8H PRN Nausea And Vomiting Oxycodone/Acetaminophen 1 tab 03/17/19 14:04 04/02/19 21:16 Percocet 5/325 PO 1 tab Q6H PRN Administration Pain, Moderate (4-6) Promethazine HCl 25 mg 03/10/19 16:25 Phenergan NM Q6H PRN Nausea And Vomiting Sodium Bicarbonate 325 mg 03/13/19 10:02 Sodium Bicarbonate FEEDTUBE PRN PRN For Clogged Feeding Tube Sodium Chloride 10 ml 03/10/19 16:25 04/03/19 17:41 Sodium Chloride Flush Syringe 10 Ml IV 10 ml PRN PRN Administration LINE FLUSH Warfarin Sodium 4 mg 04/05/19 17:00 Coumadin PO DAILY@1700 TAMMIE
--- NOTE | 2019-04-05 11:05 | Progress Note ---
Assessment and Plan Patient is feeling better today denies chest pain difficulty breathing or palpitations. Rhythm strips are reviewed and rhythm is stable sinus, heart rate is about 70 bpm. Blood pressure is not well controlled. Discussed with Dr. Osuna. We will adjust the medications as needed. - Patient Problems (1) Acute kidney injury superimposed on CKD Current Visit: Yes Status: Acute (2) CVA (cerebral vascular accident) Current Visit: Yes Status: Acute Qualifiers: Laterality of affected vessel: unspecified (3) Hypertensive emergency Current Visit: Yes Status: Acute (4) Right bundle branch block Current Visit: Yes Status: Chronic (5) SVT (supraventricular tachycardia) Current Visit: Yes Status: Suspected (6) Altered mental status Current Visit: Yes Status: Resolved Subjective Principal diagnosis: CVA, acute metabolic encephalopathy, hypertensive emergency, DMT 2 Interval history: Patient is comfortable today denies chest pain difficulty breathing or palpitations. Objective Vital Signs Temp Pulse Resp Resp BP BP Pulse Ox 04/05/19 10:00 96 04/05/19 08:26 99.0 F 80 16 183/64 90 04/05/19 06:08 98.8 F 70 20 176/66 92 04/05/19 02:24 60 93 04/05/19 02:23 65 93 04/05/19 01:42 100.1 F H 62 18 161/56 91 04/04/19 22:29 66 04/04/19 22:19 60 93 04/04/19 22:18 63 93 04/04/19 22:00 20 20 96 04/04/19 21:28 72 174/68 04/04/19 20:47 99.5 F 72 20 174/68 91 04/04/19 13:04 99.4 F 74 20 165/54 96 04/04/19 12:10 171/57 04/04/19 11:40 173/59 - Physical Examination General: No Apparent Distress HEENT: Positive: PERRL, Normocephaly, Mucus Membranes Moist Neck: Positive: neck supple, trachea midline Cardiac: Positive: Regular Rate Lungs: Positive: clear to auscultation Neuro: Positive: Grossly Intact Abdomen: Positive: Soft. Negative: Tender Skin: Negative: Rash Musculoskeletal: No Pain Extremities: Present: edema (trace BLE) - Labs and Meds Coagulation 04/05/19 Range/Units 03:34 PT 27.6 H (12.2-14.9) Sec. INR 2.63 H (0.87-1.13) - Imaging and Cardiology EKG: report reviewed, image reviewed Echo: report reviewed (03/10/2019 showed EF 55-60%, mild LVH, impaired relaxation, negative bubble study. ) - EKG Sinus rhythms and dysrhythmias: sinus rhythm AV and intraventricular conduction: right bundle branch block - Allied health notes Allied health notes reviewed: nursing
--- NOTE | 2019-04-05 15:42 | Progress Note ---
Assessment and Plan Assessment and plan: --Sinus bradycardia; first degree AV block off Norvasc, clonidine,HR 70s/80s Cardiology following --Hypertensive urgency present on admission Blood pressures are poorly controlled Continue , Coreg ,hydralazine to 100mg, and Norvasc Add minoxidil , closely monitor optimize the medication --Acute hypoxic respiratory failure; significantly improved continue oxygen supplements --Acute on chronic diastolic CHF, EF 55% Continue Lasix --Acute kidney injury upon CKD likely due to vasomotor nephropathy Patient is refusing kidney biopsy, he is refusing dialysis. He is not interested in any aggressive therapies or treatments. Bun/cr 56/3.0 to 57/2.8 - 2.[address] abdomen and pelvis does not show any hydronephrosis or obstruction in the urinary tract. --Hyperkalemia; resolved --Type 2 diabetes, continue sliding scale, glargine, adjust medications as needed --Coagulopathy due to warfarin. Patient has hypercoagulable state Today INR is therapeutic between 2 and 3 --Ambulatory dysfunction; unsteady gait; cont PT, as well as home PT upon discharge Monitor closely and adjust management as needed Disposition; continue inpatient management Discharge home when medically stable stable Plan of care is reviewed with the patient, his nurse and the case management History Interval history: Patient seen and examed and medical records reviewed Patient feels better no new complaints Vital signs noted Hospitalist Physical - Constitutional Vitals: Temp Pulse Resp BP Pulse Ox 98.5 F 65 16 169/62 97 04/05/19 14:22 04/05/19 14:22 04/05/19 14:22 04/05/19 14:22 04/05/19 14:22 General appearance: Present: no acute distress, well-nourished - EENT Eyes: Present: PERRL, EOM intact - Neck Neck: Present: supple, normal ROM - Respiratory Respiratory effort: normal Respiratory: bilateral: diminished, negative: rales, rhonchi, wheezing - Cardiovascular Rhythm: regular Heart Sounds: Present: S1 & S2 - Extremities Extremities: no ischemia, No edema - Abdominal General gastrointestinal: soft, non-tender, non-distended, normal bowel sounds - Integumentary Integumentary: Present: clear, warm - Psychiatric Psychiatric: appropriate mood/affect, cooperative - Neurologic Neurologic: moves all extremities Results - Labs CBC & Chem 7: 04/02/19 04:58 04/02/19 04:58 Labs: Laboratory Last Values WBC 6.9 K/mm3 (4.5-11.0) 03/16/19 07:40 RBC 4.49 M/mm3 (3.65-5.03) 03/16/19 07:40 Hgb 9.8 gm/dl (11.8-15.2) L 04/02/19 04:58 Hct 30.3 % (35.5-45.6) L 04/02/19 04:58 MCV 86 fl (84-94) 03/16/19 07:40 MCH 28 pg (28-32) 03/16/19 07:40 MCHC 33 % (32-34) 03/16/19 07:40 RDW 18.0 % (13.2-15.2) H 03/16/19 07:40 Plt Count 130 K/mm3 (140-440) L 03/16/19 07:40 Lymph % (Auto) 19.1 % (13.4-35.0) 03/16/19 07:40 Yell % (Auto) 13.3 % (0.0-7.3) H 03/16/19 07:40 Eos % (Auto) 5.4 % (0.0-4.3) H 03/16/19 07:40 Baso % (Auto) 1.0 % (0.0-1.8) 03/16/19 07:40 Lymph # 1.3 K/mm3 (1.2-5.4) 03/16/19 07:40 Yell # 0.9 K/mm3 (0.0-0.8) H 03/16/19 07:40 Eos # 0.4 K/mm3 (0.0-0.4) 03/16/19 07:40 Baso # 0.1 K/mm3 (0.0-0.1) 03/16/19 07:40 Seg Neutrophils % 61.2 % (40.0-70.0) 03/16/19 07:40 Seg Neutrophils # 4.2 K/mm3 (1.8-7.7) 03/16/19 07:40 PT 27.6 Sec. (12.2-14.9) H 04/05/19 03:34 INR 2.63 (0.87-1.13) H 04/05/19 03:34 APTT 27.8 Sec. (24.2-36.6) 03/10/19 12:17 25.2 Sec. (15.1-19.6) H 03/10/19 12:17 Sodium 143 mmol/L (137-145) 04/02/19 04:58 Potassium 4.0 mmol/L (3.6-5.0) 04/02/19 04:58 Chloride 101.5 mmol/L (98-107) 04/02/19 04:58 Carbon Dioxide 32 mmol/L (22-30) H 04/02/19 04:58 14 mmol/L 04/02/19 04:58 BUN 61 mg/dL (9-20) H 04/02/19 04:58 2.4 mg/dL (0.8-1.5) H 04/02/19 04:58 Estimated GFR 31 ml/min 04/02/19 04:58 25 % 04/02/19 04:58 Glucose 102 mg/dL (75-100) H 04/02/19 04:58 POC Glucose 210 (70-105) H 04/05/19 11:38 Calcium 8.1 mg/dL (8.4-10.2) L 04/02/19 04:58 Phosphorus 3.50 mg/dL (2.5-4.5) 03/25/19 05:43 Magnesium 2.00 mg/dL (1.7-2.3) 03/25/19 05:43 0.076 ng/mL (0.00-0.029) H 03/10/19 12:17 Triglycerides 140 mg/dL (2-149) 03/10/19 12:17 Cholesterol 143 mg/dL (50-199) 03/10/19 12:17 69 mg/dL (50-130) 03/10/19 12:17 62 mg/dL (40-59) H 03/10/19 12:17 2.30 % 03/10/19 12:17 TSH 5.060 mlU/mL (0.270-4.200) H 04/02/19 12:43 Free T4 0.91 ng/dL (0.76-1.46) 04/02/19 12:43 Yellow (Yellow) 03/24/19 14:28 Cloudy (Clear) 03/24/19 14:28 5.0 (5.0-7.0) 03/24/19 14:28 Ur Specific [place] 1.011 (1.003-1.030) 03/24/19 14:28 >500 mg/dL (Negative) 03/24/19 14:28 50 mg/dL (Negative) 03/24/19 14:28 Neg mg/dL (Negative) 03/24/19 14:28 Sm (Negative) 03/24/19 14:28 Neg (Negative) 03/24/19 14:28 Neg (Negative) 03/24/19 14:28 < 2.0 mg/dL (<2.0) 03/24/19 14:28 Ur Leukocyte Esterase Neg (Negative) 03/24/19 14:28 2.0 /HPF (0.0-6.0) 03/24/19 14:28 1.0 /HPF (0.0-6.0) 03/24/19 14:28 U Epithel Cells (Auto) 1.0 /HPF (0-13.0) 03/24/19 14:28 4+ /HPF (Negative) 03/24/19 14:28 Hyaline Casts 2 /LPF 03/24/19 14:28 Few /HPF 03/24/19 14:28 97.7 mg/dL (0.1-20.0) H 03/24/19 14:28 16 mmol/L 03/24/19 14:28 351 mg/dL (5-11.8) H 03/24/19 14:28 153 mg/dL () 03/26/19 04:36 38 mg/dL () 03/26/19 04:36 Hep Bs Antigen Non-reactive (Negative) 03/26/19 04:36 Non-reactive (NonReactive) 03/26/19 04:36 Active Medications - Current Medications Current Medications: Generic Name Dose Route Start Last Admin Trade Name Freq PRN Reason Stop Dose Admin Acetaminophen 650 mg 03/10/19 16:25 03/17/19 10:29 Tylenol PO 650 mg Q4H PRN Administration Pain, Mild (1-3) Amlodipine Besylate 10 mg 04/03/19 11:00 09/29/19 09:23 Norvasc PO 10 mg QDAY TAMMIE Administration Lipase/Protease/Amylase 1 each 03/13/19 10:02 Pancretom Sifuentes 10,500 Unit FEEDTUBE PRN PRN For Clogged Feeding Tube Aspirin 81 mg 03/17/19 10:00 04/05/19 09:23 Baby Aspirin PO 81 mg QDAY TAMMIE Administration Atorvastatin Calcium 40 mg 03/10/19 22:00 04/04/19 21:28 Lipitor PO 40 mg QHS [facility] Administration Bisacodyl 10 mg 03/10/19 16:25 Dulcolax PA QDAY PRN Constipation Carvedilol 12.5 mg 04/04/19 14:00 04/05/19 09:41 Coreg PO 12.5 mg BID TAMMIE Administration Dextrose 50 ml 03/18/19 13:00 D50w (25gm) Syringe IV PRN PRN Hypoglycemia Furosemide 40 mg 04/05/19 18:00 Lasix PO 0600,1800 TAMMIE Gabapentin 100 mg 03/29/19 22:00 04/04/19 21:29 Neurontin PO 100 mg QHS [facility] Administration Hydralazine HCl 20 mg 03/13/19 06:00 04/05/19 08:04 Apresoline IV 20 mg Q4H PRN Administration Hypertension Hydralazine HCl 100 mg 04/02/19 14:00 04/05/19 14:57 Apresoline PO 100 mg Q8HR TAMMIE Administration Insulin Glargine 10 units 04/04/19 22:00 04/04/19 21:27 Lantus SUB-Q 10 units QHS [facility] Administration Insulin Human Lispro 0 unit 03/28/19 07:30 04/05/19 11:55 Humalog SUB-Q 2 unit ACHS [facility] Administration Protocol Levothyroxine Sodium 25 mcg 04/04/19 06:00 04/05/19 05:06 Synthroid PO 25 mcg DAILY@0600 [facility] Administration Metoclopramide HCl 5 mg 03/30/19 08:00 Reglan PO Q6H PRN Nausea And Vomiting Minoxidil 5 mg 04/06/19 11:00 Loniten PO QDAY TAMMIE Minoxidil 5 mg 04/05/19 15:36 Loniten PO 04/05/19 15:37 ONCE ONE Ondansetron HCl 4 mg 03/10/19 16:25 Zofran IV Q8H PRN Nausea And Vomiting Oxycodone/Acetaminophen 1 tab 03/17/19 14:04 04/02/19 21:16 Percocet 5/325 PO 1 tab Q6H PRN Administration Pain, Moderate (4-6) Promethazine HCl 25 mg 03/10/19 16:25 Phenergan PA Q6H PRN Nausea And Vomiting Sodium Bicarbonate 325 mg 03/13/19 10:02 Sodium Bicarbonate FEEDTUBE PRN PRN For Clogged Feeding Tube Sodium Chloride 10 ml 03/10/19 16:25 04/03/19 17:41 Sodium Chloride Flush Syringe 10 Ml IV 10 ml PRN PRN Administration LINE FLUSH Warfarin Sodium 4 mg 04/05/19 17:00 Coumadin PO DAILY@1700 [facility] Nutrition/Malnutrition Assess - Dietary Evaluation Nutrition/Malnutrition Findings: Nutrition Notes Start: 03/11/19 12:57 Freq: Status: Active Protocol: Document 03/31/19 11:08 PS (Rec: 03/31/19 12:23 PS [id number]) Co-Sign 03/31/19 11:08 LP Nutrition Notes Initial or Follow up Reassessment Current Diagnosis Diabetes,Hypertension Other Pertinent Diagnosis 1+ pitting edema Current Diet Renal Diet Labs/Tests BUN 56 Creat 2.4 Pertinent Medications Lasix Height 5 ft 10 in Weight 96.842 kg Usual Body Weight 85.5 kg [place] Body Weight (kg) 75.45 BMI 30.6 Weight change and time frame 10 kg in 8 days. Likely due to fluid. Subjective/Other Information Pt. was asleep when visited. Pt. ate 100% of breakfast. Removal of supplement due to meeting energy and protein needs PO. Percent of energy/protein needs met: 100%/100% Burn Absent Trauma Absent Minimum of two criteria No #3 Nutrition Diagnosis Inadequate energy intake As Evidenced by Signs and Symptoms Pt meeting 100% of energy and protein needs. Diagnosis Progress(for reassessment Resolved documentation) #2 Nutrition Diagnosis Malnutrition Diagnosis Progress(for reassessment Continues documentation) Is patient on ventilator? No Is Patient Ambulatory and/or Out of Bed No REE-([facility]-confined to bed) 2009.408 Kcal/Kg value to use for calculation 19 Approximate Energy Requirements Using 1840 kcal/Kg Calculation Used for Recommendations Kcal/kg Additional Notes Protein: (86 g - 102 g/day (1- 1.2 g/kg UBW) Fluid needs: 1ml/kcal UBW Nutrition Intervention Change Diet Order: Continue current Renal Diet Add Supplement/Snack (indicate name/kcal D/C /protein ) Goal #1 Meet at least 75% of energy and protein needs via PO Anticipated Discharge Needs: Renal Diet Revisit per MD consult or patient Sign Off request:
[2019-04-05] MEDS ORDERED: MINOXIDIL 2.5 MG TAB PO ONE (16:00)
[2019-04-05] MEDS ORDERED: WARFARIN 2 MG TAB PO SCH (17:00)
[2019-04-05] MEDS: FUROSEMIDE 40 MG TAB PO SCH (17:14)
[2019-04-05] MEDS ORDERED: FUROSEMIDE 20 MG TAB PO SCH (18:00)
[2019-04-05] MEDS ORDERED: FUROSEMIDE 40 MG/4 ML INJ IV SCH (18:00)
[2019-04-05] MEDS: oxyCODONE /ACETAMINOPHEN 5-325MG TAB PO PRN (19:46)
[2019-04-05 20:43] LABS: ANA Screen, IFA Negative (Negative)
[2019-04-05] MEDS: GABAPENTIN 100 MG CAP PO SCH (21:58)
[2019-04-05] MEDS: INSULIN GLARGINE 100 UNITS/ML SUB-Q SCH (22:00)
[2019-04-06] MEDS: hydrALAZINE 20 MG/1 ML INJ IV PRN (02:39)
[2019-04-06] MEDS: hydrALAZINE 100 MG TAB PO SCH ×2 (05:30→14:02)
[2019-04-06] MEDS: LEVOTHYROXINE 25 MCG TAB PO SCH (05:30)
[2019-04-06] MEDS: FUROSEMIDE 40 MG TAB PO SCH ×2 (05:30→17:00)
[2019-04-06 06:25] LABS: INR 2.8 (0.87-1.13)
[2019-04-06 06:27] LABS: Calcium 7.7 mg/dL (8.4-10.2)
[2019-04-06] MEDS: INSULIN LISPRO 100 UNIT/ML SUB-Q SCH ×3 (08:15→17:00)
--- NOTE | 2019-04-06 09:26 | Progress Note ---
Assessment and Plan - Patient Problems (1) Acute kidney injury superimposed on CKD Current Visit: Yes Status: Acute Plan to address problem: Overall renal function is stable. supportive care for CKD, avoid nephrotoxins, NSAIDs, IV contrast. stable for discharge from renal stand point with outpt CKD f/u (2) Hyperkalemia Current Visit: Yes Status: Acute Plan to address problem: normalized (3) Hypertensive chronic kidney disease with stage 1 through stage 4 chronic kidney disease, or unspecified chronic kidney disease Current Visit: Yes Status: Chronic Plan to address problem: BP remains uncontrolled, minoxidil was added. Once eGFR is in steady state will consider adding HARRY-I/ARB with close K monitoring, may need valtessa as outpatient to allow appropriate dosing for HARRY-I/ARB while minimizing risk for hyperkalemia (4) Fluid overload Current Visit: Yes Status: Acute Plan to address problem: Patient is in negative fluid balance. changed lasix 40mg to po bid (5) Type 2 diabetes mellitus with diabetic nephropathy Current Visit: Yes Status: Chronic Plan to address problem: DM management per primary attending. Subjective Date of service: 04/06/19 Principal diagnosis: CVA, acute metabolic encephalopathy, hypertensive emergency, DMT 2 Interval history: Pt awake, alert, in no acute distress. Objective - Vital Signs Vital signs: Vital Signs - 12hr 04/05/19 04/05/19 04/05/19 21:58 22:00 22:57 Temperature Pulse Rate 71 66 Respiratory Rate Blood Pressure 175/62 175/61 O2 Sat by Pulse 96 100 Oximetry 04/06/19 04/06/19 04/06/19 00:09 00:35 01:06 Temperature Pulse Rate 58 L 56 L 56 L Respiratory Rate Blood Pressure 105/69 O2 Sat by Pulse 100 Oximetry 04/06/19 04/06/19 04/06/19 01:42 02:39 03:11 Temperature 98.3 F 98.3 F Pulse Rate 57 L 59 L Respiratory 20 Rate Blood Pressure 163/56 165/56 O2 Sat by Pulse 97 Oximetry 04/06/19 04/06/19 04/06/19 04:02 07:18 08:12 Temperature 99.0 F Pulse Rate 63 Respiratory 18 Rate Blood Pressure 172/60 180/58 O2 Sat by Pulse 99 95 Oximetry - General Appearance General appearance: well-developed, well-nourished, appears stated age EENT: ATNC, PERRL, mucous membranes moist Neck: no JVD Respiratory: Present: Clear to Ascultation Cardiology: regular, S1S2 Gastrointestinal: normoactive bowel sounds Integumentary: no rash, other (no edema ) Neurologic: no focal deficit, alert and oriented x3, strength 5/5, CN 3-12 intact Psychiatric: mood/affect appropriate, cooperative - Lab 04/02/19 04:58 04/06/19 03:30 Most recent lab results Calcium 7.7 mg/dL (8.4-10.2) L 04/06/19 03:30 Phosphorus 3.50 mg/dL (2.5-4.5) 03/25/19 05:43 Magnesium 2.00 mg/dL (1.7-2.3) 03/25/19 05:43 Urine Creatinine 97.7 mg/dL (0.1-20.0) H 03/24/19 14:28 Urine Sodium 16 mmol/L 03/24/19 14:28 Urine Total Protein 351 mg/dL (5-11.8) H 03/24/19 14:28 Medications & Allergies - Medications Allergies/Adverse Reactions: Allergies No Known Allergies Allergy (Unverified 03/10/19 11:50) Home Medications: Home Medications Medication Instructions Recorded Confirmed Last Taken Type Coreg 6.25 mg PO BID 03/14/19 03/14/19 Unknown History Rosuvastatin (Nf) [Crestor] 20 mg PO QHS 03/14/19 03/14/19 Unknown History Gabapentin [Neurontin] 300 mg PO QHS 03/15/19 03/15/19 Unknown History Insulin Glargine [Lantus] 5 units SQ QHS 03/15/19 03/15/19 Unknown History Lispro Insulin [HumaLOG] 2 units SQ TIDAC 03/15/19 03/15/19 Unknown History Warfarin [Coumadin] 6 mg PO QDAY 03/15/19 03/15/19 Unknown History cloNIDine [Catapres] 0.3 mg PO TID 03/15/19 03/15/19 Unknown History Active Medications: Generic Name Dose Route Start Last Admin Trade Name Freq PRN Reason Stop Dose Admin Acetaminophen 650 mg 03/10/19 16:25 03/17/19 10:29 Tylenol PO 650 mg Q4H PRN Administration Pain, Mild (1-3) Amlodipine Besylate 10 mg 04/03/19 11:00 04/05/19 09:23 Norvasc PO 10 mg QDAY TAMMIE Administration Lipase/Protease/Amylase 1 each 03/13/19 10:02 Destiny Sifuentes 10,500 Unit FEEDTUBE PRN PRN For Clogged Feeding Tube Aspirin 81 mg 03/17/19 10:00 04/05/19 09:23 Baby Aspirin PO 81 mg QDAY TAMMIE Administration Atorvastatin Calcium 40 mg 03/10/19 22:00 04/05/19 21:58 Lipitor PO 40 mg QHS TAMMIE Administration Bisacodyl 10 mg 03/10/19 16:25 Dulcolax [place] QDAY PRN Constipation Carvedilol 12.5 mg 04/04/19 14:00 04/05/19 21:58 Coreg PO 12.5 mg BID TAMMIE Administration Dextrose 50 ml 03/18/19 13:00 D50w (25gm) Syringe IV PRN PRN Hypoglycemia Furosemide 40 mg 04/05/19 18:00 04/06/19 05:30 Lasix PO 40 mg 0600,1800 TAMMIE Administration Gabapentin 100 mg 03/29/19 22:00 04/05/19 21:58 Neurontin PO 100 mg QHS TAMMIE Administration Hydralazine HCl 20 mg 03/13/19 06:00 04/06/19 02:39 Apresoline IV 20 mg Q4H PRN Administration Hypertension Hydralazine HCl 100 mg 04/02/19 14:00 04/06/19 05:30 Apresoline PO 100 mg Q8HR TAMMIE Administration Insulin Glargine 10 units 04/04/19 22:00 04/05/19 22:00 Lantus SUB-Q 10 units QHS TAMMIE Administration Insulin Human Lispro 0 unit 03/28/19 07:30 04/05/19 21:57 Humalog SUB-Q 3 unit ACHS TAMMIE Administration Protocol Levothyroxine Sodium 25 mcg 04/04/19 06:00 04/06/19 05:30 Synthroid PO 25 mcg DAILY@0600 TAMMIE Administration Metoclopramide HCl 5 mg 03/30/19 08:00 Reglan PO Q6H PRN Nausea And Vomiting Minoxidil 10 mg 04/06/19 10:00 Loniten PO QDAY TAMMIE Ondansetron HCl 4 mg 03/10/19 16:25 Zofran IV Q8H PRN Nausea And Vomiting Oxycodone/Acetaminophen 1 tab 03/17/19 14:04 04/05/19 19:46 Percocet 5/325 PO 1 tab Q6H PRN Administration Pain, Moderate (4-6) Promethazine HCl 25 mg 03/10/19 16:25 Phenergan [place] Q6H PRN Nausea And Vomiting Sodium Bicarbonate 325 mg 03/13/19 10:02 Sodium Bicarbonate FEEDTUBE PRN PRN For Clogged Feeding Tube Sodium Chloride 10 ml 03/10/19 16:25 04/03/19 17:41 Sodium Chloride Flush Syringe 10 Ml IV 10 ml PRN PRN Administration LINE FLUSH Warfarin Sodium 4 mg 04/05/19 17:00 04/05/19 16:08 Coumadin PO 4 mg DAILY@1700 TAMMIE Administration
[2019-04-06] MEDS ORDERED: MINOXIDIL 10 MG TAB PO SCH (10:00)
[2019-04-06] MEDS: amLODIPine 10 MG TAB PO SCH (10:03)
[2019-04-06] MEDS: carvediloL 12.5 MG TAB PO SCH (10:03)
[2019-04-06] MEDS: ASPIRIN 81 MG TAB CHEW PO SCH (10:03)
[2019-04-06] MEDS ORDERED: MINOXIDIL 2.5 MG TAB PO SCH (11:00)
--- NOTE | 2019-04-06 11:36 | Progress Note ---
Assessment and Plan AMS S/p neuro w/u. Secondary to metabolic encephalopathy per neurology. Now resolved. Stable for discharge per neurology. Sinus bradycardia Stable. HR currenly in 60s with apparent HR los of 40 since admission. Pt's home medication regimen included clonidine 0.3mgTID and coreg 6.25mg BID. Clonidine has been weaned off. Transient SVT Bout of SVT noted on afternoon of 04/02. RBBB Hypertensive urgency / poorly controlled HTN BPs improving. Cont present regimen. DM H/o DVT Anticoagulated with Coumadin. LUI on CKD / fluid overload / hyperkalemia Improved. Stable for discharge from renal stand point per nephrology. Currently stable cardiac status. Pt may discharge from cardiology standpoint on current cardiac regimen. Recommend pt follow up in our office with Dr. Soto within 1-2 weeks of hospital discharge ([phone]). The patient has been seen in conjunction with Dr. Bal who agrees with the assessment and plan of care. Subjective Date of service: 04/06/19 Principal diagnosis: CVA, acute metabolic encephalopathy, hypertensive emergency, DMT 2 Interval history: pt resting in bed, no current cardiac complaints. tele reviewed - in SR with HR 60s. at bedside. Objective Last Vital Signs Temp 99.0 F 04/06/19 07:18 Pulse 63 04/06/19 10:03 Resp 18 04/06/19 07:18 BP 180/58 04/06/19 10:03 Pulse Ox 99 04/06/19 10:50 - Physical Examination General: No Apparent Distress HEENT: Positive: PERRL, Normocephaly, Mucus Membranes Moist Neck: Positive: neck supple, trachea midline Cardiac: Positive: Reg Rate and Rhythm, S1/S2 Lungs: Positive: Decreased Breath Sounds Neuro: Positive: Grossly Intact Abdomen: Positive: Soft. Negative: Tender Skin: Negative: Rash Musculoskeletal: No Pain Extremities: Present: edema (trace BLE) - Labs and Meds Coagulation 04/06/19 Range/Units 03:30 PT 29.0 H (12.2-14.9) Sec. INR 2.80 H (0.87-1.13) Comprehensive Metabolic Panel 04/06/19 Range/Units 03:30 Sodium 141 (137-145) mmol/L Potassium 3.9 (3.6-5.0) mmol/L Chloride 96.5 L (98-107) mmol/L Carbon Dioxide 35 H (22-30) mmol/L BUN 41 H (9-20) mg/dL Creatinine 2.1 H (0.8-1.5) mg/dL Glucose 133 H (75-100) mg/dL Calcium 7.7 L (8.4-10.2) mg/dL - Imaging and Cardiology EKG: report reviewed, image reviewed Echo: report reviewed (03/10/2019 showed EF 55-60%, mild LVH, impaired relaxation, negative bubble study. ) - EKG Sinus rhythms and dysrhythmias: sinus rhythm AV and intraventricular conduction: right bundle branch block - Allied health notes Allied health notes reviewed: nursing
--- NOTE | 2019-04-06 11:58 | Progress Note ---
Assessment and Plan 84 YR OLD MALE WITH HIST OF CKD, POORLY CONTROLLED HYPERTENSION, DIABETES WHO CAME IN WITH ACUTE MENTAL STATUS CHANGE AND WAS ADMITTED IN THE BEGINNING OF THIS MONTH AND WAS SEEN BY ME SOON AFTER ADMISSION. I DIAGNOSED HIM TO HAVE ACUTE METABOLIC ENCEPHALOPATHY DUE MOSTLY TO ACUTE ON CHRONIC KIDNEY DISEASE CAUSING FLUID IMBALANCE WHICH WAS THE REASON OF HIS MENTAL STATUS CHANGE. NECCESSARY RECOMMENDATIONS WERE MADE AT THAT POINT.PATIENT HAS SINCE IMPROVED SIGNIFICANTLY IS ABOUT TO BE DISCHARGED. THIS EVALUATION IS FOR NEURO CLEARENCE. PHYSICAL EXAMINATION- PATIENT IS ALERT AND APPROPRIATE. HAS INSIGHT INTO HIS PROBLEM AND ANSWERS QUESTIONS APPROPRIATELY.MENTAL STATUS IS NORMAL TODAY, HEART-NORMAL RATE AND RYTHM. MOTOR- NO ASYMMETRY OF STRENGTH REFLEXES- REFLEXES ARE DECREASED IN ALL FOUR EXTREMITIES MORE SO IN THE LOWER EXTREMITIES, WITHOUT ANY ASYMMETRY AND HAS BILATERAL DOWN GOING TOES. COORDINATION-WITHIN NORMAL LIMIT SENSORY- SENSORY EXAMINATION IS GROSSLY WITH IN NORMAL LIMIT. IMPRESSION. METABOLIC ENCEPHALOPATHY, RESOLVED NOW. CURRENTLY PATIENT IS BACK TO HIS NORMAL SELF. RECOMMEND- CAN BE DISCHARGED HOME FROM [facility]. Subjective Principal diagnosis: CVA, acute metabolic encephalopathy, hypertensive emergency, DMT 2 Objective - Vital Sign Vital Signs - 12hr 04/06/19 04/06/19 04/06/19 00:09 00:35 01:06 Temperature Pulse Rate 58 L 56 L 56 L Respiratory Rate Blood Pressure 105/69 O2 Sat by Pulse 100 Oximetry 04/06/19 04/06/19 04/06/19 01:42 02:39 03:11 Temperature 98.3 F 98.3 F Pulse Rate 57 L 59 L Respiratory 20 Rate Blood Pressure 163/56 165/56 O2 Sat by Pulse 97 Oximetry 04/06/19 04/06/19 04/06/19 04:02 07:18 08:12 Temperature 99.0 F Pulse Rate 63 Respiratory 18 Rate Blood Pressure 172/60 180/58 O2 Sat by Pulse 99 95 Oximetry 04/06/19 04/06/19 10:03 10:50 Temperature Pulse Rate 63 Respiratory Rate Blood Pressure 180/58 O2 Sat by Pulse 99 Oximetry - Laboratory Findings CBC and BMP: 04/02/19 04:58 04/06/19 03:30 Abnormal Lab Findings: Abnormal Labs 03/10/19 03/10/19 03/10/19 12:17 12:17 12:17 Hgb Hct RDW Plt Count [place] % (Auto) Eos % (Auto) [place] # Seg Neutrophils % PT 21.9 H INR 1.96 H Thrombin Time 25.2 H Sodium Potassium 5.5 H Chloride Carbon Dioxide 20 L BUN 24 H Creatinine Glucose POC Glucose Calcium Troponin T 0.076 H HDL Cholesterol 62 H TSH Urine Creatinine Urine Total Protein 03/10/19 03/10/19 03/10/19 13:55 15:56 21:51 Hgb Hct RDW 17.8 H Plt Count 136 L [place] % (Auto) Eos % (Auto) [place] # Seg Neutrophils % 72.4 H PT INR Thrombin Time Sodium Potassium Chloride Carbon Dioxide BUN Creatinine Glucose POC Glucose 112 H 132 H Calcium Troponin T HDL Cholesterol TSH Urine Creatinine Urine Total Protein 03/11/19 03/11/19 03/11/19 08:15 12:23 16:42 Hgb Hct RDW Plt Count [place] % (Auto) Eos % (Auto) [place] # Seg Neutrophils % PT INR Thrombin Time Sodium Potassium Chloride Carbon Dioxide BUN Creatinine Glucose POC Glucose 107 H 112 H 121 H Calcium Troponin T HDL Cholesterol TSH Urine Creatinine Urine Total Protein 03/11/19 03/12/19 03/12/19 21:09 07:34 12:25 Hgb Hct RDW Plt Count [place] % (Auto) Eos % (Auto) [place] # Seg Neutrophils % PT INR Thrombin Time Sodium Potassium Chloride Carbon Dioxide BUN Creatinine Glucose POC Glucose 116 H 119 H 175 H Calcium Troponin T HDL Cholesterol TSH Urine Creatinine Urine Total Protein 03/12/19 03/13/19 03/13/19 17:27 05:13 05:13 Hgb Hct RDW 18.4 H Plt Count [place] % (Auto) 12.1 H Eos % (Auto) [place] # 1.0 H Seg Neutrophils % 71.5 H PT 28.5 H INR 2.74 H Thrombin Time Sodium Potassium Chloride Carbon Dioxide BUN Creatinine Glucose POC Glucose 111 H Calcium Troponin T HDL Cholesterol TSH Urine Creatinine Urine Total Protein 03/13/19 03/13/19 03/13/19 05:13 08:07 12:00 Hgb Hct RDW Plt Count [place] % (Auto) Eos % (Auto) [place] # Seg Neutrophils % PT INR Thrombin Time Sodium 148 H D Potassium Chloride Carbon Dioxide BUN 35 H Creatinine 1.9 H Glucose 115 H POC Glucose 114 H 122 H Calcium Troponin T HDL Cholesterol TSH Urine Creatinine Urine Total Protein 03/13/19 03/13/19 03/14/19 16:09 20:57 07:01 Hgb Hct RDW 18.2 H Plt Count 130 L [place] % (Auto) 11.9 H Eos % (Auto) [place] # 0.9 H Seg Neutrophils % PT INR Thrombin Time Sodium Potassium Chloride Carbon Dioxide BUN Creatinine Glucose POC Glucose 113 H 106 H Calcium Troponin T HDL Cholesterol TSH Urine Creatinine Urine Total Protein 03/14/19 03/14/19 03/14/19 07:08 07:08 08:20 Hgb Hct RDW Plt Count [place] % (Auto) Eos % (Auto) [place] # Seg Neutrophils % PT 24.6 H INR 2.27 H Thrombin Time Sodium 149 H Potassium Chloride 110.0 H Carbon Dioxide BUN 40 H Creatinine 2.0 H Glucose 140 H POC Glucose 121 H Calcium Troponin T HDL Cholesterol TSH Urine Creatinine Urine Total Protein 03/14/19 03/14/19 03/14/19 11:41 16:22 21:58 Hgb Hct RDW Plt Count [place] % (Auto) Eos % (Auto) [place] # Seg Neutrophils % PT INR Thrombin Time Sodium Potassium Chloride Carbon Dioxide BUN Creatinine Glucose POC Glucose 153 H 178 H 206 H Calcium Troponin T HDL Cholesterol TSH Urine Creatinine Urine Total Protein 03/15/19 03/15/19 03/15/19 05:12 08:08 11:58 Hgb Hct RDW Plt Count [place] % (Auto) Eos % (Auto) [place] # Seg Neutrophils % PT 16.7 H INR 1.39 H Thrombin Time Sodium Potassium Chloride Carbon Dioxide BUN Creatinine Glucose POC Glucose 160 H 205 H Calcium Troponin T HDL Cholesterol TSH Urine Creatinine Urine Total Protein 03/15/19 03/15/19 03/16/19 12:18 16:18 07:40 Hgb Hct RDW Plt Count [place] % (Auto) Eos % (Auto) [place] # Seg Neutrophils % PT 19.5 H INR 1.69 H Thrombin Time Sodium Potassium Chloride Carbon Dioxide BUN 30 H Creatinine 1.6 H Glucose 267 H POC Glucose 242 H Calcium 7.9 L Troponin T HDL Cholesterol TSH Urine Creatinine Urine Total Protein 03/16/19 03/16/19 03/16/19 07:40 07:40 08:22 Hgb Hct RDW 18.0 H Plt Count 130 L [place] % (Auto) 13.3 H Eos % (Auto) 5.4 H [place] # 0.9 H Seg Neutrophils % PT INR Thrombin Time Sodium Potassium Chloride 108.0 H Carbon Dioxide BUN 26 H Creatinine 1.6 H Glucose 151 H POC Glucose 147 H Calcium 7.8 L Troponin T HDL Cholesterol TSH Urine Creatinine Urine Total Protein 03/16/19 03/16/19 03/16/19 12:09 16:54 21:50 Hgb Hct RDW Plt Count [place] % (Auto) Eos % (Auto) [place] # Seg Neutrophils % PT INR Thrombin Time Sodium Potassium Chloride Carbon Dioxide BUN Creatinine Glucose POC Glucose 183 H 181 H 208 H Calcium Troponin T HDL Cholesterol TSH Urine Creatinine Urine Total Protein 03/17/19 03/17/19 03/17/19 05:29 08:28 11:49 Hgb Hct RDW Plt Count [place] % (Auto) Eos % (Auto) [place] # Seg Neutrophils % PT 15.7 H INR 1.28 H Thrombin Time Sodium Potassium Chloride Carbon Dioxide BUN Creatinine Glucose POC Glucose 154 H 296 H Calcium Troponin T HDL Cholesterol TSH Urine Creatinine Urine Total Protein 03/17/19 03/17/19 03/18/19 16:33 20:20 05:40 Hgb Hct RDW Plt Count [place] % (Auto) Eos % (Auto) [place] # Seg Neutrophils % PT 15.9 H INR 1.30 H Thrombin Time Sodium Potassium Chloride Carbon Dioxide BUN Creatinine Glucose POC Glucose 260 H 244 H Calcium Troponin T HDL Cholesterol TSH Urine Creatinine Urine Total Protein 03/18/19 03/18/19 03/18/19 05:40 07:59 11:41 Hgb Hct RDW Plt Count [place] % (Auto) Eos % (Auto) [place] # Seg Neutrophils % PT INR Thrombin Time Sodium Potassium Chloride Carbon Dioxide BUN 21 H Creatinine 1.7 H Glucose 174 H POC Glucose 172 H 185 H Calcium 7.7 L Troponin T HDL Cholesterol TSH Urine Creatinine Urine Total Protein 03/18/19 03/18/19 03/19/19 17:34 21:27 04:51 Hgb Hct RDW Plt Count [place] % (Auto) Eos % (Auto) [place] # Seg Neutrophils % PT 18.7 H INR 1.60 H Thrombin Time Sodium Potassium Chloride Carbon Dioxide BUN Creatinine Glucose POC Glucose 187 H 159 H Calcium Troponin T HDL Cholesterol TSH Urine Creatinine Urine Total Protein 03/19/19 03/19/19 03/19/19 04:51 08:32 12:05 Hgb Hct RDW Plt Count [place] % (Auto) Eos % (Auto) [place] # Seg Neutrophils % PT INR Thrombin Time Sodium Potassium Chloride 108.6 H Carbon Dioxide BUN 22 H Creatinine 1.8 H Glucose 141 H POC Glucose 142 H 165 H Calcium 7.7 L Troponin T HDL Cholesterol TSH Urine Creatinine Urine Total Protein 03/19/19 03/20/19 03/20/19 22:33 05:28 11:40 Hgb Hct RDW Plt Count [place] % (Auto) Eos % (Auto) [place] # Seg Neutrophils % PT 26.1 H INR 2.45 H Thrombin Time Sodium Potassium Chloride Carbon Dioxide BUN Creatinine Glucose POC Glucose 200 H 140 H Calcium Troponin T HDL Cholesterol TSH Urine Creatinine Urine Total Protein 03/20/19 03/21/19 03/21/19 16:21 05:27 07:36 Hgb Hct RDW Plt Count [place] % (Auto) Eos % (Auto) [place] # Seg Neutrophils % PT 31.2 H INR 3.07 H Thrombin Time Sodium Potassium Chloride Carbon Dioxide BUN Creatinine Glucose POC Glucose 219 H 247 H Calcium Troponin T HDL Cholesterol TSH Urine Creatinine Urine Total Protein 03/21/19 03/21/19 03/21/19 11:42 17:05 22:21 Hgb Hct RDW Plt Count [place] % (Auto) Eos % (Auto) [place] # Seg Neutrophils % PT INR Thrombin Time Sodium Potassium Chloride Carbon Dioxide BUN Creatinine Glucose POC Glucose 208 H 140 H 226 H Calcium Troponin T HDL Cholesterol TSH Urine Creatinine Urine Total Protein 03/22/19 03/22/19 03/22/19 04:33 04:33 07:26 Hgb Hct RDW Plt Count [place] % (Auto) Eos % (Auto) [place] # Seg Neutrophils % PT 38.3 H INR 3.98 H Thrombin Time Sodium Potassium Chloride Carbon Dioxide BUN 32 H Creatinine 2.3 H Glucose 185 H POC Glucose 155 H Calcium 8.0 L Troponin T HDL Cholesterol TSH Urine Creatinine Urine Total Protein 03/22/19 03/22/19 03/22/19 11:16 16:55 21:51 Hgb Hct RDW Plt Count [place] % (Auto) Eos % (Auto) [place] # Seg Neutrophils % PT INR Thrombin Time Sodium Potassium Chloride Carbon Dioxide BUN Creatinine Glucose POC Glucose 126 H 189 H 188 H Calcium Troponin T HDL Cholesterol TSH Urine Creatinine Urine Total Protein 03/23/19 03/23/19 03/23/19 05:26 11:20 16:55 Hgb Hct RDW Plt Count [place] % (Auto) Eos % (Auto) [place] # Seg Neutrophils % PT 29.1 H INR 2.81 H Thrombin Time Sodium Potassium Chloride Carbon Dioxide BUN Creatinine Glucose POC Glucose 123 H 250 H Calcium Troponin T HDL Cholesterol TSH Urine Creatinine Urine Total Protein 03/23/19 03/24/19 03/24/19 22:39 06:22 08:10 Hgb Hct RDW Plt Count [place] % (Auto) Eos % (Auto) [place] # Seg Neutrophils % PT 28.4 H INR 2.72 H Thrombin Time Sodium Potassium Chloride Carbon Dioxide BUN Creatinine Glucose POC Glucose 237 H 206 H Calcium Troponin T HDL Cholesterol TSH Urine Creatinine Urine Total Protein 03/24/19 03/24/19 03/24/19 08:50 11:44 14:28 Hgb Hct RDW Plt Count [place] % (Auto) Eos % (Auto) [place] # Seg Neutrophils % PT INR Thrombin Time Sodium Potassium Chloride Carbon Dioxide BUN 42 H Creatinine 2.6 H Glucose 201 H POC Glucose 138 H Calcium 8.2 L Troponin T HDL Cholesterol TSH Urine Creatinine 97.7 H Urine Total Protein 351 H 03/24/19 03/24/19 03/25/19 16:33 21:19 05:43 Hgb Hct RDW Plt Count [place] % (Auto) Eos % (Auto) [place] # Seg Neutrophils % PT 26.0 H INR 2.44 H Thrombin Time Sodium Potassium Chloride Carbon Dioxide BUN Creatinine Glucose POC Glucose 237 H 275 H Calcium Troponin T HDL Cholesterol TSH Urine Creatinine Urine Total Protein 03/25/19 03/25/19 03/25/19 05:43 07:28 11:21 Hgb Hct RDW Plt Count [place] % (Auto) Eos % (Auto) [place] # Seg Neutrophils % PT INR Thrombin Time Sodium 135 L Potassium Chloride Carbon Dioxide BUN 45 H Creatinine 2.7 H Glucose 181 H POC Glucose 190 H 234 H Calcium 8.1 L Troponin T HDL Cholesterol TSH Urine Creatinine Urine Total Protein 03/25/19 03/25/19 03/26/19 16:49 21:34 04:36 Hgb Hct RDW Plt Count [place] % (Auto) Eos % (Auto) [place] # Seg Neutrophils % PT 24.3 H INR 2.23 H Thrombin Time Sodium Potassium Chloride Carbon Dioxide BUN Creatinine Glucose POC Glucose 261 H 215 H Calcium Troponin T HDL Cholesterol TSH Urine Creatinine Urine Total Protein 03/26/19 03/26/19 03/26/19 07:11 10:29 11:55 Hgb Hct RDW Plt Count [place] % (Auto) Eos % (Auto) [place] # Seg Neutrophils % PT INR Thrombin Time Sodium 128 L D Potassium 5.7 H Chloride 96.5 L Carbon Dioxide BUN 50 H Creatinine 3.4 H Glucose 149 H POC Glucose 127 H 293 H Calcium 7.9 L Troponin T HDL Cholesterol TSH Urine Creatinine Urine Total Protein 03/26/19 03/26/19 03/27/19 16:58 21:51 05:59 Hgb Hct RDW Plt Count [place] % (Auto) Eos % (Auto) [place] # Seg Neutrophils % PT 22.3 H INR 2.00 H Thrombin Time Sodium Potassium Chloride Carbon Dioxide BUN Creatinine Glucose POC Glucose 159 H 203 H Calcium Troponin T HDL Cholesterol TSH Urine Creatinine Urine Total Protein 03/27/19 03/27/19 03/27/19 05:59 07:17 11:36 Hgb Hct RDW Plt Count [place] % (Auto) Eos % (Auto) [place] # Seg Neutrophils % PT INR Thrombin Time Sodium 127 L Potassium 6.1 H* Chloride 95.8 L Carbon Dioxide BUN 57 H Creatinine 3.8 H Glucose 180 H POC Glucose 187 H 213 H Calcium 7.8 L Troponin T HDL Cholesterol TSH Urine Creatinine Urine Total Protein 03/27/19 03/27/19 03/28/19 14:23 22:58 03:31 Hgb Hct RDW Plt Count [place] % (Auto) Eos % (Auto) [place] # Seg Neutrophils % PT INR Thrombin Time Sodium 127 L Potassium 5.8 H Chloride 92.8 L Carbon Dioxide BUN 56 H Creatinine 3.5 H Glucose POC Glucose 67 L 127 H Calcium 8.3 L Troponin T HDL Cholesterol TSH Urine Creatinine Urine Total Protein 03/28/19 03/28/19 03/28/19 04:08 04:08 04:34 Hgb Hct RDW Plt Count [place] % (Auto) Eos % (Auto) [place] # Seg Neutrophils % PT 23.7 H INR 2.17 H Thrombin Time Sodium 127 L Potassium 6.4 H* Chloride 93.5 L Carbon Dioxide 21 L BUN 58 H Creatinine 3.4 H Glucose 106 H POC Glucose 143 H Calcium Troponin T HDL Cholesterol TSH Urine Creatinine Urine Total Protein 03/28/19 03/28/19 03/28/19 09:36 11:41 14:56 Hgb Hct RDW Plt Count [place] % (Auto) Eos % (Auto) [place] # Seg Neutrophils % PT INR Thrombin Time Sodium Potassium Chlor[place] Carbon Dioxide BUN Creatinine Glucose POC Glucose 216 H 267 H 237 H Calcium Troponin T HDL Cholesterol TSH Urine Creatinine Urine Total Protein 03/28/19 03/28/19 03/28/19 16:36 16:56 21:12 Hgb Hct RDW Plt Count [place] % (Auto) Eos % (Auto) [place] # Seg Neutrophils % PT INR Thrombin Time Sodium 128 L Potassium 5.6 H Chloride 94.2 L Carbon Dioxide BUN 57 H Creatinine 3.1 H Glucose 290 H POC Glucose 322 H 262 H Calcium 8.3 L Troponin T HDL Cholesterol TSH Urine Creatinine Urine Total Protein 03/29/19 03/29/19 03/29/19 03:32 04:07 04:07 Hgb Hct RDW Plt Count [place] % (Auto) Eos % (Auto) [place] # Seg Neutrophils % PT 33.3 H INR 3.33 H Thrombin Time Sodium 132 L Potassium Chloride 95.8 L Carbon Dioxide BUN 56 H Creatinine 3.0 H Glucose 295 H POC Glucose 169 H Calcium Troponin T HDL Cholesterol TSH Urine Creatinine Urine Total Protein 03/29/19 03/29/19 03/29/19 07:40 11:45 16:21 Hgb Hct RDW Plt Count [place] % (Auto) Eos % (Auto) [place] # Seg Neutrophils % PT INR Thrombin Time Sodium Potassium Ch[place] Carbon Dioxide BUN Creatinine Glucose POC Glucose 156 H 135 H 221 H Calcium Troponin T HDL Cholesterol TSH Urine Creatinine Urine Total Protein 03/29/19 03/30/19 03/30/19 21:07 05:42 05:42 Hgb Hct RDW Plt Count [place] % (Auto) Eos % (Auto) [place] # Seg Neutrophils % PT 38.4 H INR 4.00 H Thrombin Time Sodium 136 L Potassium 5.3 H Chloride Carbon Dioxide BUN 57 H Creatinine 2.8 H Glucose 120 H POC Glucose 226 H Calcium 8.1 L Troponin T HDL Cholesterol TSH Urine Creatinine Urine Total Protein 03/30/19 03/30/19 03/30/19 07:26 11:55 16:40 Hgb Hct RDW Plt Count [place] % (Auto) Eos % (Auto) [place] # Seg Neutrophils % PT INR Thrombin Time Sodium Potassium Chlor[place] Carbon Dioxide BUN Creatinine Glucose POC Glucose 108 H 159 H 222 H Calcium Troponin T HDL Cholesterol TSH Urine Creatinine Urine Total Protein 03/30/19 03/31/19 03/31/19 20:52 07:25 07:25 Hgb Hct RDW Plt Count [place] % (Auto) Eos % (Auto) [place] # Seg Neutrophils % PT 24.7 H INR 2.28 H Thrombin Time Sodium Potassium Chloride Carbon Dioxide BUN 56 H Creatinine 2.4 H Glucose POC Glucose 201 H Calcium Troponin T HDL Cholesterol TSH Urine Creatinine Urine Total Protein 03/31/19 03/31/19 03/31/19 11:24 16:51 21:31 Hgb Hct RDW Plt Count [place] % (Auto) Eos % (Auto) [place] # Seg Neutrophils % PT INR Thrombin Time Sodium Potassium Chloride Carbon Dioxide BUN Creatinine Glucose POC Glucose 117 H 230 H 218 H Calcium Troponin T HDL Cholesterol TSH Urine Creatinine Urine Total Protein 04/01/19 04/01/19 04/01/19 04:43 04:43 07:36 Hgb Hct RDW Plt Count [place] % (Auto) Eos % (Auto) [place] # Seg Neutrophils % PT 21.0 H INR 1.86 H Thrombin Time Sodium Potassium Chloride Carbon Dioxide BUN 59 H Creatinine 2.6 H Glucose 170 H POC Glucose 277 H Calcium 8.1 L Troponin T HDL Cholesterol TSH Urine Creatinine Urine Total Protein 04/01/19 04/01/19 04/01/19 11:44 16:36 22:45 Hgb Hct RDW Plt Count [place] % (Auto) Eos % (Auto) [place] # Seg Neutrophils % PT INR Thrombin Time Sodium Potassium Chlor[place] Carbon Dioxide BUN Creatinine Glucose POC Glucose 116 H 234 H 260 H Calcium Troponin T HDL Cholesterol TSH Urine Creatinine Urine Total Protein 04/02/19 04/02/19 04/02/19 04:58 04:58 04:58 Hgb 9.8 L Hct 30.3 L RDW Plt Count [place] % (Auto) Eos % (Auto) [place] # Seg Neutrophils % PT 18.0 H INR 1.53 H Thrombin Time Sodium Potassium Chloride Carbon Dioxide 32 H BUN 61 H Creatinine 2.4 H Glucose 102 H POC Glucose Calcium 8.1 L Troponin T HDL Cholesterol TSH Urine Creatinine Urine Total Protein 04/02/19 04/02/19 04/02/19 11:35 12:43 17:06 Hgb Hct RDW Plt Count [place] % (Auto) Eos % (Auto) [place] # Seg Neutrophils % PT INR Thrombin Time Sodium Potassium [place] Carbon Dioxide BUN Creatinine Glucose POC Glucose 220 H 232 H Calcium Troponin T HDL Cholesterol TSH 5.060 H Urine Creatinine Urine Total Protein 04/02/19 04/03/19 04/03/19 21:42 03:58 07:26 Hgb Hct RDW Plt Count [place] % (Auto) Eos % (Auto) [place] # Seg Neutrophils % PT 19.9 H INR 1.73 H Thrombin Time Sodium Potassium Chloride Carbon Dioxide BUN Creatinine Glucose POC Glucose 264 H 182 H Calcium Troponin T HDL Cholesterol TSH Urine Creatinine Urine Total Protein 04/03/19 04/03/19 04/03/19 11:24 16:39 21:17 Hgb Hct RDW Plt Count [place] % (Auto) Eos % (Auto) [place] # Seg Neutrophils % PT INR Thrombin Time Sodium Potassium Ch[place] Carbon Dioxide BUN Creatinine Glucose POC Glucose 175 H 210 H 272 H Calcium Troponin T HDL Cholesterol TSH Urine Creatinine Urine Total Protein 04/04/19 04/04/19 04/04/19 04:44 07:58 11:43 Hgb Hct RDW Plt Count [place] % (Auto) Eos % (Auto) [place] # Seg Neutrophils % PT 24.7 H INR 2.28 H Thrombin Time Sodium Potassium Chloride Carbon Dioxide BUN Creatinine Glucose POC Glucose 175 H 175 H Calcium Troponin T HDL Cholesterol TSH Urine Creatinine Urine Total Protein 04/04/19 04/04/19 04/05/19 16:38 21:34 03:34 Hgb Hct RDW Plt Count [place] % (Auto) Eos % (Auto) [place] # Seg Neutrophils % PT 27.6 H INR 2.63 H Thrombin Time Sodium Potassium Chloride Carbon Dioxide BUN Creatinine Glucose POC Glucose 228 H 255 H Calcium Troponin T HDL Cholesterol TSH Urine Creatinine Urine Total Protein 04/05/19 04/05/19 04/05/19 11:38 16:51 21:48 Hgb Hct RDW Plt Count [place] % (Auto) Eos % (Auto) [place] # Seg Neutrophils % PT INR Thrombin Time Sodium Potassium Chloride Carbon Dioxide BUN Creatinine Glucose POC Glucose 210 H 256 H 254 H Calcium Troponin T HDL Cholesterol TSH Urine Creatinine Urine Total Protein 04/06/19 04/06/19 04/06/19 03:30 03:30 07:25 Hgb Hct RDW Plt Count [place] % (Auto) Eos % (Auto) [place] # Seg Neutrophils % PT 29.0 H INR 2.80 H Thrombin Time Sodium Potassium Chloride 96.5 L Carbon Dioxide 35 H BUN 41 H Creatinine 2.1 H Glucose 133 H POC Glucose 107 H Calcium 7.7 L Troponin T HDL Cholesterol TSH Urine Creatinine Urine Total Protein 04/06/19 11:42 Hgb Hct RDW Plt Count [place] % (Auto) Eos % (Auto) [place] # Seg Neutrophils % PT INR Thrombin Time Sodium Potassium Chloride Carbon Dioxide BUN Creatinine Glucose POC Glucose 259 H Calcium Troponin T HDL Cholesterol TSH Urine Creatinine Urine Total Protein
[2019-04-06 14:02] VITALS: BP 162/52
--- NOTE | 2019-04-06 16:48 | Discharge Summary ---
Providers - Providers Date of Admission: 03/10/19 16:25 Date of discharge: 04/06/19 Attending physician: GABRIEL LEBLANC 03/10/19 Consult to Physician [CONS] Routine Comment: Consulting Provider: ADAMARIS REGALADO Physician Instructions: Reason For Exam: cva 03/10/19 16:25 Occupational Therapy Evaluate and Treat [CONS] Routine Comment: Reason For Exam: Neuro deficits Physical Therapy Evaluation and Treat [CONS] Routine Comment: Reason For Exam: Neuro deficits 03/11/19 13:05 Speech Therapy Evaluation and Treat [CONS] Stat Reason For Exam: lethargic and no previous swallow screen performed 03/12/19 08:39 Consult to Physician [CONS] Routine Comment: Consulting Provider: NORIS PEDRO Physician Instructions: Reason For Exam: r/o meningitis 03/12/19 10:36 Physical Therapy Evaluation and Treat [CONS] Routine Comment: Reason For Exam: generalized weakness 03/13/19 08:52 Consult to Dietitian/Nutrition [CONS] Routine Physician Instructions: Reason For Exam: Reason for Consult: Write/Manage Tube Feeding 03/14/19 07:13 Consult to Physician [CONS] Routine Comment: Consulting Provider: RACHEL REYNOLDS Physician Instructions: Reason For Exam: recurrent dubhuff dislodgement 03/16/19 13:04 Speech Therapy Evaluation and Treat [CONS] Routine Reason For Exam: eval for regular diet 03/17/19 16:02 Consult to Case Management [CONS] Routine Services Needed at Discharge: Other Notified:: case technician Comment:: Outpatient antibiotics Additional Physician Instructions: [facility] O: [phone] f: [phone] OUTPATIENT PARENTERAL ANTIBIOITC THERAPY ORDERS Diagnosis: Bacterial meningitis Ampicillin 1g q6h ceftriaxone 2g q12h Stop date: 03/21/19. Please remove midline after last dose. Line: Midline Follow up at ID clinic: none required Follow up labs: none required. Dr. Bullard 03/17/19 16:07 Midline [Consult to PICC Line RN] [CONS] Routine Reason For Exam: Outpatient antibiotics. Type Line:: Midline 03/23/19 23:11 Consult to Physician [CONS] Routine Comment: Consulting Provider: HUMZA GONZALEZ Physician Instructions: Reason For Exam: ckd/lui 04/01/19 16:32 Consult to Physician [CONS] Routine Comment: Consulting Provider: MADDIE HUBBARD Physician Instructions: Reason For Exam: Bradycardia Primary care physician: JAYSON SIDDIQUI Hospitalization Reason for admission: Confuson,inability to walk and arm and leg weakness Condition: Stable Pertinent studies: CT head Carotid doppler ECHO lower ext venous doppler Hospital course: 84 YO Male with HTN, DM, Dementia was admitted through with h/o confusion,inabilty to talk and arm and leg weakness, patient was in his usual state of health until 3 days ago. Pt awoke from sleep on saturday morning was was noticed to be confused, reaching to objects that were not there, and unable to speak. Pt symptoms have progressed over the ensuing days, EMS noted that patient was found to have neurologic deficit. A code stroke was called evaluated in ED and teleneurologist ,not a candidate for TPA. Pt admitted to telemetry and initiated on CVA protocol. Started on aspirin/statin,evaluated by neurologist,medications optimised.symptoms completely resolved. Patient's neurosymptoms are due to Uremia,sepsis,electrolyte abnormalities and acute CVA ruled out. Patient had episodes od bradycardia and uncontrolled ,cardiology evaluated and medications adjusted. Today patient feels better,no new complaints,vital signs stable. Physical exam prior to discharge is unremarkable. Discharge Diagnosis: --CVA like symptoms:CVA ruled out Neurosymptoms due to metabolc encephalopathy --Toxic metabolic encephalopathy Secondary to sepsis ,Continue supportive care Continue antibiotics IV fluids. --Sepsis; secondary to UTI Continue sepsis protocol. Patient with Escherichia coli bacteremia. Continue Rocephin, DC on oral antibiotics and stable. ID following --Escherichia coli bacteremia Continue Rocephin --LUI (acute kidney injury) on CKD III/vasomotor nephropathy Prerenal azotemia, secondary to hypotension.continue to avoid nephrotoxic agents. Closely monitor renal function, Nephrology following --UTI (urinary tract infection)/pyelonephritis IV antibiotic therapy, CBC, follow-up urine culture. CT scan of the abdomen and pelvis revealed bilateral perinephric stranding (R>L) with considerations for pyelonephritis versus acute interstitial nephritis. --Hypomagnesemia Replete as needed. Monitor electrolytes --2Diabetes ADA diet, insulin, accu check, hypoglycemia protocol, SSRI --CHF (congestive heart failure) Compensated. Strict I/O, daily weight, monitor uop q shift, daily weight, bnp, chest x ray. --CKD III Chronic kidney disease presumed secondary to diabetic nephropathy/hypertensive nephrosclerosis. --DVT prophylaxis SCD to BLE while in bed Stable at discharge Disposition: [id number]/[place]-06 [facility] Time spent for discharge: 32 min Core Measure Documentation - Palliative Care Palliative Care/ Comfort Measures: Not Applicable - Core Measures Any of the following diagnoses?: none Exam - Constitutional Vitals: Temp Pulse Resp BP Pulse Ox 98.6 F 59 L 18 162/52 93 04/06/19 13:22 04/06/19 13:22 04/06/19 13:22 04/06/19 13:22 04/06/19 13:22 General appearance: Present: no acute distress, well-nourished - EENT Eyes: Present: PERRL, EOM intact - Neck Neck: Present: supple, normal ROM - Respiratory Respiratory effort: normal Respiratory: bilateral: diminished, negative: rales, rhonchi, wheezing - Cardiovascular Rhythm: regular Heart Sounds: Present: S1 & S2 - Extremities Extremities: no ischemia, No edema - Abdominal General gastrointestinal: Present: soft, non-tender, non-distended, normal bowel sounds - Integumentary Integumentary: Present: clear, warm - Musculoskeletal Musculoskeletal: strength equal bilaterally - Psychiatric Psychiatric: appropriate mood/affect, cooperative - Neurologic Neurologic: CNII-XII intact, moves all extremities Plan Activity: advance as tolerated, fall precautions Diet: diabetic Special Instructions: physical therapy Additional Instructions: Next Check INR at [facility] office on 04/07/2019. Target INR 2-3. Fall precautions. Frequent INR checks at [facility] office Follow up with: JAYSON SIDDIQUI MD [Primary Care Provider] - 7 Days HUMZA GONZALEZ MD [Staff Physician] - 7 Days SONSANCHO OHOPER MD [Staff Physician] - 7 Days Forms: Warfarin Discharge Instruction Prescriptions: hydrALAZINE [Apresoline TAB] 100 mg PO Q8HR #90 tab Aspirin [Aspirin BABY CHEW TAB] 81 mg PO QDAY #30 tab.chew Carvedilol [Coreg] 12.5 mg PO BID #60 tablet Warfarin [Coumadin] 3 mg PO DAILY@1700 #30 tablet Potassium Chloride [K-Dur] 10 meq PO QDAY #30 tablet Insulin Glargine [Lantus VIAL] 10 units SUB-Q QHS #1 units Furosemide [Lasix TAB] 40 mg PO 0600,1800 #60 tablet AtorvaSTATin [Lipitor] 40 mg PO QHS #30 tablet Minoxidil [Loniten] 10 mg PO QDAY #30 tablet amLODIPine [Norvasc] 10 mg PO QDAY #30 tablet Levothyroxine [Synthroid] 25 mcg PO DAILY@0600 #30 tablet Other Discharge Orders: Physicial Therapy (Amb) Location: None Selected
[2019-04-06] MEDS ORDERED: WARFARIN 1 MG TAB PO SCH (17:00)
== END 2019-04-06 17:25 | disposition home health service (06) | DRG 871 ==
LOC: ED 11:48 → 4A 16:25 → 2B-ACE 03-22 10:58
PROVIDERS: ADMIT Internal Medicine; ATTEND Internal Medicine
DX: A41.51 Sepsis due to Escherichia coli [E. coli] (principal); N17.0 Acute kidney failure with tubular necrosis; J96.01 Acute respiratory failure with hypoxia; I50.33 Acute on chronic diastolic (congestive) heart failure; G92 Toxic encephalopathy; D68.9 Coagulation defect, unspecified; I13.0 Hypertensive heart and chronic kidney disease with heart failure and stage 1 through stage 4 chronic kidney disease, or unspecified chronic kidney disease; I16.1 Hypertensive emergency; I47.1 Supraventricular tachycardia; N12 Tubulo-interstitial nephritis, not specified as acute or chronic; E11.65 Type 2 diabetes mellitus with hyperglycemia; E87.5 Hyperkalemia; E83.42 Hypomagnesemia; R00.1 Bradycardia, unspecified; I45.10 Unspecified right bundle-branch block; E11.22 Type 2 diabetes mellitus with diabetic chronic kidney disease; E86.0 Dehydration; N18.3 Chronic kidney disease, stage 3 (moderate); E11.21 Type 2 diabetes mellitus with diabetic nephropathy; I44.0 Atrioventricular block, first degree; F03.90 Unspecified dementia, unspecified severity, without behavioral disturbance, psychotic disturbance, mood disturbance, and anxiety; Z82.49 Family history of ischemic heart disease and other diseases of the circulatory system; Z83.3 Family history of diabetes mellitus; Z86.718 Personal history of other venous thrombosis and embolism; Z79.01 Long term (current) use of anticoagulants; Z79.84 Long term (current) use of oral hypoglycemic drugs
CPT/HCPCS: 36415; 70450; 71045; 74018; 74176; 76770; 80048; 80061; 81001; 82570; 82962; 83735; 84100; 84156; 84300; 84439; 84443; 84484; 85014; 85018; 85025; 85610; 85670; 85730; 86038; 86160; 86706; 86803; 87086; 93005; 93010; 93306; 93880; 94760; 96365; 96372; G0378; A9270-GY; J0290; J0360; J0461; J0610; J0696; J1630; J1815; J1940; J2060; J7030; J7050